=== PATIENT | female | born 1960 | race African-American/Black ===

== ENCOUNTER 2020-01-27 14:00 | Outpatient (RCR) | payer MEDICARE, MEDICAID, SELFPAY ==
--- NOTE | 2019-12-24 17:26 | MHC.PT.EP ---
[facility] [place] Office [place] Office [place] Office [address] Candido Vail [address] [phone] F: [phone] F: [phone] F: [phone] F: [phone] Physical Therapy Plan of Care Date of Evaluation: 12/24/19 Date of Surgery: N/A Diagnosis: I69.30 history of CVA with residual deficit Assessment: pt presents to physical therapy with pain, decreased range of motion, decreased strength, impaired functional mobility, impaired postural awareness, and gait deviations. pt is a fair candidate for skilled PT due to age, potential remediation of impairments, typical disease/condition progression and prognosis, comorbidities, and motivation. pt would benefit from tailored strengthening and stretching exercise program, functional training, gait training, postural re-training, neuromuscular re-education, modalities as needed for pain, and equipment safety demonstration. Frequency and Duration: The patient will be seen 2x/wk for 4 wks Short Term Goals: pt will be min A w/ her HEP to promote self-management of condition. pt will improve L knee extension to 0 deg to facilitate normalized gait pattern on even ground w/ LRAD. Arch Support Technician Goals: pt will participate in 6MWT to determine cardiovascular endurance and safe ambulation distance. pt will participate in 5xSTS to determine fall risk and cardiovascular endurance. Treatment Plan: Modalities to reduce pain, spasms and effusion. Manual therapy to restore motion and function. Therapeutic exercise to improve strength and flexibility. Neuromuscular re-education for posture and balance. Therapeutic activities to return to functional activities of daily living. Please sign and return to therapist. Thank you for your referral.
--- NOTE | 2020-02-05 09:40 | MHC.PT.DC ---
[facility] [place] Office [place] Office [place] Office [address] Candido Vail [address] [phone] F: [phone] F: [phone] F: [phone] F: [phone] Physical Therapy Discharge Report Diagnosis: I69.30 history of CVA with residual deficit Date of Surgery: N/A Date of Evaluation: 12/24/19 Date of Discharge: 02/05/20 Treatments to Date: 8 Cancellations to Date: 3 No Shows to Date: 1 Discharge Status: Improved Function Independent with HEP Discharge Summary: The patient has been reporting less knee pain and overall increased flexibility of the affected lower extremity. She continues to require cueing for performance of her exercises but she has improved since the beginning of this plan of care. She is independent with exercises we have prioritized to improve her function as well as strength and range of motion. She is discharged from this physical therapy plan of care. Electronically signed by: Julianne Ureña PT, DPT Please sign and return to therapist. Thank you for your referral.
== END 2020-02-05 09:41 | disposition other institution (70) ==
LOC: HO.PT 14:00
PROVIDERS: PCP Internal Medicine; Visit Provider Internal Medicine
DX: I69.30 Unspecified sequelae of cerebral infarction (principal)
CPT/HCPCS: 97110; 97162; 97530

== ENCOUNTER → 2020-05-24 09:30 | Outpatient (BNVA) | payer MEDICARE, MEDICAID, SELFPAY | PROVIDERS: PCP Internal Medicine; Referring Provider Internal Medicine; Visit Provider Urology | DX: Z13.89 Encounter for screening for other disorder (principal) | CPT/HCPCS: Q3014 ==

== ENCOUNTER 2020-06-24 13:03 | Outpatient (REF) | payer MEDICARE, MEDICAID, SELFPAY ==
--- NOTE | ~2020-06-24 | XR_ITS ---
EXAMINATION: XR CHEST CLINICAL INFORMATION: Cough COMPARISON: None TECHNIQUE: 2 views of the chest were obtained. FINDINGS: The cardiac and mediastinal contours are normal. The lungs are clear. There is no pleural effusion or pneumothorax. Bony structures are unremarkable. XR/XR chest 2V IMPRESSION: Unremarkable examination.
[2020-06-24 14:02] LABS: MANUAL DIFF FLAG NO
[2020-06-24 14:17] LABS: Basophils Percent Auto 0.4 % (0-2); Eosinophils Absolute Auto 0.2 X10*3/uL (0.0-0.4); Eosinophils Percent Auto 2.8 % (0-4); Hematocrit 42.6 % (37-47); Hemoglobin 13.4 g/dl (12.0-16.0); Imm Gran Abs Auto 0.02 X10*3/uL (0.00-0.03); Imm Gran Pct Auto 0.2 % (0.0-0.4); Lymphocytes Absolute Auto 2.5 X10*3/uL (1.2-4.9); Mean Corpuscular HGB Conc 31.5 g/dl (31.0-35.0); Mean Corpuscular Hemoglobin 27.6 pg (27.0-33.0); Mean Corpuscular Volume 87.8 fL (80-98); Mean Platelet Volume 10.6 fL (9.4-12.3); Monocytes Absolute Auto 0.6 X10*3/uL (0.1-1.2); Monocytes Percent Auto 6.8 % (2-11); Neutrophils Absolute Auto 5.1 X10*3/uL (2.0-8.3); Neutrophils Percent Auto 60.8 % (45-73); Platelet Count 314 X10*3/uL (160-400); Red Blood Count 4.85 X10*6/uL (4.20-5.50); Red Cell Distribution Width 13.3 % (11.0-16.0); White Blood Count 8.4 X10*3/uL (4.8-10.8)
[2020-06-24 14:42] LABS: Alanine Aminotransferase 20 U/L (0-31); Albumin Level 4.3 g/dL (3.5-5.0); Alkaline Phosphatase 64 U/L (39-117); Anion Gap 14 (12-20); Aspartate Amino Transferase 18 U/L (5-31); Bilirubin Total 0.6 mg/dL (0.0-1.0); Blood Urea Nitrogen 14 mg/dL (9-16); Calcium 10.5 mg/dL (8.4-10.2); Carbon Dioxide 23 mmol/L (22-29); Chloride 109 mmol/L (96-108); Cholesterol 122 mg/dL; Estimated Glomerular Filt Rate > 60; Glucose Random 99 mg/dL (60-115); HDL Cholesterol 46 mg/dL; LDL Cholesterol Calculated 63 mg/dl; Potassium 4.5 mmol/L (3.3-5.1); Sodium 141 mmol/L (135-145); Total Protein 8.3 g/dL (6.5-8.0); Triglycerides 65 mg/dL
[2020-06-24 14:46] LABS: Free T4 (Free Thyroxine) 1.07 ng/dL (0.71-1.85); Thyroid Stimulating Hormone 0.71 uIU/mL (0.32-4.0)
[2020-06-24 14:57] LABS: Folate 8.7 ng/mL (> or = 4.0); Vitamin B12 295 pg/mL (200-900)
== END 2020-06-24 13:04 | disposition home or self-care (01) ==
LOC: HO.LAB 13:03
PROVIDERS: PCP Internal Medicine; Visit Provider Internal Medicine
DX: I69.30 Unspecified sequelae of cerebral infarction (principal); R05 Cough; E78.00 Pure hypercholesterolemia, unspecified
CPT/HCPCS: 36415; 71046; 80053; 80061; 82306; 82607; 82746; 84439; 84443; 85025

== ENCOUNTER 2020-07-04 09:17 | Day surgery (SDC) | payer MEDICARE, MEDICAID, SELFPAY ==
[2020-06-22 10:11] VITALS: BMI 36.0
--- NOTE | 2020-06-23 12:41 | P.CONAN_ITS ---
Documented by User: Shraddha Menard 06/27/20 13:48 HPI - Anesthesia Eval Consult details Narrative: 60yo F for Cystoscopy Botox Injection Plavix for h/o CVA Per 05/2020 PCP note, pt with cough x 2 months (probably allergies). Lab and CXR pending. Done 06/24/20 - unremarkable exam PMFSH Active Problems Active Problems: All Active Problems (Updated 06/22/20 @ 10:11 by Abby Kenyon) Urinary urgency (Acute) Hypertension (Acute) Breast cancer screening by mammogram (Acute) Tubular adenoma of colon (Acute) Cough (Acute) History of CVA with residual deficit (Acute) Allergic rhinitis (Acute) Past Medical History Medical History (Updated 06/22/20 @ 10:11 by Abby Kenyon) ADHD (attention deficit hyperactivity disorder) Allergic rhinitis Anxiety Hemiparesis History of asthma History of CVA with residual deficit Hypercalcemia Hyperparathyroidism PONV (postoperative nausea and vomiting) Sleep apnea in adult Family History Family History Father HTN (hypertension) Mother HTN (hypertension) Surgical History Surgical History (Updated 06/22/20 @ 10:09 by Abby Kenyon) Hx of arthroscopy of left knee Hx of breast surgery Hx of section Hx of colonoscopy Hx of hysterectomy Hx of tonsillectomy Social History Social History (Updated 06/22/20 @ 09:26 by Abby Kenyon) Alcohol intake: never Smoking Status: Former smoker Smoking Quit Date: 2016 Use of substances other than those prescribed or required for medical reasons: No Are you DNR?: No Advance Directives: No Advance Directives Information Provided: No Advance Directives on File: No Meds Allergies Allergy/AdvReac Type Severity Reaction Status Date / Time hydrocodone [HYDROCODONE] Allergy Severe RASH Verified 07/04/20 11:08 perfume Allergy Intermediate Shortness Verified 06/22/20 09:43 of Breath Seasonal Allergies Allergy Intermediate Watery Verified 06/22/20 09:43 Eye, sneezing Home Medications Medication Instructions Recorded Confirmed Last Taken Type cholecalciferol (vitamin D3) 50 50 mcg PO DAILY 05/24/20 06/22/20 Unknown History mcg (2,000 unit) capsule mirabegron 50 mg tablet,extended 50 mg PO BID 05/24/20 06/22/20 Unknown History release 24 hr venlafaxine 75 mg capsule,extended 75 mg PO DAILY 05/24/20 06/22/20 Unknown History release 24 hr aspirin [Aspir-81] 81 mg PO DAILY 06/22/20 06/22/20 Unknown History Exam Exam Date and Time: June 23, 2020 1241 Height,Weight and Vital Signs: Height 5 ft 4 in Weight 95.254 kg Narrative Narrative: XR chest 2V 06/24/20 IMPRESSION: Unremarkable examination. Assessment and Plan Assessment Anesthesia Assessment: Chart Reviewed Documented by User: Julianne Clark 07/04/20 12:10 PMFSH Past Medical History Medical History (Updated 06/22/20 @ 10:11 by Abby Kenyon) ADHD (attention deficit hyperactivity disorder) Allergic rhinitis Anxiety Hemiparesis History of asthma History of CVA with residual deficit Hypercalcemia Hyperparathyroidism PONV (postoperative nausea and vomiting) Sleep apnea in adult Family History Family History Father HTN (hypertension) Mother HTN (hypertension) Surgical History Surgical History (Updated 06/22/20 @ 10:09 by Abby Kenyon) Hx of arthroscopy of left knee Hx of breast surgery Hx of section Hx of colonoscopy Hx of hysterectomy Hx of tonsillectomy Social History Social History (Updated 06/22/20 @ 09:26 by Abby Kenyon) Alcohol intake: never Smoking Status: Former smoker Smoking Quit Date: 2016 Use of substances other than those prescribed or required for medical reasons: No Are you DNR?: No Advance Directives: No Advance Directives Information Provided: No Advance Directives on File: No Meds Allergies Allergy/AdvReac Type Severity Reaction Status Date / Time hydrocodone [HYDROCODONE] Allergy Severe RASH Verified 07/04/20 11:08 perfume Allergy Intermediate Shortness Verified 06/22/20 09:43 of Breath Seasonal Allergies Allergy Intermediate Watery Verified 06/22/20 09:43 Eye, sneezing Home Medications Medication Instructions Recorded Confirmed Last Taken Type cholecalciferol (vitamin D3) 50 50 mcg PO DAILY 05/24/20 06/22/20 Unknown History mcg (2,000 unit) capsule mirabegron 50 mg tablet,extended 50 mg PO BID 05/24/20 06/22/20 Unknown History release 24 hr venlafaxine 75 mg capsule,extended 75 mg PO DAILY 05/24/20 06/22/20 Unknown History release 24 hr aspirin [Aspir-81] 81 mg PO DAILY 06/22/20 06/22/20 Unknown History Exam Airway Mallampati Class: II (Missing multiple teeth) TM Dist: >3cm Neck ROM: Full Heart: RrRR Lungs: CTA Assessment and Plan Assessment Anesthesia Assessment: Anesthesia Plan Discussed and Chart Reviewed Final Anesthetic Review NPO: Yes ASA Class: II Final Preanesthetic Review: No Changes in Pt Med Stat and Consent Obt ained/Reviewed Patient Risk: Intermediate Procedure Risk: Intermediate Anesthetic Plan Anesthetic Plan: MAC: Disposition: Standard PACU
[2020-07-04 10:56] VITALS: BP 176/102; PULSE 65; RESP 16; TEMP 36.2; O2SAT 95
[2020-07-04] MEDS: Lactated Ringers 1,000 ML 100 ML IVCONT (11:10)
[2020-07-04] MEDS: levoFLOXacin 500 MG TABLET PO (11:13)
--- NOTE | 2020-07-04 11:35 | MHC.SHP ---
Pre-Procedural Eval Section A The patient is an INPATIENT: No Changes since office visit: No Cold of Flu in the past 2 weeks, No New Medical Problems, No Changes in Medication and No Patient answered all questions The History & Physical has been completed within 30 days and I have reviewed it.: Yes Section B Chief Complaint: urgency of urination Allergies: Allergies Allergy/AdvReac Type Severity Reaction Status Date / Time hydrocodone [HYDROCODONE] Allergy Severe RASH Verified 07/04/20 11:08 perfume Allergy Intermediate Shortness Verified 06/22/20 09:43 of Breath Seasonal Allergies Allergy Intermediate Watery Verified 06/22/20 09:43 Eye, sneezing Plan Diagnosis/Plan: Unchanged (cysto bladder botox) I have reviewed the history and physical and performed a pertinent physical examination on my patient. No changes have occurred unless specified.
[2020-07-04 12:51] VITALS: BP 105/60; PULSE 73; RESP 16; TEMP 36.2; O2SAT 95
--- NOTE | 2020-07-04 12:56 | W.PM.OPN ---
Operative Note Operative Note Date of Service: 07/04/20 Narrative: PreOperative Diagnosis: Overactive bladder Post Operative Diagnosis: Overactive bladder Procedure: Cystoscopy, Botox Surgeon: Dr Dave Jones Anesthesia: Sedation Indications for procedure: Has failed oral medications, multiple different classes. Still with urgency frequency and nocturia. Recommendation for Botox. Aware there is a risk of urinary retention and catheterization Procedure: After informed consent was verified the patient was brought to the operating room and placed in a supine position. Anesthesia was administered per protocol. The patient was placed in a modified dorsal lithotomy position and prepped and draped in a sterile fashion. Twenty-two [place] cystoscope was inserted per urethra. No abnormalities noted of her bladder and ureteric orifices seen in normal position. Twenty injections were main the back wall of bladder each a 0.5 cc. This was done from 10 cc of normal saline that contained 100 units of Botox. Procedure was tolerated well. Bladder was emptied. Lidocaine jelly was placed in the bladder for postprocedure discomfort. Patient was transferred in stable condition to the recovery area Pathology: Drains:
[2020-07-04] MEDS: Phenazopyridine HCL 100 MG TABLET PO (13:10)
[2020-07-04 13:11] VITALS: BP 143/86; PULSE 72; RESP 18
[2020-07-04 13:18] VITALS: BP 144/87; PULSE 69; RESP 16; O2SAT 96
== END 2020-07-04 14:47 | disposition home or self-care (01) ==
PROVIDERS: PCP Internal Medicine; Visit Provider Urology
PROC: 3E0K8GC Introduction of Other Therapeutic Substance into Genitourinary Tract, Via Natural or Artificial Opening Endoscopic (ICD-10-PCS; CPT 52287; principal; 2020-07-04 11:10)
DX: N32.81 Overactive bladder (principal); R35.1 Nocturia; R39.15 Urgency of urination; R35.0 Frequency of micturition; I69.954 Hemiplegia and hemiparesis following unspecified cerebrovascular disease affecting left non-dominant side; Z87.891 Personal history of nicotine dependence; Z88.8 Allergy status to other drugs, medicaments and biological substances; Z79.82 Long term (current) use of aspirin; Z79.899 Other long term (current) drug therapy
CPT/HCPCS: 52287; J0585

== ENCOUNTER → 2020-07-21 09:21 | Outpatient (BNVA) | payer MEDICARE, MEDICAID, SELFPAY | PROVIDERS: PCP Internal Medicine; Visit Provider Urology | DX: I69.30 Unspecified sequelae of cerebral infarction (principal); N32.81 Overactive bladder; R39.15 Urgency of urination | CPT/HCPCS: 51798; 99212 ==

== ENCOUNTER 2020-07-29 10:11 | Outpatient (REF) | payer MEDICARE, MEDICAID, SELFPAY ==
--- NOTE | ~2020-07-29 | MM_ITS ---
EXAMINATION: MM SCREENING DIGITAL BREAST TOMOSYNTHESIS, BILATERAL CLINICAL INFORMATION: Screening. Asymptomatic. Reduction mammoplasty 2006. The lifetime risk of breast cancer based on the Tyrer-Cuzick Model is 4%. COMPARISON: Mammography: 04/07/2019, 04/01/2018, 11/28/2015 TECHNIQUE: Digital breast tomosynthesis is performed in both the craniocaudal and mediolateral oblique views along with computer-aided detection (CAD). Synthesized 2D images are generated from the tomosynthesis. FINDINGS: There are scattered areas of fibroglandular density (ACR BI-RADS breast composition Category b). Parenchymal pattern is similar to prior exams. There is old bilateral scarring, mid left dystrophic calcifications, and 2 small incidental oil cysts right breast consistent with the prior reduction mammoplasty. The parenchymal distribution and fibroglandular densities are stable. There is no developing density or interval mass or architectural abnormality. No abnormal calcifications. No significant changes. MM/MM tomosynthesis screening BI IMPRESSION: No mammographic evidence of malignancy. Chronic post reduction changes. No significant change from prior exams. ASSESSMENT: BI-RADS 2: Benign RECOMMENDATION: Routine annual mammography screening. This patient's information was entered into a reminder system with a target due date for their next mammogram.
== END 2020-07-29 10:12 | disposition home or self-care (01) ==
LOC: HO.MAMMO 10:11
PROVIDERS: Visit Provider Internal Medicine
DX: Z12.31 Encounter for screening mammogram for malignant neoplasm of breast (principal)
CPT/HCPCS: 77063; 77067

== ENCOUNTER 2020-08-19 16:28 | Outpatient (REF) | payer MEDICARE, MEDICAID, SELFPAY ==
--- NOTE | ~2020-08-19 | US_ITS ---
EXAMINATION: US VENOUS ULTRASOUND WITH DOPPLER LOWER EXTREMITY, LEFT CLINICAL INFORMATION: Left lower extremity edema COMPARISON: None TECHNIQUE: Ultrasound of the deep veins is performed from the hip to the calf with compression sonography and color and pulse Doppler assessment. Spectral analysis with color-flow imaging is performed. FINDINGS: There is normal venous compression and respiratory variation and augmented flow. The visualized common femoral vein, superficial femoral vein, profunda femoral vein, popliteal vein, and the trifurcation region shows no evidence of deep venous thrombosis. There is no significant popliteal fossa cyst. If the patient's symptoms persist, followup ultrasound in 5 days 7 days might be of value to exclude proximal propagation from a non-visualized calf vein. US/US venous duplex LE LT IMPRESSION: No DVT demonstrated in the left lower extremity.
== END 2020-08-19 16:29 | disposition home or self-care (01) ==
LOC: HO.US 16:28
PROVIDERS: PCP Internal Medicine; Visit Provider Nurse Practitioner Family
DX: R60.0 Localized edema (principal)
CPT/HCPCS: 93971

== ENCOUNTER → 2020-08-25 09:07 | Outpatient (BNVA) | payer MEDICARE, MEDICAID, SELFPAY | PROVIDERS: PCP Internal Medicine | DX: R39.15 Urgency of urination (principal) | CPT/HCPCS: 51798; 99212 ==

== ENCOUNTER 2020-09-23 13:00 | Outpatient (RCR) | payer MEDICARE, MEDICAID, SELFPAY ==
--- NOTE | 2020-09-09 15:35 | MHC.PT.EP ---
[facility] [place] Office [place] Office [place] Office [address] Candido Vail [address] [phone] F: [phone] F: [phone] F: [phone] F: [phone] Physical Therapy Plan of Care Date of Evaluation: Date of Surgery: N/A Diagnosis: unspecified sequelae of cerebral infarction Assessment: pt presents to skilled PT w/ apparent decline in functional mobility and subjective reports of increased knee pain and reduced tolerance for ADLs. pt presents to physical therapy with pain, decreased range of motion, decreased strength, impaired functional mobility, impaired postural awareness, and gait deviations. pt is a fair candidate for skilled PT due to age, potential remediation of impairments, typical disease/condition progression and prognosis, comorbidities, and motivation. pt would benefit from tailored strengthening and stretching exercise program, functional training, gait training, postural re-training, neuromuscular re-education, modalities as needed for pain, equipment safety demonstration. Frequency and Duration: The patient will be seen 2x/wk for 4 wks Short Term Goals: pt will improve L ankle DF to >3/5 to improve foot clearance w/ gait on even ground w/ LRAD. pt will improve L hamstring length by 15 degrees to improve knee extension w/ initial contact of L LE. Lead Bi Developer Goals: pt will report a statistically significant improvement in self-reported outcome measure, LEFI, to promote return to PLOF. pt will report <2/10 L knee pain w/ ambulation 3 x 50' to promote pain-free return to access of primary living spaces within her home. Treatment Plan: Modalities to reduce pain, spasms and effusion. Manual therapy to restore motion and function. Therapeutic exercise to improve strength and flexibility. Neuromuscular re-education for posture and balance. Therapeutic activities to return to functional activities of daily living. Electronically signed by: Julianne Ureña PT, DPT Please sign and return to therapist. Thank you for your referral.
--- NOTE | 2020-10-06 18:21 | MHC.PT.DC ---
[facility] [place] Office [place] Office [place] Office [address] Candido Vail 140 [facility] [phone] F: [phone] F: [phone] F: [phone] F: [phone] Physical Therapy Discharge Report Diagnosis: unspecified sequelae of cerebral infarction Date of Surgery: N/A Date of Evaluation: 09/09/20 Date of Discharge: 10/06/20 Treatments to Date: 3 Cancellations to Date: 2 No Shows to Date: 2 Discharge Status: Visit Non-compliance Discharge Summary: The patient has no showed two consecutive appointments. Per [facility] Core Therapy policy she is to be discharged for non-compliance. The patient has had several plans of care where she has been discharged for non-compliance as she often arrives late or does not call to cancel her appointments. Unclear if she is an appropriate candidate for future outpatient services. Electronically signed by: Julianne Ureña PT, DPT Please sign and return to therapist. Thank you for your referral.
== END 2020-10-06 18:21 | disposition home or self-care (01) ==
LOC: HO.PT 13:00
PROVIDERS: PCP Internal Medicine; Visit Provider Internal Medicine
DX: I69.30 Unspecified sequelae of cerebral infarction (principal)
CPT/HCPCS: 97112; 97140; 97162; 97530

== ENCOUNTER 2020-09-27 11:22 | Outpatient (REF) | payer MEDICARE, MEDICAID, SELFPAY ==
[2020-09-29 22:36] LABS: HPV mRNA E6/E7 rflx Not Detected (Not Detected)
== END 2020-09-27 11:23 | disposition home or self-care (01) ==
LOC: HO.LAB 11:22
PROVIDERS: PCP Internal Medicine; Visit Provider Advanced Practice Midwife
DX: Z01.419 Encounter for gynecological examination (general) (routine) without abnormal findings (principal); Z11.51 Encounter for screening for human papillomavirus (HPV)
CPT/HCPCS: 87624; 88142

== ENCOUNTER → 2020-10-27 09:16 | Outpatient (BNVA) | payer MEDICARE, MEDICAID, SELFPAY | DX: N32.81 Overactive bladder (principal) | CPT/HCPCS: 51798; 99212 ==

== ENCOUNTER → 2021-01-24 13:05 | Outpatient (BNVA) | payer MEDICARE, MEDICAID, SELFPAY | PROVIDERS: PCP Internal Medicine; Visit Provider Urology | DX: N32.81 Overactive bladder (principal); R35.0 Frequency of micturition; E83.52 Hypercalcemia; I69.359 Hemiplegia and hemiparesis following cerebral infarction affecting unspecified side; I10 Essential (primary) hypertension; Z87.891 Personal history of nicotine dependence; Z82.49 Family history of ischemic heart disease and other diseases of the circulatory system | CPT/HCPCS: 52000; 52287; J0585 ==

== ENCOUNTER → 2021-02-07 09:17 | Outpatient (BNVA) | payer MEDICARE, MEDICAID, SELFPAY | PROVIDERS: PCP Internal Medicine; Visit Provider Urology | DX: N32.81 Overactive bladder (principal) | CPT/HCPCS: 51798; 99212 ==

== ENCOUNTER → 2021-06-07 10:07 | Outpatient (BNVA) | payer MEDICARE, MEDICAID, SELFPAY | PROVIDERS: PCP Internal Medicine; Visit Provider Urology | DX: N32.81 Overactive bladder (principal) | CPT/HCPCS: 51798; 99212 ==

== ENCOUNTER 2021-07-31 11:00 | Outpatient (REF) | payer MEDICARE, MEDICAID, SELFPAY ==
--- NOTE | ~2021-07-31 | MM_ITS ---
EXAMINATION: MM SCREENING DIGITAL BREAST TOMOSYNTHESIS, BILATERAL CLINICAL INFORMATION: Screening. Asymptomatic. The lifetime risk of breast cancer based on the Tyrer-Cuzick Model is 3.8%. COMPARISON: Mammography: 07/29/2020 and studies dating back to 04/25/2010. TECHNIQUE: Digital breast tomosynthesis is performed in both the craniocaudal and mediolateral oblique views along with computer-aided detection (CAD). Synthesized 2D images are generated from the tomosynthesis. FINDINGS: There are scattered areas of fibroglandular density (ACR BI-RADS breast composition Category b). About the anterior-inferior aspect of the left breast, there is a partially circumscribed 5 mm density adjacent to a 3 mm density. These may represent turn of vessels versus new circumscribed lesions. Spot compression view and possible ultrasound is recommended. There is a stable parenchymal pattern of the right breast. Bilateral postsurgical changes from breast reduction surgery evident. MM/MM tomosynthesis screening BI IMPRESSION: Question new developing density anterior aspect of the left breast for which spot compression film and possible ultrasound is recommended. ASSESSMENT: BI-RADS 0: Incomplete - Need Additional Imaging Evaluation RECOMMENDATION: 1. Additional views of the left breast. 2. Targeted ultrasound if warranted after review of the additional views. 3. Radiology department staff will contact the patient for additional imaging. This patient's information was entered into a reminder system with a target due date for their next mammogram.
== END 2021-07-31 11:01 | disposition home or self-care (01) ==
LOC: HO.MAMMO 11:00
PROVIDERS: PCP Internal Medicine; Visit Provider Internal Medicine
DX: Z12.31 Encounter for screening mammogram for malignant neoplasm of breast (principal)
CPT/HCPCS: 77063; 77067

== ENCOUNTER 2021-09-01 14:03 | Outpatient (REF) | payer MEDICARE, SELFPAY ==
--- NOTE | ~2021-09-01 | MM_ITS ---
EXAMINATION: MM DIAGNOSTIC DIGITAL BREAST TOMOSYNTHESIS, LEFT CLINICAL INFORMATION: Recall for small nodular density retroareolar lower inner left breast. History reduction mammoplasty, 2006. COMPARISON: Mammography: 07/31/2021, 07/29/2020, 04/07/2019 TECHNIQUE: Digital breast tomosynthesis is performed. 2D images are generated from the tomosynthesis. The following views are obtained: Rolled CC x2, spot CC. Imaging performed during PACS downtime. Patient called by staff with results after IT recovery. FINDINGS: There are scattered areas of fibroglandular density (ACR BI-RADS breast composition Category b). Additional views confirm a circumscribed smooth nodule around 4 mm at the lower inner retroareolar area, just deep to the skin. There is a punctate fatty attenuation within the lesion suggesting fat necrosis. Finding not seen with certainty on prior mammography. There is minor scarring and old coarse calcifications related to the reduction mammoplasty. The nodule may be further characterized with targeted ultrasound. If patient is unable to return, then short interval six-month follow-up left mammography would be recommended. MM/MM tomosynthesis added views L IMPRESSION: New small circumscribed nodule lower inner retroareolar position with internal fatty deposit suspicious for a benign fat necrosis. ASSESSMENT: BI-RADS 3: Probably Benign RECOMMENDATION: -Suggest targeted ultrasound for further characterization. -If patient is unable to return, then short interval six-month follow-up left mammography would be recommended. This patient's information was entered into a reminder system with a target due date for their next mammogram.
== END 2021-09-01 14:04 | disposition home or self-care (01) ==
LOC: HO.MAMMO 14:03
PROVIDERS: PCP Internal Medicine; Visit Provider Internal Medicine
DX: R92.2 Inconclusive mammogram (principal)
CPT/HCPCS: 77061; 77065

== ENCOUNTER 2021-09-12 12:10 | Outpatient (REF) | payer MEDICARE, SELFPAY ==
[2021-09-12 12:39] LABS: MANUAL DIFF FLAG NO
[2021-09-12 12:44] LABS: Basophils Percent Auto 0.5 % (0-2); Eosinophils Absolute Auto 0.3 X10*3/uL (0.0-0.4); Eosinophils Percent Auto 3.6 % (0-4); Hematocrit 42.5 % (37.0-47.0); Hemoglobin 13.7 g/dl (12.0-16.0); Imm Gran Abs Auto 0.03 X10*3/uL (0.00-0.03); Imm Gran Pct Auto 0.4 % (0.0-0.4); Lymphocytes Absolute Auto 2.2 X10*3/uL (1.2-4.9); Lymphocytes Percent Auto 28.7 % (20-40); Mean Corpuscular HGB Conc 32.2 g/dl (31.0-35.0); Mean Corpuscular Hemoglobin 27.6 pg (27.0-33.0); Mean Corpuscular Volume 85.7 fL (80.0-98.0); Mean Platelet Volume 10.1 fL (9.4-12.3); Monocytes Absolute Auto 0.5 X10*3/uL (0.1-1.2); Monocytes Percent Auto 6.1 % (2-11); Neutrophils Absolute Auto 4.6 x10*3/uL (2.0-8.3); Neutrophils Percent Auto 60.7 % (45-73); Platelet Count 284 X10*3/uL (160-400); Red Blood Count 4.96 X10*6/uL (4.20-5.50); Red Cell Distribution Width 13.5 % (11.0-16.0); White Blood Count 7.5 X10*3/uL (4.8-10.8)
[2021-09-12 12:52] LABS: Estimated Average Glucose 120 mg/dL; Hemoglobin A1c % 5.8 %
[2021-09-12 13:08] LABS: Alanine Aminotransferase 34 U/L (0-31); Albumin Level 4.5 g/dL (3.5-5.0); Anion Gap 9 (12-20); Aspartate Amino Transferase 20 U/L (5-31); Bilirubin Total 0.6 mg/dL (0.0-1.0); Blood Urea Nitrogen 15 mg/dL (9-16); Calcium 10.2 mg/dL (8.4-10.2); Carbon Dioxide 25 mmol/L (22-29); Chloride 108 mmol/L (96-108); Cholesterol 134 mg/dL; Estimated Glomerular Filt Rate > 60; Glucose Random 117 mg/dL (60-115); HDL Cholesterol 49 mg/dL; LDL Cholesterol Calculated 73 mg/dl; Potassium 4.3 mmol/L (3.3-5.1); Sodium 138 mmol/L (135-145); Total Protein 8.2 g/dL (6.5-8.0); Triglycerides 63 mg/dL
[2021-09-12 13:17] LABS: Alkaline Phosphatase 67 U/L (39-117)
[2021-09-12 13:24] LABS: Free T4 (Free Thyroxine) 0.96 ng/dL (0.71-1.85); Thyroid Stimulating Hormone 0.74 uIU/mL (0.32-4.0); Vitamin D 25-OH Total 24.2 ng/mL (>30)
[2021-09-12 14:26] LABS: Folate 8.6 ng/mL (> or = 4.0); Vitamin B12 368 pg/mL (200-900)
[2021-09-12 14:37] LABS: Appearance Urine CLEAR; Color Urine YELLOW; Glucose Urine UA NEG (NEG); Leukocyte Esterase Urine NEG (NEG); Nitrite Urine NEG (NEG); PH 5.5 (5.0-8.0); Specific Gravity - Urine 1.025 (1.005-1.025); Urine Blood NEG (NEG); Urine Ketones NEG (NEG); Urine Protein NEG (NEG-TRACE)
[2021-09-12 14:47] LABS: Bacteria Urine TRACE /LPF; RBC Urine 0 /HPF (0); Squamous Epithelial Cell Urine 1+ /LPF; WBC Urine 0 /HPF (0-4)
[2021-09-13 05:25] LABS: HBS Num1 1.27 mIU/mL (0-7.99); HBc Num1 0.12 S/CO (0.00-0.79); HBsAGNum1 0.19 S/CO (0.00-0.99); Hepatitis B Core Antibody Nonreactive (Nonreactive); Hepatitis B Surface Antigen Negative (Negative); ~HepC Num1 0.08 S/CO (0.00-0.79); ~Hepatitis B Surface Antibody NONREACTIVE (Nonreactive); ~Hepatitis C Antibody Nonreactive (Nonreactive)
[2021-09-16 20:02] LABS: Acetylcholine Receptor Binding <0.30 nmol/L
[2021-09-16 22:56] LABS: Acetylcholine Recept. Blocking <15 (<15)
[2021-09-21 17:05] LABS: Acetylcholine Recep Modulating 16
== END 2021-09-12 12:11 | disposition home or self-care (01) ==
LOC: HO.LAB 12:10
PROVIDERS: Absent Provider Ophthalmology; PCP Internal Medicine; Visit Provider Internal Medicine
DX: I10 Essential (primary) hypertension (principal); I69.30 Unspecified sequelae of cerebral infarction; R79.89 Other specified abnormal findings of blood chemistry; E78.00 Pure hypercholesterolemia, unspecified; H02.403 Unspecified ptosis of bilateral eyelids; M81.0 Age-related osteoporosis without current pathological fracture
CPT/HCPCS: 36415; 80053; 80061; 81001; 82306; 82607; 82746; 83036; 83519; 84439; 84443; 85025; 86704; 86706; 86803; 87340

== ENCOUNTER 2021-09-13 15:00 | Outpatient (REF) | payer MEDICARE, SELFPAY ==
--- NOTE | ~2021-09-13 | US_ITS ---
EXAMINATION: US DIAGNOSTIC ULTRASOUND BREAST, LEFT CLINICAL INFORMATION: Density retroareolar region. COMPARISON: Mammography of September 01, 2021 and studies dating back to April 25, 2010. TECHNIQUE: Ultrasound of the breast is performed with real-time chawla scale imaging and color Doppler. FINDINGS: There is no focal suspicious finding. There is no solid mass, architectural abnormality, duct ectasia, or edema in the soft tissue planes. Results are discussed with the patient at time of visit. US/US breast LT limited IMPRESSION: No mammographic correlate to retroareolar density with central lucency left breast likely representing fat necrosis. Recommend 6 month follow-up left breast mammogram. ASSESSMENT: BI-RADS 3: Probably Benign RECOMMENDATION: Diagnostic mammography in 6 months. This patient's information was entered into a reminder system with a target due date for their next mammogram.
== END 2021-09-13 15:01 | disposition home or self-care (01) ==
LOC: HO.MAMMO 15:00
PROVIDERS: Visit Provider Internal Medicine
DX: R92.2 Inconclusive mammogram (principal)
CPT/HCPCS: 76642

== ENCOUNTER 2021-11-16 10:30 | Outpatient (REF) | payer MEDICARE, MEDICAID, SELFPAY | END 2021-11-16 10:31 | disposition home or self-care (01) | LOC: HO.SH 10:30 | PROVIDERS: Visit Provider Internal Medicine | DX: Z01.118 Encounter for examination of ears and hearing with other abnormal findings (principal); H90.3 Sensorineural hearing loss, bilateral | CPT/HCPCS: 92557; 92567 ==

== ENCOUNTER → 2021-11-29 10:58 | Outpatient (BNVA) | payer MEDICARE, MEDICAID, SELFPAY | PROVIDERS: PCP Internal Medicine; Visit Provider Urology | DX: N31.8 Other neuromuscular dysfunction of bladder (principal); N32.81 Overactive bladder; Z79.899 Other long term (current) drug therapy | CPT/HCPCS: 51798; 99212 ==

== ENCOUNTER 2021-12-12 15:09 | Outpatient (REF) | payer MEDICARE, MEDICAID, SELFPAY ==
--- NOTE | 2021-12-12 16:24 | MHC.AU.HFU ---
Hearing Instrument Follow-Up- Binaural Date of Visit: 12/12/21 Right Ear: Public Health Dentist: Phonak Audeo M50 R SN: [id number] Color: [place]alwood Repair Warranty: 01/26/2022 Loss and Damage Warranty: Used October 2021 Battery Size: Rechargeable Bricklayer Apprentice: 1M Type of Mold: Acrylic slim tip with canal lock SN: [id number] Type of Wax Guard: CeruStop Dispensed By: [facility] Date of Fitting: October 2018 Left Ear: Public Health Dentist: Phonak Audeo M50 R SN: [id number] Color: [place]alwood Repair Warranty: 01/26/2022 Loss and Damage Warranty: Used October 2021 Battery Size: Rechargeable Bricklayer Apprentice: 1M Type of Mold: Acrylic slim tip with canal lock SN: [id number] Type of Wax Guard: CeruStop Dispensed By: [facility] Date of Fitting: October 2018 Follow-Up Summary: Maya returned to picker operator her loss and damage replacement hearing aids and slim tip ear molds. Feedback central supply manager was performed and her hearing aids were reprogrammed. Reviewed care and use including charging, turning off/on, cleaning, and wax guard replacement. Maya reported today that she also lost her industrial gas fitter and power supply (not previously reported). Called [employer] customer service - per parts representative, Jackie, Leandro will send a new industrial gas fitter and power supply as a no charge courtesy (Reference #: [id number]). Maya was provided with a loaner industrial gas fitter to use in the meantime (SN: [id number]). Once aMya's new industrial gas fitter arrives, she will be contacted to picker operator her industrial gas fitter and drop off the loaner equipment. Recommendations: Patient will be contacted when materials have arrived. As her insurance has changed, Maya was informed that [place] [facility] [place] [facility] [place] [facility] Medicare Advantage plan for hearing aid services and that she will need to establish care with a new audiology provider. She was advised to call her insurance to inquire about in-network providers for future audiological needs. Diagnosis Code(s): Primary Diagnosis: H90.3 Bilateral Sensorineural Hearing Loss Signature: Provider: Jhon Cabello, [facility]
== END 2021-12-12 15:10 | disposition home or self-care (01) ==
LOC: HO.HAP 15:09
PROVIDERS: Visit Provider Internal Medicine
DX: Z13.89 Encounter for screening for other disorder (principal)

== ENCOUNTER 2021-12-19 11:51 | Outpatient (REF) | payer MEDICARE, MEDICAID, SELFPAY | END 2021-12-19 11:52 | disposition home or self-care (01) | LOC: HO.HAP 11:51 | PROVIDERS: Visit Provider Internal Medicine | DX: Z13.89 Encounter for screening for other disorder (principal) ==

== ENCOUNTER → 2022-01-04 15:03 | Outpatient (BNVA) | payer MEDICARE, MEDICAID, SELFPAY | PROVIDERS: PCP Internal Medicine; Visit Provider Urology | DX: N32.81 Overactive bladder (principal) | CPT/HCPCS: 52287; 52310; J0585 ==

== ENCOUNTER 2022-01-09 11:00 | Outpatient (RCR) | payer MEDICARE, MEDICAID, SELFPAY ==
--- NOTE | 2021-11-30 14:48 | MHC.OT.EP ---
[address] [phone] Occupational Therapy Plan of Care Date of Evaluation: 11/30/21 Diagnosis: s/p CVA with left hemiparesis Assessment: Pt. is a 61 y/o female who is known to this clinic with history of CVA in 2017. Pt. has residual left spastic hemiparesis with ataxic movement patterns that are limiting function. Pt. presents with limited shoulder AROM, increased flexor tone in elbow, hand pain, and decreased gross and fine motor coordination of the L UE. Pt. has DANCE PROFESSOR assist daily for basic ADL's and home making tasks. Maya would benefit from skilled OT services to address noted barriers and assist in reaching max functional potential. Frequency and Duration: The patient will be seen 2x/wk for 6 weeks Short Term Goals: Initiate HEP for left UE stretching Pt. will use left hand as a gross assist for ADL/IADL tasks Improve L shoulder flexion to reach counter height items when standing Improve L hand fine motor coordination AEB ability to perform FDT Signal Inspector Goals: IND with progressive strengthening HEP for L UE/hand Pt. will use left hand as a functional assist for ADL/IADL tasks Improve L shoulder ROM to reach overhead items Improve L hand FMC to be able to fasten buttons, zippers, ties independently Treatment Plan: Therapeutic Exercise Therapeutic Activity Home Exercise Program Neuro Re-ed Patient Education Desensitization/Sensory Re-ed ADL Training Fluidotherapy Joint Mobilization Soft Tissue Mobilization Kinesiotaping Electronically Signed By: Kasey Lroenz MS OTR/L Please Sign and return to therapist. Thank you once again for your referral.
== END 2022-03-15 14:20 | disposition home or self-care (01) ==
LOC: HO.OT 11:00
PROVIDERS: PCP Internal Medicine; Visit Provider Internal Medicine
DX: I69.30 Unspecified sequelae of cerebral infarction (principal)
CPT/HCPCS: 97110; 97112; 97166; 97530

== ENCOUNTER → 2022-01-24 09:09 | Outpatient (BNVA) | payer MEDICARE, MEDICAID, SELFPAY | PROVIDERS: PCP Internal Medicine; Visit Provider Urology | DX: N31.8 Other neuromuscular dysfunction of bladder (principal) | CPT/HCPCS: 51798 ==

== ENCOUNTER 2022-01-24 13:02 | Emergency (ER) | payer MEDICARE, MEDICAID, SELFPAY ==
[2022-01-24 15:55] VITALS: BP 188/106; PULSE 71; RESP 18; TEMP 37.1; O2SAT 98; BMI 32.5
--- NOTE | 2022-01-24 16:11 | ED.GENADULT ---
HPI - General Adult General Chief complaint: General Medical Stated complaint: HBP Time Seen by Provider: 01/24/22 16:05 Related Data Home Medications Medication Instructions Recorded Confirmed cholecalciferol (vitamin D3) 50 50 mcg PO DAILY 05/24/20 11/29/21 mcg (2,000 unit) capsule aspirin 81 mg tablet,delayed 81 mg PO DAILY 06/22/20 11/29/21 release Previous Rx's Medication Instructions Recorded baclofen 10 mg tablet 10 mg PO TID #90 tabs 01/09/20 fexofenadine 180 mg tablet 180 mg PO DAILY #90 tabs 12/29/20 albuterol sulfate 90 mcg/actuation 2 puff inhalation Q6H PRN 05/17/21 aerosol inhaler (ProAir HFA) shortness of breath or wheezing #8.5 grams lidocaine 5 % topical patch 1 patch topical DAILY 30 days #30 06/01/21 ea gabapentin 600 mg tablet 600 mg PO BID #60 tabs 06/27/21 methylphenidate HCl 5 mg tablet 5 mg PO BID #60 tabs 11/22/21 diclofenac sodium 1 % topical gel 4 g topical QID #100 grams 11/29/21 (Voltaren Arthritis Pain) venlafaxine 150 mg 150 mg PO BEDTIME #30 caps 11/29/21 capsule,extended release 24 hr (Effexor XR) mirabegron 50 mg tablet,extended 50 mg PO BID 90 days #180 tabs 12/21/21 release 24 hr phenazopyridine 100 mg tablet 100 mg PO Q8H PRN pain 3 days #9 12/21/21 (Pyridium) tabs sulfamethoxazole 800 1 tab PO BID 5 days #10 tabs 12/21/21 mg-trimethoprim 160 mg tablet (Bactrim DS) amlodipine 10 mg tablet 10 mg PO DAILY #90 tabs 01/23/22 clopidogrel 75 mg tablet 75 mg PO DAILY #90 tabs 01/23/22 lisinopril 40 mg tablet 40 mg PO DAILY 90 days #90 tabs 01/23/22 Allergies Allergy/AdvReac Type Severity Reaction Status Date / Time hydrocodone [HYDROCODONE] Allergy Severe RASH Verified 01/04/22 15:14 perfume Allergy Intermediate Shortness Verified 01/04/22 15:14 of Breath Seasonal Allergies Allergy Intermediate Watery Verified 01/04/22 15:14 Eye, sneezing PMFSH Past Medical History Medical History ADHD (attention deficit hyperactivity disorder) Adult general medical exam Allergic rhinitis Anxiety Breast cancer screening by mammogram Cervical cancer screening Encounter for gynecological examination Hemiparesis History of asthma History of CVA with residual deficit Hypercalcemia Hyperparathyroidism Left leg swelling Obesity (BMI 30-39.9) PONV (postoperative nausea and vomiting) Sleep apnea in adult Stroke Suspected exposure to mold Surgical History Hx of arthroscopy of left knee Hx of breast surgery Hx of section Hx of colonoscopy Hx of hysterectomy Hx of tonsillectomy S/P Botox injection Family History Family History Father HTN (hypertension) Mother HTN (hypertension) Social History Social History Housing: House Alcohol intake: never Patient Tobacco Use Status: Former Tobacco user e-Cigarette/Vaping Use: Never Used Second Hand Smoke Exposure: No Current occupational status: disabled Cognitive needs: No Hearing needs: No Vision needs: No Physical Exam ED Vital Signs: Vital Signs - 24 hr 01/24/22 15:55 Temperature 98.8 F Pulse Rate 71 Respiratory Rate 18 Blood Pressure 188/106 H Pulse Oximetry 98 Oxygen Delivery Method Room Air BMI result Body Mass Index 32.5 Discharge Plan Discharge Clinical Impression: Hypertension Qualifiers: Hypertension type: primary hypertension Qualified Code(s): I10 - Essential (primary) hypertension Patient Disposition: Home, Self-Care Instructions: Hypertension (ED) Additional Instructions: Your prescriptions are at your pharmacy. Take your medications as prescribed When she restart your medicine it sometimes takes 2-4 weeks for blood pressure to get under control. Follow-up with your doctor in 2 days. Please return to the emergency department if your symptoms get worse or if you develop any symptoms that are concerning to you. Prescriptions: No Action baclofen 10 mg tablet 10 mg PO TID Qty: 90 3RF fexofenadine 180 mg tablet 180 mg PO DAILY Qty: 90 3RF lidocaine 5 % adhesive patch,medicated 1 patch topical DAILY 30 Days Qty: 30 11RF Rx Instructions: leave on most painful area for up to 12 hrs gabapentin 600 mg tablet 600 mg PO BID Qty: 60 11RF methylphenidate HCl 5 mg tablet 5 mg PO BID Qty: 60 0RF mirabegron 50 mg tablet extended release 24 hr 50 mg PO BID 90 Days Qty: 180 1RF phenazopyridine [Pyridium] 100 mg tablet 100 mg PO Q8H PRN (Reason: pain) 3 Days Qty: 9 0RF Rx Instructions: one tab every 8 hours- start 2 days before procedure and then finish day after procedure sulfamethoxazole-trimethoprim [Bactrim DS] 800-160 mg tablet 1 tab PO BID 5 Days Qty: 10 0RF Rx Instructions: to be taken 2 days before procedure, day of procedure and 2 days after procedure clopidogrel 75 mg tablet 75 mg PO DAILY Qty: 90 2RF amlodipine 10 mg tablet 10 mg PO DAILY Qty: 90 2RF lisinopril 40 mg tablet 40 mg PO DAILY 90 Days Qty: 90 3RF aspirin 81 mg Tablet,Delayed Release (Dr/Ec) 81 mg PO DAILY albuterol sulfate [ProAir HFA] 90 mcg/actuation HFA aerosol inhaler 2 puff inhalation Q6H PRN (Reason: shortness of breath or wheezing) Qty: 8.5 0RF diclofenac sodium [Voltaren Arthritis Pain] 1 % gel 4 g topical QID Qty: 100 3RF Rx Instructions: apply to single knee, ankle, foot; for foot includes sole/toes/top of foot venlafaxine [Effexor XR] 150 mg capsule,extended release 24hr 150 mg PO BEDTIME Qty: 30 3RF cholecalciferol (vitamin D3) 50 mcg (2,000 unit) capsule 50 mcg PO DAILY
== END 2022-01-24 16:38 | disposition home or self-care (01) ==
PROVIDERS: Emergency Provider Emergency Medicine Emergency Medical Services; PCP Internal Medicine
DX: I10 Essential (primary) hypertension (principal)
CPT/HCPCS: 99282

== ENCOUNTER 2022-02-12 10:43 | Outpatient (REF) | payer MEDICARE, MEDICAID, SELFPAY ==
[2022-02-12 11:49] LABS: Appearance Urine Clear; Color Urine Yellow; Glucose Urine UA Negative (Negative); Leukocyte Esterase Urine Negative (Negative); Nitrite Urine Negative (Negative); Urine Blood Negative (Negative); Urine Ketones Negative (Negative); Urine Protein Negative (Neg-Trace)
== END 2022-02-12 10:44 | disposition home or self-care (01) ==
LOC: HO.LAB 10:43
PROVIDERS: PCP Internal Medicine; Visit Provider Urology
DX: N32.81 Overactive bladder (principal); R39.15 Urgency of urination
CPT/HCPCS: 51798; 81003

== ENCOUNTER 2022-03-21 13:26 | Outpatient (REF) | payer MEDICARE, MEDICAID, SELFPAY ==
--- NOTE | ~2022-03-21 | MM_ITS ---
EXAMINATION: MM DIAGNOSTIC DIGITAL BREAST TOMOSYNTHESIS, LEFT CLINICAL INFORMATION: Six-month followup study of the left breast nodule. Status post breast reduction surgery. The lifetime risk of breast cancer based on the Tyrer-Cuzick Model is 3.7%. COMPARISON: Mammography: Ultrasound of 09/13/2021 and mammography studies dating back to 11/28/2015. TECHNIQUE: Digital breast tomosynthesis is performed in both the craniocaudal and mediolateral oblique views along with computer-aided detection (CAD). Synthesized 2-D images are generated from the tomosynthesis. FINDINGS: There are scattered areas of fibroglandular density (ACR BI-RADS breast composition Category b). There are no new significant masses, abnormal calcifications, or other abnormalities. The density about the anterior aspect of the left breast appears smaller than on prior study. Recommend bilateral mammography in 6 months. Results are provided to the patient at time of visit by the technologist. MM/MM tomosynthesis diagnostic LT IMPRESSION: No mammographic evidence of malignancy. Left breast nodule appears smaller in size. ASSESSMENT: BI-RADS 3: Probably Benign. RECOMMENDATION: Diagnostic mammography in 6 months. This patient's information was entered into a reminder system with a target due date for their next mammogram.
== END 2022-03-21 13:27 | disposition home or self-care (01) ==
LOC: HO.MAMMO 13:26
PROVIDERS: PCP Internal Medicine; Visit Provider Internal Medicine
DX: R92.2 Inconclusive mammogram (principal)
CPT/HCPCS: 77061; 77065

== ENCOUNTER 2022-07-02 14:45 | Outpatient (REF) | payer MEDICARE, MEDICAID, SELFPAY ==
--- NOTE | ~2022-07-02 | US_ITS ---
EXAMINATION: US EXTREMITY, NONVASCULAR, LEFT LOWER CLINICAL INDICATION: Localized swelling, mass and lump left lower limb. COMPARISON: None available. TECHNIQUE: Limited imaging through the left distal thigh mass was performed. FINDINGS: There is a lobulated hypoechoic heterogeneous abnormality along the left intramuscular segment of distal thigh question mass, question of lipoma/histiocytoma/myoma, less likely hematoma. The lesion is suspicious. Recommend MRI or ultrasound-guided biopsy. US/US extremity nonvascular IMPRESSION: Infiltrative hypoechoic solid avascular intramuscular mass left distal thigh. Differential diagnoses lipoma or myoma, less likely hematoma.. Recommend MRI or ultrasound-guided biopsy
== END 2022-07-02 14:46 | disposition home or self-care (01) ==
LOC: HO.US 14:45
PROVIDERS: Visit Provider Internal Medicine
DX: R22.42 Localized swelling, mass and lump, left lower limb (principal)
CPT/HCPCS: 76882

== ENCOUNTER → 2022-07-13 11:12 | Outpatient (BNVA) | payer MEDICARE, MEDICAID, SELFPAY | PROVIDERS: PCP Internal Medicine; Visit Provider Urology | DX: N31.8 Other neuromuscular dysfunction of bladder (principal); N32.81 Overactive bladder | CPT/HCPCS: 51798; 99212 ==

== ENCOUNTER 2022-08-01 11:07 | Outpatient (REF) | payer MEDICARE, MEDICAID, SELFPAY ==
--- NOTE | ~2022-08-01 | MM_ITS ---
EXAMINATION: MM DIAGNOSTIC DIGITAL BREAST TOMOSYNTHESIS, BILATERAL CLINICAL INFORMATION: Due for yearly. Also follow-up small probable nodule suspected fat necrosis lower inner periareolar left breast. History reduction mammoplasty, 2006. The lifetime risk of breast cancer based on the Tyrer-Cuzick Model is 3%. COMPARISON: Mammography 03/21/2022, 09/01/2021, 07/31/2021 (BI-RADS 0), 04/07/2019, 04/01/2018, left breast ultrasound 09/13/2021. TECHNIQUE: Digital breast tomosynthesis is performed in both the craniocaudal and mediolateral oblique views along with computer-aided detection (CAD). Synthesized 2D images are generated from the tomosynthesis. FINDINGS: There are scattered areas of fibroglandular density (ACR BI-RADS breast composition Category b). Parenchymal pattern is similar to prior studies. There is minor scarring, scattered benign coarse calcifications, some oil cysts, and minor stable asymmetries similar to prior exams and consistent with the remote reduction mammoplasty. There is no developing density or interval architectural abnormality. The small benign-appearing nodule for follow-up anterior lower inner left breast is no longer demonstrated. The axilla and skin contours are unremarkable. Results are discussed with the patient at time of visit. MM/MM tomosynthesis diagnostic BI IMPRESSION: No mammographic evidence of malignancy. ASSESSMENT: BI-RADS 2: Benign RECOMMENDATION: Routine annual mammography screening. This patient's information was entered into a reminder system with a target due date for their next mammogram.
== END 2022-08-01 11:08 | disposition home or self-care (01) ==
LOC: HO.MAMMO 11:07
PROVIDERS: PCP Internal Medicine; Visit Provider Internal Medicine
DX: R92.2 Inconclusive mammogram (principal)
CPT/HCPCS: 77062; 77066

== ENCOUNTER 2022-08-24 12:21 | Outpatient (REF) | payer MEDICARE, MEDICAID, SELFPAY ==
[2022-08-24 12:39] LABS: MANUAL DIFF FLAG NO
[2022-08-24 13:08] LABS: Basophils Absolute Auto 0.1 X10*3/uL (0.0-0.2); Basophils Percent Auto 0.6 % (0-2); Eosinophils Absolute Auto 0.2 X10*3/uL (0.0-0.4); Eosinophils Percent Auto 2.4 % (0-4); Hematocrit 44.1 % (37.0-47.0); Hemoglobin 14.3 g/dl (12.0-16.0); Imm Gran Abs Auto 0.03 X10*3/uL (0.00-0.03); Imm Gran Pct Auto 0.3 % (0.0-0.4); Lymphocytes Absolute Auto 2.1 X10*3/uL (1.2-4.9); Lymphocytes Percent Auto 24.9 % (20-40); Mean Corpuscular HGB Conc 32.4 g/dl (31.0-35.0); Mean Corpuscular Hemoglobin 28.4 pg (27.0-33.0); Mean Corpuscular Volume 87.5 fL (80.0-98.0); Mean Platelet Volume 10.3 fL (9.4-12.3); Monocytes Absolute Auto 0.6 X10*3/uL (0.1-1.2); Monocytes Percent Auto 6.4 % (2-11); Neutrophils Absolute Auto 5.6 x10*3/uL (2.0-8.3); Neutrophils Percent Auto 65.4 % (45-73); Platelet Count 307 X10*3/uL (160-400); Red Blood Count 5.04 X10*6/uL (4.20-5.50); Red Cell Distribution Width 13.2 % (11.0-16.0); White Blood Count 8.6 X10*3/uL (4.8-10.8)
[2022-08-24 13:50] LABS: Alanine Aminotransferase 28 U/L (0-31); Albumin Level 4.5 g/dL (3.5-5.0); Alkaline Phosphatase 79 U/L (39-117); Anion Gap 14 (12-20); Aspartate Amino Transferase 20 U/L (5-31); Bilirubin Total 0.6 mg/dL (0.0-1.0); Blood Urea Nitrogen 11 mg/dL (9-16); Calcium 10.7 mg/dL (8.4-10.2); Carbon Dioxide 25 mmol/L (22-29); Chloride 107 mmol/L (96-108); Cholesterol 126 mg/dL; Estimated Glomerular Filt Rate > 60; Glucose Random 107 mg/dL (60-115); HDL Cholesterol 47 mg/dL; LDL Cholesterol Calculated 64 mg/dl; Sodium 142 mmol/L (135-145); Total Protein 8.7 g/dL (6.5-8.0); Triglycerides 76 mg/dL
[2022-08-24 14:01] LABS: Estimated Average Glucose 120 mg/dL; Hemoglobin A1c % 5.8 %
[2022-08-24 14:08] LABS: Free T4 (Free Thyroxine) 0.98 ng/dL (0.71-1.85); Thyroid Stimulating Hormone 0.63 uIU/mL (0.32-4.0)
[2022-08-24 14:23] LABS: Folate 7.9 ng/mL (> or = 4.0); Vitamin B12 428 pg/mL (200-900)
== END 2022-08-24 12:22 | disposition home or self-care (01) ==
LOC: HO.LAB 12:21
PROVIDERS: PCP Internal Medicine; Visit Provider Internal Medicine
DX: I69.30 Unspecified sequelae of cerebral infarction (principal); E78.00 Pure hypercholesterolemia, unspecified; R73.9 Hyperglycemia, unspecified; E55.9 Vitamin D deficiency, unspecified
CPT/HCPCS: 36415; 80053; 80061; 82306; 82607; 82746; 83036; 84439; 84443; 85025

== ENCOUNTER 2022-09-06 14:29 | Outpatient (REF) | payer MEDICAID, SELFPAY | END 2022-09-06 14:30 | disposition home or self-care (01) | LOC: HO.US 14:29 | PROVIDERS: PCP Internal Medicine; Visit Provider Internal Medicine | DX: Z13.89 Encounter for screening for other disorder (principal) ==

== ENCOUNTER 2022-09-13 14:10 | Outpatient (REF) | payer MEDICARE, MEDICAID, SELFPAY ==
--- NOTE | ~2022-09-13 | US_ITS ---
History: 62-year-old female with anterior inferior left thigh mass. She presents for biopsy. Procedures performed: 1. Ultrasound-guided core biopsy of left thigh mass. Reporting Specialist: Jasson Hopper M.D. Anesthesia: 6 mL 1% lidocaine Specimen: Four 18-gauge cores Drain: None Estimated blood loss: Minimal Complications: None Procedure in detail: Informed and written consent was obtained. The patient was positioned supine on the ultrasound examination table. Ultrasound confirmed a heterogeneous mass at the anterior aspect of the lower anterior left thigh. An appropriate site for access was marked on the skin. This area was prepped and draped. Under ultrasound guidance, 1% lidocaine was injected subcutaneously and extended to the edge of the mass. A small incision was made in the skin with a #11 blade. Through the incision and under continuous ultrasound guidance with permanent recordings, a 17-gauge coaxial needle was advanced into the mass. Through the coaxial needle, four 18-gauge core specimens were obtained and placed in formalin. A sterile dressing was applied. Summary: Successful ultrasound-guided core biopsy of left thigh mass.
[2022-09-13] MEDS: Lidocaine HCl 1 % MPF 5 ML VIAL SUBCUT (16:27)
== END 2022-09-13 14:11 | disposition home or self-care (01) ==
LOC: HO.US 14:10
PROVIDERS: PCP Internal Medicine; Visit Provider Internal Medicine
DX: R22.42 Localized swelling, mass and lump, left lower limb (principal)
CPT/HCPCS: 76942; 88304; 88305; 88341; 88342

== ENCOUNTER → 2022-09-13 14:13 | Outpatient (BNV) | payer MEDICARE, MEDICAID, SELFPAY | PROVIDERS: PCP Internal Medicine; Visit Provider Radiology Vascular & Interventional Radiology | DX: R22.42 Localized swelling, mass and lump, left lower limb (principal) | CPT/HCPCS: 27324; 76942 ==

== ENCOUNTER 2022-09-21 14:14 | Outpatient (REF) | payer MEDICAID, SELFPAY | END 2022-09-21 14:15 | disposition home or self-care (01) | LOC: HO.MAMMO 14:14 | PROVIDERS: PCP Internal Medicine; Visit Provider Internal Medicine | DX: Z13.89 Encounter for screening for other disorder (principal) ==

== ENCOUNTER → 2022-09-26 11:14 | Outpatient (BNV) | payer MEDICARE, MEDICAID, SELFPAY | PROVIDERS: PCP Internal Medicine; Referring Provider Internal Medicine; Visit Provider Internal Medicine | DX: R22.40 Localized swelling, mass and lump, unspecified lower limb (principal) | CPT/HCPCS: 99204 ==

== ENCOUNTER 2022-09-26 13:26 | Outpatient (AMB) | payer MEDICARE, MEDICAID, SELFPAY ==
[2022-09-26 13:30] VITALS: BP 138/76; PULSE 80; O2SAT 98; BMI 35.4
--- NOTE | 2022-09-26 13:30 | MHC.PC.OV ---
Vital Signs 09/26/22 13:30 Height 5 ft 4 in Weight 206 lb BMI 35.4 BP 138/76 Blood Pressure Location Lt brachial Position Sitting Pulse 80 Pulse Source Pulse Oximeter Pulse Oximetry (%) 98 Oxygen Delivery Method Room Air Intake Visit Reasons: Letter for housing Allergies hydrocodone [HYDROCODONE] Allergy (Severe, Verified 09/26/22 13:30) RASH perfume Allergy (Intermediate, Verified 09/26/22 13:30) Shortness of Breath Seasonal Allergies Allergy (Intermediate, Verified 09/26/22 13:30) Watery Eye, sneezing Tobacco use date assessed: 06/06/22 Dental Screening Dental Screen Date: 09/26/22 Did you have a dental visit in the last 12 months?: Yes Did you have a dental problem in the last 6 months where you did not have access to dental care?: No Was dental information given to patient?: Patient has dentist HPI Letter for housing HPI Details 62-year-old obese female with a history of CVA(10/2016 left-sided weakness) hypertension overactive bladder generalized anxiety disorder impaired glucose tolerance hyperparathyroidism and mass on the left thigh patient was last seen in August 2022. 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 P[employer]ient is wanting a letter for supplies- for pampers, bedpads, bath chairs, bedside commode, and other things PFSH Medical History ADHD (attention deficit hyperactivity disorder) Adult general medical exam Allergic rhinitis Anxiety Breast cancer screening by mammogram Cervical cancer screening Encounter for gynecological examination Hemiparesis History of asthma History of CVA with residual deficit Hypercalcemia Hyperparathyroidism Left leg swelling Obesity (BMI 30-39.9) PONV (postoperative nausea and vomiting) Sleep apnea in adult Stroke Suspected exposure to mold Surgical History Hx of arthroscopy of left knee Hx of breast surgery Hx of section Hx of colonoscopy Hx of hysterectomy Hx of tonsillectomy S/P Botox injection Family History Father HTN (hypertension) Mother HTN (hypertension) Social History (Updated 08/02/23 @ 11:30 by Naomi Mcnair) Household Members: None Housing: House Alcohol intake: current Alcohol intake frequency: does not drink Patient Tobacco Use Status: Former Tobacco user Tobacco use type: Cigarette Years Smoked: 2017 stopped 2.5 packs /20 years e-Cigarette/Vaping Use: Never Used Second Hand Smoke Exposure: No service: No Current occupational status: disabled Cognitive needs: No Hearing needs: No Vision needs: No Female Reproductive History Menstrual Age of Menarche: 15 Questionnaire PHQ-9 Over the last 2 weeks, how often have you been bothered by any of the following problems? 1. Little interest or pleasure in doing things: not at all 2. Feeling down, depressed, or hopeless: not at all 3. Trouble falling or staying asleep, or sleeping too much: not at all 4. Feeling tired or having little energy: not at all 5. Poor appetite or overeating: not at all 6. Feeling bad about yourself - or that you are a failure or have let yourself or your family down: not at all 7. Trouble concentrating on things, such as reading the newspaper or watching television: not at all 8. Moving or speaking so slowly that other people could have noticed. Or the opposite - being so fidgety or restless that you have been moving around a lot more than usual: not at all 9. Thoughts that you would be better off or of hurting yourself in some way: not at all Total score: 0 Depression Screening Interpretation: Negative Source: Developed by Drs. Leland Small, Melodie Chambers, Rudi Lewis and colleagues, with an educational zhang from [employer]. Thrive Questionnaire Date Thrive assessed: 06/06/22 AUDIT C Alcohol Use Questionnaire (AUDIT-C) 1. How often do you have a drink containing alcohol?: Never 3. How often do you have six or more drinks on one occasion?: Never Total Score: 0 Score Reviewed/Action Taken: Yes SANDY-7 AMB Questionnaire SANDY-7 Date SANDY - 7 assessed: 06/06/22 Source: Developed by Drs. Leland Small, Rudi Mooney and colleagues, with an educational zhang from [employer]. Physical exam (Primary Care) Vital Signs: Last Vital Signs Pulse 80 09/26/22 13:30 BP 138/76 09/26/22 13:30 Pulse Ox 98 09/26/22 13:30 Oxygen Delivery Method Room Air 09/26/22 13:30 BMI result Body Mass Index 35.4 Tobacco/Smoking Status: Tobacco use Status Tobacco use date assessed 06/06/22 09/26/22 13:37 Patient Tobacco Use Status Former Tobacco user 09/26/22 13:37 Tobacco use type Cigarette 09/26/22 13:37 e-Cigarette/Vaping Use Never Used 09/26/22 13:37 PHQ-9: PHQ-9 Score PHQ-9: Total score 0 09/26/22 13:37 Depression Screening Interpretation: Negative Thrive Assessment: Date of Thrive Assessment Date Thrive assessed 06/06/22 09/26/22 13:37 Const General: alert; No acute distress Eyes Conjunctivae: conjunctivae normal Resp Auscultation: clear to auscultation bilaterally Cardio Rate: regular rate Rhythm: regular rhythm GI Inspection: Yes normal to inspection Extrem General: Yes normal to inspection and No edema Assessment and Plan Assessment & Plan (1) History of CVA with residual deficit: Comment: 10/2016 left-sided weakness Code(s): I69.30 - Unspecified sequelae of cerebral infarction Plan: Continue with exercise and therapy (2) Hypertension: Code(s): I10 - Essential (primary) hypertension Qualifiers: Hypertension type: essential hypertension Qualified Code(s): I10 - Essential (primary) hypertension Plan: Continue with blood pressure medication. Decrease salt intake and exercise patient is on lisinopril 40 mg once a day amlodipine 10 mg once a day (3) Obesity (BMI 30-39.9): Code(s): E66.9 - Obesity, unspecified Plan: Diet and exercise (4) Generalized anxiety disorder: Comment: [facility]. March 2021 Code(s): F41.1 - Generalized anxiety disorder Plan: Continue with counseling and therapy (5) Mass of left thigh: Comment: June 2022 infiltrative hypoechoic solid avascular intramuscular mass left distal thigh. Differential diagnoses lipoma or myoma, less likely hematoma.. 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 Code(s): R22.42 - Localized swelling, mass and lump, left lower limb Plan: This is presently being worked up MRI requested by Hematology-Oncology Medications: New tramadol 50 mg PO DAILY 20 tabs 0RF R22.42 - Localized swelling, mass and lump, left lower limb Coding Level of Care Code Est Pt Level 4 (75506) Diagnoses History of CVA with residual deficit I69.30 Hypertension I10 Hypertension type: essential hypertension Obesity (BMI 30-39.9) E66.9 Generalized anxiety disorder F41.1 Mass of left thigh R22.42
== END 2022-09-26 14:01 | disposition home or self-care (01) ==
PROVIDERS: PCP Internal Medicine; Visit Provider Internal Medicine
DX: I10 Essential (primary) hypertension (principal); E66.9 Obesity, unspecified; Z68.30 Body mass index [BMI] 30.0-30.9, adult; F41.1 Generalized anxiety disorder; I69.30 Unspecified sequelae of cerebral infarction; R22.42 Localized swelling, mass and lump, left lower limb
CPT/HCPCS: 99214

== ENCOUNTER 2022-10-15 11:16 | Outpatient (AMB) | payer MEDICARE, MEDICAID, SELFPAY ==
--- NOTE | 2022-10-15 02:13 | A.OFFVIS_ITS ---
Intake Intake Visit Reasons: 3m follow up Intake Note: Patient presents today via telephone visit for 3mo follow-up, Pt on Myrbetriq: Meds- Myrbetriq Allergies to Antibiotic- No Known Allergies Blood Thinner- Aspirin Patient unable to void PVR- 118 ml Media Monitor Required: No Accompanied by: Self / Same As Patient Allergies hydrocodone [HYDROCODONE] Allergy (Severe, Verified 10/15/22 11:43) RASH perfume Allergy (Intermediate, Verified 10/15/22 11:43) Shortness of Breath Seasonal Allergies Allergy (Intermediate, Verified 10/15/22 11:43) Watery Eye, sneezing Medication List - Last Reconciled 10/15/22 by Torres Connell MD albuterol sulfate 90 mcg/actuation (ProAir HFA) 2 puffs inhalation Q6H PRN amlodipine 10 mg PO DAILY [Ankle/Foot Orthotics As directed] aspirin 81 mg PO DAILY baclofen 10 mg PO TID clopidogrel 75 mg PO DAILY diclofenac sodium 1% (Voltaren Arthritis Pain) 4 grams topical QID fexofenadine 180 mg PO DAILY gabapentin 600 mg PO BID lidocaine 5% 1 patch topical DAILY 30 days lisinopril 40 mg PO DAILY 90 days methylphenidate HCl 5 mg PO BID mirabegron ER 50 mg PO BID 90 days tramadol 50 mg PO DAILY venlafaxine ER (Effexor XR) 150 mg PO BEDTIME HPI HPI Comments History of Present Illness Details Maya is a 62-year-old female who presents today to the office for a 3-month follow up. 10/15/2022? She was last seen by me on 07/13/2022 for overactive bladder. Advised the patient to continue Myrbetriq twice a day, and follow up Tele-health in 3 months during that time. She has a history of stroke in 2017. Patient states that she is starting to have urinary urgency with incontinence episodes. She denies dysuria. She states that she was recently diagnosed with bone cancer and was seeing a specialist in [place]. She has an upcoming surgery and wants to delay repeat Botox treatment. She states that she will call the office for follow up. Review of chart: Last visit: 07/13/2022: The patient is s/p cystoscopy and bladder Botox 100 units on 01/04/22. history of stroke in 2017. States having improvement in OAB symtoms post the Botox treatment. The patient is taking Myrbetriq twice a day without any reported side effects. States improvement in urinary leakage after the Botox therapy. I discussed to repeat the Botox 100 units. Will schedule a tele-health visit and will monitor her urinary symptoms. Plan: Continue Myrbetriq twice a day. Tele-health follow-up in three months. 10/15/2022: Evaluation today-She was unable to give urine specimen at this time. Bladder scan: 118 mL. 10/15/2022: Plan: Continue Myrbetriq 50 mg BID daily. Patient has recently diagnosed with bone cancer and she has planned surgery. She will call to the office when she is recovered from the surgery and will repeat Botox for the bladder. [facility] Medical History ADHD (attention deficit hyperactivity disorder) Allergic rhinitis Anxiety Hemiparesis (~2017) History of asthma History of CVA with residual deficit (~2017) Hypercalcemia Hyperparathyroidism Left leg swelling Mass of left thigh Nicotine dependence, cigarettes, uncomplicated Obesity (BMI 30-39.9) Sleep apnea in adult Suspected exposure to mold Surgical History History of bilateral breast reduction surgery History of biopsy History of History of colonoscopy History of hand surgery History of hysterectomy History of tonsillectomy History of tubal ligation Hx of arthroscopy of left knee S/P Botox injection Family History Father HTN (hypertension) Mother HTN (hypertension) Social History Household Members: None Housing: House Alcohol intake: current Alcohol intake frequency: does not drink Patient Tobacco Use Status: Former Tobacco user Tobacco use type: Cigarette Years Smoked: 2017 stopped 2.5 packs /20 years e-Cigarette/Vaping Use: Never Used Second Hand Smoke Exposure: No service: No Current occupational status: disabled Cognitive needs: No Hearing needs: No Vision needs: No Female Reproductive History Menstrual Age of Menarche: 15 Review of Systems Const All systems reviewed & are unremarkable except as noted in HPI and below Reports no additional complaints Eyes Reports no additional complaints ENT Reports no additional complaints Card Denies dyspnea Resp Denies cough and Denies dyspnea GI Reports no additional complaints Reports no additional complaints Musc Reports no additional complaints Skin/Breast Denies rash and Denies unusual bruising Neuro Reports no additional complaints Psych Reports no additional complaints Endo Reports no additional complaints Lexa/Lymph Reports no additional complaints Aller/Immun Reports no additional complaints Office Procedures Post Void Residual Post Residual Void Post Void Residual (PVR): 118 [id number] Void Residual by ultrasound Assessment & Plan Assessment & Plan (1) OAB (overactive bladder): Code(s): N32.81 - Overactive bladder Plan: Continue Myrbetriq 50 mg BID daily. Patient has recently diagnosed with bone cancer and she has planned surgery. She will call to the office when she is recovered from the surgery and will repeat Botox for the bladder. (2) Spastic neurogenic bladder: Code(s): N31.8 - Other neuromuscular dysfunction of bladder (3) History of CVA (cerebrovascular accident): Onset Date: ~2016 Comment: (CVA 2017 left-sided weakness) Code(s): Z86.73 - Personal history of transient ischemic attack (TIA), and cerebral infarction without residual deficits Orders: Orders AMB Post Void Residual by ultrasound Today N39.8 - Other specified disorders of urinary system Medications: Refilled mirabegron ER 50 mg PO BID 90 days 180 tabs 2RF Patient Instructions: The patient had an opportunity to ask questions regarding treatment plan. All questions were answered. Laboratory studies and physical exam results were discussed and reviewed in detail. No major barriers to understanding were identified. The patient expressed understanding and agreement with the above treatment plan.? ? ? The patient is aware they should contact our office by phone for worsening of their current condition or the appearance of new symptoms. Compliance is encouraged with any medications and followup testing that is ordered.? ? ? It is a privilege to be allowed the opportunity to participate in the urologic care of your patient. If you have any questions or concerns regarding treatment for the above conditions please do not hesitate to contact me. The office telephone contact is [phone].? ? ? This note is constructed in part using voice recognition software. While every effort has been made to ensure accuracy program assistant errors may have been included.? ? ? Yours sincerely,? ? ? Torres Connell MD? ? Coding Level of Care Code Est Pt Level 3 (81183) Diagnoses OAB (overactive bladder) N32.81 Spastic neurogenic bladder N31.8 History of CVA (cerebrovascular accident) Z86.73 CPT Codes Post Residual Void - PVR CPT Code: 10152-Uunq Void Residual by ultrasound ([id number])
== END 2022-10-15 11:59 | disposition home or self-care (01) ==
PROVIDERS: PCP Internal Medicine; Visit Provider Urology
DX: N32.81 Overactive bladder (principal); N31.8 Other neuromuscular dysfunction of bladder; Z86.73 Personal history of transient ischemic attack (TIA), and cerebral infarction without residual deficits
CPT/HCPCS: 99213

== ENCOUNTER → 2022-10-15 11:16 | Outpatient (BNVA) | payer MEDICARE, MEDICAID, SELFPAY | PROVIDERS: Visit Provider Urology | DX: N32.81 Overactive bladder (principal); N39.41 Urge incontinence; C41.9 Malignant neoplasm of bone and articular cartilage, unspecified; Z86.73 Personal history of transient ischemic attack (TIA), and cerebral infarction without residual deficits | CPT/HCPCS: 51798; 99212 ==

== ENCOUNTER 2022-12-14 12:43 | Outpatient (AMB) | payer MEDICARE, MEDICAID, SELFPAY ==
--- NOTE | 2022-12-14 12:48 | MHC.PC.OV ---
Vital Signs 12/14/22 12:49 Height 5 ft 4 in Weight 90.945 kg BMI 34.4 BP 160/88 H Blood Pressure Location Rt brachial Position Sitting Respiration 17 Pulse 88 Pulse Source Pulse Oximeter Pulse Oximetry (%) 95 Oxygen Delivery Method Room Air Intake Visit Reasons: L thigh mass Fisher Line Required: No Accompanied by: Self / Same As Patient Allergies hydrocodone [HYDROCODONE] Allergy (Severe, Verified 10/15/22 11:43) RASH perfume Allergy (Intermediate, Verified 10/15/22 11:43) Shortness of Breath Seasonal Allergies Allergy (Intermediate, Verified 10/15/22 11:43) Watery Eye, sneezing Medication List - Last Reconciled 12/14/22 by Sofía Lucas, albuterol sulfate 90 mcg/actuation (ProAir HFA) 2 puffs inhalation Q6H PRN amlodipine 10 mg PO DAILY [Ankle/Foot Orthotics As directed] aspirin 81 mg PO DAILY baclofen 10 mg PO TID clopidogrel 75 mg PO DAILY diclofenac sodium 1% (Voltaren Arthritis Pain) 4 grams topical QID fexofenadine 180 mg PO DAILY gabapentin 600 mg PO BID lidocaine 5% 1 patch topical DAILY 30 days lisinopril 40 mg PO DAILY 90 days mirabegron ER 50 mg PO BID 90 days tramadol 50 mg PO DAILY venlafaxine ER (Effexor XR) 150 mg PO BEDTIME Tobacco use date assessed: 06/06/22 Dental Screening Dental Screen Date: 12/14/22 Did you have a dental visit in the last 12 months?: Yes Did you have a dental problem in the last 6 months where you did not have access to dental care?: No Was dental information given to patient?: Patient has dentist HPI L thigh mass HPI Details 62-year-old obese female with a history of CVA with left-sided weakness October 2016 hypertension generalized anxiety disorder last seen in September 2022 patient has a mass on the left thigh. Colonoscopy up-to-date, mammogram up-to-date. 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 September [address] scan of the abdomen and pelvis noted a nonspecific 2.2 x 1.8 cm soft tissue nodule in the right vaginal cough unlikely to represent metastatic sarcoma also had a CT scan of the chest showing scattered 2 mm nodules. Patient also has seen Urology on myrbetriq for overactive bladder had bladder Botox December 2021. radiation done and will be having a procedure next month. [facility]int is asking for letter for the patient to have a bigger place of/home supplies as well as B and. [facility] Medical History ADHD (attention deficit hyperactivity disorder) Allergic rhinitis Anxiety Hemiparesis (~2016) History of asthma History of CVA with residual deficit (~2016) Hypercalcemia Hyperparathyroidism Left leg swelling Mass of left thigh Nicotine dependence, cigarettes, uncomplicated Obesity (BMI 30-39.9) Sleep apnea in adult Suspected exposure to mold Surgical History History of biopsy History of hand surgery History of hysterectomy History of tubal ligation History of History of colonoscopy History of bilateral breast reduction surgery History of tonsillectomy S/P Botox injection Hx of arthroscopy of left knee Family History Father HTN (hypertension) Mother HTN (hypertension) Social History Household Members: None Housing: House Alcohol intake: current Alcohol intake frequency: does not drink Patient Tobacco Use Status: Former Tobacco user Tobacco use type: Cigarette Years Smoked: 2017 stopped 2.5 packs /20 years e-Cigarette/Vaping Use: Never Used Second Hand Smoke Exposure: No service: No Current occupational status: disabled Cognitive needs: No Hearing needs: No Vision needs: No Female Reproductive History Menstrual Age of Menarche: 15 Questionnaire Thrive Questionnaire Date Thrive assessed: 06/06/22 SANDY-7 AMB Questionnaire SANDY-7 Date SANDY - 7 assessed: 06/06/22 Source: Developed by Drs. Leland Small, Melodie Chambers, Rudi Lewis and colleagues, with an educational zhang from [employer]. Physical exam (Primary Care) Vital Signs: Last Vital Signs Pulse 88 12/14/22 12:49 Resp 17 12/14/22 12:49 BP 160/88 H 12/14/22 12:49 Pulse Ox 95 12/14/22 12:49 Oxygen Delivery Method Room Air 12/14/22 12:49 BMI result Body Mass Index 34.4 Tobacco/Smoking Status: Tobacco use Status Tobacco use date assessed 06/06/22 12/14/22 12:54 Patient Tobacco Use Status Former Tobacco user 12/14/22 12:54 Tobacco use type Cigarette 12/14/22 12:54 e-Cigarette/Vaping Use Never Used 12/14/22 12:54 Thrive Assessment: Date of Thrive Assessment Date Thrive assessed 06/06/22 12/14/22 12:54 Const General: alert; No acute distress Eyes Conjunctivae: conjunctivae normal Resp Auscultation: clear to auscultation bilaterally Cardio Rate: regular rate Rhythm: regular rhythm GI Inspection: Yes normal to inspection Extrem General: Yes normal to inspection and No edema Office Procedures Flu Questionnaire Does the patient have a severe egg allergy?: No Does the patient have severe life threatening allergies?: No Does the patient have a fever or illness today?: No Has the patient ever had Guillain-Tatitlek Syndrome?: No Has the patient ever had any past reaction to a flu shot?: No Results AMB Hemoglobin A1c AMB Hemoglobin A1c 5.8 % Last Edit by FLAVIA Leos on 12/14/22 13:08 Immunizations flu vacc [id number] 6mos up(PF) 60 mcg(15 mcgx4)/0.5 mL IM syringe Performing Provider: Sofía Lucas MD [facility] Administered by: Joselin Mccartney CMA on 12/14/22 13:33 Dose Route Admin Location Dispensed Lot Number Expiration Date NDC Director Medical Safety 0.5 mL IM Left Deltoid 0.5 mL [id number] 08/25/23 17472-072-04 Vu[employer] VIS Given Date VIS Provided VIS Publication Date 12/14/22 Single Vaccine 20 Eligibility Eligibility Date Funding Source Not [facility] Eligible 12/14/22 Private Results Reviewed Results Reviewed: Laboratory Last Values Hgb A1c (Clinic) 5.8 % (4.0-6.0) 12/14/22 13:08 Assessment and Plan Assessment & Plan (1) Spindle cell carcinoma: Onset Date: ~2022 Comment: Left thigh mass August 2022Unclassified spindle cell sarcoma, low-grade Code(s): C80.1 - Malignant (primary) neoplasm, unspecified Plan: Patient is being seen in [facility] will be having surgery and radiation therapy (2) History of CVA with residual deficit: Onset Date: ~2016 Comment: (CVA with left-sided weakness - 10/2016) Code(s): I69.30 - Unspecified sequelae of cerebral infarction Plan: Continue with aspirin and clopidogrel (3) Hypertension: Code(s): I10 - Essential (primary) hypertension Qualifiers: Hypertension type: essential hypertension Qualified Code(s): I10 - Essential (primary) hypertension Plan: Continue with blood pressure medication. Decrease salt intake and exercise taking lisinopril 40 mg once a day and amlodipine 10 mg once a day (4) Impaired glucose tolerance: Code(s): R73.02 - Impaired glucose tolerance (oral) Plan: Decrease the amount of carbohydrate intake, pasta, bread, rice and potatoes are all sugar and that is aside from all the sweet stuff, remember that fruits are good but they are Sweet also. (5) OAB (overactive bladder): Code(s): N32.81 - Overactive bladder Plan: Patient follows up with urology and was told about Botox shots and is on myrbetriq (6) Generalized anxiety disorder: Comment: [facility]. March 2021 Code(s): F41.1 - Generalized anxiety disorder Plan: Continue with counseling and therapy (7) Obesity (BMI 30-39.9): Code(s): E66.9 - Obesity, unspecified Plan: Diet and exercise (8) Vaginal lesion: Code(s): N89.8 - Other specified noninflammatory disorders of vagina Orders: Orders Influenza [id number] Immunization Today Z23 - Encounter for immunization AMB Hemoglobin A1c Today R73.02 - Impaired glucose tolerance (oral) Referrals TECHNOLOGY PROJECT MANAGER Referral N89.8 - Other specified noninflammatory disorders of vagina Medications: Discontinued methylphenidate HCl Discontinued Reason: Doctor's Order 5 mg PO BID 60 tabs 0RF Z87.09 - Personal history of other diseases of the respiratory system Coding Level of Care Code Est Pt Level 4 (02311) Diagnoses Spindle cell carcinoma C80.1 History of CVA with residual deficit I69.30 Essential hypertension I10 Hypertension type: essential hypertension Impaired glucose tolerance R73.02 OAB (overactive bladder) N32.81 Generalized anxiety disorder F41.1 Obesity (BMI 30-39.9) E66.9 Vaginal lesion N89.8
[2022-12-14 12:49] VITALS: BP 160/88; PULSE 88; RESP 17; O2SAT 95; BMI 34.4
== END 2022-12-14 13:47 | disposition home or self-care (01) ==
PROVIDERS: PCP Internal Medicine; Visit Provider Internal Medicine
DX: R73.02 Impaired glucose tolerance (oral) (principal); C80.1 Malignant (primary) neoplasm, unspecified; E66.9 Obesity, unspecified; Z68.34 Body mass index [BMI] 34.0-34.9, adult; I69.30 Unspecified sequelae of cerebral infarction; Z23 Encounter for immunization; I10 Essential (primary) hypertension; N32.81 Overactive bladder; F41.1 Generalized anxiety disorder; N89.8 Other specified noninflammatory disorders of vagina
CPT/HCPCS: 83036; 90471; 90686; 99214

== ENCOUNTER 2023-03-08 08:56 | Outpatient (AMB) | payer MEDICARE, MEDICAID, SELFPAY ==
--- NOTE | 2023-03-08 08:54 | MHC.PC.OV ---
Vital Signs 03/08/23 08:54 Height 5 ft 4 in Intake Visit Reasons: Follow Up/[phone] Allergies hydrocodone [HYDROCODONE] Allergy (Severe, Verified 03/08/23 08:55) RASH perfume Allergy (Intermediate, Verified 03/08/23 08:55) Shortness of Breath Seasonal Allergies Allergy (Intermediate, Verified 03/08/23 08:55) Watery Eye, sneezing Medication List - Last Reconciled 03/08/23 by Sofía Lucas MD albuterol sulfate 90 mcg/actuation (ProAir HFA) 2 puffs inhalation Q6H PRN amlodipine 10 mg PO DAILY [Ankle/Foot Orthotics As directed] aspirin 81 mg PO DAILY baclofen 10 mg PO TID clopidogrel 75 mg PO DAILY diclofenac sodium 1% (Voltaren Arthritis Pain) 4 grams topical QID fexofenadine 180 mg PO DAILY gabapentin 600 mg PO BID lidocaine 5% 1 patch topical DAILY 30 days lisinopril 40 mg PO DAILY 90 days mirabegron ER 50 mg PO BID 90 days oxycodone mg PO tramadol 50 mg PO DAILY venlafaxine ER (Effexor XR) 150 mg PO BEDTIME Tobacco use date assessed: 06/06/22 Dental Screening Dental Screen Date: 03/08/23 Did you have a dental visit in the last 12 months?: No Did you have a dental problem in the last 6 months where you did not have access to dental care?: Yes Was dental information given to patient?: Patient has dentist HPI Follow Up/[phone] HPI Details 62-year-old obese female with a history of CVA hypertension impaired glucose tolerance generalized anxiety disorder coming in for follow-up. Last seen having leg mass diagnosis of spindle cell carcinoma having surgery done. Patient's colonoscopy is up-to-date October 2019 mammogram is up-to-date. Review of the notes December 2022 patient had resection of the thigh sarcoma with reconstruction left thigh sarcoma defect complex closure versus local tissue rearrangement versus pedicled muscle flap versus fasciocutaneous flap versus skin graft done by Dr. Domingo 01/25/2023 12:38. fall yesterday- presently states not healing well and has visiting nurses. knee and hip left leg pain. Otherwise no nausea no vomiting no chest pains no shortness of breath no bowel bladder symptoms. [facility] Medical History Nicotine dependence, cigarettes, uncomplicated Mass of left thigh Suspected exposure to mold Left leg swelling Obesity (BMI 30-39.9) Hemiparesis (~2017) ADHD (attention deficit hyperactivity disorder) Hypercalcemia Anxiety Hyperparathyroidism Sleep apnea in adult History of asthma History of CVA with residual deficit (~2017) Allergic rhinitis Surgical History History of biopsy History of hand surgery History of hysterectomy History of tubal ligation History of History of colonoscopy History of bilateral breast reduction surgery History of tonsillectomy S/P Botox injection Hx of arthroscopy of left knee Family History Father HTN (hypertension) Mother HTN (hypertension) Social History Household Members: None Housing: House Alcohol intake: current Alcohol intake frequency: does not drink Comment: left sided hemiparesis walks [place] cane Patient Tobacco Use Status: Former Tobacco user Tobacco use type: Cigarette Years Smoked: 2017 stopped 2.5 packs /20 years e-Cigarette/Vaping Use: Never Used Second Hand Smoke Exposure: No service: No Current occupational status: disabled Cognitive needs: No Hearing needs: No Vision needs: No Female Reproductive History Menstrual Age of Menarche: 15 Questionnaire PHQ-9 Over the last 2 weeks, how often have you been bothered by any of the following problems? 1. Little interest or pleasure in doing things: not at all 2. Feeling down, depressed, or hopeless: not at all 3. Trouble falling or staying asleep, or sleeping too much: not at all 4. Feeling tired or having little energy: not at all 5. Poor appetite or overeating: not at all 6. Feeling bad about yourself - or that you are a failure or have let yourself or your family down: not at all 7. Trouble concentrating on things, such as reading the newspaper or watching television: not at all 8. Moving or speaking so slowly that other people could have noticed. Or the opposite - being so fidgety or restless that you have been moving around a lot more than usual: not at all 9. Thoughts that you would be better off or of hurting yourself in some way: not at all Total score: 0 Depression Screening Interpretation: Negative Depression Screening Done: Yes Source: Developed by Drs. Leland Small, Melodie Chambers, Rudi Lewis and colleagues, with an educational zhang from [employer] Thrive Questionnaire Date Thrive assessed: 03/08/23 I am a: Patient What is your living situation today?: I have a steady place to live Within the past 12 months, did the food you bought not last and you didn't have the money to get more?: Never true Within the past 12 months, did you worry whether your food would run out before you got money to buy more?: Never true Do you have trouble paying for medicines?: No Do you have trouble getting transportation to medical appointments?: No Do you have trouble paying your heating and electricity bill?: No Do you have trouble taking care of your child, family member or friend?: No Do you have trouble with day-to-day activities such as bathing, preparing meals, shopping, managing finances, etc.?: No Are you currently unemployed and looking for a job?: No Are you interested in more education?: No Please select the resources that you would like help with: None AUDIT C Alcohol Use Questionnaire (AUDIT-C) 1. How often do you have a drink containing alcohol?: Never 3. How often do you have six or more drinks on one occasion?: Never Total Score: 0 Score Reviewed/Action Taken: Yes SANDY-7 AMB Questionnaire SANDY-7 Date SANDY - 7 assessed: 03/08/23 Feeling nervous, anxious, or on edge: 0 = Not at all Not being able to stop or control worryin = Not at all Worrying too much about different things: 0 = Not at all Trouble relaxin = Not at all Being so restless that it is hard to sit still: 0 = Not at all Becoming easily annoyed or irritable: 0 = Not at all Feeling afraid as if something awful might happen: 0 = Not at all Total SANDY-7 score (0-4 normal; 5-9 mild; 10-14 moderate; 15-21 severe): 0 Source: Developed by Melodie Locke Kurt Kroenke and colleagues, with an educational zhang from [employer] Physical exam (Primary Care) Tobacco/Smoking Status: Tobacco use Status Tobacco use date assessed 06/06/22 03/08/23 08:57 Patient Tobacco Use Status Former Tobacco user 03/08/23 08:57 Tobacco use type Cigarette 03/08/23 08:57 e-Cigarette/Vaping Use Never Used 03/08/23 08:57 PHQ-9: PHQ-9 Score PHQ-9: Total score 0 03/08/23 15:09 Depression Screening Interpretation: Negative Thrive Assessment: Date of Thrive Assessment Date Thrive assessed 03/08/23 03/08/23 08:57 Telehealth Telehealth Location of provider rendering services: practice address Location of patient: address on file Patient Identification confirmed using: Name, : Yes Telehealth method: voice only Patient verbally consented to treatment: Yes Patient verbally consented to billing insurance company: Yes Patient informed of any privacy concerns related to visit: Yes Assessment and Plan Assessment & Plan (1) Spindle cell carcinoma: Onset Date: ~2022 Comment: Left thigh mass August 2022Unclassified spindle cell sarcoma, low-grade 01/25/2023 sarcoma resection left thigh with reconstruction advancement left vastus medialis Dr. Gomez status post radiation therapy Code(s): C80.1 - Malignant (primary) neoplasm, unspecified Plan: Continue to follow-up with Hematology-Oncology. Status post surgery January (2) History of CVA with residual deficit: Onset Date: ~2016 Comment: (CVA with left-sided weakness - 10/2016) Code(s): I69.30 - Unspecified sequelae of cerebral infarction Plan: Control the cholesterol, weight, blood pressure, continue with aspirin 81 mg once a day and clopidogrel (3) Hypertension: Code(s): I10 - Essential (primary) hypertension Qualifiers: Hypertension type: essential hypertension Qualified Code(s): I10 - Essential (primary) hypertension Plan: Continue with blood pressure medication. Decrease salt intake and exercise (4) Left knee pain: Code(s): M25.562 - Pain in left knee Plan: xr requested (5) Fall: Code(s): W19.XXXA - Unspecified fall, initial encounter Plan: 03/07/2023 (6) Hip pain, left: Code(s): M25.552 - Pain in left hip Plan: xr requested Orders: Orders XR knee LT 2V Today M25.552 - Pain in left hip XR hip LT min 2V Today M25.552 - Pain in left hip Coding Level of Care Code Tele Est Pt Level 4 (94606) Diagnoses Spindle cell carcinoma C80.1 History of CVA with residual deficit I69.30 Essential hypertension I10 Hypertension type: essential hypertension Left knee pain M25.562 Fall W19.XXXA Hip pain, left M25.552
== END 2023-03-08 17:49 | disposition home or self-care (01) ==
LOC: HO.HMGH 08:56
PROVIDERS: PCP Internal Medicine; Visit Provider Internal Medicine
DX: C49.21 Malignant neoplasm of connective and soft tissue of right lower limb, including hip (principal); I69.30 Unspecified sequelae of cerebral infarction; I10 Essential (primary) hypertension; M25.562 Pain in left knee; W19.XXXA Unspecified fall, initial encounter; M25.552 Pain in left hip
CPT/HCPCS: G2252

== ENCOUNTER 2023-03-15 12:34 | Outpatient (REF) | payer MEDICARE, MEDICAID, SELFPAY ==
--- NOTE | ~2023-03-15 | XR_ITS ---
EXAMINATION: XR KNEE, LEFT CLINICAL INFORMATION: Pain left hip and knee. COMPARISON: None available. TECHNIQUE: Two views of the left knee. FINDINGS: The bones are diffusely demineralized. Joint effusion with prepatellar soft tissue swelling. Evaluation on the lateral view limited due to patient rotation. Small superior quadriceps enthesophyte. Moderate medial joint space narrowing. Small tricompartmental osteophytes. XR/XR knee LT 2V IMPRESSION: 1. Joint effusion with prepatellar soft tissue swelling. 2. Moderate degenerative changes. Correlation with clinical exam recommended to determine further management. If there is concern for fracture or other underlying pathology, MRI without gadolinium could be obtained for further evaluation.
--- NOTE | ~2023-03-15 | XR_ITS ---
EXAMINATION: XR HIP, LEFT CLINICAL INFORMATION: Left hip pain COMPARISON: None available. TECHNIQUE: Two views of the left hip. FINDINGS: Mild left hip joint narrowing. No fracture or dislocation. Visualized SI joint within normal limits. Hard stool in the rectum. XR/XR hip LT min 2V IMPRESSION: Mild left hip joint narrowing.
== END 2023-03-15 12:35 | disposition home or self-care (01) ==
LOC: HO.XRAY 12:34
PROVIDERS: PCP Internal Medicine; Visit Provider Internal Medicine
DX: M25.552 Pain in left hip (principal)
CPT/HCPCS: 73502; 73560

== ENCOUNTER 2023-04-16 15:09 | Outpatient (REF) | payer MEDICARE, MEDICAID, SELFPAY ==
--- NOTE | ~2023-04-16 | MR_ITS ---
EXAMINATION: MRI OF THE LEFT FEMUR WITHOUT AND WITH CONTRAST CLINICAL INFORMATION: Pain in left hip. Patient reports removal of mass January 2023. COMPARISON: X-rays of the left hip and left knee February 2023. Ultrasound-guided biopsy August 2022 of reported mass anterior lower left thigh. TECHNIQUE: MRI of the left femur is performed without and with contrast. Contrast dose 9 mL of Gadavist given intravenously. FINDINGS: There is heterogeneous decreased T1/intermediate increased T2 signal with partial enhancement in the anterior subcutaneous soft tissues located about 10 cm proximal to the proximal pole of the patella overlying the distal diametaphysis. This is compatible with postsurgical result. I do not see a discrete mass. Appears to be a small 2 mm full-thickness defect abutting the medial aspect of the medial quadriceps tendon as seen on axial image 51, series 5. This is located at the proximal aspect of the suprapatellar recess and may reflect extension of fluid through small defect. There is generalized ill-defined increased T2 signal noted throughout the anterior compartment muscles beginning 3 cm distal to the lesser trochanter of the femur and extending throughout the remaining portion of the thigh to the knee. This area of increased signal partially enhances, most evident distally The remaining muscles and tendons are unremarkable. SUBCUTANEOUS SOFT TISSUES: Mild feathery-appearing fluid-like signal noted within the anterolateral subcutaneous soft tissues of the distal half of the thigh. NEUROVASCULAR STRUCTURES: Normal. BONE AND VISUALIZED JOINTS: Unremarkable. (Limited evaluation of the left hip and knee joint). MR/MR femur LT wo/w con IMPRESSION: 1. Postsurgical changes in the anterior subcutaneous soft tissues of the distal-half of the thigh. Possible small defect through the medial aspect of the quadriceps tendon, which possibly communicates with the suprapatellar recess. Likely postsurgical versus old partial tear. 2. No discrete mass identified. 3. Generalized ill-defined increased T2 signal and enhancement noted throughout the anterior compartment muscles of the thigh. This could reflect postsurgical result, or other post treatment related changes including radiation therapy if given. Nonspecific myositis as well as generalized muscle strain could have this appearance.
[2023-04-16] MEDS: gadobutroL 10 ML VIAL IVPUSH (16:20)
== END 2023-04-16 15:10 | disposition home or self-care (01) ==
LOC: HO.MRI 15:09
PROVIDERS: PCP Internal Medicine; Visit Provider Internal Medicine
DX: M25.552 Pain in left hip (principal)
CPT/HCPCS: 73720; A9585

== ENCOUNTER 2023-04-23 11:14 | Outpatient (AMB) | payer MEDICARE, SELFPAY ==
[2023-04-23 11:26] VITALS: BMI 34.3
--- NOTE | 2023-04-23 11:26 | MHC.OFFVIS ---
Intake Vital Signs 04/23/23 11:26 Height 5 ft 4 in Weight 200 lb BMI 34.3 Intake Visit Reasons: [employer]-Pain in left knee Intake Note: Maya is a 62 year old female who presents as a new patient with Left knee pain. Patient reports her pain has been going on for about 3 years. She reports she has had a stroke that affects her left and cancer that resulted with surgery of her Left thigh. The patient states that the surgery was performed in [place]. She thinks it was performed at [facility] but she is not sure. She thinks that the surgery may have been ?for a sarcoma?. She continues to get local wound care along her anterior thigh at the site of her surgical incision. Allergies hydrocodone [HYDROCODONE] Allergy (Severe, Verified 04/23/23 11:42) RASH perfume Allergy (Intermediate, Verified 04/23/23 11:42) Shortness of Breath Seasonal Allergies Allergy (Intermediate, Verified 04/23/23 11:42) Watery Eye, sneezing Medication List - Last Reconciled 04/24/23 by Hayden Del Rio MD albuterol sulfate 90 mcg/actuation (ProAir HFA) 2 puffs inhalation Q6H PRN amlodipine 10 mg PO DAILY [Ankle/Foot Orthotics As directed] aspirin 81 mg PO DAILY baclofen 10 mg PO TID clopidogrel 75 mg PO DAILY diclofenac sodium 1% (Voltaren Arthritis Pain) 4 grams topical QID fexofenadine 180 mg PO DAILY gabapentin 600 mg PO BID lidocaine 5% 1 patch topical DAILY 30 days lisinopril 40 mg PO DAILY 90 days mirabegron ER 50 mg PO BID 90 days oxycodone mg PO tramadol 50 mg PO DAILY venlafaxine ER (Effexor XR) 150 mg PO BEDTIME [facility] Medical History Nicotine dependence, cigarettes, uncomplicated Mass of left thigh Suspected exposure to mold Left leg swelling Obesity (BMI 30-39.9) Hemiparesis (~2017) ADHD (attention deficit hyperactivity disorder) Hypercalcemia Anxiety Hyperparathyroidism Sleep apnea in adult History of asthma History of CVA with residual deficit (~2017) Allergic rhinitis Surgical History History of biopsy History of hand surgery History of hysterectomy History of tubal ligation History of History of colonoscopy History of bilateral breast reduction surgery History of tonsillectomy S/P Botox injection Hx of arthroscopy of left knee Family History Father HTN (hypertension) Mother HTN (hypertension) Social History Household Members: None Housing: House Alcohol intake: current Alcohol intake frequency: does not drink Comment: left sided hemiparesis walks wih cane Patient Tobacco Use Status: Former Tobacco user Tobacco use type: Cigarette Years Smoked: 2017 stopped 2.5 packs /20 years e-Cigarette/Vaping Use: Never Used Second Hand Smoke Exposure: No service: No Current occupational status: disabled Cognitive needs: No Hearing needs: No Vision needs: No Female Reproductive History Menstrual Age of Menarche: 15 Physical Exam Vital Signs: BMI result Body Mass Index 34.3 Extrem Other: Left knee examination shows a minimal effusion, minimal crepitus with range of motion, negative Jodie's test Results Reviewed Results Reviewed: X-rays of the patient's left knee show mild diffuse joint space narrowing, no acute bony abnormalities Assessment & Plan Assessment & Plan (1) Left knee pain: Code(s): M25.562 - Pain in left knee Plan Ms. Cain presents with left knee pain due to deconditioning and early degenerative joint disease. I had a lengthy discussion with the patient regarding the treatment options. The patient wishes to try formal physical therapy. I did put in a referral to therapy. Activity modifications were discussed at length with the patient. She will contact me prior to her follow-up appointment in 2 months should any questions or concerns arise. She will follow up with her [place] cancer surgeon as scheduled. Feel free to call me at any time should questions regarding her orthopedic management arise. I spent 22 minutes in reviewing the patient's records and imaging studies, seeing the patient and documenting in the medical record. Coding Level of Care Code New Pt Level 2 (25598) Diagnoses Left knee pain M25.562
== END 2023-04-23 12:13 | disposition home or self-care (01) ==
PROVIDERS: PCP Internal Medicine; Visit Provider Orthopaedic Surgery
DX: M25.562 Pain in left knee (principal)
CPT/HCPCS: 99202; 99212

== ENCOUNTER → 2023-04-23 11:14 | Outpatient (BNVA) | payer MEDICARE, SELFPAY | PROVIDERS: PCP Internal Medicine; Visit Provider Orthopaedic Surgery | DX: M25.562 Pain in left knee (principal) | CPT/HCPCS: 99202 ==

== ENCOUNTER 2023-05-27 10:46 | Outpatient (AMB) | payer MEDICARE, MEDICAID, SELFPAY ==
[2023-05-27 11:01] VITALS: BP 130/82; PULSE 72; O2SAT 98; BMI 35.0
--- NOTE | 2023-05-27 11:01 | MHC.PC.OV ---
Vital Signs 05/27/23 11:01 Height 5 ft 4 in Weight 203 lb 11.314 oz BMI 35.0 BP 130/82 Blood Pressure Location Rt brachial Position Sitting Pulse 72 Pulse Source Pulse Oximeter Pulse Oximetry (%) 98 Oxygen Delivery Method Room Air Intake Visit Reasons: Spindle cell carcinoma left thigh Radio Recorder Required: No Allergies hydrocodone [HYDROCODONE] Allergy (Severe, Verified 05/27/23 11:02) RASH perfume Allergy (Intermediate, Verified 05/27/23 11:02) Shortness of Breath Seasonal Allergies Allergy (Intermediate, Verified 05/27/23 11:02) Watery Eye, sneezing Tobacco use date assessed: 05/27/23 Dental Screening Dental Screen Date: 03/08/23 Did you have a dental visit in the last 12 months?: Yes Did you have a dental problem in the last 6 months where you did not have access to dental care?: No Was dental information given to patient?: Patient has dentist HPI Spindle cell carcinoma left thigh HPI Details 63-year-old obese female with a history of CVA with left-sided weakness generalized anxiety disorder having spindle cell carcinoma of the leg coming in for follow-up. Last seen in February 2023. Complains of left knee pain and seen ortho advised physical therapy patient had an MRI in March 2023 of the left femur with contrast noted postsurgical changes in the anterior subcutaneous soft tissue of the distal half of the thigh possible small defect through the medial aspect of the quadriceps tendon communicates suprapatellar recess no mass noted had also generalized ill-defined increased T2 signal throughout the anterior compartment muscle of the thigh. Postsurgical. [facility] Medical History (Updated 05/27/23 @ 11:48 by Sofía Lucas MD) Nicotine dependence, cigarettes, uncomplicated Mass of left thigh Suspected exposure to mold Left leg swelling Obesity (BMI 30-39.9) Hemiparesis (~2017) ADHD (attention deficit hyperactivity disorder) Hypercalcemia Anxiety Hyperparathyroidism Sleep apnea in adult History of asthma History of CVA with residual deficit (~2017) Allergic rhinitis Surgical History History of biopsy History of hand surgery History of hysterectomy History of tubal ligation History of History of colonoscopy History of bilateral breast reduction surgery History of tonsillectomy S/P Botox injection Hx of arthroscopy of left knee Family History Father HTN (hypertension) Mother HTN (hypertension) Social History Household Members: None Housing: House Alcohol intake: current Alcohol intake frequency: does not drink Comment: left sided hemiparesis walkrisa dubon Patient Tobacco Use Status: Former Tobacco user Tobacco use type: Cigarette Years Smoked: 2017 stopped 2.5 packs /20 years e-Cigarette/Vaping Use: Never Used Second Hand Smoke Exposure: No service: No Current occupational status: disabled Cognitive needs: No Hearing needs: No Vision needs: No Female Reproductive History Menstrual Age of Menarche: 15 Questionnaire Thrive Questionnaire Date Thrive assessed: 03/08/23 AUDIT C Alcohol Use Questionnaire (AUDIT-C) 1. How often do you have a drink containing alcohol?: Never 3. How often do you have six or more drinks on one occasion?: Never Total Score: 0 Score Reviewed/Action Taken: Yes SANDY-7 AMB Questionnaire SANDY-7 Date SANDY - 7 assessed: 03/08/23 Source: Developed by Drs. Leland Small, Melodie Chambers, Rudi Lewis and colleagues, with an educational zhang from [employer]. Physical exam (Primary Care) Vital Signs: Last Vital Signs Pulse 72 05/27/23 11:01 BP 130/82 05/27/23 11:01 Pulse Ox 98 05/27/23 11:01 Oxygen Delivery Method Room Air 05/27/23 11:01 BMI result Body Mass Index 35.0 Tobacco/Smoking Status: Tobacco use Status Tobacco use date assessed 05/27/23 05/27/23 11:02 Patient Tobacco Use Status Former Tobacco user 05/27/23 11:02 Tobacco use type Cigarette 05/27/23 11:02 e-Cigarette/Vaping Use Never Used 05/27/23 11:02 Thrive Assessment: Date of Thrive Assessment Date Thrive assessed 03/08/23 05/27/23 11:02 Const General: alert; No acute distress Eyes Conjunctivae: conjunctivae normal Resp Auscultation: clear to auscultation bilaterally Cardio Rate: regular rate Rhythm: regular rhythm GI Inspection: Yes normal to inspection Extrem General: Yes normal to inspection and No edema Assessment and Plan Assessment & Plan (1) Obesity (BMI 30-39.9): Code(s): E66.9 - Obesity, unspecified Plan: Diet and exercise (2) Generalized anxiety disorder: Comment: [facility]. March 2021 Code(s): F41.1 - Generalized anxiety disorder Plan: Continue with counseling and therapy (3) Impaired glucose tolerance: Code(s): R73.02 - Impaired glucose tolerance (oral) Plan: Decrease the amount of carbohydrate intake, pasta, bread, rice and potatoes are all sugar and that is aside from all the sweet stuff, remember that fruits are good but they are Sweet also. (4) Hypertension: Code(s): I10 - Essential (primary) hypertension Qualifiers: Hypertension type: essential hypertension Qualified Code(s): I10 - Essential (primary) hypertension Plan: Continue with blood pressure medication. Decrease salt intake and exercise on lisinopril 40 mg once a day and amlodipine 10 mg once a day (5) History of CVA with residual deficit: Onset Date: ~2016 Comment: (CVA with left-sided weakness - 10/2016) Code(s): I69.30 - Unspecified sequelae of cerebral infarction Plan: Control the cholesterol, weight, blood pressure (6) Spindle cell carcinoma: Onset Date: ~2022 Comment: Left thigh mass August 2022Unclassified spindle cell sarcoma, low-grade 01/25/2023 sarcoma resection left thigh with reconstruction advancement left vastus medialis Dr. Gomez status post radiation therapy Code(s): C80.1 - Malignant (primary) neoplasm, unspecified Plan: . Patient is being followed up by hematology oncology. MRI Q 3 months last one 04/2023 (7) Left knee pain: Code(s): M25.562 - Pain in left knee Plan: Patient has seen ortho and has arthritis Orders: Orders Complete Blood Count Auto Diff Today I10 - Essential (primary) hypertension Comprehensive Met. Panel Today I10 - Essential (primary) hypertension Free T4 (Free Thyroxine) Today I10 - Essential (primary) hypertension Vitamin D 25-OH Total Today I10 - Essential (primary) hypertension Thyroid Stimulating Hormone Today I10 - Essential (primary) hypertension Lipid Panel Today E78.00 - Pure hypercholesterolemia, unspecified, I10 - Essential (primary) hypertension Vitamin B12 and Folate Today I10 - Essential (primary) hypertension Hemoglobin A1c Today R73.02 - Impaired glucose tolerance (oral) Medications: Refilled fexofenadine 180 mg PO DAILY 90 tabs 3RF Coding Level of Care Code Est Pt Level 4 (37579) Diagnoses Obesity (BMI 30-39.9) E66.9 Generalized anxiety disorder F41.1 Impaired glucose tolerance R73.02 Essential hypertension I10 Hypertension type: essential hypertension History of CVA with residual deficit I69.30 Spindle cell carcinoma C80.1 Left knee pain M25.562
== END 2023-05-27 12:03 | disposition home or self-care (01) ==
PROVIDERS: PCP Internal Medicine; Visit Provider Internal Medicine
DX: R73.02 Impaired glucose tolerance (oral) (principal); E66.9 Obesity, unspecified; Z68.35 Body mass index [BMI] 35.0-35.9, adult; C80.1 Malignant (primary) neoplasm, unspecified; F41.1 Generalized anxiety disorder; I10 Essential (primary) hypertension; I69.30 Unspecified sequelae of cerebral infarction; M25.562 Pain in left knee
CPT/HCPCS: 99214

== ENCOUNTER 2023-06-07 11:41 | Outpatient (AMB) | payer MEDICARE, SELFPAY ==
--- NOTE | 2023-06-07 11:34 | A.OFFVIS_ITS ---
Intake Visit Reasons: H&P OR Botox Intake Note: Patient presents via telephone video for Botox discussion. Ocean Fishing Guide Required: No Accompanied by: Self / Same As Patient Allergies hydrocodone [HYDROCODONE] Allergy (Severe, Verified 06/10/23 17:17) RASH perfume Allergy (Intermediate, Verified 06/10/23 17:17) Shortness of Breath Seasonal Allergies Allergy (Intermediate, Verified 06/10/23 17:17) Watery Eye, sneezing HPI Comments Details: Maya is a 62-year-old female who presents today telehealth visit. She states that she diagnosed with bone cancer. She had radiation therapy and surgery in [place] in January 2023. She states she is doing much better. She remains on Myrbetriq 50 mg twice a day. She is scheduled for bladder Botox injection 200 units, 06/18/2023. She denies dysuria. Plan urine culture prior to Botox injection. Review of chart 10/15/2022? She was last seen by me on 07/13/2022 for overactive bladder. Advised the patient to continue Myrbetriq twice a day, and follow up Tele-health in 3 months during that time. She has a history of stroke in 2017. Patient states that she is starting to have urinary urgency with incontinence episodes. She denies dysuria. She states that she was recently diagnosed with bone cancer and was seeing a specialist in [place]. She has an upcoming surgery and wants to delay repeat Botox treatment. She states that she will call the office for follow up. She was unable to give urine specimen at this time. Bladder scan: 118 mL. Plan --Continue Myrbetriq 50 mg BID daily. Patient has recently diagnosed with bone cancer and she has planned surgery. She will call to the office when she is recovered from the surgery and will repeat Botox for the bladder. 07/13/2022: The patient is s/p cystoscopy and bladder Botox 100 units on 01/04/22. history of stroke in 2017. States having improvement in OAB symtoms post the Botox treatment. The patient is taking Myrbetriq twice a day without any reported side effects. States improvement in urinary leakage after the Botox therapy. I discussed to repeat the Botox 100 units. Will schedule a tele-health visit and will monitor her urinary symptoms. Plan: Continue Myrbetriq twice a day. Tele-health follow-up in three months. 06/10/23: Plan: Botox 200 units bladder injection [facility] Medical History (Updated 05/27/23 @ 11:48 by Sofía Lucas MD) Nicotine dependence, cigarettes, uncomplicated Mass of left thigh Suspected exposure to mold Left leg swelling Obesity (BMI 30-39.9) Hemiparesis (~2017) ADHD (attention deficit hyperactivity disorder) Hypercalcemia Anxiety Hyperparathyroidism Sleep apnea in adult History of asthma History of CVA with residual deficit (~2017) Allergic rhinitis Surgical History History of biopsy History of hand surgery History of hysterectomy History of tubal ligation History of History of colonoscopy History of bilateral breast reduction surgery History of tonsillectomy S/P Botox injection Hx of arthroscopy of left knee Family History Father HTN (hypertension) Mother HTN (hypertension) Social History Household Members: None Housing: House Alcohol intake: current Alcohol intake frequency: does not drink Comment: left sided hemiparesis walks wih cane Patient Tobacco Use Status: Former Tobacco user Tobacco use type: Cigarette Years Smoked: 2017 stopped 2.5 packs /20 years e-Cigarette/Vaping Use: Never Used Second Hand Smoke Exposure: No service: No Current occupational status: disabled Cognitive needs: No Hearing needs: No Vision needs: No Female Reproductive History Menstrual Age of Menarche: 15 Review of Systems Const All systems reviewed & are unremarkable except as noted in HPI and below Reports no additional complaints Eyes Reports no additional complaints ENT Reports no additional complaints Card Reports no additional complaints Resp Reports no additional complaints GI Reports no additional complaints Reports as per HPI Musc Reports no additional complaints Skin/Breast Reports system reviewed and no additional complaints, except as documented Neuro Reports no additional complaints Psych Reports no additional complaints Endo Reports no additional complaints Lexa/Lymph Reports no additional complaints Aller/Immun Reports no additional complaints Physical Exam Const General: cooperative, healthy appearing and no acute distress HEENT Head: Yes normal to inspection, Yes normocephalic and Yes atraumatic Eyes Conjunctivae: conjunctivae normal Resp Effort & Inspection: normal respiratory effort Psych Appearance: grossly normal Telehealth Telehealth Location of provider rendering services: practice address Location of patient: address on file Patient Identification confirmed using: Name, : Yes Telehealth method: video Patient verbally consented to treatment: Yes Patient verbally consented to billing insurance company: Yes Patient informed of any privacy concerns related to visit: Yes Assessment & Plan Assessment & Plan (1) OAB (overactive bladder): Code(s): N32.81 - Overactive bladder Category: Medical (2) Spastic neurogenic bladder: Code(s): N31.8 - Other neuromuscular dysfunction of bladder Category: Medical (3) History of CVA (cerebrovascular accident): Onset Date: ~2016 Comment: (CVA 2017 left-sided weakness) Code(s): Z86.73 - Personal history of transient ischemic attack (TIA), and cerebral infarction without residual deficits Category: Medical Plan Cystoscopy, Bladder Botox injection 200 units Patient Instructions: The patient had an opportunity to ask questions regarding treatment plan. All questions were answered. The patient expressed understanding and agreement with the above treatment plan. The patient is aware they should contact our office by phone for worsening of their current condition or the appearance of new symptoms. Compliance is encoura ged with any medications and followup testing that is ordered. It is a privilege to be allowed the opportunity to participate in the urologic care of your patient. If you have any questions or concerns regarding treatment for the above conditions please do not hesitate to contact me. The office telephone contact is [phone]. This note is constructed in part using voice recognition software. While every effort has been made to ensure accuracy furnishings conservator errors may have been included. Yours sincerely, Torres Connell MD
== END 2023-06-07 11:53 | disposition home or self-care (01) ==
LOC: HO.HUSH 11:41
PROVIDERS: PCP Internal Medicine; Visit Provider Urology
DX: N32.81 Overactive bladder (principal); N31.8 Other neuromuscular dysfunction of bladder; Z86.73 Personal history of transient ischemic attack (TIA), and cerebral infarction without residual deficits
CPT/HCPCS: 99213

== ENCOUNTER → 2023-06-07 11:41 | Outpatient (BNVA) | payer MEDICARE, SELFPAY | PROVIDERS: PCP Internal Medicine; Visit Provider Urology ==

== ENCOUNTER 2023-06-10 16:58 | Outpatient (AMB) | payer MEDICARE, SELFPAY ==
[2023-06-10 16:35] VITALS: BP 128/68; PULSE 94; O2SAT 95; BMI 35.1
--- NOTE | 2023-06-10 16:35 | MHC.PC.OV ---
Vital Signs 06/10/23 16:35 Height 5 ft 4 in Weight 204 lb 9.423 oz BMI 35.1 BP 128/68 Blood Pressure Location Lt brachial Position Sitting Pulse 94 Pulse Source Pulse Oximeter Pulse Oximetry (%) 95 Oxygen Delivery Method Room Air Intake Visit Reasons: FMLA Forms Caisson Worker Required: No Accompanied by: Son Allergies hydrocodone [HYDROCODONE] Allergy (Severe, Verified 06/10/23 17:17) RASH perfume Allergy (Intermediate, Verified 06/10/23 17:17) Shortness of Breath Seasonal Allergies Allergy (Intermediate, Verified 06/10/23 17:17) Watery Eye, sneezing Tobacco use date assessed: 06/10/23 Dental Screening Dental Screen Date: 03/08/23 HPI FMLA Forms HPI Details 63-year-old obese female with a history of CVA generalized anxiety disorder hypertension recently having spindle cell carcinoma having had surgery on the left thigh coming in for follow-up. Recently has been requiring help for activities of daily living as the patient has mobility issues. She has ask son to help. [facility] Medical History (Updated 05/27/23 @ 11:48 by Sofía Lucas MD) Nicotine dependence, cigarettes, uncomplicated Mass of left thigh Suspected exposure to mold Left leg swelling Obesity (BMI 30-39.9) Hemiparesis (~2017) ADHD (attention deficit hyperactivity disorder) Hypercalcemia Anxiety Hyperparathyroidism Sleep apnea in adult History of asthma History of CVA with residual deficit (~2017) Allergic rhinitis Surgical History History of biopsy History of hand surgery History of hysterectomy History of tubal ligation History of History of colonoscopy History of bilateral breast reduction surgery History of tonsillectomy S/P Botox injection Hx of arthroscopy of left knee Family History Father HTN (hypertension) Mother HTN (hypertension) Social History Household Members: None Housing: House Alcohol intake: current Alcohol intake frequency: does not drink Comment: left sided hemiparesis walks wih cane Patient Tobacco Use Status: Former Tobacco user Tobacco use type: Cigarette Years Smoked: 2017 stopped 2.5 packs /20 years e-Cigarette/Vaping Use: Never Used Second Hand Smoke Exposure: No service: No Current occupational status: disabled Cognitive needs: No Hearing needs: No Vision needs: No Female Reproductive History Menstrual Age of Menarche: 15 Questionnaire Thrive Questionnaire Date Thrive assessed: 03/08/23 AUDIT C Alcohol Use Questionnaire (AUDIT-C) 1. How often do you have a drink containing alcohol?: Never 3. How often do you have six or more drinks on one occasion?: Never Total Score: 0 Score Reviewed/Action Taken: Yes SANDY-7 AMB Questionnaire SANDY-7 Date SANDY - 7 assessed: 03/08/23 Source: Developed by Drs. Leland Small, Melodie Chambers, Rudi Lewis and colleagues, with an educational zhang from [employer]. Physical exam (Primary Care) Vital Signs: Last Vital Signs Pulse 94 06/10/23 16:35 BP 128/68 06/10/23 16:35 Pulse Ox 95 06/10/23 16:35 Oxygen Delivery Method Room Air 06/10/23 16:35 BMI result Body Mass Index 35.1 Tobacco/Smoking Status: Tobacco use Status Tobacco use date assessed 06/10/23 06/10/23 16:36 Patient Tobacco Use Status Former Tobacco user 06/10/23 16:36 Tobacco use type Cigarette 06/10/23 16:36 e-Cigarette/Vaping Use Never Used 06/10/23 16:36 Thrive Assessment: Date of Thrive Assessment Date Thrive assessed 03/08/23 06/10/23 16:36 Const General: alert; No acute distress Eyes Conjunctivae: conjunctivae normal Resp Auscultation: clear to auscultation bilaterally Cardio Rate: regular rate Rhythm: regular rhythm GI Inspection: Yes normal to inspection Extrem Other: Patient walks with a cane with left-sided weakness for over 5 on the upper and lower extremity. Patient also has a deformity on the left thigh status post surgery for spindle cell carcinoma of the left leg General: No edema Assessment and Plan Assessment & Plan (1) History of CVA with residual deficit: Onset Date: ~2016 Comment: (CVA with left-sided weakness - 10/2016) Code(s): I69.30 - Unspecified sequelae of cerebral infarction Plan: Encourage patient to continuously be active to regain muscle strength..FMLA done 3 months for the son (2) Spindle cell carcinoma: Onset Date: ~2022 Comment: Left thigh mass August 2022Unclassified spindle cell sarcoma, low-grade 01/25/2023 sarcoma resection left thigh with reconstruction advancement left vastus medialis Dr. Gomez status post radiation therapy Code(s): C80.1 - Malignant (primary) neoplasm, unspecified Plan: Patient continues to follow-up with Hematology-Oncology and surveillance. (3) Hypertension: Code(s): I10 - Essential (primary) hypertension Qualifiers: Hypertension type: essential hypertension Qualified Code(s): I10 - Essential (primary) hypertension Plan: Continue with blood pressure medication. Decrease salt intake and exercise on lisinopril 40 mg once a day amlodipine 10 mg once a day (4) Generalized anxiety disorder: Comment: [facility]. March 2021 Code(s): F41.1 - Generalized anxiety disorder Plan: Continue with venlafaxine. Coding Level of Care Code Est Pt Level 3 (42567) Diagnoses History of CVA with residual deficit I69.30 Spindle cell carcinoma C80.1 Essential hypertension I10 Hypertension type: essential hypertension Generalized anxiety disorder F41.1
== END 2023-06-10 18:13 | disposition home or self-care (01) ==
PROVIDERS: PCP Internal Medicine; Visit Provider Internal Medicine
DX: I69.30 Unspecified sequelae of cerebral infarction (principal); C80.1 Malignant (primary) neoplasm, unspecified; I10 Essential (primary) hypertension; F41.1 Generalized anxiety disorder
CPT/HCPCS: 99213

== ENCOUNTER 2023-06-11 14:06 | Outpatient (REF) | payer MEDICARE, SELFPAY | END 2023-06-11 14:07 | disposition home or self-care (01) | LOC: HO.LAB 14:06 | PROVIDERS: Visit Provider Urology | DX: Z13.89 Encounter for screening for other disorder (principal) ==

== ENCOUNTER 2023-06-12 13:32 | Outpatient (REF) | payer MEDICARE, SELFPAY | END 2023-06-12 13:33 | disposition home or self-care (01) | LOC: HO.LNP 13:32 | PROVIDERS: Visit Provider Urology | DX: N32.81 Overactive bladder (principal) | CPT/HCPCS: 87086 ==

== ENCOUNTER 2023-06-18 10:48 | Day surgery (SDC) | payer MEDICARE, SELFPAY ==
--- NOTE | 2023-06-17 10:42 | HO.ANESPROP2 ---
HPI - Anesthesia Eval Consult details Narrative: 63yo F for Cystoscopy Bladder Botox Injection Last 2020 Plavix for h/o CVA PMFSH Active Problems Active Problems: All Active Problems Hip pain, left (Acute) Left knee pain (Acute) Fall (Acute) Vaginal lesion (Acute) Spindle cell carcinoma (Acute ~2022) History of CVA with residual deficit (Acute ~2017) Hemiparesis (Acute ~2017) Hypertension (Acute) Impaired glucose tolerance (Acute) Tubular adenoma of colon (Acute) Hyperparathyroidism (Acute) Hypercalcemia (Acute) OAB (overactive bladder) (Acute) Spastic neurogenic bladder (Acute) Generalized anxiety disorder (Acute) Allergic rhinitis (Acute) Obesity (BMI 30-39.9) (Acute) Hearing deficit (Acute) Breast cancer screening (Acute) Cervical cancer screening (Acute) Past Medical History Medical History Nicotine dependence, cigarettes, uncomplicated Mass of left thigh Suspected exposure to mold Left leg swelling Obesity (BMI 30-39.9) Hemiparesis (~2016) ADHD (attention deficit hyperactivity disorder) Hypercalcemia Anxiety Hyperparathyroidism Sleep apnea in adult History of asthma History of CVA with residual deficit (~2016) Allergic rhinitis Family History Family History Father HTN (hypertension) Mother HTN (hypertension) Surgical History Surgical History History of biopsy History of hand surgery History of hysterectomy History of tubal ligation History of History of colonoscopy History of bilateral breast reduction surgery History of tonsillectomy S/P Botox injection Hx of arthroscopy of left knee Social History Social History Household Members: None Housing: House Alcohol intake: current Alcohol intake frequency: does not drink Comment: left sided hemiparesis walks wih cane Patient Tobacco Use Status: Former Tobacco user Tobacco use type: Cigarette Years Smoked: 2017 stopped 2.5 packs /20 years e-Cigarette/Vaping Use: Never Used Second Hand Smoke Exposure: No Are you DNR?: No Advance Directives: No Advance Directives Information Provided: Yes Patient : No service: No Current occupational status: disabled Cognitive needs: No Hearing needs: No Vision needs: No Meds Allergies Allergy/AdvReac Type Severity Reaction Status Date / Time hydrocodone [HYDROCODONE] Allergy Severe RASH Verified 06/10/23 17:17 perfume Allergy Intermediate Shortness Verified 06/10/23 17:17 of Breath Seasonal Allergies Allergy Intermediate Watery Verified 06/10/23 17:17 Eye, sneezing Home Medications ?Medication ?Instructions ?Recorded ?Confirmed ?Last Taken ?Type aspirin 81 mg tablet,delayed 81 mg PO DAILY 06/22/20 06/18/23 06/16/23 History release oxycodone 5 mg tablet mg PO 03/08/23 04/24/23 Unknown History Assessment and Plan Assessment Anesthesia Assessment: Chart Reviewed
[2023-06-18 11:52] VITALS: BP 118/85; PULSE 84; RESP 18; TEMP 36.3; O2SAT 95
[2023-06-18 11:55] VITALS: BMI 37.4
[2023-06-18] MEDS: Lactated Ringers 1,000 ML 100 ML IVCONT (12:48)
--- NOTE | 2023-06-18 14:26 | P.CONAN_ITS ---
[facility] Active Problems Active Problems: All Active Problems Hip pain, left (Acute) Left knee pain (Acute) Fall (Acute) Vaginal lesion (Acute) Spindle cell carcinoma (Acute ~2022) History of CVA with residual deficit (Acute ~2017) Hemiparesis (Acute ~2017) Hypertension (Acute) Impaired glucose tolerance (Acute) Tubular adenoma of colon (Acute) Hyperparathyroidism (Acute) Hypercalcemia (Acute) OAB (overactive bladder) (Acute) Spastic neurogenic bladder (Acute) Generalized anxiety disorder (Acute) Allergic rhinitis (Acute) Obesity (BMI 30-39.9) (Acute) Hearing deficit (Acute) Breast cancer screening (Acute) Cervical cancer screening (Acute) Past Medical History Medical History Nicotine dependence, cigarettes, uncomplicated Mass of left thigh Suspected exposure to mold Left leg swelling Obesity (BMI 30-39.9) Hemiparesis (~2017) ADHD (attention deficit hyperactivity disorder) Hypercalcemia Anxiety Hyperparathyroidism Sleep apnea in adult History of asthma History of CVA with residual deficit (~2016) Allergic rhinitis Functional capacity: uses cane/walker Patient : No Family History Family History Father HTN (hypertension) Mother HTN (hypertension) Family history of problems with anesthesia: No Surgical History Surgical History History of biopsy History of hand surgery History of hysterectomy History of tubal ligation History of History of colonoscopy History of bilateral breast reduction surgery History of tonsillectomy S/P Botox injection Hx of arthroscopy of left knee History of Problems with Anesthesia: No Social History Social History Household Members: None Housing: House Alcohol intake: current Alcohol intake frequency: does not drink Comment: left sided hemiparesis walks wih cane Patient Tobacco Use Status: Former Tobacco user Tobacco use type: Cigarette Years Smoked: 2017 stopped 2.5 packs /20 years e-Cigarette/Vaping Use: Never Used Second Hand Smoke Exposure: No Are you DNR?: No Advance Directives: No Advance Directives Information Provided: Yes service: No Current occupational status: disabled Cognitive needs: No Hearing needs: No Vision needs: No Meds Allergies Allergy/AdvReac Type Severity Reaction Status Date / Time hydrocodone [HYDROCODONE] Allergy Severe RASH Verified 06/10/23 17:17 perfume Allergy Intermediate Shortness Verified 06/10/23 17:17 of Breath Seasonal Allergies Allergy Intermediate Watery Verified 06/10/23 17:17 Eye, sneezing Active Medications: Current Medications Lactated Ringer's (Lr) 1,000 mls @ 100 mls/hr IVCONT .Q10H LORENA Last Admin: 06/18/23 12:48 Dose: 100 mls/hr Home Medications ?Medication ?Instructions ?Recorded ?Confirmed ?Last Taken ?Type aspirin 81 mg tablet,delayed 81 mg PO DAILY 06/22/20 06/18/23 06/16/23 History release oxycodone 5 mg tablet mg PO 03/08/23 04/24/23 Unknown History Exam Height,Weight and Vital Signs: Height 5 ft 4 in Weight 98.883 kg Last Vital Signs Temp 97.4 F 06/18/23 11:52 Pulse 84 06/18/23 11:52 Resp 18 06/18/23 11:52 BP 118/85 06/18/23 11:52 Pulse Ox 95 06/18/23 11:52 O2 Del Method Room Air 06/18/23 11:52 Airway Mallampati Class: II TM Dist: >3cm Neck ROM: Full Heart: RRR Lungs: CTA Assessment and Plan Assessment Anesthesia Assessment: Anesthesia Plan Discussed Final Anesthetic Review Family History of Problems with Anesthesia: No History of Problems with Anesthesia: No NPO: Yes ASA Class: III Final Preanesthetic Review: Meds/Allgs Chart Reviewed, Consent Obtained/Reviewed and Anes Risks/Benef Reviewed Patient Risk: Intermediate Procedure Risk: Low Anesthetic Plan Anesthetic Plan: GA Disposition: Standard PACU
--- NOTE | 2023-06-18 14:29 | MHC.SHP ---
Pre-Procedural Eval Section A - 24 Hr Update-Section A only Date of Service: 06/18/23 The patient is an INPATIENT: No Section B - Complete if H&P > 30 days Chief Complaint: Neurogenic bladder Allergies: Allergies Allergy/AdvReac Type Severity Reaction Status Date / Time hydrocodone [HYDROCODONE] Allergy Severe RASH Verified 06/10/23 17:17 perfume Allergy Intermediate Shortness Verified 06/10/23 17:17 of Breath Seasonal Allergies Allergy Intermediate Watery Verified 06/10/23 17:17 Eye, sneezing Plan Diagnosis/Plan: Unchanged I have reviewed the history and physical and performed a pertinent physical examination on my patient. No changes have occurred unless specified. Cystoscopy bladder Botox injection. Time Spent With Patient Time: Total time managing care of this patient today ____ minutes.
--- NOTE | 2023-06-18 15:00 | P.OP_ITS ---
Operative Note Operative Note Date of Service: 06/18/23 Narrative: PreOperative Diagnosis: Overactive bladder, spastic neurogenic bladder Post Operative Diagnosis: Overactive bladder, spastic neurogenic bladder Procedure: Cystoscopy with injection 200 units Botox intra detrusor muscle Surgeon: Dr Torres Connell Anesthesia: General Procedure: After informed consent was verified the patient was brought to the operating room and placed in a supine position. Anesthesia was administered per protocol. Time out was done per protocol. Antibiotics confirmed. Cystoscopy performed with 22 [place] cystoscope. Bladder was emptied of urine. Urine sent for culture. Bladder was filled with sterile water. The bladder was visualized, the right and left ureteral orifices were visualized. Using 200 units of Botox mixed in 10 cc of normal saline; transurethral injections were placed into the posterior wall of the bladder. 0.5cc placed at each injection site. Injections were placed in a grid 5 across and 4 longitudinally. Injections were placed from the inferior to superior position. The bladder was drained, the cystoscope was removed. 2% lidocaine was passed transurethrally. The patient tolerated the procedure and was brought out of anesthesia and taken to the recovery room in stable condition. Drains: None
[2023-06-18 15:14] VITALS: BP 133/79; PULSE 70; RESP 16; TEMP 36.9; O2SAT 99
[2023-06-18 15:19] VITALS: BP 136/73; PULSE 89; RESP 16; O2SAT 95
[2023-06-18 15:24] VITALS: BP 147/71; PULSE 73; RESP 16; O2SAT 95
[2023-06-18 15:29] VITALS: BP 166/95; PULSE 75; RESP 16; O2SAT 95
[2023-06-18 15:44] VITALS: BP 154/85; PULSE 71; RESP 16; TEMP 36.9; O2SAT 96
[2023-06-18] MEDS: Phenazopyridine HCL 200 MG TABLET PO (16:09)
== END 2023-06-18 16:10 | disposition home or self-care (01) ==
PROVIDERS: PCP Internal Medicine; Visit Provider Urology
PROC: 3E0K8GC Introduction of Other Therapeutic Substance into Genitourinary Tract, Via Natural or Artificial Opening Endoscopic (ICD-10-PCS; CPT 52287; principal; 2023-06-18 12:30)
DX: N31.8 Other neuromuscular dysfunction of bladder (principal); N32.81 Overactive bladder; N32.89 Other specified disorders of bladder; E83.52 Hypercalcemia; F90.9 Attention-deficit hyperactivity disorder, unspecified type; M79.89 Other specified soft tissue disorders; J30.2 Other seasonal allergic rhinitis; I69.954 Hemiplegia and hemiparesis following unspecified cerebrovascular disease affecting left non-dominant side; G47.30 Sleep apnea, unspecified; Z99.89 Dependence on other enabling machines and devices; Z79.82 Long term (current) use of aspirin; Z79.899 Other long term (current) drug therapy; Z98.890 Other specified postprocedural states; Z88.5 Allergy status to narcotic agent; Z87.891 Personal history of nicotine dependence
CPT/HCPCS: 52287; 87086; J0585; J0690; J1580; J2250; J2704; J3010

== ENCOUNTER → 2023-06-18 10:48 | Outpatient (BNV) | payer MEDICARE, SELFPAY | PROVIDERS: PCP Internal Medicine; Visit Provider Urology | DX: N32.81 Overactive bladder (principal) | CPT/HCPCS: 52287 ==

== ENCOUNTER → 2023-07-01 09:53 | Outpatient (BNVA) | payer MEDICARE, SELFPAY | PROVIDERS: PCP Internal Medicine; Visit Provider Urology | DX: N31.8 Other neuromuscular dysfunction of bladder (principal); N32.81 Overactive bladder | CPT/HCPCS: 51798 ==

== ENCOUNTER 2023-07-23 13:27 | Outpatient (AMB) | payer MEDICARE, SELFPAY ==
--- NOTE | 2023-07-23 13:33 | A.OFFVIS_ITS ---
Intake Visit Reasons: OV-Pain in left knee-follow up Intake Note: Maya is a 62 year old female who presents for follow-up of her left knee pain. The patient states that she has only mild discomfort in her left knee. She states that her left knee will give out several times per day. She has had recent left thigh surgery at [facility]. 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 She does walk with a cane. She has been doing physical therapy exercises at home which gave her mild relief. Allergies hydrocodone [HYDROCODONE] Allergy (Severe, Verified 07/23/23 13:39) RASH perfume Allergy (Intermediate, Verified 07/23/23 13:39) Shortness of Breath Seasonal Allergies Allergy (Intermediate, Verified 07/23/23 13:39) Watery Eye, sneezing Medication List - Last Reconciled 07/23/23 by Hayden Del Rio MD [reusable bed pads and disposable liners. As directed] albuterol sulfate 90 mcg/actuation (ProAir HFA) 2 puffs inhalation Q6H PRN amlodipine 10 mg PO DAILY [Ankle/Foot Orthotics As directed] aspirin 81 mg PO DAILY baclofen 10 mg PO TID cefuroxime axetil 500 mg PO BID clopidogrel 75 mg PO DAILY diclofenac sodium 1% (Voltaren Arthritis Pain) 4 grams topical QID fexofenadine 180 mg PO DAILY gabapentin 600 mg PO BID lidocaine 5% 1 patch topical DAILY 30 days lisinopril 40 mg PO DAILY 90 days mirabegron ER 50 mg PO BID 90 days oxycodone mg PO tramadol 50 mg PO DAILY venlafaxine ER (Effexor XR) 150 mg PO BEDTIME [facility] Medical History Nicotine dependence, cigarettes, uncomplicated Mass of left thigh Suspected exposure to mold Left leg swelling Obesity (BMI 30-39.9) Hemiparesis (~2017) ADHD (attention deficit hyperactivity disorder) Hypercalcemia Anxiety Hyperparathyroidism Sleep apnea in adult History of asthma History of CVA with residual deficit (~2017) Allergic rhinitis Surgical History History of biopsy History of hand surgery History of hysterectomy History of tubal ligation History of History of colonoscopy History of bilateral breast reduction surgery History of tonsillectomy S/P Botox injection Hx of arthroscopy of left knee Family History Father HTN (hypertension) Mother HTN (hypertension) Social History Household Members: None Housing: House Alcohol intake: current Alcohol intake frequency: does not drink Comment: left sided hemiparesis walks wih cane Patient Tobacco Use Status: Former Tobacco user Tobacco use type: Cigarette Years Smoked: 2017 stopped 2.5 packs /20 years e-Cigarette/Vaping Use: Never Used Second Hand Smoke Exposure: No service: No Current occupational status: disabled Cognitive needs: No Hearing needs: No Vision needs: No Female Reproductive History Menstrual Age of Menarche: 15 Physical Exam Const Other: Well-nourished well-developed very friendly female awake alert and oriented x3 in no acute distress Extrem Other: Left knee examination shows that the surgical incision along the anterior aspect of her thigh is healed, no erythema, active range of motion from-20 degrees to 90 degrees, minimal discomfort with range of motion Assessment & Plan Assessment & Plan (1) Left knee pain: Code(s): M25.562 - Pain in left knee Category: Medical Plan Ms. Cain presents with residual weakness in her left knee after undergoing sarcoma excision at [facility]. I did have the patient fitted with a well-padded knee brace because of her symptoms of instability. I feel that the brace is a medical necessity to help prevent future falls. The patient will continue with her home exercise program. She will follow up with me on an as-needed basis should her symptoms not plateau at an unacceptable level over the next few months. Feel free to call me at any time should questions regarding her orthopedic management arise. I spent 22 minutes in reviewing the patient's records and imaging studies, seeing the patient and documenting in the medical record. Coding Level of Care Code Est Pt Level 3 (28132) Diagnoses Left knee pain M25.562
== END 2023-07-23 13:58 | disposition home or self-care (01) ==
PROVIDERS: PCP Internal Medicine; Visit Provider Orthopaedic Surgery
DX: M25.562 Pain in left knee (principal); Z85.831 Personal history of malignant neoplasm of soft tissue
CPT/HCPCS: 99213

== ENCOUNTER → 2023-07-23 13:27 | Outpatient (BNVA) | payer MEDICARE, SELFPAY | PROVIDERS: PCP Internal Medicine; Visit Provider Orthopaedic Surgery | DX: M25.562 Pain in left knee (principal); Z85.831 Personal history of malignant neoplasm of soft tissue | CPT/HCPCS: 99212 ==

== ENCOUNTER 2023-10-04 11:38 | Outpatient (REF) | payer MEDICARE, MEDICAID, SELFPAY | END 2023-10-04 11:39 | disposition home or self-care (01) | LOC: HO.LAB 11:38 | PROVIDERS: PCP Internal Medicine; Visit Provider Urology | DX: N32.81 Overactive bladder (principal); N31.8 Other neuromuscular dysfunction of bladder; Z86.73 Personal history of transient ischemic attack (TIA), and cerebral infarction without residual deficits; N39.41 Urge incontinence | CPT/HCPCS: 51798; 81003; 87086; 99212 ==

== ENCOUNTER 2023-10-04 11:38 | Outpatient (AMB) | payer MEDICARE, MEDICAID, SELFPAY ==
--- NOTE | 2023-10-04 11:49 | A.OFFVIS_ITS ---
Intake Visit Reasons: Post OR Botox- follow up Intake Note: Maya is a 63 year old female who presents to the office today for a post OR botox follow up. Urology meds:Mirabegron Blood thinners:Aspirin Allergies hydrocodone [HYDROCODONE] Allergy (Severe, Verified 10/04/23 11:50) RASH perfume Allergy (Intermediate, Verified 10/04/23 11:50) Shortness of Breath Seasonal Allergies Allergy (Intermediate, Verified 10/04/23 11:50) Watery Eye, sneezing Medication List - Last Reconciled 10/04/23 by Torres Connell MD [reusable bed pads and disposable liners. As directed] albuterol sulfate 90 mcg/actuation (ProAir HFA) 2 puffs inhalation Q6H PRN amlodipine 10 mg PO DAILY [Ankle/Foot Orthotics As directed] aspirin 81 mg PO DAILY baclofen 10 mg PO TID cefuroxime axetil 500 mg PO BID 5 days clopidogrel 75 mg PO DAILY diclofenac sodium 1% (Voltaren Arthritis Pain) 4 grams topical QID fexofenadine 180 mg PO DAILY gabapentin 600 mg PO BID lidocaine 5% 1 patch topical DAILY 30 days lisinopril 40 mg PO DAILY 90 days mirabegron ER 50 mg PO BID 90 days oxycodone mg PO tramadol 50 mg PO DAILY venlafaxine ER (Effexor XR) 150 mg PO BEDTIME HPI Comments Details: 10/04/23--Teresa is s/p Botox 200 units on 06/18/23 and she states her urinary urgency is still present, she is still leaking, she states the botox worked for about 6-8 weeks. I will send urine for culture and empiracally start antibiotics. The patient may need botox every 3 months alternatively may consider interstim neuromodulation therapy. Review of chart: 06/07/23--Maya is a 62-year-old female who presents today telehealth visit. She states that she diagnosed with bone cancer. She had radiation therapy and surgery in [place] in January 2023. She states she is doing much better. She remains on Myrbetriq 50 mg twice a day. She is scheduled for bladder Botox injection 200 units, 06/18/2023. She denies dysuria. Plan urine culture prior to Botox injection. 10/15/2022? She was last seen by me on 07/13/2022 for overactive bladder. Advised the patient to continue Myrbetriq twice a day, and follow up Tele-health in 3 months during that time. She has a history of stroke in 2017. Patient states that she is starting to have urinary urgency with incontinence episodes. She denies dysuria. She states that she was recently diagnosed with bone cancer and was seeing a specialist in [place]. She has an upcoming surgery and wants to delay repeat Botox treatment. She states that she will call the office for follow up. She was unable to give urine specimen at this time. Bladder scan: 118 mL. Plan --Continue Myrbetriq 50 mg BID daily. Patient has recently diagnosed with bone cancer and she has planned surgery. She will call to the office when she is recovered from the surgery and will repeat Botox for the bladder. 07/13/2022: The patient is s/p cystoscopy and bladder Botox 100 units on 01/04/22. history of stroke in 2017. States having improvement in OAB symtoms post the Botox treatment. The patient is taking Myrbetriq twice a day without any reported side effects. States improvement in urinary leakage after the Botox therapy. I discussed to repeat the Botox 100 units. Will schedule a tele-health visit and will monitor her urinary symptoms. Plan: Continue Myrbetriq twice a day. Tele-health follow-up in three months. [facility] Medical History Nicotine dependence, cigarettes, uncomplicated Mass of left thigh Suspected exposure to mold Left leg swelling Obesity (BMI 30-39.9) Hemiparesis (~2017) ADHD (attention deficit hyperactivity disorder) Hypercalcemia Anxiety Hyperparathyroidism Sleep apnea in adult History of asthma History of CVA with residual deficit (~2017) Allergic rhinitis Surgical History History of biopsy History of hand surgery History of hysterectomy History of tubal ligation History of History of colonoscopy History of bilateral breast reduction surgery History of tonsillectomy S/P Botox injection Hx of arthroscopy of left knee Family History Father HTN (hypertension) Mother HTN (hypertension) Social History Household Members: None Housing: House Alcohol intake: current Alcohol intake frequency: does not drink Comment: left sided hemiparesis walks nato dubon Patient Tobacco Use Status: Former Tobacco user Tobacco use type: Cigarette Years Smoked: 2017 stopped 2.5 packs /20 years e-Cigarette/Vaping Use: Never Used Second Hand Smoke Exposure: No service: No Current occupational status: disabled Cognitive needs: No Hearing needs: No Vision needs: No Female Reproductive History Menstrual Age of Menarche: 15 Review of Systems Const All systems reviewed & are unremarkable except as noted in HPI and below Reports no additional complaints Eyes Reports no additional complaints ENT Reports no additional complaints Card Reports no additional complaints Resp Reports no additional complaints GI Reports no additional complaints Reports as per HPI Musc Reports no additional complaints Skin/Breast Reports system reviewed and no additional complaints, except as documented Neuro Reports no additional complaints Psych Reports no additional complaints Endo Reports no additional complaints Lexa/Lymph Reports no additional complaints Aller/Immun Reports no additional complaints Office Procedures Post Void Residual Post Residual Void Post Void Residual (PVR): 33 36021-[id number] Void Residual by ultrasound Results AMB Urinalysis, Automated UA Leukoctes 0 Geovanna/uL Last Edit by Tasha Mccormick CMA on 10/04/23 13:01 UA Nitrite Negative Last Edit by Tasha Mccormick CMA on 10/04/23 13:01 UA Urobilinogen 0.2 mg/dL Last Edit by Tasha Mccormick CMA on 10/04/23 13:01 UA Protein 0 mg/dL Last Edit by Tasha Mccormick CMA on 10/04/23 13:01 UA pH 6.0 Last Edit by Tasha Mccormick CMA on 10/04/23 13:01 UA Blood 0 Arnol/uL Last Edit by Tasha Mccormick CMA on 10/04/23 13:01 UA Specific [place] 1.020 Last Edit by Tasha Mccormick CMA on 10/04/23 13:01 UA Ketone Negative Last Edit by Tasha Mccormick CMA on 10/04/23 13:01 UA Bilirubin 0 mg/dL Last Edit by Tasha Mccormick CMA on 10/04/23 13:01 UA Glucose 0 mg/dL Last Edit by Tasha Mccormick CMA on 10/04/23 13:01 Results Reviewed Results Reviewed: Laboratory Last Values Urine pH (Auto) 6.0 10/04/23 12:18 Specific [place] (Auto) 1.020 10/04/23 12:18 Urine Protein (Auto) 0 mg/dL 10/04/23 12:18 Glucose (UA)(Auto) 0 mg/dL 10/04/23 12:18 Urine Ketones (Auto) Negative 10/04/23 12:18 Urine Blood (Auto) 0 Arnol/uL 10/04/23 12:18 Urine Nitrite (Auto) Negative 10/04/23 12:18 Urine Bilirubin (Auto) 0 mg/dL 10/04/23 12:18 Urine Urobilinogen (Auto) 0.2 mg/dL 10/04/23 12:18 Leukocyte Esterase (Auto) 0 Geovanna/uL 10/04/23 12:18 Assessment & Plan Assessment & Plan (1) OAB (overactive bladder): Code(s): N32.81 - Overactive bladder Category: Medical (2) Spastic neurogenic bladder: Code(s): N31.8 - Other neuromuscular dysfunction of bladder Category: Medical (3) History of CVA (cerebrovascular accident): Onset Date: ~2016 Comment: (CVA 2017 left-sided weakness) Code(s): Z86.73 - Personal history of transient ischemic attack (TIA), and cerebral infarction without residual deficits Category: Medical Plan Schedule repeat Botox 200 units Ceftn, urine c/s pending Orders: Orders AMB Urinalysis Automated 10/04/23 Z13.9 - Encounter for screening, unspecified AMB Post Void Residual by ultrasound 10/04/23 N31.8 - Other neuromuscular dysfunction of bladder Urine Culture 10/04/23 N32.81 - Overactive bladder Medications: New cefuroxime axetil 500 mg PO BID 5 days 10 tabs 0RF Patient Instructions: The patient had an opportunity to ask questions regarding treatment plan. The patient expressed understanding and agreement with the above treatment plan. The patient is aware they should contact our office by phone for worsening of their current condition or the appearance of new symptoms. Compliance is encouraged with any medications and followup testing that is ordered. It is a privilege to be allowed the opportunity to participate in the urologic care of your patient. If you have any questions or concerns regarding treatment for the above conditions please do not hesitate to contact me. The office telephone contact is [phone]. This note is constructed in part using voice recognition software. While every effort has been made to ensure accuracy content producer errors may have been included. Yours sincerely, Torres Connell MD Coding Level of Care Code Est Pt Level 3 (70827) Diagnoses OAB (overactive bladder) N32.81 Spastic neurogenic bladder N31.8 History of CVA (cerebrovascular accident) Z86.73 CPT Codes Post Residual Void - PVR CPT Code: 73476-[id number] Void Residual by ultrasound ([id number])
== END 2023-10-04 12:45 | disposition home or self-care (01) ==
PROVIDERS: PCP Internal Medicine; Visit Provider Urology
DX: N32.81 Overactive bladder (principal); N31.8 Other neuromuscular dysfunction of bladder; Z86.73 Personal history of transient ischemic attack (TIA), and cerebral infarction without residual deficits
CPT/HCPCS: 99213

== ENCOUNTER 2023-10-18 09:59 | Outpatient (AMB) | payer MEDICARE, MEDICAID, SELFPAY ==
--- NOTE | 2023-10-18 10:23 | AM.OFFVISNUR ---
Intake Visit Reasons: UA Allergies hydrocodone [HYDROCODONE] Allergy (Severe, Verified 10/04/23 11:50) RASH perfume Allergy (Intermediate, Verified 10/04/23 11:50) Shortness of Breath Seasonal Allergies Allergy (Intermediate, Verified 10/04/23 11:50) Watery Eye, sneezing Nursing Note patient presents to office for UA and culture order. Patient able to provide urine sample. UA unremarkable urine sent for culture to be sure. Patient understood will get call if has infection. Results AMB Urinalysis, Automated UA Leukoctes 0 Geovanna/uL Last Edit by Kael Barboza LPN on 10/18/23 10:21 UA Nitrite Negative Last Edit by Kael Barboza LPN on 10/18/23 10:21 UA Urobilinogen 0.2 mg/dL Last Edit by Kael Barboza LPN on 10/18/23 10:21 UA Protein 15 mg/dL Last Edit by Kael Barboza LPN on 10/18/23 10:21 UA pH 6.0 Last Edit by Kael Barboza LPN on 10/18/23 10:21 UA Blood 0 Arnol/uL Last Edit by Kael Barboza LPN on 10/18/23 10:21 UA Specific [place] 1.020 Last Edit by Kael Barboza LPN on 10/18/23 10:21 UA Ketone Negative Last Edit by Kael Barboza LPN on 10/18/23 10:21 UA Bilirubin 0 mg/dL Last Edit by Kael Barboza LPN on 10/18/23 10:21 UA Glucose 0 mg/dL Last Edit by Kael Barboza LPN on 10/18/23 10:21 Assessment & Plan Assessment & Plan Orders: Orders AMB Urinalysis Automated Today N31.8 - Other neuromuscular dysfunction of bladder, N32.81 - Overactive bladder Urine Culture Today N31.8 - Other neuromuscular dysfunction of bladder, N32.81 - Overactive bladder
== END 2023-10-18 10:40 | disposition home or self-care (01) ==
LOC: HO.HUSH 09:59
PROVIDERS: PCP Internal Medicine; Visit Provider Urology
DX: N32.81 Overactive bladder (principal); N31.8 Other neuromuscular dysfunction of bladder

== ENCOUNTER 2023-10-18 09:59 | Outpatient (REF) | payer MEDICARE, MEDICAID, SELFPAY | END 2023-10-18 10:00 | disposition home or self-care (01) | LOC: HO.LNP 09:59 | PROVIDERS: PCP Internal Medicine; Visit Provider Urology | DX: N31.8 Other neuromuscular dysfunction of bladder (principal); N32.81 Overactive bladder | CPT/HCPCS: 81003; 87086 ==

== ENCOUNTER 2023-10-22 09:59 | Day surgery (SDC) | payer MEDICARE, MEDICAID, SELFPAY ==
[2023-10-18 11:27] VITALS: BMI 35.0
[2023-10-22] VITALS (7 sets, daily range): BP systolic 107–136; BP diastolic 67–89; PULSE 59–74; RESP 17–18; TEMP 36.3–36.6; O2SAT 95–98; BMI 35.2
[2023-10-22] MEDS: Lactated Ringers 1,000 ML 80 ML IVCONT (11:10)
--- NOTE | 2023-10-22 11:15 | HO.ANESPROP2 ---
HPI - Anesthesia Eval Consult details Narrative: botox PMFSH Active Problems Active Problems: All Active Problems Hip pain, left (Acute) Left knee pain (Acute) Fall (Acute) Vaginal lesion (Acute) Spindle cell carcinoma (Acute ~2022) OAB (overactive bladder) (Acute) Spastic neurogenic bladder (Acute) Impaired glucose tolerance (Acute) Breast cancer screening (Acute) Hearing deficit (Acute) Generalized anxiety disorder (Acute) Cervical cancer screening (Acute) Tubular adenoma of colon (Acute) Hypertension (Acute) History of CVA with residual deficit (Acute ~2016) Hemiparesis (Acute ~2017) Hyperparathyroidism (Acute) Hypercalcemia (Acute) Allergic rhinitis (Acute) Obesity (BMI 30-39.9) (Acute) Past Medical History Medical History HTN (hypertension) Nicotine dependence, cigarettes, uncomplicated Mass of left thigh Suspected exposure to mold Left leg swelling Obesity (BMI 30-39.9) Hemiparesis (~2016) ADHD (attention deficit hyperactivity disorder) Hypercalcemia Anxiety Hyperparathyroidism Sleep apnea in adult History of asthma History of CVA with residual deficit (~2016) Allergic rhinitis Family History Family History Father HTN (hypertension) Mother HTN (hypertension) Family history of problems with anesthesia: No Surgical History Surgical History History of biopsy History of hand surgery History of hysterectomy History of tubal ligation History of History of colonoscopy History of bilateral breast reduction surgery History of tonsillectomy S/P Botox injection Hx of arthroscopy of left knee History of Problems with Anesthesia: No Social History Social History Household Members: None Housing: House Alcohol intake: current Alcohol intake frequency: does not drink Comment: left sided hemiparesis walks wih cane Patient Tobacco Use Status: Former Tobacco user Tobacco use type: Cigarette Years Smoked: 2017 stopped 2.5 packs /20 years e-Cigarette/Vaping Use: Never Used Second Hand Smoke Exposure: No Use of substances other than those prescribed or required for medical reasons: No Are you DNR?: No Advance Directives: No Advance Directives Information Provided: Yes service: No Current occupational status: disabled Cognitive needs: No Hearing needs: No Vision needs: No Meds Allergies Allergy/AdvReac Type Severity Reaction Status Date / Time hydrocodone [HYDROCODONE] Allergy Severe RASH Verified 10/22/23 10:57 perfume Allergy Intermediate Shortness Verified 10/22/23 10:57 of Breath Seasonal Allergies Allergy Intermediate Watery Verified 10/22/23 10:57 Eye, sneezing Active Medications: Current Medications Lactated Ringer's (Lr) 1,000 mls @ 80 mls/hr IVCONT .[id number] LORENA Last Admin: 10/22/23 11:10 Dose: 80 mls/hr Home Medications ?Medication ?Instructions ?Recorded ?Confirmed ?Last Taken ?Type aspirin 81 mg tablet,delayed 81 mg PO DAILY 06/22/20 10/22/23 10/21/23 History release Exam Height,Weight and Vital Signs: Height 5 ft 4 in Weight 92.986 kg Last Vital Signs Temp 97.3 F 10/22/23 11:07 Pulse 74 10/22/23 11:07 Resp 17 10/22/23 11:07 BP 136/85 10/22/23 11:07 Pulse Ox 95 10/22/23 11:07 O2 Del Method Room Air 10/22/23 11:07 Airway Mallampati Class: III TM Dist: <=3cm Neck ROM: Limited Heart: rrr Lungs: cta Assessment and Plan Assessment Anesthesia Assessment: Anesthesia Plan Discussed Final Anesthetic Review Family History of Problems with Anesthesia: No History of Problems with Anesthesia: No NPO: Yes ASA Class: III Final Preanesthetic Review: No Changes in Pt Med Stat, Meds/Allgs Chart Reviewed, Consent Obtained/Reviewed and Anes Risks/Benef Reviewed Patient Risk: Intermediate Procedure Risk: Low Anesthetic Plan Anesthetic Plan: GA and MAC: Disposition: Standard PACU
--- NOTE | 2023-10-22 13:11 | MHC.SHP ---
Pre-Procedural Eval Section A - 24 Hr Update-Section A only Date of Service: 10/22/23 The patient is an INPATIENT: No The patient has been examined within 24 hours of the surgical procedure. The History & Physical has been completed within 30 days and I have reviewed it.: Yes Section B - Complete if H&P > 30 days Chief Complaint: Neuromuscular dysfunction of bladder, unspecified Allergies: Allergies Allergy/AdvReac Type Severity Reaction Status Date / Time hydrocodone [HYDROCODONE] Allergy Severe RASH Verified 10/22/23 10:57 perfume Allergy Intermediate Shortness Verified 10/22/23 10:57 of Breath Seasonal Allergies Allergy Intermediate Watery Verified 10/22/23 10:57 Eye, sneezing Plan Diagnosis/Plan: Unchanged I have reviewed the history and physical and performed a pertinent physical examination on my patient. No changes have occurred unless specified. Cystoscopy Bladder botox injection. Time Spent With Patient Time: Total time managing care of this patient today ____ minutes.
--- NOTE | 2023-10-22 14:38 | W.PM.OPN ---
Operative Note Operative Note Date of Service: 10/22/23 Narrative: PreOperative Diagnosis: Overactive bladder, spastic neurogenic bladder Post Operative Diagnosis: Overactive bladder, spastic neurogenic bladder Procedure: Cystoscopy with injection 200 units Botox intra detrusor muscle Surgeon: Dr Torres Connell Anesthesia: General Procedure: After informed consent was verified the patient was brought to the operating room and placed in a supine position. Anesthesia was administered per protocol. Time out was done per protocol. Antibiotics confirmed. Cystoscopy performed with 22 [place] cystoscope. Bladder was emptied of urine. Urine sent for culture. Bladder was refilled. The bladder was visualized, the right and left ureteral orifices were visualized. Using 200 units of Botox mixed in 10 cc of normal saline; transurethral injections were placed into the posterior wall of the bladder. 0.5cc placed at each injection site. Injections were placed in a grid 5 across and 4 longitudinally. Injections were placed from the inferior to superior position. The bladder was drained, the cystoscope was removed. 2% lidocaine was passed transurethrally. The patient tolerated the procedure and was brought out of anesthesia and taken to the recovery room in stable condition. Drains: None
== END 2023-10-22 15:49 | disposition home or self-care (01) ==
PROVIDERS: PCP Internal Medicine; Visit Provider Urology
PROC: 3E0K8GC Introduction of Other Therapeutic Substance into Genitourinary Tract, Via Natural or Artificial Opening Endoscopic (ICD-10-PCS; CPT 52287; principal; 2023-10-22 10:50)
DX: N31.8 Other neuromuscular dysfunction of bladder (principal); N31.9 Neuromuscular dysfunction of bladder, unspecified; N32.81 Overactive bladder; I69.354 Hemiplegia and hemiparesis following cerebral infarction affecting left non-dominant side; J45.909 Unspecified asthma, uncomplicated; G47.30 Sleep apnea, unspecified; F90.9 Attention-deficit hyperactivity disorder, unspecified type; Z99.89 Dependence on other enabling machines and devices; Z79.82 Long term (current) use of aspirin; Z79.899 Other long term (current) drug therapy; Z88.8 Allergy status to other drugs, medicaments and biological substances; Z87.891 Personal history of nicotine dependence; Z98.890 Other specified postprocedural states
CPT/HCPCS: 52287; 87086; J0585; J1956; J2250; J2704; J3010

== ENCOUNTER → 2023-10-22 09:59 | Outpatient (BNV) | payer MEDICARE, MEDICAID, SELFPAY | PROVIDERS: PCP Internal Medicine; Visit Provider Urology | DX: N31.9 Neuromuscular dysfunction of bladder, unspecified (principal) | CPT/HCPCS: 52287 ==

== ENCOUNTER 2024-01-04 19:44 | Emergency (ER) | payer MEDICARE, MEDICAID, SELFPAY ==
--- NOTE | ~2024-01-04 | XR_ITS ---
EXAMINATION: XR HAND/WRIST, LEFT CLINICAL INFORMATION: Persistent pain COMPARISON: None available. TECHNIQUE: PA, lateral, and oblique views of the left hand and wrist. FINDINGS: Healing Colles' type fracture distal radius. Nondisplaced ulnar styloid fracture. Distal radial fracture appears intra-articular without significant incongruence. Notable soft tissue swelling. No significant healing. Carpal bones intact. XR/XR hand wrist LT IMPRESSION: No significant healing about the Colles' type fracture distal radius. Nondisplaced ulnar styloid fracture. Electronically signed by: Enoc Archuleta MD 01/04/2024 09:07 PM [facility]
[2024-01-04 19:55] VITALS: BP 143/93; PULSE 83; RESP 16; TEMP 36.4; O2SAT 97; BMI 34.3
--- NOTE | 2024-01-04 19:56 | ED.UPPEXIN ---
HPI - Extremity Injury (Upper) General Chief Complaint: Extremity Injury, Upper Stated Complaint: left arm cast fell off Time Seen by Provider: 01/04/24 20:41 Source: patient Mode of arrival: ambulatory Limitations: no limitations History of Present Illness HPI narrative: Patient is a 63-year-old female who presents emergency department, she states on Saturday she had a mechanical fall resulting in a fracture to her left distal forearm/hand. She was not seen at this hospital she was evaluated at [facility]. Reports that today somehow the splint had fallen off. It is unclear how it happened, does not state that it got wet. She is brought here by her [id number], who states that she went to rooming noticed the splint to be off. Denies any repeat injury. At this time is unclear exactly where the fracture is, she states ?2 places?. Related Data Home Medications ?Medication ?Instructions ?Recorded ?Confirmed aspirin 81 mg tablet,delayed 81 mg PO DAILY 06/22/20 10/22/23 release Previous Rx's ?Medication ?Instructions ?Recorded baclofen 10 mg tablet 10 mg PO TID #90 tabs 01/09/20 lisinopril 40 mg tablet 40 mg PO DAILY 90 days #90 tabs 01/23/22 Ankle/Foot Orthotics #1 ea 04/19/22 albuterol sulfate 90 mcg/actuation 2 puff inhalation Q6H PRN 04/20/22 aerosol inhaler (ProAir HFA) shortness of breath or wheezing #8.5 grams clopidogrel 75 mg tablet 75 mg PO DAILY #90 tabs 03/08/23 amlodipine 10 mg tablet 10 mg PO DAILY #90 tabs 03/25/23 gabapentin 600 mg tablet 600 mg PO BID #60 tabs 03/25/23 reusable bed pads and disposable #90 ea 05/27/23 liners. mirabegron 50 mg tablet,extended 50 mg PO BID 90 days #180 tabs 10/21/23 release 24 hr levofloxacin 500 mg tablet 500 mg PO DAILY 3 days #3 tabs 10/22/23 venlafaxine 150 mg 150 mg PO BEDTIME #90 caps 11/26/23 capsule,extended release 24 hr (Effexor XR) lidocaine 5 % topical patch 1 patch topical DAILY 30 days #30 12/31/23 ea Allergies Allergy/AdvReac Type Severity Reaction Status Date / Time perfume Allergy Intermediate Shortness Verified 01/04/24 19:56 of Breath Seasonal Allergies Allergy Intermediate Watery Verified 01/04/24 19:56 Eye, sneezing Review of Systems Review of Systems: Yes all other systems are reviewed and are negative [facility] Past Medical History Attestation statement: The following information was validated with the patient. Source: old records reviewed Medical History HTN (hypertension) Nicotine dependence, cigarettes, uncomplicated Mass of left thigh Suspected exposure to mold Left leg swelling Obesity (BMI 30-39.9) Hemiparesis (~2016) ADHD (attention deficit hyperactivity disorder) Hypercalcemia Anxiety Hyperparathyroidism Sleep apnea in adult History of asthma History of CVA with residual deficit (~2016) Allergic rhinitis Surgical History History of biopsy History of hand surgery History of hysterectomy History of tubal ligation History of History of colonoscopy History of bilateral breast reduction surgery History of tonsillectomy S/P Botox injection Hx of arthroscopy of left knee Family History Family History Father HTN (hypertension) Mother HTN (hypertension) Social History Social History Household Members: None Housing: House Alcohol intake: current Alcohol intake frequency: does not drink Comment: left sided hemiparesis walks winuno espinoe Patient Tobacco Use Status: Former Tobacco user Tobacco use type: Cigarette Years Smoked: 2017 stopped 2.5 packs /20 years e-Cigarette/Vaping Use: Never Used Second Hand Smoke Exposure: No Advance Directives: No Advance Directives Information Provided: Yes Do you have a plan to hurt others: No Plan service: No Current occupational status: disabled Cognitive needs: No Hearing needs: No Vision needs: No Physical Exam Vital Signs: Vital Signs: Last Vital Signs Temp 97.5 F 01/04/24 19:55 Pulse 83 01/04/24 19:55 Resp 16 01/04/24 19:55 BP 143/93 H 01/04/24 19:55 Pulse Ox 97 01/04/24 19:55 O2 Del Method Room Air 01/04/24 19:55 BMI result Body Mass Index 34.3 Appearance: Alert.?Oriented to person, place and time. No acute distress.?Normal affect.? CVS: Heart sounds normal. Normal heart rate and rhythm.? Pulses normal.?? Respiratory: No respiratory distress.? Lung sounds clear to auscultation bilaterally?? Skin: Skin warm and dry.? Normal skin color.? Extremities: Localized swelling to the left wrist. Able to move the digits. 2+ radial pulse. No ecchymosis. Neuro: Moves all extremities spontaneously. Sensation intact bilaterally Medical Decision Making Medical Decision Making MDM Narrative: Patient is a 63-year-old female presents emergency department for evaluation. As per HPI, sustained a fracture to her left question wrist on 12/30/2023 after a fall. Had evaluation at [facility]. Reports that her arm was placed in a splint, unfortunately this somehow fell off at home, it is unclear how. She states she did not get it wet. Obtained repeat XR here as I do not have access to her prior x-ray imaging, appears to have a comminuted distal radius fracture and a mildly displaced ulnar styloid fracture. She was placed in a sugar-tong splint and was neurovascularly intact distally. Provided with a sling. Reports that she has an outpatient follow-up with [facility] already. Advised to return to emergency department any new or worsening symptoms or concerns. Differential Diagnosis Differential Diagnoses: The differential diagnosis associated with the presentation includes (See narrative above) Independent Interpretation I performed an independent interpretation of an: Plain X-Ray (See narrative above) Radiology Impression Discussion of test interpretation with radiology: I have reviewed the radiologist's reading. Radiologist Impression: XR/XR hand wrist LT IMPRESSION: No significant healing about the Colles' type fracture distal radius. Nondisplaced ulnar styloid fracture. Independent Historian Clinical information obtained from an independent historian. History obtained from or confirmed by: Other ([id number]) Prescription Management I considered prescription management with: Pain Medication Procedures Orthopedic Splinting/Casting Injury #1: Side: left Upper Extremity Injury Location: upper arm Upper Extremity Immobilizer: sugar tong splint Other Orthopedic Equipment: other (Sling) Additional Comments: Neurovascularly intact distally after application Discharge Plan Discharge Clinical Impression: Distal radius fracture, left Fracture of ulnar styloid Qualifiers: Fracture alignment: displaced Laterality: left Patient Disposition: Home, Self-Care Instructions: Wrist Fracture in Adults (ED) Additional Instructions: As discussed, the splint should remain in place at all times. It can not get wet. If for any reason the somehow falls off again, please be certain that you bring the splint material with you to the emergency department you seek re-evaluation as it is quite likely that they will be able to be use this. Follow-up with orthopedics outpatient as scheduled. Return to emergency department any new or worsening symptoms or concerns. Prescriptions: No Action baclofen 10 mg tablet 10 mg PO TID Qty: 90 3RF lisinopril 40 mg tablet 40 mg PO DAILY 90 Days Qty: 90 3RF (DME) Ankle/Foot Orthotics See Rx Instructions .Route .MEDSUPPLY Qty: 1 0RF Rx Instructions: As directed albuterol sulfate [ProAir HFA] 90 mcg/actuation HFA aerosol inhaler 2 puff inhalation Q6H PRN (Reason: shortness of breath or wheezing) Qty: 8.5 0RF clopidogrel 75 mg tablet 75 mg PO DAILY Qty: 90 2RF amlodipine 10 mg tablet 10 mg PO DAILY Qty: 90 2RF gabapentin 600 mg tablet 600 mg PO BID Qty: 60 11RF (DME) reusable bed pads and disposable liners. See Rx Instructions .Route .MEDSUPPLY Qty: 90 12RF Rx Instructions: As directed mirabegron 50 mg tablet extended release 24 hr 50 mg PO BID 90 Days Qty: 180 0RF venlafaxine [Effexor XR] 150 mg capsule,extended release 24hr 150 mg PO BEDTIME Qty: 90 3RF lidocaine 5 % adhesive patch,medicated 1 patch topical DAILY 30 Days Qty: 30 11RF Rx Instructions: leave on most painful area for up to 12 hrs aspirin 81 mg Tablet,Delayed Release (Dr/Ec) 81 mg PO DAILY levofloxacin 500 mg tablet 500 mg PO DAILY 3 Days Qty: 3 0RF Referrals: Lance,Sofía Alicea MD [Primary Care Provider] - Print Language: Belizean
[2024-01-04 21:15] VITALS: BP 152/88; PULSE 78; RESP 20; TEMP 36.6; O2SAT 98
[2024-01-04 21:20] VITALS: BP 152/88; PULSE 78; RESP 20; TEMP 36.6; O2SAT 98
== END 2024-01-04 21:22 | disposition home or self-care (01) ==
PROVIDERS: Emergency Provider Emergency Medicine; PCP Internal Medicine
DX: S52.612A Displaced fracture of left ulna styloid process, initial encounter for closed fracture (principal); S52.532A Colles' fracture of left radius, initial encounter for closed fracture; W19.XXXA Unspecified fall, initial encounter; Y93.9 Activity, unspecified; Y92.9 Unspecified place or not applicable; Y99.9 Unspecified external cause status
CPT/HCPCS: 29125; 73110; 73130; 99282; 99283

== ENCOUNTER 2024-01-11 13:46 | Emergency (ER) | payer MEDICARE, MEDICAID, SELFPAY ==
--- NOTE | ~2024-01-11 | XR_ITS ---
EXAMINATION: XR WRIST, LEFT CLINICAL INFORMATION: Distal radial fracture. COMPARISON: Left hand and wrist radiographs dated 01/04/2024. TECHNIQUE: PA, lateral, oblique, and scaphoid views of the left wrist. FINDINGS: Redemonstration of a displaced and comminuted distal radial fracture in unchanged anatomic alignment with mild anterior displacement of the distal radial fracture. Additionally there is a mildly displaced ulnar styloid fracture in unchanged anatomic alignment. No new bone/callus formation. Surrounding circumferential soft tissue swelling. No new fracture or dislocation. Mild osteoarthritis at the triscaphe and first carpometacarpal joints. No osseous erosion. XR/XR wrist LT min 3V IMPRESSION: 1. Distal radial and ulnar styloid fractures in unchanged anatomic alignment. No new bone/callus formation. Surrounding soft tissue swelling. 2. Mild osteoarthritis at the triscaphe and first carpometacarpal joints. Electronically signed by: Damien Vela MD 01/11/2024 03:00 PM [facility]
[2024-01-11 14:01] VITALS: BP 103/73; PULSE 73; RESP 20; TEMP 36.6; O2SAT 97; BMI 37.0
--- NOTE | 2024-01-11 14:03 | ED_ITS ---
HPI - Extremity Injury (Upper) General Chief Complaint: Extremity Problem Stated Complaint: needs cast put back on / time it fell off Time Seen by Provider: 01/11/24 14:54 Source: patient, RN notes reviewed and old records reviewed Mode of arrival: ambulatory Limitations: no limitations History of Present Illness ED Provider: SANTOSH GALLAGHER PA-C HPI narrative: 63 year old female with pmhx significant for HTN, CVA with residual left hemiparesis, ADHD, anxiety, hyperparathyroidism presents to the ED today with ongoing left wrist pain s/p FOOSH on 12/30/23. Patient states that 2 weeks ago she was walking outside with her daughter when her left leg gave out from underneath her causing her to fall forward. She reports catching herself with her left hand. She was evaluated at [facility], diagnosed with a distal radius fracture and splinted. She has since followed up with [facility]. She has had a cast placed twice. Both times she has been sent home and the cast has fallen off. She was evaluated there yesterday, cast was placed, later last night was washing her hands and reports the cast fell off. Unclear how. Reports attempting to call the orthopedic office last night however the office was closed. States that she as too tired to come back to the ED last night. Reports continued pain to her left wrist, unchanged. She has been taking Tylenol at home with minimal relief. She admits to taking morphine and percocet that she had at home (from prior knee surgery) with improvement in pain. 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 Denies numbness/tingling/weakness to LUE. Related Data Home Medications ?Medication ?Instructions ?Recorded ?Confirmed aspirin 81 mg tablet,delayed 81 mg PO DAILY 06/22/20 10/22/23 release Previous Rx's ?Medication ?Instructions ?Recorded baclofen 10 mg tablet 10 mg PO TID #90 tabs 01/09/20 lisinopril 40 mg tablet 40 mg PO DAILY 90 days #90 tabs 01/23/22 Ankle/Foot Orthotics #1 ea 04/19/22 albuterol sulfate 90 mcg/actuation 2 puff inhalation Q6H PRN 04/20/22 aerosol inhaler (ProAir HFA) shortness of breath or wheezing #8.5 grams clopidogrel 75 mg tablet 75 mg PO DAILY #90 tabs 03/08/23 amlodipine 10 mg tablet 10 mg PO DAILY #90 tabs 03/25/23 gabapentin 600 mg tablet 600 mg PO BID #60 tabs 03/25/23 reusable bed pads and disposable #90 ea 05/27/23 liners. mirabegron 50 mg tablet,extended 50 mg PO BID 90 days #180 tabs 10/21/23 release 24 hr levofloxacin 500 mg tablet 500 mg PO DAILY 3 days #3 tabs 10/22/23 venlafaxine 150 mg 150 mg PO BEDTIME #90 caps 11/26/23 capsule,extended release 24 hr (Effexor XR) lidocaine 5 % topical patch 1 patch topical DAILY 30 days #30 12/31/23 ea Allergies Allergy/AdvReac Type Severity Reaction Status Date / Time perfume Allergy Intermediate Shortness Verified 01/11/24 14:04 of Breath Seasonal Allergies Allergy Intermediate Watery Verified 01/11/24 14:04 Eye, sneezing Review of Systems Review of Systems: Constitutional: No fever, chills, fatigue, night sweats, weight changes ENT/Mouth: No ear pain, hearing loss, nasal congestion, sinus pain, rhinorrhea, sore throat Eyes: No eye pain, swelling, redness, vision changes, discharge Cardio: No chest pain, palpitations, WILL, orthopnea, peripheral edema Pulm: No SOB, cough, sputum, wheezing, dyspnea, hemoptysis GI: No nausea, vomiting, hematemesis, abdominal pain, diarrhea, constipation, hematochezia, melena : No irregular bleeding, dysuria, frequency, urgency, hesitancy, hematuria, flank pain, urinary flow changes, urinary incontinence or retention MSK: No back pain, neck pain, joint pain, myalgias, +left wrist pain Skin: No lesions, rashes Neuro: No weakness, numbness, paresthesias, LOC, dizziness, headache Psych: No anxiety/panic, depression, SI/HI, AH/VH All other systems reviewed and are negative. [facility] Past Medical History Attestation statement: The following information was validated with the patient. Source: old records reviewed and nursing notes reviewed Medical History HTN (hypertension) Nicotine dependence, cigarettes, uncomplicated Mass of left thigh Suspected exposure to mold Left leg swelling Obesity (BMI 30-39.9) Hemiparesis (~2017) ADHD (attention deficit hyperactivity disorder) Hypercalcemia Anxiety Hyperparathyroidism Sleep apnea in adult History of asthma History of CVA with residual deficit (~2016) Allergic rhinitis Surgical History History of biopsy History of hand surgery History of hysterectomy History of tubal ligation History of History of colonoscopy History of bilateral breast reduction surgery History of tonsillectomy S/P Botox injection Hx of arthroscopy of left knee Family History Family History Father HTN (hypertension) Mother HTN (hypertension) Social History Social History Household Members: None Housing: House Alcohol intake: current Alcohol intake frequency: does not drink Comment: left sided hemiparesis walks nato cane Patient Tobacco Use Status: Former Tobacco user Tobacco use type: Cigarette Years Smoked: 2017 stopped 2.5 packs /20 years e-Cigarette/Vaping Use: Never Used Second Hand Smoke Exposure: No Advance Directives: No Advance Directives Information Provided: Yes service: No Current occupational status: disabled Cognitive needs: No Hearing needs: No Vision needs: No Physical Exam Vital Signs: Vital Signs: Last Vital Signs Temp 97.8 F 01/11/24 15:55 Pulse 73 01/11/24 15:55 Resp 20 01/11/24 15:55 BP 103/73 01/11/24 15:55 Pulse Ox 97 01/11/24 15:55 O2 Del Method Room Air 01/11/24 15:55 BMI result Body Mass Index 37.0 vitals signs stable General: Well appearing, in no acute distress. Skin: Warm, dry, intact. No rashes or lesions. Head: Normocephalic, atraumatic. EENT: Hearing is intact b/l. Conjunctiva clear. PERRLA. EOM intact. Moist mucous membranes.? Neck: Supple without LAD Cardiac: Chest wall symmetric. RRR Lungs: Normal respiratory effort without accessory muscle use Ext: + Localized swelling to left wrist. Full ROM intact to all digits. 2+ radial and ulnar pulse intact. No overlying ecchymosis or erythema. Neuro: AOx3. Normal speech. Ambulating with steady gait assisted by walker. Psych: Appropriate mood and affect. Responds appropriately to questions. Course Course Course Narrative: This is an RME: Additional HPI, ROS, PE not included below will be deferred to primary provider. RME assessment and note performed by: Keren Valadez PA-C This is a 63-year old female who presents to the ER with complaints of ongoing left wrist pain. Patient has a distal radius fracture and was seen on 01/04/2024, where she had a distal radius fracture noted. She followed up with [facility] in a cast was placed on this. She states that this has fallen off. She states that this fell off yesterday. She states that she was too tired to be re-evaluated. She states that this is the 2nd time her cast has fallen off. No new trauma or injury. Plan: Repeat x-rays Reevaluation(s) Reevaluation #1: 8136 -- xrs show unchanged fracture of left distal radius and left ulnar styloid. patient placed in sugar tong splint by az assisted by brian MONTEZ and Loyda meter/relay technician. patient tolerated well. Sensation intact distally after placement. Capillary refill less than 2 seconds. Able to move all digits on left hand. patient placed in sling for comfort. adivsed to take tylenol/ motrin at home for pain. advised patient to call her physician at [facility] on Saturday morning to inform them that her cast fell off as this will likely need to be replaced. she verbalizes understanding. Patient has remained stable throughout ED visit today. Discussed worrisome signs and symptoms and when to return to the ED. All questions answered at this time. Patient is agreeable with disposition and stable for discharge. Medical Decision Making Medical Decision Making MDM Narrative: 63 year old female with pmhx significant for HTN, CVA with residual left hemiparesis, ADHD, anxiety, hyperparathyroidism presents to the ED today with ongoing left wrist pain s/p FOOSH on 12/30/23. VSS. She is nontoxic appearing and in NAD. on exam, there is localized swelling to left wrist. Full ROM intact to all digits. 2+ radial and ulnar pulse intact. No overlying ecchymosis or erythema. Differential diagnosis includes fracture, subluxation, dislocation. Unlikely compartment syndrome, NV compromise, threat to limb. Plan for repeat xrays, splinting, disposition. Differential Diagnosis Differential Diagnoses: The differential diagnosis associated with the presentation includes as above. Admission/Observation not indicated Independent Interpretation I performed an independent interpretation of an: Plain X-Ray Interpretation: xr left wrist showing distal radial fracture and ulnar styloid fracture Radiology Impression Discussion of test interpretation with radiology: I have reviewed the radio logist's reading. Radiologist Impression: XR wrist LT min 3V IMPRESSION: 1. Distal radial and ulnar styloid fractures in unchanged anatomic alignment. No new bone/callus formation. Surrounding soft tissue swelling. 2. Mild osteoarthritis at the triscaphe and first carpometacarpal joints. Electronically signed by: Damien Vela MD 01/11/2024 03:00 PM [facility] Workstation: [id number] [facility] External Record Review External record reviewed: Inpatient record Prescription Management I considered prescription management with: Pain Medication Social Determinants Patient?s care significantly limited by Social Determinants of Health including: Other Social Determinant of Health Procedures Orthopedic Splinting/Casting Injury #1: Side: left Upper Extremity Injury Location: wrist Upper Extremity Immobilizer: sling/shoulder immobilizer and sugar tong splint Critical Care Time Critical Care Time Critical Care Time: No Discharge Plan Discharge Clinical Impression: Distal radial fracture, Fracture of ulnar styloid Patient Disposition: Home, Self-Care Instructions: Arm Fracture in Adults (ED), Wrist Fracture in Adults (ED) Additional Instructions: I have placed your left wrist in a splint today. Avoid getting the splint wet. We have provided a sling for you to use while your ankle heals. Please rest, ice, and elevate your wrist. I recommend you take 600mg ibuprofen every 6 hours or tylenol 650mg every 6 hours as needed for pain. If needed, you can alternate these medications so that you take one medication every 3 hours. For example, at noon take ibuprofen, then at 3pm take tylenol, then at 6pm take ibuprofen.? Call [facility] on Saturday morning to inform them that your cast came off as they will need to apply a new one. Return to the Emergency Department if you experience worsening pain, numbness, tingling, change of color in your fingers, or any other concerning symptoms. Prescriptions: No Action baclofen 10 mg tablet 10 mg PO TID Qty: 90 3RF lisinopril 40 mg tablet 40 mg PO DAILY 90 Days Qty: 90 3RF (DME) Ankle/Foot Orthotics See Rx Instructions .Route .MEDSUPPLY Qty: 1 0RF Rx Instructions: As directed albuterol sulfate [ProAir HFA] 90 mcg/actuation HFA aerosol inhaler 2 puff inhalation Q6H PRN (Reason: shortness of breath or wheezing) Qty: 8.5 0RF clopidogrel 75 mg tablet 75 mg PO DAILY Qty: 90 2RF amlodipine 10 mg tablet 10 mg PO DAILY Qty: 90 2RF gabapentin 600 mg tablet 600 mg PO BID Qty: 60 11RF (DME) reusable bed pads and disposable liners. See Rx Instructions .Route .MEDSUPPLY Qty: 90 12RF Rx Instructions: As directed mirabegron 50 mg tablet extended release 24 hr 50 mg PO BID 90 Days Qty: 180 0RF venlafaxine [Effexor XR] 150 mg capsule,extended release 24hr 150 mg PO BEDTIME Qty: 90 3RF lidocaine 5 % adhesive patch,medicated 1 patch topical DAILY 30 Days Qty: 30 11RF Rx Instructions: leave on most painful area for up to 12 hrs aspirin 81 mg Tablet,Delayed Release (Dr/Ec) 81 mg PO DAILY levofloxacin 500 mg tablet 500 mg PO DAILY 3 Days Qty: 3 0RF Interventions: ED Discharge Assessment Last Done: 01/11/24 15:55 Discharge Date/Time: 01/11/24 16:07 Print Language: Telugu
[2024-01-11 15:55] VITALS: BP 103/73; PULSE 73; RESP 20; TEMP 36.6; O2SAT 97
== END 2024-01-11 16:07 | disposition home or self-care (01) ==
PROVIDERS: Emergency Provider Emergency Medicine; PCP Internal Medicine
DX: S52.612A Displaced fracture of left ulna styloid process, initial encounter for closed fracture (principal); S52.502A Unspecified fracture of the lower end of left radius, initial encounter for closed fracture; W19.XXXA Unspecified fall, initial encounter; Y93.9 Activity, unspecified; Y92.9 Unspecified place or not applicable; Y99.9 Unspecified external cause status
CPT/HCPCS: 29125; 73110; 99283; 99284

== ENCOUNTER 2024-02-07 14:26 | Outpatient (AMB) | payer MEDICARE, MEDICAID, SELFPAY ==
--- OUTSIDE RECORDS SUMMARY | 2024-02-07 14:28 | XMS_ITS | Continuity of Care Document ---
Author Organization [place] - [facility] 1st Floor Address [address] [place] [address] Care Team Providers Care Sports Bookmaker Name Role Phone PRAKASH MON Primary Care Provider Assessment Encounter Date Assessment Date Assessment LastModified by Organization Details LastModified Time 02/07/2024 02/07/2024 Assessment: Left distal radius and ulnar styloid fractures amenable to continued conservative treatment, baseline hemiparesis left upper extremity status post CVA Plan: She is transitioned out of the cast into a removable splint. She can work on range of motion and progressive strengthening. She can do this on her own but an OT prescription is provided today as well. Follow-up for what likely will be final recheck for this problem in a month or 6 weeks. The patient is ambulatory, but has weakness and/or instability of their extremity which requires stabilization from this semi-rigid/rigid orthosis to improve their function. Verbal and written instructions for their use and application of this item were given. patient was instructed that should the brace result in increased pain, decreased sensation, increased swelling or an overall worsening of their medical condition, to please contact our office immediately. leisa Not available 02/07/2024 10:47:35 Plan of Treatment Reminders Order Date Submit Date Provider Last Modified By Organization Details Last Modified Time Details Appointments RECHE CK 15 2023 10:00A M Latanya bai MD Not available Not available Not available Lab None recor ded. Referral occup ation al thera pist refer ral - OT- s/p Left dista l radiu s and ulnar stylo id fract ures, basel ine hemip aresi s left upper extre mity statu s post CVA- ROM progr essiv e stren gthen ing 2023 024 alexsander [facility]- [facility], [address], [place], [address], 02/07/2024 11:16:56 Procedures None recor ded. Surgeries None recor ded. Imaging XR, wrist , 3 or more view - room 113 3V L wrist 2023 024 GRABIEL [facility], [address], [address], [place], [address], 02/07/2024 10:33:46 Medication Orders None recor ded. Patient TargetsNo targets recorded. Patient InstructionsNo instructions recorded. Reason for Referral Occupational Therapist Refer ral for Closed Colles' fracture OT- s/p Left distal radius and ulnar styloid fractures, baseline hemiparesis left upper extremity st OT- s/p Left distal radius and ulnar styloid fractures, baseline hemiparesis left upper extremity status post CVA- ROM progressive strengthening Referring Physician: Latanya Zelaya, Orthopedic Surgery, Encounter Date: 02/07/2024 Results Created Date Observation Date Name Description Value Unit Range Abnormal Flag Note LastModifiedBy Organization Detail LastModifiedTime 01/10/2001/10/2024 XR, wrist , 3 or more view [email or web address] ?Encry pted=s hAaTro YD8dLq bEUv6g %2BXZw aYqtaq 0bqfl% 2Fg9IQ a4ajBk vP9nXo QUaueC m3YtLR FvZlgJ JJ8mAn HZtai3 0b9055 AC0Kqa X2DV6K gKiQtr MwF INTERFACE [facility] [address], [place], [address], 01/10/2024 11:13:21 01/10/20 24 01/10/2024 XR, wrist , 3 or more view [email or web address]:/ [email or web address] ?Encry pted=s hAaTro YD8dLq bEUv6g %2BXZw aYqtaq 0bqfl% 2Fg9IQ a4ajBk vP9nXo QUaueC m3YtLR FvZlgJ JJ8mAn HZtai3 6o4988 AC0Kqa X2DV6K gKiQtr MwF INTERFACE [facility] [address] [facility] [address], [place], [address], 01/10/2024 11:13:24 01/17/20 24 01/17/2024 XR, wrist , 3 or more view [email or web address]:/ [email or web address] ?Encry pted=s hAaTro YD8dLq bEUv6g %2BXZw aYqtaq 0bqfl% 2Fg9IQ a4ajBk vP9nXo QUaueC m3YtLR FvZlgJ JJ8mAn HZtai3 1r1900 AC0Kqa X6CWae hKiQtr MwF INTERFACE [facility] Office [address] [address], [place], [address], 01/17/2024 12:04:14 01/17/20 24 01/17/2024 XR, wrist , 3 or more view [email or web address]:/ [email or web address] ?Encry pted=s hAaTro YD8dLq bEUv6g %2BXZw aYqtaq 0bqfl% 2Fg9IQ a4ajBk vP9nXo QUaueC m3YtLR FvZl JJ8mAn HZtai3 1k8581 AC0Kqa X6CWae hKiQtr MwF INTERFACE [facility] [address] [facility] [address] [address], [place], [address], 01/17/2024 12:04:16 02/07/20 24 02/07/2024 XR, wrist , 3 or more view [email or web address] ?Encry pted=s hAaTro YD8dLq bEUv6g %2BXZw aYqtaq 0bqfl% 2Fg9IQ a4ajBk vP9nXo QUaueC m3YtLR FvZlgJ JJ8mAn HZtai3 5m2141 AC0Kqb nyMWKa uKiQtr MwF INTERFACE [facility] [address], [place], [address], 02/07/2024 10:33:47 02/07/20 24 02/07/2024 XR, wrist , 3 or more view [email or web address]:/ [email or web address] ?Encry pted=s hAaTro YD8dLq bEUv6g %2BXZw aYqtaq 0bqfl% 2Fg9IQ a4ajBk vP9nXo QUaueC m3YtLR FvZlgJ JJ8mAn HZtai3 3v4664 AC0Kqb nyMWKa uKiQtr MwF INTERFACE [facility] [address] [facility] [employer] [address], [place], [address], 02/07/2024 10:33:49 Result Notes None recorded. Medical Equipment None Reported. Allergies No known drug allergies Medications Name Sig Start Date Stop Date Status Note LastModified by Organization Details LastModified Time gabapentin 600 mg tablet TAKE ONE TABLET BY MOUTH TWICE DAILY @ 9AM-5PM active Not Available Not Available No t Available polyethylen e glycol 3350 17 gram oral powder packet DISSOLVE 17 GIN WATER BEFORE TAKING BY MOUTH DAILY 01/09 completed Not Available Not Available Not Available senna 8.6 mg tablet TAKE 1 TABLET BY MOUTH DAILY 01/09 completed Not Available Not Available Not Available venlafaxine ER 150 mg capsule,ext ended release 24 hr TAKE ONE CAPSULE (150 MG) BY MOUTH DAILY AT 9 PM AT BEDTIME active Not Available Not Available No t Available clopidogrel 75 mg tablet TAKE ONE TABLET (75MG) BY MOUTH DAILY AT 9 AM active Not Available Not Available No t Available sulfamethox azole 800 mg-trimetho prim 160 mg tablet active Not Available Not Available Not Available amlodipine 10 mg tablet TAKE ONE TABLET (10MG) BY MOUTH DAILY AT 9 AM active Not Available Not Available No t Available lidocaine 5 % topical patch APPLY ONE PATCH TOPICALLY TO THE SKIN DAILY LEAVE ON MOST PAINFUL AREA FOR UP TO 12 HOURS active Not Available Not Available No t Available docusate sodium 100 mg capsule TAKE 1 CAPSULE BY MOUTH TWICE DAILY active Not Available Not Available No t Available cefuroxime axetil 500 mg tablet TAKE 1 TABLET BY MOUTH TWICE A DAY FOR 5 DAYS active Not Available Not Available No t Available levofloxaci n 500 mg tablet TAKE 1 TABLET BY MOUTH EVERY DAY FOR 3 DAYS active Not Available Not Available No t Available morphine 15 mg immediate release tablet 01/09 completed Not Available Not Available Not Available oxycodone 5 mg tablet 01/09 completed Not Available Not Available Not Available mirabegron ER 50 mg tablet,exte nded release 24 hr TAKE ONE TABLET (50 MG) BY MOUTH TWICE DAILY @9AM-5PM FOR 90 DAYS active Not Available Not Available No t Available Vitals Date Recorded Body height Body mass index (BMI) Body weight Provider Name and Address Organization Details Last Updated DateTime 02/07/2024 162.56 cm 34.3 kg/m2 44949.47 g STEFANI ECKERT [place] [facility] 02/07/2024 10:14:34 Social History None recorded. Functional Status None recorded. Mental Status None recorded. Family History Nothing Reported. Medical History No medical history recorded. Gynecological HistoryNo gynecological history recorded. Obstetrics History GPAL:G 0 P 0 0 0 0 Past Encounters Encounter ID Performer Location Encounter Start Date Encounter Closed Date Diagnosis/Indication Diagnosis SNOMED-CT Code Diagnosis ICD10 Code [id number] MANUELITO Jeffers 1[address] [place] [address] 01/10/2024 10:35:31 01/29/2024 10:07:21 Pain of left wrist 6320102012 34621 M25.043 [id number] MD Antonia Laws 1st [address] [place] [address] 01/17/2024 11:18:11 02/05/2024 07:59:37 Pain of left wrist [id number] 88793 M25.532 Closed Col les' fracture [id number] S52.532D [id number] MD [facility]ia Laws 1st Floor [address] [place] [address] 02/07/2024 10:01:00 02/07/2024 12:27:04 Pain of left wrist 3265441792 40413 M25.532 Closed Col les' fracture 921730631 S52.532D Health Concerns Section Related Observation LastModified by Organization Detai ls LastModified Time None Recorded Concern Status LastModified by Organization Details LastModified Time None Recorded Payers Encounter Date Sequence Insurance Name Policy Number Policy Alvarado Covered Member ID Alvarado Member ID Guarantor Name 02/07/2024 2 [place] [facility] Maya Cain [id number] Maya Cain 02/07/2024 1 [employer] (MEDICARE REPLACEMENT PPO) [id number] Maya Cain [id number] Maya Cain Notes Date Note Type Note Provider Name and Address Organization Details Recorded Time 02/07/2024 text/html DX: Left distal radius and ulnar styloid process fracture 12/30/2023Left-cole ed hemiparesis from previous CVA HPI:63-year-old female here for orthopedic consultation. Patient fell onto the outstretched hand and injured the left wrist. Fracture is being treated conservatively. She reports that the cast applied at her most recent visit quickly fell off. Latanya Zelaya MD [address] [place] [address] [address], [place], [address], [facility] 02/07/2024 12:27:02 OBGyn Episode No OBEpisode recorded.
--- OUTSIDE RECORDS SUMMARY | 2024-02-07 14:28 | XMS_ITS | Data Portability ---
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 Follow-up scheduled in 3 weeks time for x-rays of the wrist out of cast. Interval cast changes as needed in the interim. I would expect that she will be able to transition into a removable splint and begin rehab protocol at follow-up appointment pending clinical and radiographic exam. leisa Not available 01/17/2024 16:58:38 02/07/2024 02/07/2024 Assessment: Left distal radius and [...] e stren gthen ing 2023 024 alexsander bai [facility] [place], [address], [place], [address], 02/07/2024 11:16:56 Procedures None recor ded. Surgeries None recor ded. Imaging XR, wrist , 3 or more view - RM 119 3V 2023 024 [email or web address] [facility], [address], [address], [place], [address], 01/13/2024 15:56:17 XR, wrist , 3 or more view - rm.[email or web address] 5 3 v of the L wrist 2023 024 [email or web address] [facility], [address], [address], [place], [address], 02/05/2024 07:59:37 XR, wrist , 3 or more view - room 113 3V L wrist 2023 024 GRABIEL [facility], [address], [address], [place], [address], 02/07/2024 10:33:46 Medication Orders None recor ded. Patient TargetsNo targets recorded. Patient Instructions Encounter Date Encounter Id Patient Instructions Last Modified By Organization Details Last Modified Time 01/10/[id number] application of cast, short arm cast* - RM 119 [facility] [email or web address] Not available 01/13/2024 15:56:17 01/17/[id number] application of cast, short arm cast* leisa Not available 01/17/2024 14:15:06 Reason for Referral Occupational Therapist Refer ral for Closed Colles' fracture OT- s/p Left distal radius and ulnar styloid fractures, baseline hemiparesis left upper extremity st OT- s/p Left distal radius and ulnar styloid fractures, baseline hemiparesis left upper extremity status post CVA- ROM progressive strengthening Referring Physician: Latanya Hughes, Orthopedic Surgery, Encounter Date: 02/07/2024 Results Created Date Observation Date Name Description Value Unit Range Abnormal Flag Note LastModifiedBy Organization Detail LastModifiedTime 01/10/20 24 01/10/2024 XR, wrist , 3 or more view [email or web address]:/ [email or web address] ?Encry pted=s hAaTro YD8dLq bEUv6g %2BXZw aYqtaq 0bqfl% 2Fg9IQ a4ajBk vP9nXo QUaueC m3YtLR FvZl JJ8mAn HZtai3 1s0496 AC0Kqa X2DV6K gKiQtr MwF INTERFACE [facility] [address] [facility] [address], [place], [address], 01/10/2024 11:13:21 01/10/20 24 01/10/2024 XR, wrist , 3 or more view [email or web address] ?Encry pted=s hAaTro YD8dLq bEUv6g %2BXZw aYqtaq 0bqfl% 2Fg9IQ a4ajBk vP9nXo QUaueC m3YtLR FvZl JJ8mAn HZtai3 5p0841 AC0Kqa X2DV6K gKiQtr MwF INTERFACE [facility] [address], [place], [address], 01/10/2024 11:13:24 01/17/20 24 01/17/2024 XR, wrist , 3 or more view [email or web address] ?Encry pted=s hAaTro YD8dLq bEUv6g %2BXZw aYqtaq 0bqfl% 2Fg9IQ a4ajBk vP9nXo QUaueC m3YtLR FvZlg JJ8[facility] Hospitaltai[facility] 3i7443 AC0Kqa X6CWae hKiQtr MwF INTERFACE [facility] [address], [place], [address], 01/17/2024 12:04:14 01/17/20 24 01/17/2024 XR, wrist , 3 or more view [email or web address]:/ [email or web address] ?Encry pted=s hAaTro YD8dLq bEUv6g %2BXZw aYqtaq 0bqfl% 2Fg9IQ a4ajBk vP9nXo QUaueC m3YtLR [address] [address] AC0Kqa X6CWae hKiQtr MwF INTERFACE [facility] [address] [facility], [address], 01/17/2024 12:04:16 02/07/20 24 02/07/2024 XR, wrist , 3 or more view [email or web address]:/ [email or web address] ?Encry pted=s hAaTro YD8dLq bEUv6g %2BXZw aYqtaq 0bqfl% 2Fg9IQ a4ajBk vP9nXo QUaueC m3YtLR [address] 3b8026 AC0Kqb nyMWKa uKiQtr MwF INTERFACE [facility] [address] [facility] [address], [place], [address], 02/07/2024 10:33:47 02/07/20 24 02/07/2024 XR, wrist , 3 or more view [email or web address]:/ [email or web address] ?Encry pted=s hAaTro YD8dLq bEUv6g %2BXZw aYqtaq 0bqfl% 2Fg9IQ a4ajBk vP9nXo QUaueC m3YtLR FvZlgJ JJ8mAn HZtai3 3l9267 AC0Kqb nyMWKa uKiQtr MwF INTERFACE [facility] [address], [place], [address], 02/07/2024 10:33:49 Result Notes None recorded. Procedures Surgical History None recorded. Imaging Results Imaging Date Name Status LastModified by Organiz ation Details LastModified Time 01/10/2024 XR, wrist, 3 or more view completed INTERFACE [facility] [address], [place], [address], 01/10/2024 11:13:21 01/10/2024 XR, wrist, 3 or more view completed INTERFACE [facility] [address], [place], [address], 01/10/2024 11:13:24 01/17/2024 XR, wrist, 3 or more view completed INTERFACE [facility] [address], [place], [address], 01/17/2024 12:04:14 01/17/2024 XR, wrist, 3 or more view completed INTERFACE [facility] [address], [place], [address], 01/17/2024 12:04:16 02/07/2024 XR, wrist, 3 or more view completed INTERFACE [facility] [address], [place], [address], 02/07/2024 10:33:47 02/07/2024 XR, wrist, 3 or more view completed INTERFACE [facility] [address], [place], [address], 02/07/2024 10:33:49 Procedure Notes None recorded. Medical Equipment None Reported. [...] and Address Organization Details Last Updated DateTime 01/10/2024 162.56 cm 33.5 kg/m2 50157.51 g SONY MAJOR [place] [facility] 01/10/2024 11:04:19 Date Recorded Body height Body mass index (BMI) Body weight Provider Name and Address Organization Details Last Updated DateTime 01/17/2024 162.56 cm 34.3 kg/m2 63364.47 g connie spencer [facility] 01/17/2024 11:50:48 Date Recorded Body height Body mass index (BMI) Body weight Provider Name and Address Organization Details Last Updated DateTime 02/07/2024 162.56 cm 34.3 kg/m2 25093.47 g STEFANI ECKERT [facility] 02/07/2024 10:14:34 Social History None recorded. Functional Status None recorded. Mental Status None recorded. Family History Nothing Reported. Medical History No medical history recorded. Gynecological HistoryNo gynecological history recorded. Obstetrics History GPAL:G 0 P 0 0 0 0 Past Encounters Encounter ID Performer Location Encounter Start Date Encounter Closed Date Diagnosis/Indication Diagnosis SNOMED-CT Code Diagnosis ICD10 Code [id number] Tabitha Redman PA-C [facility] [address] [place] [address] 01/10/2024 10:35:31 01/29/2024 10:07:21 Pain of left wrist [id number] 26305 M25.372 [id number] MD [facility] Laws [address] [place] [address] 01/17/2024 11:18:11 02/05/2024 07:59:37 Pain of left wrist [id number] 57974 M25.532 Closed Col les' fracture 735871484 S52.532D [id number] MD [facility]ia Laws [address] [place] [address] 02/07/2024 10:01:00 02/07/2024 12:27:04 Pain of left wrist 3520975721 07588 M25.532 Closed Col les' fracture 079912137 S52.532D Health Concerns Section Related Observation LastModified by Organization Detai ls LastModified Time None Recorded Concern Status LastModified by Organization Details LastModified Time None Recorded Advance Directives Directive None Recorded Payers Encounter Date Sequence Insurance Name Policy Number Policy Alvarado Covered Member ID Alvarado Member ID Guarantor Name 01/10/2024 2 [place] [facility] Maya Cain [id number] Maya Cain 01/10/2024 1 [employer] (MEDICARE REPLACEMENT PPO) [id number] Maya Cain [id number] Maya Cain 01/17/2024 2 [place] [facility] Maya Cain [id number] Maya Cain 01/17/2024 1 [employer] (MEDICARE REPLACEMENT PPO) [id number] Maya Cain [id number] Maya Cain 02/07/2024 2 [place] [facility] Maya Cain [id number] Maya Cain 02/07/2024 1 [employer] (MEDICARE REPLACEMENT PPO) [id number] Maya Cain [id number] Maya Cain Notes Date Note Type Note Provider Name and Address Organization Details Recorded Time 01/10/2024 text/html I am seeing the patient today under the supervision of dr hughes who was available but who did not see the patient. DX: Left distal radius An ulnar styloid process fracture 12/30/2023Left-sided hemiparesis from previous CVA HPI:63-year-old female here for orthopedic consultation. Patient fell onto the outstretched hand and injured the left wrist. Developed pain and swelling . They were seen at an outpatient facility. X-rays obtained revealing a distal radius fracture. Pain is controlled. No numbness or tingling.She has left sided hemiparesis from history of CVA. She has limited use of the left upper extremity Past family, medical, social history and review of systems has been reviewed, updated and is located in the patient? s chart. Examination: Alert and oriented, No acute distress. +-antalgic gait. Vital signs per nursing intake sheet. Exam of the left wrist reveals swelling. The patient is tender over the distal radial metaphysis. Limited wrist ROM. LimitedDigital ROM . Sensation is intact in an all nerve distribution. One+ capillary refill, 2+ radial pulse. Right wrist shows no warmth, erythema, swelling, or effusion. Full ROM, 5/5 strength all muscle groups and no evidence of instability. X-rays ordered, obtained and reviewed at [facility] m3 views left wrist reveals a comminuted intra-articular distal radius fracture with mild dorsal tilt. She has a displaced fracture of the ulnar styloid process at the base Impression/Plan:The findings and situation were discussed with the patient. Recommended nonoperative management. The patient will be placed in a short-arm cast. The patient will elevate, ice and work on digital ROM. The patient was advised to take Vitamin C 500mgs daily for CRPS prophylaxis. The patient followup next week for cast removal and repeat x-rays. If the fracture loses alignment, will need operative intervention. We will need six weeks of immobilization. At the six-week barbara from injury, the patient will need occupational therapy to work on range of motion and strengthening. Tabitha Redman PA-C [address], [place], [address], [facility] 01/10/2024 13:48:27 01/17/2024 text/html DX: Left distal radius An ulnar styloid process fracture 12/30/2023Left-sided hemiparesis from previous CVA HPI:63-year-old female here for orthopedic consultation. Patient fell onto the outstretched hand and injured the left wrist. Fracture is being treated conservatively. She has been in a splint Latanya Hughes MD [address], [place], [address], [facility] 01/17/2024 17:00:21 02/07/2024 text/html DX: Left distal radius and ulnar styloid process fracture 12/30/2023Left-sided hemiparesis from previous CVA HPI:63-year-old female here for orthopedic consultation. Patient fell onto the outstretched hand and injured the left wrist. Fracture is being treated conservatively. She reports that the cast applied at her most recent visit quickly fell off. Latanya Hughes MD [address], [place], [address], [facility] 02/07/2024 12:27:02 OBGyn Episode No OBEpisode recorded.
--- NOTE | 2024-02-07 14:29 | MHC.PC.OV ---
Vital Signs 02/07/24 14:30 Height 5 ft 4 in Weight 198 lb 6 oz BMI 34.0 BP 120/70 Blood Pressure Location Rt brachial Position Sitting Pulse 86 Pulse Source Pulse Oximeter Pulse Oximetry (%) 96 Oxygen Delivery Method Room Air Intake Visit Reasons: requesting PT referral Intake Note: Patient is here to follow up on PT referral for getting her strength back and left wrist sprain. Cowlman Required: No Physician Assistant: Present Accompanied by: family friend Allergies perfume Allergy (Intermediate, Verified 02/07/24 14:30) Shortness of Breath Seasonal Allergies Allergy (Intermediate, Verified 02/07/24 14:30) Watery Eye, sneezing Tobacco use date assessed: 02/07/24 Dental Screening Dental Screen Date: 03/08/23 HPI requesting PT referral HPI Details 63-year-old obese female with a history of CVA generalized anxiety disorder hypertension recently having spindle cell carcinoma coming in for acute problem. Patient states she had a fall December 29 which resulted in a left radial styloid fracture and was being evaluated by [facility] for this. She was wearing a cast which kept falling off and is now currently wearing a brace. She continues to have left wrist pain and left hip pain from her fall and would like to undergo physical therapy. [facility] Medical History HTN (hypertension) Nicotine dependence, cigarettes, uncomplicated Mass of left thigh Suspected exposure to mold Left leg swelling Obesity (BMI 30-39.9) Hemiparesis (~2017) ADHD (attention deficit hyperactivity disorder) Hypercalcemia Anxiety Hyperparathyroidism Sleep apnea in adult History of asthma History of CVA with residual deficit (~2017) Allergic rhinitis Surgical History History of biopsy History of hand surgery History of hysterectomy History of tubal ligation History of History of colonoscopy History of bilateral breast reduction surgery History of tonsillectomy S/P Botox injection Hx of arthroscopy of left knee Family History Father HTN (hypertension) Mother HTN (hypertension) Social History Household Members: None Housing: House Alcohol intake: current Alcohol intake frequency: does not drink Comment: left sided hemiparesis walks nato dubon Patient Tobacco Use Status: Former Tobacco user Tobacco use type: Cigarette Years Smoked: 2017 stopped 2.5 packs /20 years e-Cigarette/Vaping Use: Never Used Second Hand Smoke Exposure: No service: No Current occupational status: disabled Cognitive needs: No Hearing needs: No Vision needs: No Female Reproductive History Menstrual Age of Menarche: 15 Questionnaire Thrive Questionnaire Date Thrive assessed: 03/08/23 SANDY-7 AMB Questionnaire SANDY-7 Date SANDY - 7 assessed: 03/08/23 Source: Developed by Drs. Leland Small, Melodie Chambers, Rudi Lewis and colleagues, with an educational zhang from [email or web address]. Fall Risk Assessment Fall Risk Assessment Fall risk assessment: 2 + Falls in past year Review of Systems Const Denies body aches, Denies chills, Denies fever(s) and Denies poor appetite Card Denies chest pain, Denies syncope, Denies edema, Denies irregular heart rhythm, Denies lightheadedness and Denies dyspnea Resp Denies cough and Denies dyspnea GI Denies abdominal pain, Denies constipation, Denies diarrhea, Denies nausea and Denies vomiting Reports no additional complaints Musc Details: Left hip pain, left wrist pain Reports no additional complaints and Reports abnormal gait Skin/Breast Reports system reviewed and no additional complaints, except as documented Neuro Reports abnormal gait and Denies syncope Psych Reports no additional complaints Physical exam (Primary Care) Vital Signs: Last Vital Signs Pulse 86 02/07/24 14:30 BP 120/70 02/07/24 14:30 Pulse Ox 96 02/07/24 14:30 Oxygen Delivery Method Room Air 02/07/24 14:30 BMI result Body Mass Index 34.0 Tobacco/Smoking Status: Tobacco use Status Tobacco use date assessed 02/07/24 02/07/24 14:36 Patient Tobacco Use Status Former Tobacco user 02/07/24 14:36 Tobacco use type Cigarette 02/07/24 14:36 e-Cigarette/Vaping Use Never Used 02/07/24 14:36 Thrive Assessment: Date of Thrive Assessment Date Thrive assessed 03/08/23 02/07/24 14:36 Const General: cooperative, healthy appearing, comfortable and no acute distress Orientation/consciousness: patient oriented x3 HENMT Head: Yes normocephalic Ears: hearing grossly normal bilaterally General nose exam: Normal external nose present Eyes General: appearance normal, both eyes and all related structures Conjunctivae: conjunctivae normal Neck Neck: Yes full ROM and Yes no lymphadenopathy Resp Effort & Inspection: normal respiratory effort Auscultation: clear to auscultation bilaterally, no crackles, no rales, no rhonchi and no wheezes Cardio Rate: regular rate Rhythm: regular rhythm Back/Spine/Pelvis Other: Pain to palpation of left hip Skin General skin exam: no rashes or lesions noted Neuro General: patient oriented x3 Gait exam (Neuro): Normal gait present Extrem General: Yes normal to inspection, Yes full ROM and No edema Psych Affect: normal affect Attitude: cooperative Insight: Good insight present (Psych) Judgement: Good judgement present (Psych) Coding Level of Care Code Est Pt Level 3 (91757) Diagnoses Hip pain, left M25.552 Distal radius fracture, left S52.502A Assessment & Plan Assessment & Plan (1) Hip pain, left: Code(s): M25.552 - Pain in left hip Category: Medical Plan: Patient complaining of left hip pain which appears to be acute on chronic at this time. 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 (2) Distal radius fracture, left: Code(s): S52.502A - Unspecified fracture of the lower end of left radius, initial encounter for closed fracture Category: Medical Plan: Patient has distal radius fracture on the left side and was being seen by [facility]. She spoke with them and they agreed to allow her to have physical therapy outside of [facility]. Referral was placed today to [facility] services as she would benefit from in-home physical therapy due to inability to drive. Plan This note was constructed using voice recognition software. While every effort has been made to ensure accuracy and crown blocker, still areas may have been included sometimes these areas may affect the content or meeting of the given symptoms. Total time spent caring for the patient today was 20 minutes. This includes time spent before the visit reviewing the chart, time spent during the visit, and time spent after the visit and documentation. Orders: Referrals [facility] Referral M25.552 - Pain in left hip, S52.502A - Unspecified fracture of the lower end of left radius, initial encounter for closed fracture
--- OUTSIDE RECORDS SUMMARY | 2024-02-07 14:29 | XMS_ITS | Clinical Summary ---
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, INC HIP Active 02-25 00:00: 00 ANEMIA IN NEOPLASTIC DISEASE Active 02-25 00:00: 00 NEOPLASM RELATED PAIN (ACUTE) (CHRONIC) Active 02-25 00:00: 00 AFTERCARE FOLLOWING SURGERY FOR NEOPLASM Active 02-25 00:00: 00 HEMIPLGA FOLLOWING CEREBRAL INFRC AFFECTING LEFT NONDOM SIDE Active 02-25 00:00: 00 FACIAL WEAKNESS FOLLOWING CEREBRAL INFARCTION Active 02-25 00:00: 00 ESSENTIAL (PRIMARY) HYPERTENSION Active 02-25 00:00: 00 UNSPECIFIED ASTHMA, UNCOMPLICATE D Active 02-25 00:00: 00 ANXIETY DISORDER, UNSPECIFIED Active 02-25 00:00: 00 DEPRESSION, UNSPECIFIED Active 02-25 00:00: 00 PERSONAL HISTORY OF NICOTINE DEPENDENCE Active 02-25 00:00: 00 Problems related to health literacy Active 02-25 00:00: 00 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 Ordering Clinician Indication Dosage Frequency Signature (SIG) Comments Components gabapentin 600 mg tablet 2022-02 00:00: 00 Yes [id number] 1 tablet 2 TIMES DAILY 1 tablet 2 TIMES DAILY (route: oral) Med Classific ation: Central Nervous System Agents amlodipine 10 mg tablet 2022-02 00:00: 00 Yes [id number] 1 tablet DAILY 1 tablet DAILY (route: oral) Med Classific ation: Cardiovas cular Therapy Agents Lovenox 40 mg/0.4 mL subcutaneou s syringe 2022-02 00:00: 00 02-26 23:59 :00 No [id number] 0.4 mL DAILY 0.4 mL DAILY (route: subcutaneo us) Med Classific ation: Hematolog ical Agents Myrbetriq 50 mg tablet,exte nded release 2022-02 00:00: 00 Yes [id number] 1 tablet DAILY 1 tablet DAILY (route: oral) Med Classific ation: Genitouri nary Therapy oxycodone 5 mg tablet 2022-02 00:00: 00 Yes [id number] 1 tablet EVERY 4 HOURS 1 tablet EVERY 4 HOURS (route: oral) Med Classific ation: Analgesic , Anti-infl ammatory or Antipyret ic Plavix 75 mg tablet 2022-02 00:00: 00 Yes [id number] 1 tablet DAILY 1 tablet DAILY (route: oral) Med Classific ation: Hematolog ical Agents Senna Lax 8.6 mg tablet 2022-02 00:00: 00 Yes [id number] 1 tablet DAILY 1 tablet DAILY (route: oral) Med Classific ation: Gastroint estinal Therapy Agents venlafaxine ER 150 mg capsule,ext ended release 24 hr 2022-02 00:00: 00 Yes [id number] 1 capsule BEDTIME 1 capsule BEDTIME (route: oral) Med Classific ation: Central Nervous System Agents Immunizations Ordered Immunization Name Filled Immunization Name Date Status Comments Refusal Reason REFUSED FLU, PPV 2023-01-30 00:00:00 Vital Signs Vital Name Observation Time Observation Value Commen ts Temperature 2023-05-24 09:41:00.000 98.6 [degF] Temperature 2023-05-22 14:05:00.000 98.3 [degF] Temperature 2023-05-20 19:19:00.000 98.3 [degF] Temperature 2023-05-17 14:45:00.000 97.9 [degF] Temperature 2023 19:32:00.000 98.3 [degF] Temperature 2023-05-13 12:00:00.000 97.6 [degF] Temperature 2023-05-10 15:16:00.000 98.3 [degF] Temperature 2023-05-08 21:03:00.000 98.3 [degF] Temperature 2023-05-04 17:34:00.000 98.3 [degF] Temperature 2023-05-01 21:03:00.000 97.3 [degF] Temperature 2023-04-29 17:48:00.000 98.3 [degF] Temperature 2023-04-26 11:14:00.000 97.9 [degF] Temperature 2023-04-24 21:43:00.000 98.3 [degF] Temperature 2023-04-22 15:23:00.000 98.3 [degF] Temperature 2023-04-19 21:52:00.000 98.3 [degF] Temperature 2023-04-15 17:45:00.000 98.6 [degF] Temperature 2023-04-12 17:21:00.000 98.3 [degF] Temperature 2023-04-10 20:16:00.000 98.3 [degF] Temperature 2023-04-05 18:15:00.000 98.3 [degF] Temperature 2023-04-03 17:07:00.000 98.3 [degF] Temperature 2023-04-01 10:15:00.000 98.2 [degF] Pulse 2023-05-24 09:41:00.000 75 /min Pulse 2023-05-22 14:05:00.000 62 /min Pulse 2023-05-20 19:19:00.000 82 /min Pulse 2023-05-17 14:45:00.000 72 /min Pulse 2023 19:32:00.000 82 /min Pulse 2023-05-13 12:00:00.000 86 /min Pulse 2023-05-10 15:16:00.000 80 /min Pulse 2023-05-08 21:03:00.000 80 /min Pulse 2023-05-04 17:34:00.000 80 /min Pulse 2023-05-01 21:03:00.000 90 /min Pulse 2023-04-29 17:48:00.000 78 /min Pulse 2023-04-26 11:14:00.000 76 /min Pulse 2023-04-24 21:43:00.000 88 /min Pulse 2023-04-22 15:23:00.000 82 /min Pulse 2023-04-19 21:52:00.000 88 /min Pulse 2023-04-15 17:45:00.000 80 /min Pulse 2023-04-12 17:21:00.000 80 /min Pulse 2023-04-10 20:16:00.000 78 /min Pulse 2023-04-05 18:15:00.000 80 /min Pulse 2023-04-03 17:07:00.000 88 /min Pulse 2023-04-01 10:15:00.000 90 /min O2 Saturation (%) 2023-05-24 09:41:00.000 97 % O2 Saturation (%) 2023-05-13 12:00:00.000 96 % O2 Saturation (%) 2023-05-01 21:03:00.000 98 % O2 Saturation (%) 2023-04-26 11:14:00.000 100 % O2 Saturation (%) 2023-04-01 10:15:00.000 95 % Respirations 2023-05-24 09:41:00.000 20 /min Respirations 2023-05-22 14:05:00.000 18 /min Respirations 2023-05-20 19:19:00.000 18 /min Respirations 2023-05-17 14:45:00.000 18 /min Respirations 2023 19:32:00.000 20 /min Respirations 2023-05-13 12:00:00.000 20 /min Respirations 2023-05-10 15:16:00.000 18 /min Respirations 2023-05-08 21:03:00.000 20 /min Respirations 2023-05-04 17:34:00.000 20 /min Respirations 2023-05-01 21:03:00.000 18 /min Respirations 2023-04-29 17:48:00.000 18 /min Respirations 2023-04-26 11:14:00.000 20 /min Respirations 2023-04-24 21:43:00.000 18 /min Respirations 2023-04-22 15:23:00.000 20 /min Respirations 2023-04-19 21:52:00.000 20 /min Respirations 2023-04-15 17:45:00.000 18 /min Respirations 2023-04-12 17:21:00.000 18 /min Respirations 2023-04-10 20:16:00.000 18 /min Respirations 2023-04-05 18:15:00.000 18 /min Respirations 2023-04-03 17:07:00.000 18 /min Respirations 2023-04-01 10:15:00.000 17 /min Systolic Blood Pressure 2023-05-24 09:41:00.000 138 mm [Hg] Systolic Blood Pressure 2023-05-22 14:05:00.000 142 mm [Hg] Systolic Blood Pressure 2023-05-20 19:19:00.000 130 mm [Hg] Systolic Blood Pressure 2023-05-17 14:45:00.000 128 mm [Hg] Systolic Blood Pressure 2023 19:32:00.000 130 mm [Hg] Systolic Blood Pressure 2023-05-13 12:00:00.000 120 mm [Hg] Systolic Blood Pressure 2023-05-10 15:16:00.000 132 mm [Hg] Systolic Blood Pressure 2023-05-08 21:03:00.000 122 mm [Hg] Systolic Blood Pressure 2023-05-04 17:34:00.000 122 mm [Hg] Systolic Blood Pressure 2023-05-01 21:03:00.000 138 mm [Hg] Systolic Blood Pressure 2023-04-29 17:48:00.000 130 mm [Hg] Systolic Blood Pressure 2023-04-26 11:14:00.000 154 mm [Hg] Systolic Blood Pressure 2023-04-24 21:43:00.000 122 mm [Hg] Systolic Blood Pressure 2023-04-22 15:23:00.000 140 mm [Hg] Systolic Blood Pressure 2023-04-19 21:52:00.000 126 mm [Hg] Systolic Blood Pressure 2023-04-15 17:45:00.000 130 mm [Hg] Systolic Blood Pressure 2023-04-12 17:21:00.000 122 mm [Hg] Systolic Blood Pressure 2023-04-10 20:16:00.000 130 mm [Hg] Systolic Blood Pressure 2023-04-05 18:15:00.000 132 mm [Hg] Systolic Blood Pressure 2023-04-03 17:07:00.000 138 mm [Hg] Systolic Blood Pressure 2023-04-01 10:15:00.000 164 mm [Hg] Diastolic Blood Pressure 2023-05-24 09:41:00.000 84 mm [Hg] Diastolic Blood Pressure 2023-05-22 14:05:00.000 74 mm [Hg] Diastolic Blood Pressure 2023-05-20 19:19:00.000 74 mm [Hg] Diastolic Blood Pressure 2023-05-17 14:45:00.000 72 mm [Hg] Diastolic Blood Pressure 2023 19:32:00.000 74 mm [Hg] Diastolic Blood Pressure 2023-05-13 12:00:00.000 76 mm [Hg] Diastolic Blood Pressure 2023-05-10 15:16:00.000 78 mm [Hg] Diastolic Blood Pressure 2023-05-08 21:03:00.000 74 mm [Hg] Diastolic Blood Pressure 2023-05-04 17:34:00.000 74 mm [Hg] Diastolic Blood Pressure 2023-05-01 21:03:00.000 82 mm [Hg] Diastolic Blood Pressure 2023-04-29 17:48:00.000 78 mm [Hg] Diastolic Blood Pressure 2023-04-26 11:14:00.000 64 mm [Hg] Diastolic Blood Pressure 2023-04-24 21:43:00.000 68 mm [Hg] Diastolic Blood Pressure 2023-04-22 15:23:00.000 78 mm [Hg] Diastolic Blood Pressure 2023-04-19 21:52:00.000 64 mm [Hg] Diastolic Blood Pressure 2023-04-15 17:45:00.000 60 mm [Hg] Diastolic Blood Pressure 2023-04-12 17:21:00.000 74 mm [Hg] Diastolic Blood Pressure 2023-04-10 20:16:00.000 74 mm [Hg] Diastolic Blood Pressure 2023-04-05 18:15:00.000 74 mm [Hg] Diastolic Blood Pressure 2023-04-03 17:07:00.000 74 mm [Hg] Diastolic Blood Pressure 2023-04-01 10:15:00.000 100 m m[Hg] Plan of Treatment Planned Activity Planned Date Details Comments Future Scheduled Test SKILLED NU RSE TO EVALUATE PATIENT, IDENTIFY PRIMARY AND CO-MORBID CONDITIONS CODED PER CODING GUIDELINES, AND DEVELOP PATIENT SPECIFIC PLAN OF CARE THAT INCLUDES PATIENT GOAL FOR HOME HEALTH. [code = SKILLED NURSE TO EVALUATE PATIENT, IDENTIFY PRIMARY AND CO-MORBID CONDITIONS CODED PER CODING GUIDELINES, AND DEVELOP PATIENT SPECIFIC PLAN OF CARE THAT INCLUDES PATIENT GOAL FOR HOME HEALTH.] Future Scheduled Test SKILLED NU RSE TO ASSESS ANXIETY AND PROVIDE ASSISTANCE TO PATIENT FOR UNDERSTANDING AND MANAGEMENT OF FEELINGS. [code = SKILLED NURSE TO ASSESS ANXIETY AND PROVIDE ASSISTANCE TO PATIENT FOR UNDERSTANDING AND MANAGEMENT OF FEELINGS.] Future Scheduled Test SKILLED NU RSE FOR O/A AND TEACHING RELATED TO CANCER/NEOPLASM INCLUDING SIGNS AND SYMPTOMS OF DISEASE PROGRESSION, TREATMENT, AND MANAGEMENT OF POTENTIAL SIDE EFFECTS. [code = SKILLED NURSE FOR O/A AND TEACHING RELATED TO CANCER/NEOPLASM INCLUDING SIGNS AND SYMPTOMS OF DISEASE PROGRESSION, TREATMENT, AND MANAGEMENT OF POTENTIAL SIDE EFFECTS.] Future Scheduled Test SKILLED NU RSE FOR O/A OF RESPIRATORY SYSTEM TO IDENTIFY CHANGES ASSOCIATED WITH EXACERBATION AND TO PROVIDE SKILLED TEACHING ON MANAGEMENT OF ASTHMA RESPIRATORY DISEASE PROCESS. [code = SKILLED NURSE FOR O/A OF RESPIRATORY SYSTEM TO IDENTIFY CHANGES ASSOCIATED WITH EXACERBATION AND TO PROVIDE SKILLED TEACHING ON MANAGEMENT OF ASTHMA RESPIRATORY DISEASE PROCESS.] Future Scheduled Test NEED FOR S KILLED TEACHING AND INTERVENTION RELATED TO SURGICAL WOUND TO L THIGH. SKILLED NURSE OR TRAINED PATIENT/CAREGIVER TO PERFORM WOUND CARE USING ASEPTIC TECHNIQUE, CLEANSE/IRRIGATE WITH NORMAL SALINE WASH FOLLOWED BY SALINE MOISTENED PACKAGE STRIP TO WOUND BASE LIGHT PACKING TO MIDDLE AREA OF DEPTH FOLLOWED BY DRY GUAZE FOLLOWED BY DRY CLEAN DRESSING. WOUND CARE TO BE PERFORMED TWICE A DAY AND PRN IF SOILED OR DISLODGED. 1-2 PRN SKILLED NURSE VISITS FOR WOUND CARE DUE TO COMPLICATIONS. SKILLED NURSE TO OBTAIN WOUND CULTURE PRN S/S OF INFECTION. WOUND CARE WILL BE PERFORMED BY TRAINED CAREGIVER ON DAYS WHEN SKILLED NURSE IS NOT SCHEDULED FOR A VISIT. DISCONTINUE WOUND CARE/SUPPLIES ONCE WOUND IS HEALED. [code = NEED FOR SKILLED TEACHING AND INTERVENTION RELATED TO SURGICAL WOUND TO L THIGH. SKILLED NURSE OR TRAINED PATIENT/CAREGIVER TO PERFORM WOUND CARE USING ASEPTIC TECHNIQUE, CLEANSE/IRRIGATE WITH NORMAL SALINE WASH FOLLOWED BY SALINE MOISTENED PACKAGE STRIP TO WOUND BASE LIGHT PACKING TO MIDDLE AREA OF DEPTH FOLLOWED BY DRY GUAZE FOLLOWED BY DRY CLEAN DRESSING. WOUND CARE TO BE PERFORMED TWICE A DAY AND PRN IF SOILED OR DISLODGED. 1-2 PRN SKILLED NURSE VISITS FOR WOUND CARE DUE TO COMPLICATIONS. SKILLED NURSE TO OBTAIN WOUND CULTURE PRN S/S OF INFECTION. WOUND CARE WILL BE PERFORMED BY TRAINED CAREGIVER ON DAYS WHEN SKILLED NURSE IS NOT SCHEDULED FOR A VISIT. DISCONTINUE WOUND CARE/SUPPLIES ONCE WOUND IS HEALED.] Future Scheduled Test SKILLED NU RSE TO PROVIDE TEACHING ON SIGNS AND SYMPTOMS AND MANAGEMENT OF HYPERTENSION. [code = SKILLED NURSE TO PROVIDE TEACHING ON SIGNS AND SYMPTOMS AND MANAGEMENT OF HYPERTENSION.] Future Scheduled Test SKILLED NU RSE TO INSTRUCT PATIENT/CAREGIVER ON WARNING SIGNS OF CVA, RISK FACTORS, AND METHODS TO MANAGE CARE HOME EFFECTS OF CVA. [code = SKILLED NURSE TO INSTRUCT PATIENT/CAREGIVER ON WARNING SIGNS OF CVA, RISK FACTORS, AND METHODS TO MANAGE CARE HOME EFFECTS OF CVA.] Future Scheduled Test SKILLED NU RSE FOR O/A AND SKILLED TEACHING RELATED TO SIGNS AND SYMPTOMS AND MANAGEMENT OF ANEMIA. [code = SKILLED NURSE FOR O/A AND SKILLED TEACHING RELATED TO SIGNS AND SYMPTOMS AND MANAGEMENT OF ANEMIA.] Future Scheduled Test PATIENT PHAN S A RISK OF HOSPITALIZATION AND ED USE. SKILLED NURSE TO ESTABLISH SUPPORT MEASURES TO MINIMIZE RISK OF HOSPITALIZATION AND ED USE, AND INSTRUCT PATIENT/CAREGIVER ON METHODS TO REDUCE AVOIDABLE HOSPITALIZATION AND ED USE. [code = PATIENT HAS A RISK OF HOSPITALIZATION AND ED USE. SKILLED NURSE TO ESTABLISH SUPPORT MEASURES TO MINIMIZE RISK OF HOSPITALIZATION AND ED USE, AND INSTRUCT PATIENT/CAREGIVER ON METHODS TO REDUCE AVOIDABLE HOSPITALIZATION AND ED USE.] Future Scheduled Test SKILLED NU RSE TO PROVIDE INSTRUCTION TO PATIENT/CAREGIVER RELATED TO DISCHARGE PLANNING. [code = SKILLED NURSE TO PROVIDE INSTRUCTION TO PATIENT/CAREGIVER RELATED TO DISCHARGE PLANNING.] Future Scheduled Test SKILLED NU RSE TO PERFORM HOME SAFETY AND FALL ASSESSMENT AND PROVIDE INSTRUCTION TO IMPLEMENT HOME SAFETY AND FALL PREVENTION STRATEGIES. [code = SKILLED NURSE TO PERFORM HOME SAFETY AND FALL ASSESSMENT AND PROVIDE INSTRUCTION TO IMPLEMENT HOME SAFETY AND FALL PREVENTION STRATEGIES.] Future Scheduled Test SKILLED NU RSE FOR OBSERVATION AND ASSESSMENT OF PATIENTS PAIN LEVEL AND EFFECTIVENESS OF PAIN MANAGEMENT REGIMEN. SKILLED NURSE TO INSTRUCT PATIENT/CAREGIVER REGARDING PHARMACOLOGIC AND NON-PHARMACOLOGIC PAIN CONTROL MEASURES. SKILLED NURSE TO REPORT TO PHYSICIAN IF PAIN IS UNCONTROLLED WITH CURRENT PAIN MANAGEMENT REGIMEN. [code = SKILLED NURSE FOR OBSERVATION AND ASSESSMENT OF PATIENTS PAIN LEVEL AND EFFECTIVENESS OF PAIN MANAGEMENT REGIMEN. SKILLED NURSE TO INSTRUCT PATIENT/CAREGIVER REGARDING PHARMACOLOGIC AND NON-PHARMACOLOGIC PAIN CONTROL MEASURES. SKILLED NURSE TO REPORT TO PHYSICIAN IF PAIN IS UNCONTROLLED WITH CURRENT PAIN MANAGEMENT REGIMEN.] Future Scheduled Test SKILLED NU RSE TO ASSESS PATIENT'S SKIN INTEGRITY AND INSTRUCT PATIENT/CAREGIVER ON MEASURES TO PREVENT PRESSURE ULCERS. [code = SKILLED NURSE TO ASSESS PATIENT'S SKIN INTEGRITY AND INSTRUCT PATIENT/CAREGIVER ON MEASURES TO PREVENT PRESSURE ULCERS.] Future Scheduled Test SKILLED NU RSE TO PROVIDE ASSESSMENT AND TEACHING/REINFORCEMENT OF MANAGEMENT OF DEPRESSION INCLUDING DISEASE PROCESS, MEDICATION MANAGEMENT, COPING SKILLS AND IDENTIFY CHANGES ASSOCIATED WITH DEPRESSIVE DISORDERS FOR EARLY INTERVENTION. [code = SKILLED NURSE TO PROVIDE ASSESSMENT AND TEACHING/REINFORCEMENT OF MANAGEMENT OF DEPRESSION INCLUDING DISEASE PROCESS, MEDICATION MANAGEMENT, COPING SKILLS AND IDENTIFY CHANGES ASSOCIATED WITH DEPRESSIVE DISORDERS FOR EARLY INTERVENTION.] Goal 2023-03-29 Patient Goal - GET MYSELF UP AND GO Goal 2023-05-24 Patient Goal - GET MYSELF UP AND GO Goal Provider Goal - A PLAN OF CARE WILL BE ESTABLISHED THAT MEETS PATIENT'S SNF NEEDS AND INCLUDES PATIENT GOAL FOR HOME HEALTH. Goal Provider Goal - SYMPTOMS OF ANXIETY ARE IDENTIFIED AND INTERVENTIONS INITIATED TO ENABLE PATIENT TO UNDERSTAND AND MANAGE FEELINGS THROUGHOUT EPISODE. Goal Provider Goal - PATIENT/CAREGIVER WILL VERBALIZE/DEMONSTRATE MANAGEMENT OF CANCER/NEOPLASM DISEASE AND THE SIDE EFFECTS OF TREATMENTS DURING THIS EPISODE. Goal Provider Goal - PATIENT/CAREGIVER WILL VERBALIZE/DEMONSTRATE MANAGEMENT OF RESPIRATORY DISEASE PROCESS. CHANGES IN RESPIRATORY STATUS WILL BE IDENTIFIED AND REPORTED TO PHYSICIAN FOR PROMPT INTERVENTION THROUGHOUT THE CERTIFICATION PERIOD. Goal Provider Goal - WOUND CARE WILL BE COMPLETED AND PATIENT WILL HAVE IMPROVED WOUND STATUS EVIDENCED BY NO SIGNS AND SYMPTOMS OF INFECTION, DECREASED WOUND SIZE, AND/OR NO COMPLICATIONS BY THE END OF THE CERTIFICATION PERIOD. Goal Provider Goal - PATIENT/CAREGIVER WILL VERBALIZE SIGNS AND SYMPTOMS OF HYPERTENSION AND WILL BE ABLE TO DEMONSTRATE ABILITY TO MANAGE EXACERBATION BY END OF THE EPISODE. Goal Provider Goal - PATIENT/CAREGIVER WILL DEMONSTRATE COMPLIANCE WITH TREATMENT REGIME AND VERBALIZE SIGNS AND SYMPTOMS TO REPORT WELL POSSIBLE COMPLICATIONS OF CVA BY END OF EPISODE. Goal Provider Goal - PATIENT/CARGIVER WILL VERBALIZE UNDERSTANDING OF ANEMIA INCLUDING SIGNS AND SYMPTOMS, MANAGEMENT OF COMPLICATIONS, AND PRESCRIBED TREATMENT REGIMEN BY END OF EPISODE. Goal Provider Goal - PATIENT WILL HAVE SUPPORT MEASURES ESTABLISHED TO PREVENT HOSPITALIZATION AND ED USE AND PATIENT/CAREGIVER WILL VERBALIZE/DEMONSTRATE METHODS TO REDUCE AVOIDABLE HOSPITALIZATION AND ED USE BY END OF EPISODE. Goal Provider Goal - PATIENT/CAREGIVER WILL VERBALIZE UNDERSTANDING OF DISCHARGE PLANNING INSTRUCTIONS BY DATE OF DISCHARGE. Goal Provider Goal - PATIENT/CAREGIVER WILL VERBALIZE/DEMONSTRATE EFFECTIVE HOME SAFETY AND FALL PREVENTION STRATEGIES THROUGHOUT CERTIFICATION PERIOD. Goal Provider Goal - PATIENT/CAREGIVER WILL DEMONSTRATE AN UNDERSTANDING OF PHARMACOLOGIC AND NONPHARMACOLOGIC PAIN CONTROL MEASURES, AND THE PATIENT WILL HAVE IMPROVEMENT IN PAIN INTERFERING WITH ACTIVITY EVIDENCED BY PAIN CONTROLLED AT A LEVEL OF 7 OR LESS BY THE END OF THE CERTIFICATION PERIOD. Goal Provider Goal - PATIENT/CAREGIVER WILL VERBALIZE UNDERSTANDING OF PRESSURE ULCER PREVENTION BY END OF THE EPISODE. Goal Provider Goal - PATIENT/CAREGIVER WILL VERBALIZE/DEMONSTRATE UNDERSTANDING OF THE MANAGEMENT OF DEPRESSION THROUGHOUT THE CERTIFICATION PERIOD AND SYMPTOMS ARE IDENTIFIED AND MANAGED TO MAINTAIN PATIENT SAFETY IN THE HOME. Reason for Visit INDEPENDENT IN THE HOME Encounters Start Date/Time End Date/Time Encounter Type Admission Type Attending [facility] Care Department Encounter ID Discharge Date Discharge Status Discharge Condition Discharge Reason Percent Goals Met 2023-01-29 00:00:00 2023-05-24 00:00:00 Outpatient RECERTIFIC DARYL GIBBONS [facility] [id number] 2023-05-24 00:00:00 DISCHARGE TO HOME OR SELF CARE INDEPENDEN T IN THE HOME GOALS MET ( ONLY) 100.00
[2024-02-07 14:30] VITALS: BP 120/70; PULSE 86; O2SAT 96; BMI 34.0
== END 2024-02-07 15:27 | disposition home or self-care (01) ==
PROVIDERS: PCP Internal Medicine
DX: M25.552 Pain in left hip (principal); S52.502A Unspecified fracture of the lower end of left radius, initial encounter for closed fracture

== ENCOUNTER → 2024-02-07 14:26 | Outpatient (BNVA) | payer MEDICARE, MEDICAID, SELFPAY | PROVIDERS: PCP Internal Medicine | DX: M25.552 Pain in left hip (principal); S52.502A Unspecified fracture of the lower end of left radius, initial encounter for closed fracture | CPT/HCPCS: 99212 ==

== ENCOUNTER 2024-03-27 13:02 | Outpatient (AMB) | payer MEDICARE, MEDICAID, SELFPAY ==
--- NOTE | 2024-03-27 13:04 | A.OFFVIS_ITS ---
Intake Visit Reasons: Botox Discussion Intake Note: Patient is present for Botox Discussion Urology Med: Myrbetriq Antibiotic Allergy: None Blood Thinner: Aspirin, Clopidogrel Last PVR:33 Todays PVR: 0ml Editor [employer] Required: No Wine Bottle Inspector: Wine Bottle Inspector Present Accompanied by: Daughter Allergies perfume Allergy (Intermediate, Verified 03/27/24 13:11) Shortness of Breath Seasonal Allergies Allergy (Intermediate, Verified 03/27/24 13:11) Watery Eye, sneezing HPI Comments Details: Last botox 200 units on 10/22/23. She has had treatments for cancer and had to reschedule her follow up. She has started leaking again, denies dysuria. Unable to give urine sample. PVR 0 ML. Will reschedule out patient botox 200 units. Pt must bring urine to be tested to rule out UTI prior. 11/14/23--Maya is being managed for spastic neurogenic bladder, CoMorbidity - Stroke--she is s/p repeat botox 10/22/23, she states she is doing much better. She is able to make it to the bathroom without leaking, denies dysuria. fu in 3 months 10/04/23--Teresa is s/p Botox 200 units on 06/18/23 and she states her urinary urgency is still present, she is still leaking, she states the botox worked for about 6-8 weeks. I will send urine for culture and empiracally start antibiotics. The patient may need botox every 3 months alternatively may consider interstim neuromodulation therapy. 06/07/23--Maya is a 62-year-old female who presents today telehealth visit. She states that she diagnosed with bone cancer. She had radiation therapy and surgery in [place] in January 2023. She states she is doing much better. She remains on Myrbetriq 50 mg twice a day. She is scheduled for bladder Botox injection 200 units, 06/18/2023. She denies dysuria. Plan urine culture prior to Botox injection. 10/15/2022?She was last seen by me on 07/13/2022 for overactive bladder. Advised the patient to continue Myrbetriq twice a day, and follow up Tele-health in 3 months during that time. She has a history of stroke in 2016. Patient states that she is starting to have urinary urgency with incontinence episodes. She denies dysuria. She states that she was recently diagnosed with bone cancer and was seeing a specialist in [place]. She has an upcoming surgery and wants to delay repeat Botox treatment. She states that she will call the office for follow up. She was unable to give urine specimen at this time. Bladder scan: 118 mL. Plan --Continue Myrbetriq 50 mg BID daily. Patient has recently diagnosed with bone cancer and she has planned surgery. She will call to the office when she is recovered from the surgery and will repeat Botox for the bladder. 07/13/2022: The patient is s/p cystoscopy and bladder Botox 100 units on 01/04/22. history of stroke in 2017. States having improvement in OAB symtoms post the Botox treatment. The patient is taking Myrbetriq twice a day without any reported side effects. States improvement in urinary leakage after the Botox therapy. I discussed to repeat the Botox 100 units. Will schedule a tele-health visit and will monitor her urinary symptoms. Plan: Continue Myrbetriq twice a day. Tele- health follow-up in three months. [facility] Medical History HTN (hypertension) Nicotine dependence, cigarettes, uncomplicated Mass of left thigh Suspected exposure to mold Left leg swelling Obesity (BMI 30-39.9) Hemiparesis (~2017) ADHD (attention deficit hyperactivity disorder) Hypercalcemia Anxiety Hyperparathyroidism Sleep apnea in adult History of asthma History of CVA with residual deficit (~2017) Allergic rhinitis Surgical History History of biopsy History of hand surgery History of hysterectomy History of tubal ligation History of History of colonoscopy History of bilateral breast reduction surgery History of tonsillectomy S/P Botox injection Hx of arthroscopy of left knee Family History Father HTN (hypertension) Mother HTN (hypertension) Social History Household Members: None Housing: House Alcohol intake: current Alcohol intake frequency: does not drink Comment: left sided hemiparesis walks wih cane Patient Tobacco Use Status: Former Tobacco user Tobacco use type: Cigarette Years Smoked: 2017 stopped 2.5 packs /20 years e-Cigarette/Vaping Use: Never Used Second Hand Smoke Exposure: No service: No Current occupational status: disabled Cognitive needs: No Hearing needs: No Vision needs: No Female Reproductive History Menstrual Age of Menarche: 15 Review of Systems Const All systems reviewed & are unremarkable except as noted in HPI and below Reports no additional complaints Eyes Reports no additional complaints ENT Reports no additional complaints Card Reports no additional complaints Resp Reports no additional complaints GI Reports no additional complaints Reports as per HPI Musc Reports no additional complaints Skin/Breast Reports system reviewed and no additional complaints, except as documented Neuro Reports no additional complaints Psych Reports no additional complaints Endo Reports no additional complaints Lexa/Lymph Reports no additional complaints Aller/Immun Reports no additional complaints Office Procedures Post Void Residual Post Residual Void Post Void Residual (PVR): 0 [id number]-[id number] Void Residual by ultrasound Assessment & Plan Assessment & Plan (1) OAB (overactive bladder): Code(s): N32.81 - Overactive bladder Category: Medical (2) History of CVA (cerebrovascular accident): Onset Date: ~2016 Comment: (CVA 2017 left-sided weakness) Code(s): Z86.73 - Personal history of transient ischemic attack (TIA), and cerebral infarction without residual deficits Category: Medical (3) Spastic neurogenic bladder: Code(s): N31.8 - Other neuromuscular dysfunction of bladder Category: Medical Plan Schedule outpatient Bladder botox 200 units Orders: Orders AMB Urinalysis Automated Today Z13.9 - Encounter for screening, unspecified AMB Post Void Residual by ultrasound Today N32.81 - Overactive bladder Patient Instructions: The patient had an opportunity to ask questions regarding treatment plan. The patient expressed understanding and agreement with the above treatment plan. The patient is aware they should contact our office by phone for worsening of their current condition or the appearance of new symptoms. Compliance is encouraged with any medications and followup testing that is ordered. It is a privilege to be allowed the opportunity to participate in the urologic care of your patient. If you have any questions or concerns regarding treatment for the above conditions please do not hesitate to contact me. The office telephone contact is [phone]. This note is constructed in part using voice recognition software. While every effort has been made to ensure accuracy industrial safety and health specialist errors may have been included. Yours sincerely, Torres Connell MD Coding Level of Care Code Est Pt Level 3 (83484) Complex EM visit Add On G2211 Diagnoses OAB (overactive bladder) N32.81 History of CVA (cerebrovascular accident) Z86.73 Spastic neurogenic bladder N31.8 CPT Codes Post Residual Void - PVR CPT Code: 63065-Kxia Void Residual by ultrasound ([id number])
--- OUTSIDE RECORDS SUMMARY | 2024-03-27 13:17 | XMS_ITS | Data Portability ---
Author Organization [facility], [facility] Address [address] [place] [address] Care Team Providers Care Driller And Reamer Name Role Phone PRAKASH MON Primary Care Provider [phone] Assessment Encounter Date Assessment Date Assessment LastModified [...] Organization Details Last Modified Time Details Appointments None recorded. Lab None recorded. Referral occupatio nal therapist referral - OT- s/p Left distal radius and ulnar styloid fractures , baseline hemipares is left upper extremity status post CVA- ROM progressi ve strengthsarthak farrellg 2023 024 [facility] [place], [address], [place], [address], 5 15:23:20 Procedures None recorded. Surgeries None recorded. Imaging XR, wrist, 3 or more view - RM 119 3V 2023 024 [email or web address] [facility], [address], [place], [address], 4 15:56:17 XR, wrist, 3 or more view - rm.115 3 v of the L wrist 2023 024 rmessenger [facility], [address], [address], [place], [address], 4 07:59:37 XR, wrist, 3 or more view - room 113 3V L wrist 2023 024 [facility], [address], [address], [place], [address], 5 15:23:19 Medication Orders None recorded. Patient TargetsNo targets recorded. Patient Instructions Encounter Date Encounter Id Patient Instructions Last Modified By Organization Details Last Modified Time 01/10/2024 application of cast, short arm cast* - RM 119 [facility] [email or web address] Not available 01/13/2024 15:56:17 01/17/[id number] application of cast, short arm cast* leisa [...] aYqtaq 0bqfl% 2Fg9IQ a4ajBk vP9nXo QUaueC m3YtLR FvZl33 [address] Streettai[address] [id number] AC0Kqa X2DV6K gKiQtr MwF INTERFACE [facility] [address], [place], [address], 01/10/2024 11:13:21 01/10/20 24 01/10/2024 XR, wrist , 3 or more view [email or web address]:/ [email or web address] ?Encry pted=s hAaTro YD8dLq bEUv6g %2BXZw aYqtaq 0bqfl% 2Fg9IQ a4ajBk vP9nXo QUaueC m3YtLR [address] [id number] AC0Kqa X2DV6K gKiQtr MwF INTERFACE [facility] [address], [place], [address], 01/10/2024 11:13:24 01/17/20 24 01/17/2024 XR, wrist , 3 or more view [email or web address]:/ [email or web address] ?Encry pted=s hAaTro YD8dLq bEUv6g %2BXZw aYqtaq 0bqfl% 2Fg9IQ a4ajBk vP9nXo QUaueC m3YtLR FvZl33 [address]tai[address] 5o8806 AC0Kqa X6CWae hKiQtr MwF INTERFACE [facility] [address] [address], [place], [address], 01/17/2024 12:04:14 01/17/20 24 01/17/2024 XR, wrist , 3 or more view http:/ [email or web address]:7083 ?Encry pted=s hAaTro YD8dLq bEUv6g %2BXZw aYqtaq 0bqfl% 2Fg9IQ a4ajBk vP9nXo QUaueC m3YtLR FvZlgJ [place] HZtai3 5e1606 AC0Kqa X6CWae hKiQtr MwF INTERFACE [facility] [address] [address], [place], [address], 01/17/2024 12:04:16 02/07/20 24 02/07/2024 XR, wrist , 3 or more view http:/ [email or web address]:7083 ?Encry pted=s hAaTro YD8dLq bEUv6g %2BXZw aYqtaq 0bqfl% 2Fg9IQ a4ajBk vP9nXo QUaueC m3YtLR FvZlgJ JJ8mAn HZtai3 [id number] AC0Kqb nyMWKa uKiQtr MwF INTERFACE [facility] [address] [address], [place], [address], 02/07/2024 10:33:47 02/07/20 24 02/07/2024 XR, wrist , 3 or more view [email or web address]:/ [email or web address] ?Encry pted=s hAaTro YD8dLq bEUv6g %2BXZw aYqtaq 0bqfl% 2Fg9IQ a4ajBk vP9nXo QUaueC m3YtLR FvZlgJ JJ8mAn HZtai3 3q3657 AC0Kqb nyMWKa uKiQtr MwF INTERFACE [facility] [address], [place], [address], 02/07/2024 10:33:49 Result Notes None recorded. Procedures Surgical History None recorded. Imaging Results Imaging Date Name Status LastModified by [facility] Details LastModified Time 01/10/2024 XR, wrist, 3 or more view completed INTERFACE [facility] [address], [place], [address], 01/10/2024 11:13:21 01/10/2024 XR, wrist, 3 or more view completed INTERFACE [facility] [address], [place], [address], 01/10/2024 11:13:24 01/17/2024 XR, wrist, 3 or more view completed INTERFACE [facility] [address], [place], [address], 01/17/2024 12:04:14 01/17/2024 XR, wrist, 3 or more view completed INTERFACE [facility] [address], [place], [address], 01/17/2024 12:04:16 02/07/2024 XR, wrist, 3 or more view completed INTERFACE [facility] [address], [place], [address], 02/07/2024 10:33:47 02/07/2024 XR, wrist, 3 or more view completed INTERFACE [facility] [address], [place], [address], 02/07/2024 10:33:49 Procedure Notes None recorded. Medical [...] t Available Vitals Date Recorded Body height Provider Name an d Address Organization Details Last Updated DateTime 01/10/2024 162.56 cm SONY MAJOR MA [facility] 01/10/2024 11:04:17 Date Recorded Body mass index (BMI) Body weight Provider Name and Address Organization Details Last Updated DateTime 01/10/2024 33.5 kg/m2 34372.51 g SONY MAJOR MA [facility] 01/10/2024 11:04:19 Date Recorded Body height Provider Name an d Address Organization Details Last Updated DateTime 01/17/2024 162.56 cm connie spencer [facility] 01/17/2024 11:50:40 Date Recorded Body mass index (BMI) Body weight Provider Name and Address Organization Details Last Updated DateTime 01/17/2024 34.3 kg/m2 11863.47 g connie spencer [facility] 01/17/2024 11:50:48 Date Recorded Body height Provider Name an d Address Organization Details Last Updated DateTime 02/07/2024 162.56 cm STEFANI ECKERT [facility] 02/07/2024 10:14:29 Date Recorded Body mass index (BMI) Body weight Provider Name and Address Organization Details Last Updated DateTime 02/07/2024 34.3 kg/m2 96000.47 [facility] 02/07/2024 10:14:34 Social History None recorded. Functional Status None recorded. Mental Status None recorded. Family History Nothing Reported. Medical History No medical history recorded. Gynecological HistoryNo gynecological history recorded. Obstetrics History GPAL:G 0 P 0 0 0 0 Past Encounters Encounter ID Performer Location Encounter Start Date Encounter Closed Date Diagnosis/Indication Diagnosis SNOMED-CT Code Diagnosis ICD10 Code Diagnosis Note [id number] MANUELITO Jeffers [address] [place] [address] 01/10/2024 10:35:31 01/29/2024 10:07:21 Pain of left wrist 7712217644 22350 M25.431 [id number] MD Antonia Laws [address] [facility] [address] [place] [address] 01/17/2024 11:18:11 02/05/2024 07:59:37 Pain of left wrist 7246618389 86971 M25.532 Closed Col les' fracture 303092513 S52.532D [id number] MD Antonia Laws [address] [place] [address] 02/07/2024 10:01:00 02/27/2024 15:23:19 Pain of left wrist 3794408110 68519 M25.532 Closed Col les' fracture 734122336 S52.532D Health Concerns Section Related Observation LastModified by Organization Detai ls LastModified Time None Recorded Concern Status LastModified by Organization Details LastModified Time None Recorded Advance Directives Directive None Recorded Payers Encounter Date Sequence Insurance Name Policy Number Policy Alvarado Covered Member ID Alvarado Member ID Guarantor Name 01/10/2024 2 [place] Maya Cain [id number] Maya Cain 01/10/2024 1 [employer] (MEDICARE REPLACEMENT PPO) [id number] Maya Cain [id number] Maya Cain 01/17/2024 2 [place] Maya Cain [id number] Maya Cain 01/17/2024 1 [employer] (MEDICARE REPLACEMENT PPO) [id number] Maya Cain [id number] Maya Cain 02/07/2024 2 [place] Maya Cain [id number] Maya Cain 02/07/2024 1 [employer] (MEDICARE REPLACEMENT PPO) [id number] Maya Cain [id number] Maya Cain Notes Date Note Type Note [...] instability. X-rays ordered, obtained and reviewed at [facility] m3 views left wrist reveals a comminuted [...] motion and strengthening. Tabitha Redman PA-C [email or web address], [place], [address], [facility] 01/10/2024 13:48:27 01/17/2024 text/html DX: Left distal radius An ulnar styloid process fracture 12/30/2023Left-sided hemiparesis from previous CVA HPI:63-year-old female here for orthopedic consultation. Patient fell onto the outstretched hand and injured the left wrist. Fracture is being treated conservatively. She has been in a splint Latanya Hughes MD [email or web address], [place], [address], [facility] 01/17/2024 17:00:21 02/07/2024 text/html DX: Left distal radius and ulnar styloid process fracture 12/30/2023Left-sided hemiparesis from previous CVA HPI:63-year-old female here for orthopedic consultation. Patient fell onto the outstretched hand and injured the left wrist. Fracture is being treated conservatively. She reports that the cast applied at her most recent visit quickly fell off. Latanya Hughes MD [email or web address], [place], [address], [facility] 02/07/2024 12:27:02 OBGyn Episode No OBEpisode recorded.
== END 2024-03-27 13:57 | disposition home or self-care (01) ==
PROVIDERS: PCP Internal Medicine; Visit Provider Urology
DX: N32.81 Overactive bladder (principal); Z86.73 Personal history of transient ischemic attack (TIA), and cerebral infarction without residual deficits; N31.8 Other neuromuscular dysfunction of bladder
CPT/HCPCS: 99213; G2211

== ENCOUNTER → 2024-03-27 13:02 | Outpatient (BNVA) | payer MEDICARE, MEDICAID, SELFPAY | PROVIDERS: PCP Internal Medicine; Visit Provider Urology | DX: N32.81 Overactive bladder (principal); N31.8 Other neuromuscular dysfunction of bladder; Z86.73 Personal history of transient ischemic attack (TIA), and cerebral infarction without residual deficits | CPT/HCPCS: 51798; 99212 ==

== ENCOUNTER 2024-04-03 11:06 | Outpatient (REF) | payer MEDICARE, MEDICAID, SELFPAY ==
--- NOTE | ~2024-04-03 | XR_ITS ---
EXAMINATION: XR CHEST CLINICAL INFORMATION: R05 - Cough COMPARISON: June 24, 2020 TECHNIQUE: 2 views of the chest were obtained. FINDINGS: No consolidation pleural effusion or pneumothorax. Cardiomediastinal silhouette demonstrates calcified plaque aorta. S-shaped curvature of the thoracolumbar spine. Multilevel thoracic spondylosis, mild. XR/XR chest 2V IMPRESSION: No acute airspace disease. Atherosclerosis, aorta. Scoliosis, thoracolumbar spine. Electronically signed by: Bart Jones MD 04/03/2024 12:21 PM VERONICA NGUYEN
[2024-04-03 14:28] LABS: Influenza A PCR NEGATIVE (Negative); Influenza B PCR NEGATIVE (Negative); Resp Syncy Virus RNA Qual PCR NEGATIVE (Negative); SARS COV2 PCR INHOUSE NEGATIVE (Negative)
== END 2024-04-03 11:07 | disposition home or self-care (01) ==
LOC: HO.XRAY 11:06
PROVIDERS: PCP Internal Medicine
DX: R05.9 Cough, unspecified (principal); I10 Essential (primary) hypertension; E66.9 Obesity, unspecified; Z68.34 Body mass index [BMI] 34.0-34.9, adult; R09.89 Other specified symptoms and signs involving the circulatory and respiratory systems
CPT/HCPCS: 0241U; 71046; 96127; 99212

== ENCOUNTER 2024-04-03 11:06 | Outpatient (AMB) | payer MEDICARE, MEDICAID, SELFPAY ==
--- NOTE | 2024-04-03 11:08 | MHC.PC.OV ---
Vital Signs 04/03/24 11:10 Height 5 ft 4 in Weight 202 lb 6 oz BMI 34.7 BP 130/70 Blood Pressure Location Lt brachial Position Sitting Pulse 75 Pulse Source Pulse Oximeter Temp 97.5 F Temp Source Skin Pulse Oximetry (%) 98 Oxygen Delivery Method Room Air Intake Visit Reasons: chest congestion, needs inhaler Intake Note: Patient is here to follow up on Chest congestion on going for two weeks. Sap Analyst Required: No Sterilization Technician: Present Accompanied by: Daughter Allergies perfume Allergy (Intermediate, Verified 04/03/24 11:09) Shortness of Breath Seasonal Allergies Allergy (Intermediate, Verified 04/03/24 11:09) Watery Eye, sneezing Medication List - Last Reconciled 04/03/24 by Naomi George PA-C [reusable bed pads and disposable liners. As directed] albuterol sulfate 90 mcg/actuation 2 puffs inhalation Q6H PRN amlodipine 10 mg PO DAILY [Ankle/Foot Orthotics As directed] aspirin 81 mg PO DAILY baclofen 10 mg PO TID benzonatate 100 mg PO BID PRN clopidogrel 75 mg PO DAILY gabapentin 600 mg PO BID lidocaine 5% 1 patch topical DAILY 30 days lisinopril 40 mg PO DAILY 90 days mirabegron ER 50 mg PO BID 90 days venlafaxine ER (Effexor XR) 150 mg PO BEDTIME Tobacco use date assessed: 04/03/24 Dental Screening Dental Screen Date: 04/03/24 Did you have a dental visit in the last 12 months?: No Did you have a dental problem in the last 6 months where you did not have access to dental care?: No Was dental information given to patient?: No HPI chest congestion, needs inhaler HPI Details 63-year-old female with past medical history of CVA, generalized anxiety disorder, hypertension 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 Patient tells us last week she woke up with flu-like symptoms and fever that if symptoms resolve and has developed into a productive cough. She has been using Robitussin for the cough and is bringing up phlegm. Her symptoms have been persistent for about 2 weeks. She is no longer having sweating at night or chills. [facility] Medical History HTN (hypertension) Nicotine dependence, cigarettes, uncomplicated Mass of left thigh Suspected exposure to mold Left leg swelling Obesity (BMI 30-39.9) Hemiparesis (~2017) ADHD (attention deficit hyperactivity disorder) Hypercalcemia Anxiety Hyperparathyroidism Sleep apnea in adult History of asthma History of CVA with residual deficit (~2017) Allergic rhinitis Surgical History History of biopsy History of hand surgery History of hysterectomy History of tubal ligation History of History of colonoscopy History of bilateral breast reduction surgery History of tonsillectomy S/P Botox injection Hx of arthroscopy of left knee Family History Father HTN (hypertension) Mother HTN (hypertension) Social History Household Members: None Housing: House Alcohol intake: current Alcohol intake frequency: does not drink Comment: left sided hemiparesis walks nato dubon Patient Tobacco Use Status: Former Tobacco user Tobacco use type: Cigarette Years Smoked: 2017 stopped 2.5 packs /20 years e-Cigarette/Vaping Use: Never Used Second Hand Smoke Exposure: No service: No Current occupational status: disabled Cognitive needs: No Hearing needs: No Vision needs: No Female Reproductive History Menstrual Age of Menarche: 15 Questionnaire PHQ-9 Over the last 2 weeks, how often have you been bothered by any of the following problems? 1. Little interest or pleasure in doing things: not at all 2. Feeling down, depressed, or hopeless: not at all 3. Trouble falling or staying asleep, or sleeping too much: not at all 4. Feeling tired or having little energy: not at all 5. Poor appetite or overeating: not at all 6. Feeling bad about yourself - or that you are a failure or have let yourself or your family down: not at all 7. Trouble concentrating on things, such as reading the newspaper or watching television: not at all 8. Moving or speaking so slowly that other people could have noticed. Or the opposite - being so fidgety or restless that you have been moving around a lot more than usual: not at all 9. Thoughts that you would be better off or of hurting yourself in some way: not at all Total score: 0 Depression Screening Interpretation: Negative Depression Screening Done: Yes Source: Developed by Drs. Leland Small, Melodie Chambers, Rudi Lewis and colleagues, with an educational zhang from [employer]. Thrive Questionnaire Date Thrive assessed: 04/03/24 I am a: Patient What is your living situation today?: I have a steady place to live Within the past 12 months, did the food you bought not last and you didn't have the money to get more?: Never true Within the past 12 months, did you worry whether your food would run out before you got money to buy more?: Never true Do you have trouble paying for medicines?: No Do you have trouble getting transportation to medical appointments?: No Do you have trouble paying your heating and electricity bill?: No Do you have trouble taking care of your child, family member or friend?: No Do you have trouble with day-to-day activities such as bathing, preparing meals, shopping, managing finances, etc.?: No Are you currently unemployed and looking for a job?: No Are you interested in more education?: No Please select the resources that you would like help with: None Currently or been in a relationship where the following occur: No concerns reported THRIVE Score: 0 AUDIT C Alcohol Use Questionnaire (AUDIT-C) 1. How often do you have a drink containing alcohol?: Never Total Score: 0 SANDY-7 AMB Questionnaire SANDY-7 Date SANDY - 7 assessed: 04/03/24 Feeling nervous, anxious, or on edge: 0 = Not at all Not being able to stop or control worryin = Not at all Worrying too much about different things: 0 = Not at all Trouble relaxin = Not at all Being so restless that it is hard to sit still: 0 = Not at all Becoming easily annoyed or irritable: 0 = Not at all Feeling afraid as if something awful might happen: 0 = Not at all Total SANDY-7 score (0-4 normal; 5-9 mild; 10-14 moderate; 15-21 severe): 0 Source: Developed by Drs. Leland Small, Melodie Chambers, Rudi Lewis and colleagues, with an educational zhang from [employer]. Review of Systems Const Denies body aches, Denies chills, Denies fatigue, Denies fever(s) and Denies night sweats Eyes Reports no additional complaints ENT Denies nasal congestion, Denies nasal discharge, Denies sinus pain and Denies sore throat Card Denies chest pain, Denies lightheadedness and Reports dyspnea Resp Reports cough, Denies hemoptysis, Reports excessive phlegm production and Reports dyspnea GI Reports no additional complaints Reports no additional complaints Musc Reports no additional complaints Endo Denies fatigue Physical exam (Primary Care) Vital Signs: Last Vital Signs Temp 97.5 F 04/03/24 11:10 Pulse 75 04/03/24 11:10 BP 130/70 04/03/24 11:10 Pulse Ox 98 04/03/24 11:10 Oxygen Delivery Method Room Air 04/03/24 11:10 BMI result Body Mass Index 34.7 Tobacco/Smoking Status: Tobacco use Status Tobacco use date assessed 04/03/24 04/03/24 11:16 Patient Tobacco Use Status Former Tobacco user 04/03/24 11:16 Tobacco use type Cigarette 04/03/24 11:16 e-Cigarette/Vaping Use Never Used 04/03/24 11:16 PHQ-9: PHQ-9 Score PHQ-9: Total score 0 04/03/24 11:16 Depression Screening Interpretation: Negative Thrive Assessment: Date of Thrive Assessment Date Thrive assessed 04/03/24 04/03/24 11:16 Currently or been in a relationship where the following occur: No concerns reported Const General: cooperative, healthy appearing, comfortable and no acute distress Orientation/consciousness: patient oriented x3 [facility] Head: Yes normocephalic Ears: hearing grossly normal bilaterally General nose exam: Normal external nose present Eyes General: appearance normal, both eyes and all related structures Conjunctivae: conjunctivae normal Neck Neck: Yes full ROM and Yes no lymphadenopathy Resp Effort & Inspection: normal respiratory effort Auscultation: clear to auscultation bilaterally, no crackles, no rales, no rhonchi and no wheezes Cardio Rate: regular rate Rhythm: regular rhythm Skin General skin exam: no rashes or lesions noted Neuro General: patient oriented x3 Gait exam (Neuro): Normal gait present Extrem General: Yes normal to inspection, Yes full ROM and No edema Psych Affect: normal affect Attitude: cooperative Insight: Good insight present (Psych) Judgement: Good judgement present (Psych) Coding Level of Care Code Est Pt Level 4 (05572) Diagnoses Cough R05 Essential hypertension I10 Hypertension type: essential hypertension Obesity (BMI 30-39.9) E66.9 Assessment & Plan Assessment & Plan (1) Cough: Code(s): R05 - Cough Category: Medical Plan: Patient complaining of cough for the last 2 weeks was having upper respiratory symptoms which have since resolved. Ordered for viral testing however patient is out of the window for antivirals. Also ordered for chest x-ray for further evaluation of pneumonia. Refilled prescription for albuterol states she has not had to use it yet but feels it may be helpful given her history of asthma. Advised patient to discontinue the use of Robitussin as it was not safe for elevated blood pressure advised to use Coricidin and benzonatate as needed. Plan to call after results of x-ray has been reported. (2) Hypertension: Code(s): I10 - Essential (primary) hypertension Category: Medical Qualifiers: Hypertension type: essential hypertension Qualified Code(s): I10 - Essential (primary) hypertension Plan: Continue on current blood pressure medication. Avoid salt intake and encourage healthy diet and regular exercise. (3) Obesity (BMI 30-39.9): Code(s): E66.9 - Obesity, unspecified Category: Medical Plan: Healthy diet and regular exercise is encouraged. Plan This note was constructed using voice recognition software. While every effort has been made to ensure accuracy and road patcher, still areas may have been included sometimes these areas may affect the content or meeting of the given symptoms. Total time spent caring for the patient today was 20 minutes. This includes time spent before the visit reviewing the chart, time spent during the visit, and time spent after the visit and documentation. Orders: Orders XR chest 2V Today R05 - Cough SARS-CoV2/FLU/RSV Today R09.89 - Other specified symptoms and signs involving the circulatory and respiratory systems Medications: New benzonatate 100 mg PO BID PRN 14 caps 0RF cough Changed From albuterol sulfate 90 mcg/actuation (ProAir HFA) 2 puffs inhalation Q6H PRN 8.5 grams 0RF shortness of breath or wheezing Z87.09 - Personal history of other diseases of the respiratory system To albuterol sulfate 90 mcg/actuation 2 puffs inhalation Q6H PRN 8.5 grams 0RF shortness of breath or wheezing Z87.09 - Personal history of other diseases of the respiratory system
[2024-04-03 11:10] VITALS: BP 130/70; PULSE 75; TEMP 36.4; O2SAT 98; BMI 34.7
--- OUTSIDE RECORDS SUMMARY | 2024-04-03 12:10 | XMS_ITS | Data Portability ---
Author Organization [facility] Address [address] [place] [address] Care Team Providers Care Embroidery Supervisor Name Role Phone PRAKASH MON Primary Care [...] 2023 024 [email or web address] [place] [facility], [address], [place], [address], 5 15:23:20 Procedures None recorded. Surgeries None recorded. Imaging XR, wrist, 3 or more view - RM 119 3V 2023 024 [email or web address], [address], [address], [place], [address], 4 15:56:17 XR, wrist, 3 or more view - rm.115 3 v of the L wrist 2023 024 [email or web address] [facility], [address], [address], [place], [address], 4 07:59:37 XR, wrist, 3 or more view - room 113 3V L wrist 2023 024 essenger [facility], [address], [address], [place], [address], 5 15:23:19 Medication Orders None recorded. Patient TargetsNo targets recorded. Patient Instructions Encounter Date Encounter Id Patient Instructions Last Modified By Organization Details Last Modified Time 01/10/2024 application of cast, short arm cast* - RM 119 [facility] [email or web address] Not available 01/13/2024 15:56:17 01/17/[id number] application of cast, short arm cast* leisa [...] aYqtaq 0bqfl% 2Fg9IQ a4ajBk vP9nXo QUaueC m3YtLR FvZl04 [address] Streettai[address] [id number] AC0Kqa X2DV6K gKiQtr MwF INTERFACE [facility] [address] [facility] [address], [place], [address], 01/10/2024 11:13:21 01/10/20 24 01/10/2024 XR, wrist , 3 or more view [email or web address]:/ [email or web address] [email or web address]:7083 ?Encry pted=s hAaTro YD8dLq bEUv6g %2BXZw aYqtaq 0bqfl% 2Fg9IQ a4ajBk vP9nXo QUaueC m3YtLR [address] [id number] AC0Kqa X2DV6K gKiQtr MwF INTERFACE [facility] [address], [place], [address], 01/10/2024 11:13:24 01/17/20 24 01/17/2024 XR, wrist , 3 or more view [email or web address]:/ [email or web address] ?Encry pted=s hAaTro YD8dLq bEUv6g %2BXZw aYqtaq 0bqfl% 2Fg9IQ a4ajBk vP9nXo QUaueC m3YtLR FvZl04 [address] [id number] AC0Kqa X6CWae hKiQtr MwF INTERFACE [facility] [address] [facility] [address] [address], [place], [address], 01/17/2024 12:04:14 01/17/20 24 01/17/2024 XR, wrist , 3 or more view http:/ [email or web address] 20 0:7083 ?Encry pted=s hAaTro YD8dLq bEUv6g %2BXZw aYqtaq 0bqfl% 2Fg9IQ a4ajBk vP9nXo QUaueC m3YtLR FvZlgJ [place] HZtai3 [id number] AC0Kqa X6CWae hKiQtr MwF INTERFACE [facility] [address] [address], [place], [address], 01/17/2024 12:04:16 02/07/20 24 02/07/2024 XR, wrist , 3 or more view http:/ [email or web address] 0:7083 ?Encry pted=s hAaTro YD8dLq bEUv6g %2BXZw aYqtaq 0bqfl% 2Fg9IQ a4ajBk vP9nXo QUaueC m3YtLR FvZlgJ JJ8mAn HZtai3 [id number] AC0Kqb nyMWKa uKiQtr MwF INTERFACE [facility] [address] [facility] [address] [address], [place], [address], 02/07/2024 10:33:47 02/07/20 24 02/07/2024 XR, wrist , 3 or more view [email or web address]:/ [email or web address] ?Encry pted=s hAaTro YD8dLq bEUv6g %2BXZw aYqtaq 0bqfl% 2Fg9IQ a4ajBk vP9nXo QUaueC m3YtLR FvZlgJ JJ8mAn HZtai3 0t4700 AC0Kqb nyMWKa uKiQtr MwF INTERFACE [facility] [address], [place], [address], 02/07/2024 10:33:49 Result Notes None recorded. Procedures Surgical History None recorded. Imaging Results Imaging Date Name Status LastModified by [facility]iz [facility] Details LastModified Time 01/10/2024 XR, wrist, 3 or more view completed INTERFACE [facility] [address], [place], [address], 01/10/2024 11:13:21 01/10/2024 XR, wrist, 3 or more view completed INTERFACE [facility] [address], [place], [address], 01/10/2024 11:13:24 01/17/2024 XR, wrist, 3 or more view completed INTERFACE [facility] [address], [place], [address], 01/17/2024 12:04:14 01/17/2024 XR, wrist, 3 or more view completed INTERFACE [facility] [address], [place], [address], 01/17/2024 12:04:16 02/07/2024 XR, wrist, 3 or more view completed INTERFACE [facility] [address], [place], [address], 02/07/2024 10:33:47 02/07/2024 XR, wrist, 3 or more view completed INTERFACE [facility] [address], [place], [address], 02/07/2024 10:33:49 Procedure Notes None recorded. Medical [...] Updated DateTime 01/10/2024 162.56 cm 33.5 kg/m2 75413.51 g SONY MAJOR [facility] 01/10/2024 11:04:19 Date Recorded Body height Body mass index (BMI) Body weight Provider Name and Address Organization Details Last Updated DateTime 01/17/2024 162.56 cm 34.3 kg/m2 66919.47 g connie spencer [facility] 01/17/2024 11:50:48 Date Recorded Body height Body mass index (BMI) Body weight Provider Name and Address Organization Details Last Updated DateTime 02/07/2024 162.56 cm 34.3 kg/m2 00215.47 g STEFANI BABAR [facility] 02/07/2024 10:14:34 Social History None recorded. Functional Status None recorded. Mental Status None recorded. Family History Nothing Reported. Medical History No medical history recorded. Gynecological HistoryNo gynecological history recorded. Obstetrics History GPAL:G 0 P 0 0 0 0 Past Encounters Encounter ID Performer Location Encounter Start Date Encounter Closed Date Diagnosis/Indication Diagnosis SNOMED-CT Code Diagnosis ICD10 Code Diagnosis Note [id number] MANUELITO Jeffersnisarthak [address] [place] [address] 01/10/2024 10:35:31 01/29/2024 10:07:21 Pain of left wrist 9877808115 34406 M25.650 [id number] MD Antonia Laws [address] [place] [address] 01/17/2024 11:18:11 02/05/2024 07:59:37 Pain of left wrist 6237357765 93376 M25.532 Closed Col les' fracture [id number] S52.532D [id number] MD Antonia Laws [address] [place] [address] 02/07/2024 10:01:00 02/27/2024 15:23:19 Pain of left wrist 2688529844 10086 M25.532 Closed Col les' fracture [id number] S52.532D Health Concerns Section Related Observation LastModified by Organization Detai ls LastModified Time None Recorded Concern Status LastModified by Organization Details LastModified Time None Recorded Advance Directives Directive None Recorded Payers Encounter Date Sequence Insurance Name Policy Number Policy Alvarado Covered Member ID Alvarado Member ID Guarantor Name 01/10/2024 2 [place] Maya Cain [id number] Maya Cain 01/10/2024 1 [employer] (MEDICARE REPLACEMENT PPO) [id number] Maya Cain [id number] Maya Cain 01/17/2024 2 [place] Maya Cain [id number] Maya Cain 01/17/2024 1 [employer] (MEDICARE REPLACEMENT PPO) [id number] Maya Leahyle [id number] Maya Cain 02/07/2024 2 [place] [facility] Maya Cain [id number] Maya Cain 02/07/2024 1 [employer] (MEDICARE REPLACEMENT PPO) [id number] Maya Leahyle [id number] Maya Cain Notes Date Note Type Note [...] instability. X-rays ordered, obtained and reviewed at [facility] m3 views left wrist reveals a [...] motion and strengthening. Tabitha Redman PA-C [address] [facility], [place], [address], [facility] 01/10/2024 13:48:27 01/17/2024 text/html DX: Left distal radius An ulnar styloid process fracture 12/30/2023Left-sided hemiparesis from previous CVA HPI:63-year-old female here for orthopedic consultation. Patient fell onto the outstretched hand and injured the left wrist. Fracture is being treated conservatively. She has been in a splint Latanya Hughes MD [address] [employer] [address], [place], [address], [facility] 01/17/2024 17:00:21 02/07/2024 text/html DX: Left distal radius and ulnar styloid process fracture 12/30/2023Left-sided hemiparesis from previous CVA HPI:63-year-old female here for orthopedic consultation. Patient fell onto the outstretched hand and injured the left wrist. Fracture is being treated conservatively. She reports that the cast applied at her most recent visit quickly fell off. Latanya Hughes MD [address], [place], [address], [facility] 02/07/2024 12:27:02 OBGyn Episode No OBEpisode recorded.
== END 2024-04-03 11:40 | disposition home or self-care (01) ==
PROVIDERS: PCP Internal Medicine
DX: R05.9 Cough, unspecified (principal); I10 Essential (primary) hypertension; E66.9 Obesity, unspecified; Z68.34 Body mass index [BMI] 34.0-34.9, adult

== ENCOUNTER → 2024-04-03 11:56 | Outpatient (BNV) | payer MEDICARE, MEDICAID, SELFPAY | PROVIDERS: PCP Internal Medicine; Visit Provider Radiology Diagnostic Radiology | DX: R05.9 Cough, unspecified (principal) | CPT/HCPCS: 71046 ==

== ENCOUNTER 2024-04-06 14:14 | Emergency (ER) | payer MEDICARE, MEDICAID, SELFPAY ==
[2024-04-06] VITALS (7 sets, daily range): BP systolic 124–142; BP diastolic 82–91; PULSE 74–96; RESP 12–20; TEMP 36.3–36.6; O2SAT 94–98; BMI 33.5
--- NOTE | ~2024-04-06 | XR_ITS ---
EXAMINATION: XR FOOT, LEFT CLINICAL INFORMATION: trauma COMPARISON: None available. TECHNIQUE: AP, lateral, and oblique views of the left foot. FINDINGS: The ankle mortise and subtalar joints are normal. There is a small calcaneal heel enthesophyte. Again visualized is a trimalleolar fracture. XR/XR foot LT min 3V IMPRESSION: Small calcaneal heel enthesophyte. No fractures involving the talus, calcaneum or the midfoot. Electronically signed by: Ho Trinidad MD 04/06/2024 04:14 PM [facility]
--- NOTE | ~2024-04-06 | XR_ITS ---
EXAMINATION: XR ANKLE, LEFT CLINICAL INFORMATION: trauma COMPARISON: None available. TECHNIQUE: AP, lateral, and mortise views of the left ankle. FINDINGS: There is a trimalleolar fracture with trimalleolar soft tissue swelling. The medial malleolus inferior fragment is displaced. The lateral malleolus has an oblique fracture extending to the ankle mortise. The ankle mortise and subtalar joints are in alignment. There is a small calcaneal heel enthesophyte. No other fractures seen. XR/XR ankle LT min 3V IMPRESSION: Trimalleolar fracture with trimalleolar soft tissue swelling. The medial malleolus inferior fragment is displaced. Electronically signed by: Ho Trinidad MD 04/06/2024 04:12 PM [facility]
--- NOTE | ~2024-04-06 | XR_ITS ---
EXAMINATION: XR HIP, LEFT CLINICAL INFORMATION: trauma COMPARISON: None available. TECHNIQUE: Two views of the left hip. AP view pelvis FINDINGS: AP view pelvis: There is normal symmetry of bilateral hip joints and SI joints. No visible fracture or bony abnormality seen. The soft tissues are normal. Left hip: The left hip joint space is maintained normal. No visible acute fracture, dislocation or subluxation seen. No lytic or sclerotic process. The soft tissues are normal. XR/XR hip LT w PEL1V IMPRESSION: Normal left hip. Normal AP pelvis. Electronically signed by: Ho Trinidad MD 04/06/2024 04:10 PM [facility]
--- NOTE | ~2024-04-06 | XR_ITS ---
CLINICAL HISTORY: S P REDUCTION SPLINT 3 views left ankle Comparison: 04/06/2024 taken at 3:55 p. M. Findings: Postreduction views of the left ankle show satisfactory alignment of the ankle mortise with mild distraction of the medial malleolar fragment. The tibiofibular distance is normal. There is 6.6 mm posterior displacement of the posterior malleolar fragment. Talonavicular and talocalcaneal joints are in good alignment in the lateral projection. No fractures or dislocations. No joint effusion. No significant arthritic change. No radiopaque foreign body. Impression: Satisfactory realignment of trimalleolar fractureswith rodney class 2 fibular fracture. No evidence of intra-articular fragments on limited views This document has been electronically signed by: Owen Singh MD on 04/06/2024 21:41:28
--- NOTE | ~2024-04-06 | CT_ITS ---
CLINICAL HISTORY: trauma CT cervical spine without contrast Comparison: None Findings: Soft tissues of the neck are normal. Lung apices are clear. Normal vertebral body alignment. No fractures or dislocations. There is moderate degenerative narrowing of C5-6 and C6-7 disc spaces with uncovertebral joint and facet hypertrophy. There is mild bilateral foraminal stenosis at C5-6 and advanced foraminal stenosis on the left at C6-7 Large dental caries are present in the left mandible in the right maxilla. There is mucosal thickening and fluid density involving the bilateral maxillary and ethmoid sinuses. Mastoid air cells and middle ear cavities are clean. Impression: Degenerative changes with no signs of acute trauma. This document has been electronically signed by: Owen Singh MD on 04/06/2024 17:36:36
--- NOTE | ~2024-04-06 | CT_ITS ---
CLINICAL HISTORY: ?meningioma vs aneurysm CTA HEAD, bolus contrast injection. 3D reconstructions and MPRs:: Comparison: No comparison Right Carotid Siphon: Large right carotid siphon aneurism measuring 1.5 x 1.2 x 1.9 cm Right Anterior Cerebral Artery: A1 and A2 segments are unremarkable. There is peripheral cortical enhancement. Right Middle Cerebral Artery: M1 and M2 segments are unremarkable. There is peripheral cortical enhancement. Right Posterior Cerebral Artery: P1 and P2 segments are unremarkable. There is peripheral enhancement Left Carotid Siphon: Left Anterior Cerebral Artery: A1 and A2 segments are unremarkable. There is peripheral cortical enhancement. Left Middle Cerebral Artery: M1 and M2 segments are unremarkable. There is peripheral cortical enhancement. Left Posterior Cerebral Artery: P1 and P2 segments are unremarkable. There is peripheral cortical enhancement. Basilar Artery: Normal in size. Posterior communicating arteries are not identified. Venous drainage: Normal There is bilateral maxillary and ethmoid sinusitis. 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 No signs of arterial venous malformation or fistula. The superior orbital arteries are perfused. The proximal ophthalmic arteries are perfused and distal ophthalmic branches are not visualized due to small size.. This document has been electronically signed by: Owen Singh MD on 04/06/2024 20:23:30
--- NOTE | ~2024-04-06 | CT_ITS ---
CLINICAL HISTORY: trauma CT Head Without Contrast: Comparison: 08/22/2017 Findings: Cortical Sulci are symmetric Basal ganglia are unremarkable. No hydrocephalus. There are periventricular focal areas of white matter degeneration due to the microangiopathy of athero sclerosis. No shift in midline structures No intraparenchymal bleeding or abnormal extra axial blood fluid collections Normal pituitary size. There is a well-circumscribed mass measuring 1.9 x 1.1 x 1.6 cm in the anterior right temporal lobe cortical surface and right side of the sella turcica. There is mucosal thickening and fluid density in the bilateral ethmoid and maxillary sinuses. The mastoid air cells and middle ear cavities are clear without signs of basilar fracture. Unremarkable orbital structures No depressed fractures Impression: Soft tissue 1.9 x 1.1 x 1.6 cm mass, not visualized on the previous exam, involving the right side of the sella turcica also involving the intra canalicular segment of the optic nerve. Differential diagnosis would include meningioma, or aneurism. Consider CTA with delayed contrast sequence. No signs of acute trauma. This document has been electronically signed by: Owen Singh MD on 04/06/2024 17:53:30
--- NOTE | 2024-04-06 14:52 | ED_ITS ---
HPI - General Adult General Chief complaint: Fall Stated complaint: FALL DOWN 4 STEPS,L ANKLE PAIN,+THINNER PER EMS Time Seen by Provider: 04/06/24 17:31 Source: patient Mode of arrival: EMS Limitations: no limitations History of Present Illness HPI narrative: This is a 63-year-old woman with a past medical history of CVA with residual left-sided deficits (2016), anxiety, hypertension, asthma, spindle cell carcinoma who presents for evaluation of left leg injury after a fall. Patient states that she was walking down the steps and feels like her leg gave out and subsequently she twisted her ankle. She reports significant pain in her left ankle as well as some pain in her left hip. She states no head strike or loss of consciousness. She states no headache, neck pain or extremity paresthesias. She states no vomiting. She states no abdominal pain or back pain. Related Data Home Medications ?Medication ?Instructions ?Recorded ?Confirmed clopidogrel 75 mg tablet 75 mg PO DAILY 04/06/24 04/06/24 Previous Rx's ?Medication ?Instructions ?Recorded Ankle/Foot Orthotics #1 ea 04/19/22 reusable bed pads and disposable #90 ea 05/27/23 liners. venlafaxine 150 mg 150 mg PO BEDTIME #90 caps 11/26/23 capsule,extended release 24 hr (Effexor XR) gabapentin 600 mg tablet 600 mg PO BID #60 tabs 03/01/24 amlodipine 10 mg tablet 10 mg PO DAILY #90 tabs 03/25/24 albuterol sulfate 90 mcg/actuation 2 puff inhalation Q6H PRN 04/03/24 aerosol inhaler shortness of breath or wheezing #8.5 grams mirabegron 50 mg tablet,extended 50 mg PO BID 90 days #180 tabs 04/07/24 release 24 hr Allergies Allergy/AdvReac Type Severity Reaction Status Date / Time perfume Allergy Intermediate Shortness Verified 04/06/24 14:54 of Breath Seasonal Allergies Allergy Intermediate Watery Verified 04/06/24 14:54 Eye, sneezing Review of Systems 2 Review of Systems: ROS as per HPI PMFSH Past Medical History Medical History HTN (hypertension) Nicotine dependence, cigarettes, uncomplicated Mass of left thigh Suspected exposure to mold Left leg swelling Obesity (BMI 30-39.9) Hemiparesis (~2017) ADHD (attention deficit hyperactivity disorder) Hypercalcemia Anxiety Hyperparathyroidism Sleep apnea in adult History of asthma History of CVA with residual deficit (~2016) Allergic rhinitis Surgical History History of biopsy History of hand surgery History of hysterectomy History of tubal ligation History of History of colonoscopy History of bilateral breast reduction surgery History of tonsillectomy S/P Botox injection Hx of arthroscopy of left knee Family History Family History Father HTN (hypertension) Mother HTN (hypertension) Social History Social History Household Members: None Housing: House Alcohol intake: current Alcohol intake frequency: does not drink Comment: left sided hemiparesis walks nato dubon Patient Tobacco Use Status: Former Tobacco user Tobacco use type: Cigarette Years Smoked: 2017 stopped 2.5 packs /20 years Smoked in Last 30 Days: No e-Cigarette/Vaping Use: Never Used Second Hand Smoke Exposure: No Use of substances other than those prescribed or required for medical reasons: No Advance Directives: No Advance Directives Information Provided: Yes Do you have a plan to hurt others: No Plan Patient : No service: No Current occupational status: disabled Cognitive needs: No Hearing needs: No Vision needs: No Physical Exam ED Vital Signs: Vital Signs - 24 hr 04/07/24 15:12 04/07/24 21:02 04/08/24 06:00 Temperature 98.2 F 98.1 F 98.4 F Pulse Rate 66 70 82 Respiratory Rate 16 20 16 Blood Pressure 103/60 123/61 137/89 Pulse Oximetry 94 93 95 Oxygen Delivery Method Room Air Room Air Room Air 04/08/24 08:00 04/08/24 09:40 Temperature 97.5 F Pulse Rate 73 Respiratory Rate 18 Blood Pressure 122/68 119/68 Pulse Oximetry 92 Oxygen Delivery Method Room Air BMI result Body Mass Index 33.5 Gen: NAD, AOx3 HEENT: NCAT CV: RRR, 2+ bilateral DP/PT pulses Pulm: CTAB, no increased work of breathing GI: Soft MSK: Bilateral lower extremity compartments are soft, distal left lower extremity deformity Neuro: GCS 15 Course Course Course Narrative: RME, this is a rapid medical exam performed by Volodymyr Spears please refer to primary provider for complete H&P- 63-year-old female presents for evaluation after a fall. She reports falling down 2 steps today because ?my left leg gave out. ? Patient reports left-sided deficits from a previous stroke. She fell onto her left side injuring her left ankle. She also has left foot and hip pain. The patient is unsure if she struck her head or not but reports that she is anticoagulated. Plan for x-rays of the left hip, ankle and foot. Plan for CT scan of the brain and cervical spine Reevaluation(s) Reevaluation #1: 04/08/24 0810 Physician observation continued, no overnight events reported by nursing. PT recommending STR, will likely go to [facility] pending insurance authorization. CM following. Vital signs stable. 04/08/24 1405 Per Kimmy from , patient will go to [facility] for STR via BLS at 1700 today. Paper prescription for oxycodone sent. Observation care revealed that patient does not meet medical necessity for hospitalization. Final disposition discussed with patient. The patient completed observation care at 1700 on 04/08/24. Medications Administered Generic Name Dose Route Start Last Admin Trade Name Freq PRN Reason Stop Dose Admin Acetaminophen 975 mg 04/07/24 23:30 04/08/24 09:38 Acetaminophen 325 Mg Tablet PO 975 mg Q8H LORENA Administration Amlodipine Besylate 10 mg 04/07/24 09:00 04/08/24 09:40 Amlodipine Besylate 10 Mg Tablet PO 10 mg DAILY LORENA Administration Protocol Clopidogrel Bisulfate 75 mg 04/07/24 09:00 04/08/24 09:40 Clopidogrel Bisulfate 75 Mg Tablet PO 75 mg DAILY LORENA Administration Gabapentin 600 mg 04/06/24 21:00 04/08/24 09:38 Gabapentin 600 Mg Tablet PO 600 mg BID LORENA Administration Mirabegron 50 mg 04/06/24 21:00 04/08/24 09:38 Mirabegron 50 Mg Tab.Er.24h PO 50 mg BID LORENA Administration Oxycodone HCl 5 mg 04/06/24 20:10 04/08/24 05:52 Oxycodone Hcl Immed Release 5 Mg Tablet PO 5 mg Q6H PRN Administration Breakthrough Pain Venlafaxine HCl 150 mg 04/06/24 21:00 04/07/24 20:45 Venlafaxine Hcl Er 150 Mg Cap.Er.24h PO 150 mg BEDTIME LORENA Administration Discontinued Medications Generic Name Dose Route Start Last Admin Trade Name Freq PRN Reason Stop Dose Admin Acetaminophen 975 mg 04/06/24 21:00 04/07/24 22:26 Acetaminophen 325 Mg Tablet PO Not Given Q8H [facility] Baclofen 10 mg 04/06/24 21:00 04/06/24 22:27 Baclofen 10 Mg Tablet PO Not Given TID LORENA Fentanyl 50 mcg 04/06/24 18:15 04/06/24 18:37 Fentanyl Citrate/Pf 100 Mcg/2 Ml Vial IVPUSH 04/06/24 18:16 50 mcg ONCE ONE Administration Protocol Fentanyl 100 mcg 04/06/24 19:47 04/06/24 19:58 Fentanyl Citrate/Pf 100 Mcg/2 Ml Vial IVPUSH 04/06/24 19:48 100 mcg ONCE ONE Administration Protocol Fentanyl 50 mcg 04/06/24 19:47 04/06/24 20:55 Fentanyl Citrate/Pf 100 Mcg/2 Ml Vial IVPUSH 04/06/24 19:48 Not Given ONCE ONE Protocol Iohexol 100 ml 04/06/24 19:17 04/06/24 19:17 Iohexol 350 Mg/Ml 100 Ml Infus..Btl IV 04/06/24 19:18 75 ml ONCE ONE Administration Midazolam HCl 1 mg 04/06/24 19:28 04/06/24 19:52 Midazolam Hcl 2 Mg/2 Ml Vial IVPUSH 04/06/24 19:29 1 mg ONCE ONE Administration Ondansetron HCl 4 mg 04/07/24 02:02 04/07/24 02:11 Ondansetron Hcl 4 Mg/2 Ml Vial IVPUSH 04/07/24 02:03 4 mg ONCE ONE Administration Oxycodone HCl 5 mg 04/06/24 18:15 04/06/24 18:38 Oxycodone Hcl Immed Release 5 Mg Tablet PO 04/06/24 18:16 5 mg ONCE ONE Administration Procedures Orthopedic Joint Reduction Joint #1: Time Out Performed: Yes Side: left Joint Reduction Location: ankle Analgesia: none (100mcg IV Fentanyl) Technique used: other (Saad manuever) Post-reduction neuro exam: intact Post-reduction vascular: intact Post Reduction X-Ray Obtained: Yes Splint Applied: Yes Patient Tolerated Procedure: well and no complications Orthopedic Splinting/Casting Injury #1: Side: left Lower Extremity Injury Location: ankle Lower Extremity Immobilizer: posterior splint, stirrup splint and Johnny wrap Medical Decision Making Medical Decision Making MDM Narrative: Differential diagnosis includes, but is not limited to strain, sprain, fracture, dislocation, traumatic intracranial hemorrhage, cervical spine fracture. Patient is afebrile and hemodynamically stable on room air. Exam is notable for a neurovascularly intact left lower extremity albeit there is notable deformity to the left lower extremity. Patient was treated with analgesics 50 mcg IV fentanyl and 5 mg p.o. oxycodone initially. She is also provided 1 mg IV Versed for anxiolysis. She was subsequently provided 100 mcg IV fentanyl prior to closed reduction and splinting of the left trimalleolar fracture. I discussed traumatic ankle fracture with consulted orthopedic surgeon as below. I reviewed the patient's labs and imaging studies as below. CT imaging of the head and cervical spine was initially obtained prior to my evaluation of the patient and to my understanding obtained given patient's use of ?anticoagulants . As per review of the radiology impression below there was question of meningioma versus aneurysm for which CT angiography was recommended and subsequently obtained. As below there is incidental, unruptured aneurysm on CTA. As below, I discussed this finding with packaging sales consultant neurologist. Care is transitioned to the oncoming physician, Dr. Chris, at the end of my shift at 9:00 p.m. with disposition pending PT and Orthopedic surgery consultation. I discussed the patient's case and aforementioned diagnostic imaging results findings as well as continued plan of care and need for outpatient (orthopedic surgery and at [facility] neuroendovascular) follow up with the oncoming physician. Admission/Observation Consideration of admission/observation: Escalation of care including admission/observation considered Consult Healthcare Provider Management of the patient was discussed with: Construction Checker This is the patient's case and management with consulting orthopedic surgeon, Dr. Del Rio, who states that patient's initial x-ray demonstrates satisfactory alignment. Thus, he recommends reduction with Saad maneuver and posterior leg/stirrup splint casting. He states no emergent surgical intervention is needed at this time. I discussed patient's case, management and CTA findings as below with packaging sales consultant neurologist, Dr. Roca, who recommends outpatient evaluation by Neuroendovascular at [facility]. Lab Data MDM Lab Attestation statement: I reviewed the patient's lab results. I independently reviewed and interpreted the patient's labs, including CBC and metabolic panel, which are benign and reassuring. There is noted leukocytosis with a white blood cell count of 60.1, which I suspect is reactive in nature and secondary to the patient's pain in the setting of left trimalleolar fracture. 04/06/24 18:35 04/06/24 18:35 Labs: Lab Results 04/06/24 04/07/24 Range/Units 18:35 17:34 WBC 16.1 H (4.8-10.8) X10*3/uL RBC 4.75 (4.20-5.50) X10*6/uL Hgb 13.2 (12.0-16.0) g/dl Hct 40.6 (37.0-47.0) % MCV 85.5 (80.0-98.0) fL MCH 27.8 (27.0-33.0) pg MCHC 32.5 (31.0-35.0) g/dl RDW 13.1 (11.0-16.0) % Plt Count 334 (160-400) X10*3/uL MPV 9.7 (9.4-12.3) fL Immature Gran % (Auto) 0.4 (0.0-0.4) % Neut % (Auto) 82.4 H (45-73) % Lymph % (Auto) 10.8 L (20-40) % Teton % (Auto) 5.2 (2-11) % Eos % (Auto) 0.9 (0-4) % Baso % (Auto) 0.3 (0-2) % Lymph # (Auto) 1.7 (1.2-4.9) X10*3/uL Teton # (Auto) 0.8 (0.1-1.2) X10*3/uL Eos # (Auto) 0.1 (0.0-0.4) X10*3/uL Baso # (Auto) 0.1 (0.0-0.2) X10*3/uL Abs Immat Gran (auto) 0.06 H (0.00-0.03) X10*3/uL Absolute Neuts (auto) 13.3 H (2.0-8.3) x10*3/uL Absolute Nucleated RBC 0.000 (0.0-0.012) X10*3/uL Nucleated RBC % (auto) 0.0 (0.0-0.2) /100WBC Sodium 141 (135-145) mmol/L Potassium 4.0 (3.3-5.1) mmol/L Chloride 112 H (96-108) mmol/L Carbon Dioxide 20 L (22-29) mmol/L Anion Gap 13 (12-20) BUN 11 (9-16) mg/dL Creatinine 0.72 (0.5-1.4) mg/dL Estim Creat Clear Calc 88.3 Estimated GFR > 60 Random Glucose 107 (60-115) mg/dL Calcium 10.1 (8.4-10.2) mg/dL Influenza Type A (PCR) NEGATIVE (Negative) Influenza Type B (PCR) NEGATIVE (Negative) RSV RNA Qual (PCR) NEGATIVE (Negative) SARS-CoV-2 RNA (RT-PCR) NEGATIVE (Negative) Blood Type O Positive Antibody Screen NEGATIVE Independent Interpretation I performed an independent interpretation of an: Plain X-Ray and CT Scan Interpretation: By independently reviewed and interpreted the patient's x-ray of the pelvis/left hip left ankle and left foot, which demonstrates acute trimalleolar fracture. I independently reviewed and interpreted the patient's CT scan of the head and cervical spine, which demonstrates no acute intracranial hemorrhage or cervical spine fracture Radiology Impression Discussion of test interpretation with radiology: I have reviewed the radiologist's reading. Radiologist Impression: XR/XR hip LT w PEL1V IMPRESSION: Normal left hip. Normal AP pelvis. Electronically signed by: Ho Trinidad MD 04/06/2024 04:10 PM [facility] Dictated By: Ho Trinidad MD Signed By: <Electronically signed by Ho Trinidad MD in OV> 04/06/24 1610 XR/XR ankle LT min 3V IMPRESSION: Trimalleolar fracture with trimalleolar soft tissue swelling. The medial malleolus inferior fragment is displaced. Electronically signed by: Ho Trinidad MD 04/06/2024 04:12 PM EST RP Dictated By: Ho Trinidad MD Signed By: <Electronically signed by Ho Trinidad MD in OV> 04/06/24 1612 XR/XR foot LT min 3V IMPRESSION: Small calcaneal heel enthesophyte. No fractures involving the talus, calcaneum or the midfoot. Electronically signed by: Ho Trinidad MD 04/06/2024 04:14 PM EST RP Dictated By: Ho Trinidda MD Signed By: <Electronically signed by Ho Trinidad MD in OV> 04/06/24 1614 Impression: Degenerative changes with no signs of acute trauma. 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 No signs of arterial venous malformation or fistula. The superior orbital arteries are perfused. The proximal ophthalmic arteries are perfused and distal ophthalmic branches are not visualized due to small size.. This document has been electronically signed by: Owen Singh MD on 04/06/2024 20:23:30 Dictated By: Owen Singh MD Signed By: <Electronically signed by Owen Singh MD in OV> 04/06/242023 Impression: Soft tissue 1.9 x 1.1 x 1.6 cm mass, not visualized on the previous exam, involving the right side of the sella turcica also involving the intra canalicular segment of the optic nerve. Differential diagnosis would include meningioma, or aneurism. Consider CTA with delayed contrast sequence. No signs of acute trauma. This document has been electronically signed by: Owen Singh MD on 04/06/2024 17:53:30 Dictated By: Owen Singh MD Signed By: <Electronically signed by Owen Singh MD in OV> 04/06/24 8744 Impression: Degenerative changes with no signs of acute trauma. This document has been electronically signed by: Owen Singh MD on 04/06/2024 17:36:36 Dictated By: Owen Singh MD Signed By: <Electronically signed by Owen Singh MD in OV> 04/06/24 [id number] Discharge Plan Discharge Clinical Impression: Fall, Trimalleolar fracture of left ankle, Aneurysm Patient Disposition: Xfer Inpatient Rehab Fac Transfer Details: to [facility] via BLS Instructions: Ankle Fracture (ED) Additional Instructions: You were seen and evaluated in the emergency room. You were found to have a left ankle fracture (trimalleolar fracture). You were placed in a splint in you should follow up with the orthopedic surgery in 1 week. 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 You were given a referral to follow up with [facility] neuroendovascular. Please call to schedule an appointment in the next 1-2 weeks. Please follow-up with your primary care doctor in the next 5-7 days. ? Please return to the emergency room if you develop any worsening symptoms or injuries. Prescriptions: No Action (DME) Ankle/Foot Orthotics See Rx Instructions .Route .MEDSUPPLY Qty: 1 0RF Rx Instructions: As directed (DME) reusable bed pads and disposable liners. See Rx Instructions .Route .MEDSUPPLY Qty: 90 12RF Rx Instructions: As directed venlafaxine [Effexor XR] 150 mg capsule,extended release 24hr 150 mg PO BEDTIME Qty: 90 3RF gabapentin 600 mg tablet 600 mg PO BID Qty: 60 8RF amlodipine 10 mg tablet 10 mg PO DAILY Qty: 90 11RF mirabegron 50 mg tablet extended release 24 hr 50 mg PO BID 90 Days Qty: 180 11RF clopidogrel 75 mg tablet 75 mg PO DAILY albuterol sulfate 90 mcg/actuation HFA aerosol inhaler 2 puff inhalation Q6H PRN (Reason: shortness of breath or wheezing) Qty: 8.5 0RF Referrals: [facility] [Provider Group] - 1 week [facility] [Outside] Po,Sofía Alicea MD [Primary Care Provider] - Hayden Del Rio MD [Physician] - 1 week Print Language: Turkmen
--- NOTE | 2024-04-06 18:15 | ECG_ITS ---
Test Reason : FALL Blood Pressure : */* mmHG Vent. Rate : 87 BPM Atrial Rate : 87 BPM P-R Int : 136 ms QRS Dur : 88 ms QT Int : 368 ms P-R-T Axes : 7 3 51 degrees QTcB Int : 442 ms Normal sinus rhythm Normal ECG When compared with ECG of 28-Oct-2016 04:58, Nonspecific T wave abnormality has replaced inverted T waves in Lateral leads Referred By: Christiano Salcido Electronically Signed By: BO NIELSEN MD
[2024-04-06] MEDS: fentaNYL citrate/PF 100 MCG/2 ML VIAL 50 MCG IVPUSH (18:37)
[2024-04-06] MEDS: oxyCODONE HCl Immed Release 5 MG TABLET PO (18:38)
[2024-04-06 18:40] LABS: MANUAL DIFF FLAG NO
[2024-04-06 18:42] LABS: Basophils Absolute Auto 0.1 X10*3/uL (0.0-0.2); Basophils Percent Auto 0.3 % (0-2); Eosinophils Absolute Auto 0.1 X10*3/uL (0.0-0.4); Eosinophils Percent Auto 0.9 % (0-4); Hematocrit 40.6 % (37.0-47.0); Hemoglobin 13.2 g/dl (12.0-16.0); Imm Gran Abs Auto 0.06 X10*3/uL (0.00-0.03); Imm Gran Pct Auto 0.4 % (0.0-0.4); Lymphocytes Absolute Auto 1.7 X10*3/uL (1.2-4.9); Lymphocytes Percent Auto 10.8 % (20-40); Mean Corpuscular HGB Conc 32.5 g/dl (31.0-35.0); Mean Corpuscular Hemoglobin 27.8 pg (27.0-33.0); Mean Corpuscular Volume 85.5 fL (80.0-98.0); Mean Platelet Volume 9.7 fL (9.4-12.3); Monocytes Absolute Auto 0.8 X10*3/uL (0.1-1.2); Monocytes Percent Auto 5.2 % (2-11); Neutrophils Absolute Auto 13.3 x10*3/uL (2.0-8.3); Neutrophils Percent Auto 82.4 % (45-73); Platelet Count 334 X10*3/uL (160-400); Red Blood Count 4.75 X10*6/uL (4.20-5.50); Red Cell Distribution Width 13.1 % (11.0-16.0); White Blood Count 16.1 X10*3/uL (4.8-10.8)
[2024-04-06 18:55] LABS: Anion Gap 13 (12-20); Blood Urea Nitrogen 11 mg/dL (9-16); Calcium 10.1 mg/dL (8.4-10.2); Carbon Dioxide 20 mmol/L (22-29); Chloride 112 mmol/L (96-108); Creatinine Clr Calc Pharmacy 88.3; Estimated Glomerular Filt Rate > 60; Glucose Random 107 mg/dL (60-115); Sodium 141 mmol/L (135-145)
[2024-04-06] MEDS: iohexoL 350 MG/ML 100 ML INFUS..BTL IV (19:17)
[2024-04-06] MEDS: Midazolam HCl 2 MG/2 ML VIAL 1 MG IVPUSH (19:52)
[2024-04-06] MEDS: fentaNYL citrate/PF 100 MCG/2 ML VIAL IVPUSH (19:58)
--- NOTE | 2024-04-06 22:02 | PHA.MEDREC ---
Addendum entered by Noreen Brandon [facility] 04/06/24 22:22: [facility] REVIEWED. CONTACTED MD TO D/C MEDS PATIENT IS NO LONGER TAKING ( BACLOFEN , LISINOPRIL, ASPIRIN) Addendum entered by Chance Dixon 04/06/24 22:15: Spoke with patient again about the Clopidogrel 75mg tab and when I asked her if she takes Plavix she confirmed yes once a day . Original Note: Pharmacy Consult ? Medication Reconciliation Pharmacy has completed the medication reconciliation. Spoke with patient and she confirmed her medications. She did not remember if she was still taking the Clopidogrel 75mg tab or not but looking in claims the patient has been consistency filling it; I kept it on the med rec. The patient confirmed she took her medications this morning.
[2024-04-06] MEDS: Acetaminophen 325 MG TABLET 975 MG PO (22:27)
[2024-04-06] MEDS: Gabapentin 600 MG TABLET PO (22:27)
[2024-04-06] MEDS: Venlafaxine HCl ER 150 MG CAP.ER.24H PO (22:27)
[2024-04-06] MEDS: Mirabegron 50 MG TAB.ER.24H PO (22:27)
[2024-04-07 00:42] VITALS: BP 132/82; PULSE 76; RESP 13; TEMP 36.2; O2SAT 96
--- NOTE | 2024-04-07 00:43 | MHC.EDTECH ---
patient states she has pain in her injured leg. RN aware
[2024-04-07] MEDS: oxyCODONE HCl Immed Release 5 MG TABLET PO ×2 (00:52→23:48)
--- NOTE | 2024-04-07 01:41 | PC.NURSE ---
pt given oxycodone for pain. pt then vomited 30 minutes later. reports she hasnt eaten much today. assist with washing and changing gown adn bed. pt resting comfortably at this time
[2024-04-07] MEDS: ondansetron HCL 4 MG/2 ML VIAL IVPUSH (02:11)
--- NOTE | 2024-04-07 02:16 | PC.NURSE ---
pt vomited again, pt medicated per MAR
[2024-04-07] MEDS: Acetaminophen 325 MG TABLET 975 MG PO ×3 (05:52→23:32)
[2024-04-07 06:00] VITALS: BP 110/64; PULSE 70; RESP 19; TEMP 36.6; O2SAT 93
[2024-04-07 07:42] VITALS: BP 110/64; PULSE 70; O2SAT 93
--- NOTE | 2024-04-07 09:04 | MHC.EDTECH ---
Call Daughter Gail with any updates. [phone]
[2024-04-07 09:25] VITALS: BP 128/80; PULSE 68; RESP 15; TEMP 36.6; O2SAT 93
[2024-04-07] MEDS: Clopidogrel Bisulfate 75 MG TABLET PO (10:14)
[2024-04-07] MEDS: amLODIPine Besylate 10 MG TABLET PO (10:14)
[2024-04-07] MEDS: Gabapentin 600 MG TABLET PO ×2 (10:14→20:45)
--- NOTE | 2024-04-07 10:27 | PC.NURSE ---
called pharmacy for med not available in pyxis
[2024-04-07] MEDS: Mirabegron 50 MG TAB.ER.24H PO ×2 (11:08→21:39)
--- NOTE | 2024-04-07 14:20 | MHC.CM.ED ---
Addendum entered by Kimmy Chahal 04/07/24 15:28: Patient and daughter Gail accept bed at [facility]. [facility] has been asked to obtain ins auth. Original Note: Received case management consult from Dr Salcido. Patient came to the after a fall. Found to have closed left trimalleolar fracture which required reduction. Physical therapy eval completed. Short term rehab is recommended. Spoke with patient's daughter, Gail. Gail can be reached via telephone at [phone]. Patient lives alone. Patient is unsure if she wants to go to short term rehab. T/W discussed STR vs home with family assistance. Gail will speak to patient and her family to determine d/c plan. Facility choices: 1)[facility] 2)[facility]. Referrals made via [facility]. [facility] is not able to offer a bed. [facility] is able to offer a bed. Gail is aware. Continue to monitor for d/c needs.
[2024-04-07 15:12] VITALS: BP 103/60; PULSE 66; RESP 16; TEMP 36.8; O2SAT 94
--- NOTE | 2024-04-07 18:01 | PC.NURSE ---
Pt has arrived to OV. Is aware of plan for STR placement. LLE in splint. Pt repositioned, LLE elevated. Good CSM of toes. Good skin integrity on buttocks. Pt has poor bed mobility.
[2024-04-07 18:18] LABS: Influenza A PCR NEGATIVE (Negative); Influenza B PCR NEGATIVE (Negative); Resp Syncy Virus RNA Qual PCR NEGATIVE (Negative); SARS COV2 PCR INHOUSE NEGATIVE (Negative)
[2024-04-07] MEDS: Venlafaxine HCl ER 150 MG CAP.ER.24H PO (20:45)
[2024-04-07 21:02] VITALS: BP 123/61; PULSE 70; RESP 20; TEMP 36.7; O2SAT 93
--- NOTE | 2024-04-07 22:25 | PC.NURSE ---
sleeping. LLE remains elevated. No change in assessment.
--- NOTE | 2024-04-08 01:38 | MHC.EDTECH ---
This tech took over care of pt at 0115,rounds completed,pt is sleeping resp rate WNL,call hearn in reach
[2024-04-08] MEDS: oxyCODONE HCl Immed Release 5 MG TABLET PO (05:52)
[2024-04-08 06:00] VITALS: BP 137/89; PULSE 82; RESP 16; TEMP 36.9; O2SAT 95
--- NOTE | 2024-04-08 06:23 | MHC.EDTECH ---
Hourly rounds and vitals completed,patient was incont, of a large amount of urine, neftali-care given linen changed, new pure wick applied to keep pt clean and dry,call hearn in reach
[2024-04-08 08:00] VITALS: BP 122/68; PULSE 73; RESP 18; TEMP 36.4; O2SAT 92
[2024-04-08] MEDS: Mirabegron 50 MG TAB.ER.24H PO (09:38)
[2024-04-08] MEDS: Acetaminophen 325 MG TABLET 975 MG PO ×2 (09:38→16:42)
[2024-04-08] MEDS: Gabapentin 600 MG TABLET PO (09:38)
[2024-04-08 09:40] VITALS: BP 119/68
[2024-04-08] MEDS: Clopidogrel Bisulfate 75 MG TABLET PO (09:40)
[2024-04-08] MEDS: amLODIPine Besylate 10 MG TABLET PO (09:40)
--- NOTE | 2024-04-08 10:06 | MHC.CM.ED ---
Addendum entered by Kimmy Chahal 04/08/24 13:59: Insurance auth has been obtained by [employer]. Jyoti SILVERMAN booked for 5pm. Med [facility] with chart. Patient, daughter Shraddha Reynolds RN and Lucy SELLERS aware. Original Note: Patient remains in ER overflow. Copy of HCP requested from [facility]. Sabra Lincoln [facility] is in the process of obtaining insuarnce auth. Continue to monitor for d/c needs.
[2024-04-08 14:00] VITALS: BP 116/66; PULSE 71; RESP 18; TEMP 36.4; O2SAT 90
[2024-04-08 16:49] VITALS: BP 110/60; PULSE 74; RESP 18; TEMP 36.3; O2SAT 91
[2024-04-08 17:44] VITALS: BP 110/60; PULSE 74; RESP 18; TEMP 36.3; O2SAT 91
== END 2024-04-08 17:40 ==
PROVIDERS: Emergency Provider Emergency Medicine; PCP Internal Medicine
DX: S82.852A Displaced trimalleolar fracture of left lower leg, initial encounter for closed fracture (principal); W10.8XXA Fall (on) (from) other stairs and steps, initial encounter; I72.0 Aneurysm of carotid artery; Y93.9 Activity, unspecified; Y92.9 Unspecified place or not applicable; Y99.9 Unspecified external cause status; Z79.899 Other long term (current) drug therapy; Z03.818 Encounter for observation for suspected exposure to other biological agents ruled out
CPT/HCPCS: 0241U; 27818; 36415; 70450; 70496; 72125; 73502; 73610; 73630; 80048; 85025; 86850; 86900; 86901; 93005; 96374; 96376; 97162; 99285; J2250; J2405; J3010; Q9967

== ENCOUNTER → 2024-04-06 14:52 | Outpatient (BNV) | payer MEDICARE, MEDICAID, SELFPAY | PROVIDERS: Visit Provider Radiology Diagnostic Radiology | DX: M79.672 Pain in left foot (principal); M25.572 Pain in left ankle and joints of left foot; M25.552 Pain in left hip; I69.30 Unspecified sequelae of cerebral infarction | CPT/HCPCS: 70450; 70496; 72125; 73502; 73610; 73630 ==

== ENCOUNTER → 2024-04-06 18:15 | Outpatient (BNV) | payer MEDICARE, MEDICAID, SELFPAY | PROVIDERS: Emergency Provider Emergency Medicine; PCP Internal Medicine; Visit Provider Internal Medicine Cardiovascular Disease | DX: M25.572 Pain in left ankle and joints of left foot (principal); W19.XXXA Unspecified fall, initial encounter | CPT/HCPCS: 93010 ==

== ENCOUNTER 2024-04-14 07:37 | Outpatient (REF) | payer MEDICARE, MEDICAID, SELFPAY ==
--- NOTE | ~2024-04-14 | XR_ITS ---
EXAMINATION: XR ANKLE, LEFT CLINICAL INFORMATION: M25.579 - Pain in unspecified ankle and joints of unspecified foot COMPARISON: 04/06/2024, TECHNIQUE: AP, lateral, and mortise views of the left ankle. FINDINGS: Study limited by overlying casting material, obscuring fine bony detail. Trimalleolar fracture again identified. No interval change in alignment of the fracture fragments. The posterior malleolar fracture is somewhat less distinct, possibly indicating healing. Mild asymmetry of the mortise, possibly projectional. No additional changes. Small plantar calcaneal spur. There is dorsal spurring of the anterior talar process. Mildly improving soft tissue swelling. XR/XR ankle LT min 3V IMPRESSION: Trimalleolar fracture, without significant overall change in alignment. Mildly improved soft tissue swelling. Electronically signed by: Lencho Laura MD 04/14/2024 03:26 PM [facility]
--- OUTSIDE RECORDS SUMMARY | 2024-04-14 07:39 | XMS_ITS | Clinical Summary ---
Author Organization [address] [facility] Address [address] [place] [address] Phone Care Team Providers Care Boat Painter Name Role Phone Harjit Khoury MD Primary Care Provider [phone] Encounters Date Type Department Care Team Description 04/09/2024 Lab Requisition [facility] - Main Lab 299 [facility] [place] [address] Harjit Khoury MD Essential (primary) hypertension; Vitamin D deficiency, unspecified from Last 3 Months Social History Tobacco Use Types Packs/Day Years Used Date Smoking Tobacco: Never Assessed Comments Unknown Sex and Gender Information Value Date Recorded Sex Assigned at Not on file Legal Sex Female 5:38 PM EST Gender Identity Not on file Sexual Orientation Not on file Plan of Treatment Health Maintenance Due Date Last Done Comments Breast Cancer Screening 1962 COVID-19 Vaccine (#1) 05/17/1967 DTaP,Tdap,and Td Vaccines (1 - Tdap) 1981 Pneumococcal Vaccine: 50+ Years (1 of 2 - PCV) 1981 Pneumococcal Vaccine: Pediatrics (0 to 5 Years) and At-Risk Patients (6 to 64 Years) (1 of 2 - PCV) 1981 Zoster Vaccines (1 of 2) 1981 Cervical Cancer Screening: P ap Smear 05/17/1983 Influenza Vaccine (#1) 2023 Cholesterol Screening (Lipid Panel) 04/09/2024 Colorectal Cancer Screening: Colonoscopy 04/09/2024 Depression Screening 04/09/2024 HIV Screening 04/09/2024 Hepatitis C Screening 04/09/2024 Lung Cancer Screening (Low Dose CT) 04/09/2024 Social Influencers of Health Screening 04/09/2024 Hypertension/CHF/CAD Annual BMP Blood Test 04/09/2025 04/09/2024, 01/18/2023, 10/18/2022 RSV Immunization Patients 60 + Years Old (1 - 1-dose 75+ series) 2037 HIB Vaccines Aged Out No longer eligi ble based on patient's age to complete this topic HPV Vaccines Aged Out No longer eligi ble based on patient's age to complete this topic Hepatitis A Vaccines Aged Out No long er eligible based on patient's age to complete this topic Hepatitis B Vaccines Aged Out No long er eligible based on patient's age to complete this topic IPV Vaccines Aged Out No longer eligi ble based on patient's age to complete this topic MMR Vaccines Aged Out No longer eligi ble based on patient's age to complete this topic Meningococcal ACWY Vaccine Aged Out N o longer eligible based on patient's age to complete this topic Meningococcal B Vacine Aged Out No lo nger eligible based on patient's age to complete this topic RSV Immunization Patients Under 20 months Aged Out No longer eligible b ased on patient's age to complete this topic Varicella Vaccines Aged Out No longer eligible based on patient's age to complete this topic Procedures Procedure Name Priority Date/Time Associated Diagnosis Comments VITAMIN D 25 HYDROXY Routine 04/09/2024 5:24 AM EST Essential (primary) hypertension Vitamin D deficiency, unspecified FOLATE Routine 04/09/2024 5:24 AM EST Essential (primary) hypertension Vitamin D deficiency, unspecified THYROID STIMULATING HORMONE Routine 04/09/2024 5:24 AM EST Essential (primary) hypertension Vitamin D deficiency, unspecified VITAMIN B12 Routine 04/09/2024 5:24 AM EST Essential (primary) hypertension Vitamin D deficiency, unspecified COMPREHENSIVE METABOLIC PANEL Routine 04/09/2024 5:24 AM EST Essential (primary) hypertension Vitamin D deficiency, unspecified COMPLETE BLOOD COUNT Routine 04/09/2024 5:24 AM EST Essential (primary) hypertension Vitamin D deficiency, unspecified from Last 3 Months Results * (ABNORMAL) Vitamin D 25 hydroxy (04/09/2024 5:24 AM EST) Pathologist [facility] Vit D, 25-Hydroxy 10.1(L) 30.0 - 80.0 ng/mL LAB CHEMISTRY METHOD 04/09/2024 12:13 PM [facility] Blood Venous blood specimen / Unknown Venipuncture / Unknown 04/09/2024 5:24 AM EST 04/09/2024 10:58 AM EST us Harjit Khoury MD LAB BLOOD ORDERABLES Final Resul t [facility] [address] [place] [address], * (ABNORMAL) Complete blood count (04/09/2024 5:24 AM EST) [facility] WBC 8.6 4.8 - 10.8 K/mcL LAB HEMETOLOGY METHOD 04/09/2024 11:31 AM [facility] RBC 4.50 3.80 - 4.80 M/mcL LAB HEMETOLOGY METHOD 04/09/2024 11:31 AM [facility] Hemoglobin 12.3 11.5 - 16.0 g/dL LAB HEMETOLOGY METHOD 04/09/2024 11:31 AM [facility] Hematocrit 39.2 35.0 - 47.0 % LAB HEMETOLOGY METHOD 04/09/2024 11:31 AM [facility] MCV 86.7 79.0 - 98.0 FL LAB HEMETOLOGY METHOD 04/09/2024 11:31 AM [facility] MCH 27.2 27.0 - 32.0 pcg LAB HEMETOLOGY METHOD 04/09/2024 11:31 AM [facility] MCHC 31.4(L) 32.0 - 37.0 g/dL LAB HEMETOLOGY METHOD 04/09/2024 11:31 AM [facility] RDW 13.4 11.0 - 15.0 % LAB HEMETOLOGY METHOD 04/09/2024 11:[address] [facility] Platelets 319 130 - 400 K/mcL LAB HEMETOLOGY METHOD 04/09/2024 11:31 AM [facility] MPV 10.4 7.0 - 11.0 FL LAB HEMETOLOGY METHOD 04/09/2024 11:31 AM [facility] NRBC 0.0 <1.0 % LAB HEMETOLOGY METHOD 04/09/2024 11:31 AM [facility] NRBC Absolute 0.00 <0.10 K/mcL LAB HEMETOLOGY METHOD 04/09/2024 11:31 AM [facility] Blood Venous blood specimen / Unknown Venipuncture / Unknown 04/09/2024 5:24 AM EST 04/09/2024 10:58 AM EST us Harjit Khoury MD LAB BLOOD ORDERABLES Final Resul t Performing Organization Address City/[facility]/ZIP Co de Phone Number [facility] [address] [place] [address], [place] [phone] * Thyroid stimulating hormone (04/09/2024 5:24 AM EST) TSH 3.07 0.40 - 4.00 mcIU/mL LAB CHEMISTRY METHOD 04/09/2024 12:[address] [facility] Blood Venous blood specimen / Unknown Venipuncture / Unknown 04/09/2024 5:24 AM EST 04/09/2024 10:58 AM EST us Harjit Khoury MD LAB BLOOD ORDERABLES Final Resul t [facility] [address] [place] [address], [place] [phone] * Folate (04/09/2024 5:24 AM EST) [facility] Folate 6.4 2.8 - 17.0 ng/ml LAB CHEMISTRY METHOD 04/09/2024 12:[address] [facility] Blood Venous blood specimen / Unknown Venipuncture / Unknown 04/09/2024 5:24 AM EST 04/09/2024 10:58 AM EST us Harjit Khoury MD LAB BLOOD ORDERABLES Final Resul t [facility] [address] [place] [address], [place] [phone] * Vitamin B12 (04/09/2024 5:24 AM EST) [facility] Vitamin B-12 466 250 - 900 pcg/mL LAB CHEMISTRY METHOD 04/09/2024 12:42 PM [facility] Blood Venous blood specimen / Unknown Venipuncture / Unknown 04/09/2024 5:24 AM EST 04/09/2024 10:58 AM EST us Harjit Khoury MD LAB BLOOD ORDERABLES Final Resul t Performing Organization Address [facility]/ZIP Co de Phone Number [facility] [address] [place] [address], [place] [phone] * Comprehensive metabolic panel (04/09/2024 5:24 AM EST) [facility] Sodium 136 133 - 145 mmol/L LAB CHEMISTRY METHOD 04/09/2024 12:[address] [facility] Potassium 4.2 3.5 - 5.5 mmol/L LAB CHEMISTRY METHOD 04/09/2024 12:42 PM [facility] Chloride 107 96 - 110 mmol/L LAB CHEMISTRY METHOD 04/09/2024 12:[address] [facility] CO2 26 21 - 32 mmol/L LAB CHEMISTRY METHOD 04/09/2024 12:42 PM [facility] Anion Gap 3 3 - 11 LAB CHEMISTRY METHOD 04/09/2024 12:42 PM [facility] Glucose 88 70 - 100 mg/dL LAB CHEMISTRY METHOD 04/09/2024 12:42 PM [facility] BUN 11 5 - 25 mg/dL LAB CHEMISTRY METHOD 04/09/2024 12:42 PM [facility] Creatinine 0.75 0.50 - 1.10 mg/dL LAB CHEMISTRY METHOD 04/09/2024 12:42 PM [facility] eGFR 91 >=60 mL/min/1. 73m2 LAB CHEMISTRY METHOD 04/09/2024 12:42 PM [facility] Comment:Calculation based on the??Chronic Kidney Disease Epidemiology Collaboration (CKD-EPI) equation refit??without adjustment for race. BUN/Creatinine Ratio 14.7 LAB CHEMISTRY METHOD 04/09/2024 12:42 PM [facility] Calcium 9.9 8.5 - 10.5 mg/dL LAB CHEMISTRY METHOD 04/09/2024 12:42 PM [facility] AST (SGOT) 16 10 - 42 unit/L LAB CHEMISTRY METHOD 04/09/2024 12:42 PM [facility] ALT (SGPT) 18 10 - 60 unit/L LAB CHEMISTRY METHOD 04/09/2024 12:42 PM [facility] Alkaline Phosphatase 64 42 - 121 unit/L LAB CHEMISTRY METHOD 04/09/2024 12:42 PM [facility] Total Protein 7.3 6.0 - 8.0 g/dL LAB CHEMISTRY METHOD 04/09/2024 12:42 PM [facility] Albumin 3.6 3.2 - 5.0 g/dL LAB CHEMISTRY METHOD 04/09/2024 12:42 PM [facility] Total Bilirubin 0.5 0.0 - 1.4 mg/dL LAB CHEMISTRY METHOD 04/09/2024 12:42 PM [facility] [place] ([facility]) [facility] Blood Venous blood specimen / Unknown Venipuncture / Unknown 04/09/2024 5:24 AM EST 04/09/2024 10:58 AM EST Harjit Khoury MD LAB BLOOD ORDERABLES Final Resul t [facility] [address] [place] [address], from Last 3 Months Insurance MEDICAID - [place] AET[place] Care Teams Boat Painter Relationship Specialty Start Date End Date Harjit Khoury MD [address] [place] [address] [address] [place] [address] PCP - General Geriatric Medicine 04/09/24
--- OUTSIDE RECORDS SUMMARY | 2024-04-14 07:39 | XMS_ITS | Encounter Summary ---
Author Organization [facility] Address [address] [place] [address] Care Team Providers Care Certified Vehicle Fire Investigator Name Role Phone Harjit Khoury MD Primary Care Provider [phone] Encounter Details Date Type Department Care Team (Late st Contact Info) Description 04/09/2024 Lab Requisition [facility] - Main Lab [address] [facility] [place] [address] Harjit Khoury MD [address] [place] [address] Essential (primary) hypertension; Vitamin D deficiency, unspecified Social History Tobacco Use Types Packs/Day Years Used Date Smoking Tobacco: Never Assessed Comments Unknown Sex and Gender Information Value Date Recorded Sex Assigned at Not on file Legal Sex Female 5:38 PM EST Gender Identity Not on file Sexual Orientation Not on file documented as of this encounter Plan of Treatment Not on file documented as of this encounter Procedures Procedure Name Priority Date/Time Associated Diagnosis [...] Essential (primary) hypertension Vitamin D deficiency, unspecified documented in this encounter Results * (ABNORMAL) Vitamin D 25 hydroxy (04/09/2024 5:24 AM EST) Pathologist [facility] Vit D, 25-Hydroxy 10.1(L) 30.0 - 80.0 ng/mL LAB CHEMISTRY METHOD 04/09/2024 12:13 PM EST [facility] Blood Venous blood specimen / Unknown Venipuncture / Unknown 04/09/2024 5:24 AM EST 04/09/2024 10:58 AM EST us Harjit Khoury MD LAB BLOOD ORDERABLES Final Resul t Performing Organization Address [facility] Co de Phone Number [facility] [address] [place] [address], * Folate (04/09/2024 5:24 AM EST) Pathologist [facility] Folate 6.4 2.8 - 17.0 ng/ml LAB CHEMISTRY METHOD 04/09/2024 12:42 PM EST [facility] Blood Venous blood specimen / Unknown Venipuncture / Unknown 04/09/2024 5:24 AM EST 04/09/2024 10:58 AM EST us Harjit Khoury MD LAB BLOOD ORDERABLES Final Resul t Performing Organization Address City/[facility]/ZIP Co de Phone Number [facility] [address] [place] [address], [place] [phone] * Thyroid stimulating hormone (04/09/2024 5:24 AM EST) [facility] TSH 3.07 0.40 - 4.00 mcIU/mL LAB CHEMISTRY METHOD 04/09/2024 12:13 PM EST [facility] Blood Venous blood specimen / Unknown Venipuncture / Unknown 04/09/2024 5:24 AM EST 04/09/2024 10:58 AM EST us Harjit Khoury MD LAB BLOOD ORDERABLES Final Resul t [facility] [address] [place] [address], [place] [phone] * Vitamin B12 (04/09/2024 5:24 AM EST) [facility] Vitamin B-12 466 250 - 900 pcg/mL LAB CHEMISTRY METHOD 04/09/2024 12:42 PM [facility] Blood Venous blood specimen / Unknown Venipuncture / Unknown 04/09/2024 5:24 AM EST 04/09/2024 10:58 AM EST us Harjit Khoury MD LAB BLOOD ORDERABLES Final Resul t Performing Organization Address City/[facility]/ZIP Co de Phone Number [facility] [address] [place] [address], [place] [phone] * Comprehensive metabolic panel (04/09/2024 5:24 AM EST) [facility] Sodium 136 133 - 145 mmol/L LAB CHEMISTRY METHOD 04/09/2024 12:42 PM [facility] Potassium 4.2 3.5 - 5.5 mmol/L LAB CHEMISTRY METHOD 04/09/2024 12:42 PM [facility] Chloride 107 96 - 110 mmol/L LAB CHEMISTRY METHOD 04/09/2024 12:42 PM [facility] CO2 26 21 - 32 mmol/L LAB CHEMISTRY METHOD 04/09/2024 12:42 PM [facility] Anion Gap 3 3 - 11 LAB CHEMISTRY METHOD 04/09/2024 12:42 PM [facility] Glucose 88 70 - 100 mg/dL LAB CHEMISTRY METHOD 04/09/2024 12:42 PM [facility] BUN 11 5 - 25 mg/dL LAB CHEMISTRY METHOD 04/09/2024 12:42 PM [facility] Creatinine 0.75 0.50 - 1.10 mg/dL LAB CHEMISTRY METHOD 04/09/2024 12:42 PM [facility] eGFR 91 >=60 mL/min/1. 73m2 LAB CHEMISTRY METHOD 04/09/2024 12:42 PM [facility] Comment:Calculation based on the??Chronic Kidney Disease Epidemiology Collaboration (CKD-EPI) equation refit??without adjustment for race. BUN/Creatinine Ratio 14.7 LAB CHEMISTRY METHOD 04/09/2024 12:42 PM [facility] Calcium 9.9 8.5 - 10.5 mg/dL LAB CHEMISTRY METHOD 04/09/2024 12:42 PM [facility] AST (SGOT) 16 10 - 42 unit/L LAB CHEMISTRY METHOD 04/09/2024 12:42 PM [facility] ALT (SGPT) 18 10 - 60 unit/L LAB CHEMISTRY METHOD 04/09/2024 12:42 PM [facility] Alkaline Phosphatase 64 42 - 121 unit/L LAB CHEMISTRY METHOD 04/09/2024 12:42 PM [facility] Total Protein 7.3 6.0 - 8.0 g/dL LAB CHEMISTRY METHOD 04/09/2024 12:42 PM [facility] Albumin 3.6 3.2 - 5.0 g/dL LAB CHEMISTRY METHOD 04/09/2024 12:42 PM [facility] Total Bilirubin 0.5 0.0 - 1.4 mg/dL LAB CHEMISTRY METHOD 04/09/2024 12:42 PM [facility] Blood Venous blood specimen / Unknown Venipuncture / Unknown 04/09/2024 5:24 AM EST 04/09/2024 10:58 AM EST us Harjit Khoury MD LAB BLOOD ORDERABLES Final Resul t [facility] [address] [place] [address], * (ABNORMAL) Complete blood count (04/09/2024 5:24 AM EST) WBC 8.6 4.8 - 10.8 K/mcL LAB HEMETOLOGY METHOD 04/09/2024 11:31 AM EST [facility] RBC 4.50 3.80 - 4.80 M/mcL LAB HEMETOLOGY METHOD 04/09/2024 11:31 AM [facility] Hemoglobin 12.3 11.5 - 16.0 g/dL LAB HEMETOLOGY METHOD 04/09/2024 11:31 AM [facility] Hematocrit 39.2 35.0 - 47.0 % LAB HEMETOLOGY METHOD 04/09/2024 11:31 AM [facility] MCV 86.7 79.0 - 98.0 FL LAB HEMETOLOGY METHOD 04/09/2024 11:31 AM [facility] MCH 27.2 27.0 - 32.0 pcg LAB HEMETOLOGY METHOD 04/09/2024 11:31 AM [facility] MCHC 31.4(L) 32.0 - 37.0 g/dL LAB HEMETOLOGY METHOD 04/09/2024 11:31 AM [facility] RDW 13.4 11.0 - 15.0 % LAB HEMETOLOGY METHOD 04/09/2024 11:31 AM [facility] Platelets 319 130 - 400 K/mcL LAB HEMETOLOGY METHOD 04/09/2024 11:31 AM [facility] MPV 10.4 7.0 - 11.0 FL LAB HEMETOLOGY METHOD 04/09/2024 11:31 AM [facility] NRBC 0.0 <1.0 % LAB HEMETOLOGY METHOD 04/09/2024 11:31 AM EST [facility] NRBC Absolute 0.00 <0.10 K/mcL LAB HEMETOLOGY METHOD 04/09/2024 11:31 AM EST [facility] Blood Venous blood specimen / Unknown Venipuncture / Unknown 04/09/2024 5:24 AM EST 04/09/2024 10:58 AM EST us Harjit Khoury MD LAB BLOOD ORDERABLES Final Resul t [facility] [address] [place] [address], documented in this encounter Visit Diagnoses Diagnosis Essential (primary) hypertension Unspecified essential hypertension Vitamin D deficiency, unspecified documented in this encounter Care Teams Certified Vehicle Fire Investigator Relationship Specialty Start Date End Date Harjit Khoury MD [address] [place] [address] [address] [place] [address] PCP - General Geriatric Medicine 04/09/24 documented as of this encounter
--- OUTSIDE RECORDS SUMMARY | 2024-04-14 07:40 | XMS_ITS | Data Portability ---
Author Organization [facility], [facility] Address [address] [place] [address] Care Team Providers Care Garment Parts Cutter Hand Name Role Phone PRAKASH MON Primary Care [...] ROM progressi ve strengthsarthak farrellg 2023 024 [facility] [place] [facility], [address], [place], [address], 5 15:23:20 Procedures None recorded. Surgeries None recorded. Imaging XR, wrist, 3 or more view - room 113 3V L wrist 2023 024 [facility], [address], [place], [address], 5 15:23:19 XR, wrist, 3 or more view - rm.115 3 v of the L wrist 2023 024 [facility], [address], [address], [place], [address], 4 07:59:37 XR, wrist, 3 or more view - RM 119 3V 2023 024 [email or web address], [address], [address], [place], [address], 4 15:56:17 Medication Orders None recorded. Patient TargetsNo targets recorded. Patient Instructions Encounter Date Encounter Id Patient Instructions Last Modified By Organization Details Last Modified Time 01/10/[id number] application of cast, short arm cast* - RM 119 [facility] [employer]E[facility] [email or web address] Not available 01/13/2024 15:56:17 01/17/[id number] application of cast, short arm cast* leisa [...] aYqtaq 0bqfl% 2Fg9IQ a4ajBk vP9nXo QUaueC m3YtLR FvZl60 [address]tai[address] [id number] AC0Kqa X2DV6K gKiQtr MwF INTERFACE [facility] [address], [place], [address], 01/10/2024 11:13:21 01/10/20 24 01/10/2024 XR, wrist , 3 or more view [email or web address] ?Encry pted=s hAaTro YD8dLq bEUv6g %2BXZw aYqtaq 0bqfl% 2Fg9IQ a4ajBk vP9nXo QUaueC m3YtLR [address] [id number] AC0Kqa X2DV6K gKiQtr MwF INTERFACE [facility] [address], [place], [address], 01/10/2024 11:13:24 01/17/20 24 01/17/2024 XR, wrist , 3 or more view [email or web address]:/ [email or web address] ?Encry pted=s hAaTro YD8dLq bEUv6g %2BXZw aYqtaq 0bqfl% 2Fg9IQ a4ajBk vP9nXo QUaueC m3YtLR FvZl60 [address] 9p6680 AC0Kqa X6CWae hKiQtr MwF INTERFACE [facility] [address] [address], [place], [address], 01/17/2024 12:04:14 01/17/20 24 01/17/2024 XR, wrist , 3 or more view [email or web address]:/ [email or web address] ?Encry pted=s hAaTro YD8dLq bEUv6g %2BXZw aYqtaq 0bqfl% 2Fg9IQ a4ajBk vP9nXo QUaueC m3YtLR FvZlgJ JJ8Fulton HZtai3 9k4448 AC0Kqa X6CWae hKiQtr MwF INTERFACE [facility] [address] [address], [place], [address], 01/17/2024 12:04:16 02/07/20 24 02/07/2024 XR, wrist , 3 or more view http:/ [email or web address] ?Encry pted=s hAaTro YD8dLq bEUv6g %2BXZw aYqtaq 0bqfl% 2Fg9IQ a4ajBk vP9nXo QUaueC m3YtLR FvZlgJ JJ8mAn HZtai3 4j2056 AC0Kqb nyMWKa uKiQtr MwF INTERFACE [facility] [address] [address], [place], [address], 02/07/2024 10:33:47 02/07/20 24 02/07/2024 XR, wrist , 3 or more view [email or web address]:/ [email or web address] ?Encry pted=s hAaTro YD8dLq bEUv6g %2BXZw aYqtaq 0bqfl% 2Fg9IQ a4ajBk vP9nXo QUaueC m3YtLR FvZlgJ JJ8mAn HZtai3 5n4872 AC0Kqb nyMWKa uKiQtr MwF INTERFACE [facility] [address], [place], [address], 02/07/2024 10:33:49 Result Notes None recorded. Procedures Surgical History None recorded. Imaging Results Imaging Date Name Status LastModified by [facility] Details LastModified Time 01/10/2024 XR, wrist, 3 or more view completed INTERFACE [facility] [address], [place], [address], 01/10/2024 11:13:21 01/10/2024 XR, wrist, 3 or more view completed INTERFACE [facility] [address], [place], [address], 01/10/2024 11:13:24 01/17/2024 XR, wrist, 3 or more view completed INTERFACE [facility] [address], [place], [address], 01/17/2024 12:04:14 01/17/2024 XR, wrist, 3 or more view completed INTERFACE [facility] [address], [place], [address], 01/17/2024 12:04:16 02/07/2024 XR, wrist, 3 or more view completed INTERFACE [facility] [address], [place], [address], 02/07/2024 10:33:47 02/07/2024 XR, wrist, 3 or more view completed INTERFACE [facility] [address], [place], [address], 02/07/2024 10:33:49 Procedure Notes None recorded. Medical [...] Updated DateTime 01/10/2024 162.56 cm 33.5 kg/m2 17045.51 g SONY MAJOR [facility] 01/10/2024 11:04:19 Date Recorded Body height Body mass index (BMI) Body weight Provider Name and Address Organization Details Last Updated DateTime 01/17/2024 162.56 cm 34.3 kg/m2 78242.47 g connie spencer [facility] 01/17/2024 11:50:48 Date Recorded Body height Body mass index (BMI) Body weight Provider Name and Address Organization Details Last Updated DateTime 02/07/2024 162.56 cm 34.3 kg/m2 76303.47 g STEFANI BABAR [place] [facility] [place] [facility] [...] SNOMED-CT Code Diagnosis ICD10 Code Diagnosis Note [id number] MANUELITO Jeffersnisarthak [address] [place] [address] 01/10/2024 10:35:31 01/29/2024 10:07:21 Pain of left wrist 3305839478 33395 M25.790 [id number] MD Antonia Laws [address] [place] [address] 01/17/2024 11:18:11 02/05/2024 07:59:37 Pain of left wrist 1074284480 41310 M25.532 Closed Col les' fracture [id number] S52.532D [id number] MD Antonia Laws [address] [place] [address] 02/07/2024 10:01:00 02/27/2024 15:23:19 Pain of left wrist 4442096156 85253 M25.532 Closed Col les' fracture [id number] S52.532D Health Concerns Section Related Observation LastModified by Organization Detai ls LastModified Time None Recorded Concern Status LastModified by Organization Details LastModified Time None Recorded Advance Directives Directive None Recorded Payers Encounter Date Sequence Insurance Name Policy Number Policy Alvarado Covered Member ID Alvarado Member ID Guarantor Name 01/10/2024 2 [place] Maya Cain [id number] Maya Cain 01/10/2024 1 [employer] (MEDICARE REPLACEMENT PPO) [id number] Maya Cain [id number] Maya Cain 01/17/2024 2 [place] Maya Cain [id number] Maya Cain 01/17/2024 1 [employer] (MEDICARE REPLACEMENT PPO) [id number] Maya Leahyle [id number] Maya Cain 02/07/2024 2 [place] [facility] Maya Cain [id number] Maya Cain 02/07/2024 1 [employer] (MEDICARE REPLACEMENT PPO) [id number] Maya Leahyle [id number] Maya Cain Notes Date Note Type Note [...] instability. X-rays ordered, obtained and reviewed at [facility] m3 views left wrist reveals a comminuted [...] motion and strengthening. Tabitha Redman PA-C [address] [facility], [place], [address], [facility] 01/10/2024 13:48:27 01/17/2024 text/html DX: Left distal radius An ulnar styloid process fracture 12/30/2023Left-sided hemiparesis from previous CVA HPI:63-year-old female here for orthopedic consultation. Patient fell onto the outstretched hand and injured the left wrist. Fracture is being treated conservatively. She has been in a splint Latanya Hughes MD [address] [address], [place], [address], [facility] 01/17/2024 17:00:21 02/07/2024 text/html DX: Left distal radius and ulnar styloid process fracture 12/30/2023Left-sided hemiparesis from previous CVA HPI:63-year-old female here for orthopedic consultation. Patient fell onto the outstretched hand and injured the left wrist. Fracture is being treated conservatively. She reports that the cast applied at her most recent visit quickly fell off. Latanya Hughes MD [address], [place], [address], [facility] 02/07/2024 12:27:02 OBGyn Episode No OBEpisode recorded.
== END 2024-04-14 07:38 | disposition home or self-care (01) ==
LOC: HO.HOSX 07:37
PROVIDERS: Visit Provider Physician Assistant
DX: M25.572 Pain in left ankle and joints of left foot (principal); S82.852A Displaced trimalleolar fracture of left lower leg, initial encounter for closed fracture
CPT/HCPCS: 27816; 73610; 99212

== ENCOUNTER 2024-04-14 10:27 | Outpatient (AMB) | payer MEDICARE, MEDICAID, SELFPAY ==
--- NOTE | 2024-04-14 10:44 | MHC.OFFVIS ---
Vital Signs 04/14/24 10:47 Height 5 ft 4 in Weight 200 lb BMI 34.3 Handedness Right Intake Visit Reasons: FC - LT ankle fx, DOI 04/06/24 Intake Note: Maya is a 63 year old female who presents today [facility] with a splint for a evaluation of her left ankle fx, DOI 04/06/24. Patient states that she was walking down the steps and felt like her leg gave out which lead her twisting her ankle. She reports significant pain in her left ankle as well as some pain in her left hip. Patient reports she is having pain in all around in her ankle. Allergies perfume Allergy (Intermediate, Verified 04/14/24 10:50) Shortness of Breath Seasonal Allergies Allergy (Intermediate, Verified 04/14/24 10:50) Watery Eye, sneezing HPI HPI FC - LT ankle fx, DOI 04/06/24: Details: Ms. Cain is a 63-year-old female who resides at [facility] with a past medical history significant for stroke affecting her left side with weakness and decreased sensation, excision of sarcoma left thigh, HTN, anxiety, hyperparathyroid and obesity. She presents to the office today for evaluation of a left ankle fracture that she sustained on 04/06/2024. The patient reports that she was walking downstairs and her leg gave out twisting under her. Patient uses a hemiwalker to ambulate at baseline. She presented to the emergency department where she was placed into a splint and instructed to non weightbear and follow up with orthopedics outpatient for further evaluation and treatment. [facility] Medical History HTN (hypertension) Nicotine dependence, cigarettes, uncomplicated Mass of left thigh Suspected exposure to mold Left leg swelling Obesity (BMI 30-39.9) Hemiparesis (~2017) ADHD (attention deficit hyperactivity disorder) Hypercalcemia Anxiety Hyperparathyroidism Sleep apnea in adult History of asthma History of CVA with residual deficit (~2017) Allergic rhinitis Surgical History History of biopsy History of hand surgery History of hysterectomy History of tubal ligation History of History of colonoscopy History of bilateral breast reduction surgery History of tonsillectomy S/P Botox injection Hx of arthroscopy of left knee Family History Father HTN (hypertension) Mother HTN (hypertension) Social History Household Members: None Housing: House Alcohol intake: current Alcohol intake frequency: does not drink Comment: left sided hemiparesis walks winuno cane Patient Tobacco Use Status: Former Tobacco user Tobacco use type: Cigarette Years Smoked: 2017 stopped 2.5 packs /20 years e-Cigarette/Vaping Use: Never Used Second Hand Smoke Exposure: No service: No Current occupational status: disabled Cognitive needs: No Hearing needs: No Vision needs: No Female Reproductive History Menstrual Age of Menarche: 15 Review of Systems Const All systems reviewed & are unremarkable except as noted in HPI and below Physical Exam Vital Signs: BMI result Body Mass Index 34.3 Const General: cooperative, healthy appearing and no acute distress Resp Effort & Inspection: normal respiratory effort and able to speak in complete sentences Cardio Rate: regular rate Peripheral pulses: Peripheral pulses 2+ throughout Skin Lesions: no lesions Rashes: no rashes Extrem Other: Left ankle moderate circumferential edema. Able to slightly dorsiflex and plantar flex. Sensation is diminished at baseline but reportedly normal for the patient. Pedal pulse intact. Office Procedures AMB Fracture Care Fracture Billing Code: Fracture Billing Code Casting/Splints 35934-Pabxj Leg splint application Procedure code (CPT) selection complete Assessment & Plan Assessment & Plan (1) Closed trimalleolar fracture of left ankle: Code(s): S82.852A - Displaced trimalleolar fracture of left lower leg, initial encounter for closed fracture Category: Medical Plan Ms. Cain is a 63-year-old female who resides at [facility] with a past medical history significant for stroke affecting her left side with weakness and decreased sensation, excision of sarcoma left thigh, HTN, anxiety, hyperparathyroid and obesity. She presents to the office today for evaluation of a left ankle fracture that she sustained on 04/06/2024. The patient reports that she was walking downstairs and her leg gave out twisting under her. Patient uses a hemiwalker to ambulate at baseline. She presented to the emergency department where she was placed into a splint and instructed to non weightbear and follow up with orthopedics outpatient for further evaluation and treatment. While in the office today, the patient was placed back into a posterior custom-made splint. She was instructed to non weightbear on the left lower extremity. We did discuss surgical versus conservative treatment options. Due to the patient's multiple comorbidities we are going to attempt to treat this nonoperatively but keep a close eye on the fracture. I going to see her back in 1 week with repeat x-rays, sooner if needed. X-rays of the left ankle which were obtained while in the office today and were reviewed by me, Gege Galvez PA-C, revealed redemonstration of trimalleolar fracture. Orders: Orders XR ankle LT min 3V 04/14/24 M25.579 - Pain in unspecified ankle and joints of unspecified foot Coding Level of Care Code Est Pt Level 4 (21844) Diagnoses Closed trimalleolar fracture of left ankle S82.852A CPT Codes Fracture Care - Fracture Billing Code: Fracture Billing Code ([id number]) Splint - CPT: 48591-Gfbcx Leg splint application ([id number])
[2024-04-14 10:47] VITALS: BMI 34.3
--- OUTSIDE RECORDS SUMMARY | 2024-04-14 11:27 | XMS_ITS | Encounter Summary ---
Author Organization [employer] Address [address] [place] [address] Care Team Providers Care Lighter Captain Name Role Phone Harjit Khoury MD Primary Care Provider [phone] Encounter Details Date Type Department Care Team (Late st Contact Info) Description 04/09/2024 Lab Requisition [facility] - Main Lab [address] [facility] [place] [address] Harjit Khoury MD [address] [place] [address] Essential (primary) hypertension; Vitamin D deficiency, unspecified [...] LAB CHEMISTRY METHOD 04/09/2024 12:13 PM EST [facility] Blood Venous blood specimen / Unknown Venipuncture / Unknown 04/09/2024 5:24 AM EST 04/09/2024 10:58 AM EST us Harjit Khoury MD LAB BLOOD ORDERABLES Final Resul t Performing Organization Address [facility] Co de Phone Number [facility] [address] [place] [address], * Folate (04/09/2024 5:24 AM EST) Pathologist [facility] Folate 6.4 2.8 - 17.0 ng/ml LAB CHEMISTRY METHOD 04/09/2024 12:42 PM EST [facility] Blood Venous blood specimen / Unknown Venipuncture / Unknown 04/09/2024 5:24 AM EST 04/09/2024 10:58 AM EST us Harjit Khoury MD LAB BLOOD ORDERABLES Final Resul t Performing Organization Address City/[facility]/ZIP Co de Phone Number [facility] [address] [place] [address], [place] [phone] * Thyroid stimulating hormone (04/09/2024 5:24 AM EST) [facility] TSH 3.07 0.40 - 4.00 mcIU/mL LAB CHEMISTRY METHOD 04/09/2024 12:13 PM EST [facility] Blood Venous blood specimen / Unknown Venipuncture / Unknown 04/09/2024 5:24 AM EST 04/09/2024 10:58 AM EST us Harjit Khoury MD LAB BLOOD ORDERABLES Final Resul t [facility] [address] [place] [address], [place] [phone] * Vitamin B12 (04/09/2024 5:24 AM EST) [facility] Vitamin B-12 466 250 - 900 pcg/mL LAB CHEMISTRY METHOD 04/09/2024 12:42 PM [facility] Blood Venous blood specimen / Unknown Venipuncture / Unknown 04/09/2024 5:24 AM EST 04/09/2024 10:58 AM EST us Harjit Khoury MD LAB BLOOD ORDERABLES Final Resul t Performing Organization Address City/[facility]/ZIP Co de Phone Number [facility] [address] [place] [address], [place] [phone] * Comprehensive metabolic panel (04/09/2024 5:24 AM EST) [facility] Sodium 136 133 - 145 mmol/L LAB CHEMISTRY METHOD 04/09/2024 12:42 PM [facility] Potassium 4.2 3.5 - 5.5 mmol/L LAB CHEMISTRY METHOD 04/09/2024 12:42 PM [facility] Chloride 107 96 - 110 mmol/L LAB CHEMISTRY METHOD 04/09/2024 12:42 PM [facility] CO2 26 21 - 32 mmol/L [...] MD LAB BLOOD ORDERABLES Final Resul t [facility] [address] [place] [address], * (ABNORMAL) Complete blood count (04/09/2024 5:24 AM EST) WBC 8.6 4.8 - 10.8 K/mcL LAB HEMETOLOGY METHOD 04/09/2024 11:31 AM EST [facility] RBC 4.50 3.80 - 4.80 [...] AM [facility] Platelets 319 130 - 400 K/mcL LAB HEMETOLOGY METHOD 04/09/2024 11:31 AM [facility] MPV 10.4 7.0 - 11.0 FL LAB HEMETOLOGY METHOD 04/09/2024 11:31 AM [facility] NRBC 0.0 <1.0 % LAB HEMETOLOGY METHOD 04/09/2024 11:31 AM EST [facility] NRBC Absolute 0.00 <0.10 K/mcL LAB HEMETOLOGY METHOD 04/09/2024 11:31 AM EST [facility] Blood Venous blood specimen / Unknown Venipuncture / Unknown 04/09/2024 5:24 AM EST 04/09/2024 10:58 AM EST us Harjit Khoury MD LAB BLOOD ORDERABLES Final Resul t [facility] [address] [place] [address], documented in this encounter Visit Diagnoses Diagnosis Essential (primary) hypertension Unspecified essential hypertension Vitamin D deficiency, unspecified documented in this encounter Care Teams Lighter Captain Relationship Specialty Start Date End Date Harjit Khoury MD [address] [place] [address] [address] [place] [address] PCP - General Geriatric Medicine 04/09/24 documented as of this encounter
--- OUTSIDE RECORDS SUMMARY | 2024-04-14 11:27 | XMS_ITS | Clinical Summary ---
Author Organization [address] [facility] Address [address] [place] [address] Phone Care Team Providers Care Bi Solutions Architect Name Role Phone Harjit Khoury MD Primary Care Provider [phone] Encounters Date Type Department Care Team Description 04/09/2024 Lab Requisition [facility] - Main Lab [address] [facility] [place] [address] Harjit Khoury MD Essential (primary) [...] 25 hydroxy (04/09/2024 5:24 AM EST) Pathologist [facility] Vit D, 25-Hydroxy 10.1(L) 30.0 - 80.0 ng/mL LAB CHEMISTRY METHOD 04/09/2024 12:13 PM [facility] LAB Blood Venous blood specimen / Unknown Venipuncture / Unknown 04/09/2024 5:24 AM EST 04/09/2024 10:58 AM EST us Harjit Khoury MD LAB BLOOD ORDERABLES Final Resul t [facility] [address] [place] [address], * (ABNORMAL) Complete blood count (04/09/2024 5:24 AM EST) [facility] WBC 8.6 4.8 - 10.8 K/mcL LAB HEMETOLOGY METHOD 04/09/2024 11:31 AM [facility] RBC 4.50 3.80 - 4.80 M/mcL LAB HEMETOLOGY METHOD 04/09/2024 11:31 AM [facility] Hemoglobin 12.3 11.5 - 16.0 g/dL LAB HEMETOLOGY METHOD 04/09/2024 11:31 AM [facility] LAB Hematocrit 39.2 35.0 - 47.0 % LAB HEMETOLOGY METHOD 04/09/2024 11:31 AM [facility] LAB MCV 86.7 79.0 - 98.0 FL LAB HEMETOLOGY METHOD 04/09/2024 11:31 AM [facility] MCH 27.2 27.0 - 32.0 pcg LAB HEMETOLOGY METHOD 04/09/2024 11:31 AM [facility] LAB MCHC 31.4(L) 32.0 - 37.0 g/dL LAB HEMETOLOGY METHOD 04/09/2024 11:31 AM [facility] LAB RDW 13.4 11.0 - 15.0 % LAB HEMETOLOGY METHOD 04/09/2024 11:31 AM EST [facility] Platelets 319 130 - 400 K/mcL LAB HEMETOLOGY METHOD 04/09/2024 11:31 AM [facility] MPV 10.4 7.0 - 11.0 FL LAB HEMETOLOGY METHOD 04/09/2024 11:31 AM [facility] LAB NRBC 0.0 <1.0 % LAB HEMETOLOGY METHOD 04/09/2024 11:31 AM [facility] LAB NRBC Absolute 0.00 <0.10 K/mcL LAB HEMETOLOGY METHOD 04/09/2024 11:31 AM [facility] LAB Blood Venous blood specimen / Unknown Venipuncture / Unknown 04/09/2024 5:24 AM EST 04/09/2024 10:58 AM EST us Harjit Khoury MD LAB BLOOD ORDERABLES Final Resul t Performing Organization Address City/[facility]/ZIP Co de Phone Number [facility] [address] [place] [address], [place] [phone] * Thyroid stimulating hormone (04/09/2024 5:24 AM EST) TSH 3.07 0.40 - 4.00 mcIU/mL LAB CHEMISTRY METHOD 04/09/2024 12:13 PM EST [facility] Blood Venous blood specimen / Unknown Venipuncture / Unknown 04/09/2024 5:24 AM EST 04/09/2024 10:58 AM EST us Harjit Khoury MD LAB BLOOD ORDERABLES Final Resul t [facility] [address] [place] [address], [place] [phone] * Folate (04/09/2024 5:24 AM EST) [facility] Folate 6.4 2.8 - 17.0 ng/ml LAB CHEMISTRY METHOD 04/09/2024 12:42 PM EST [facility] Blood Venous blood specimen / Unknown Venipuncture / Unknown 04/09/2024 5:24 AM EST 04/09/2024 10:58 AM EST us Harjit Khoury MD LAB BLOOD ORDERABLES Final Resul t [facility] [address] [place] [address], [place] [phone] * Vitamin B12 (04/09/2024 5:24 AM EST) [facility] Vitamin B-12 466 250 - 900 pcg/mL LAB CHEMISTRY METHOD 04/09/2024 12:42 PM [facility] Blood Venous blood specimen / Unknown Venipuncture / Unknown 04/09/2024 5:24 AM EST 04/09/2024 10:58 AM EST us Harjit Khoury MD LAB BLOOD ORDERABLES Final Resul t Performing Organization Address [facility]/ZIP Co de Phone Number [facility] [address] [place] [address], [place] [phone] * Comprehensive metabolic panel (04/09/2024 5:24 AM EST) [facility] Sodium 136 133 - 145 mmol/L LAB CHEMISTRY METHOD 04/09/2024 12:42 PM EST [facility] Potassium 4.2 3.5 - 5.5 mmol/L LAB CHEMISTRY METHOD 04/09/2024 12:42 PM [facility] Chloride 107 96 - 110 mmol/L LAB CHEMISTRY METHOD 04/09/2024 12:42 PM EST [facility] CO2 26 21 - 32 mmol/L LAB CHEMISTRY METHOD 04/09/2024 12:42 PM [facility] Anion Gap 3 3 - 11 LAB CHEMISTRY METHOD 04/09/2024 12:42 PM [facility] Glucose 88 70 - 100 mg/dL LAB CHEMISTRY METHOD 04/09/2024 12:42 PM [facility] BUN 11 5 - 25 mg/dL LAB CHEMISTRY METHOD 04/09/2024 12:42 PM [facility] Creatinine 0.75 0.50 - 1.10 mg/dL LAB CHEMISTRY METHOD 04/09/2024 12:42 PM [facility] LAB eGFR 91 >=60 mL/min/1. 73m2 LAB CHEMISTRY METHOD 04/09/2024 12:42 PM [facility] LAB Comment:Calculation based on the??Chronic Kidney Disease Epidemiology Collaboration (CKD-EPI) equation refit??without adjustment for race. BUN/Creatinine Ratio 14.7 LAB CHEMISTRY METHOD 04/09/2024 12:42 PM [facility] Calcium 9.9 8.5 - 10.5 mg/dL LAB CHEMISTRY METHOD 04/09/2024 12:42 PM [facility] AST (SGOT) 16 10 - 42 unit/L LAB CHEMISTRY METHOD 04/09/2024 12:42 PM [facility] ALT (SGPT) 18 10 - 60 unit/L LAB CHEMISTRY METHOD 04/09/2024 12:42 PM [facility] Alkaline Phosphatase 64 42 - 121 unit/L LAB CHEMISTRY METHOD 04/09/2024 12:42 PM [facility] Total Protein 7.3 6.0 - 8.0 g/dL LAB CHEMISTRY METHOD 04/09/2024 12:42 PM [facility] Albumin 3.6 3.2 - 5.0 g/dL LAB CHEMISTRY METHOD 04/09/2024 12:42 PM [facility] Total Bilirubin 0.5 0.0 - 1.4 mg/dL LAB CHEMISTRY METHOD 04/09/2024 12:42 PM [facility] [place] ([facility]) [facility] Blood Venous blood specimen / Unknown Venipuncture / Unknown 04/09/2024 5:24 AM EST 04/09/2024 10:58 AM EST Harjit Khoury MD LAB BLOOD ORDERABLES Final Resul t [facility] [address] [place] [address], from Last 3 Months Insurance MEDICAID - [place] [employer] Care Teams Bi Solutions Architect Relationship Specialty Start Date End Date Harjit Khoury MD [address] [place] [address] [address] [place] [address] PCP - General Geriatric Medicine 04/09/24
== END 2024-04-14 11:35 | disposition home or self-care (01) ==
PROVIDERS: PCP Internal Medicine; Visit Provider Physician Assistant
DX: S82.852A Displaced trimalleolar fracture of left lower leg, initial encounter for closed fracture (principal)
CPT/HCPCS: 27816; 99214

== ENCOUNTER → 2024-04-14 10:33 | Outpatient (BNV) | payer MEDICARE, MEDICAID, SELFPAY | PROVIDERS: Visit Provider Radiology Diagnostic Radiology | DX: M25.572 Pain in left ankle and joints of left foot (principal) | CPT/HCPCS: 73610 ==

== ENCOUNTER 2024-04-23 10:44 | Outpatient (REF) | payer MEDICARE, MEDICAID, SELFPAY ==
--- NOTE | ~2024-04-23 | XR_ITS ---
CLINICAL HISTORY: M25.579 - Pain in unspecified ankle and joints of unspecified foot 4 view left ankle Comparison: 04/14/2024 Findings: There is no significant healing of the distal distal fibular, dorsal distal tibial, or medial malleolar fractures and no overall significant change in the appearance of the ankle. IMPRESSION: 1. No significant change from prior examination. This document has been electronically signed by: Timothy Abbott MD on 04/23/2024 18:33:16
--- OUTSIDE RECORDS SUMMARY | 2024-04-24 12:18 | XMS_ITS | Encounter Summary ---
Author Organization [facility] Address [address] [place] [address] Care Team Providers Care Flight Tower Dispatcher Name Role Phone Harjit Khoury MD Primary Care Provider [phone] Encounter Details Date Type Department Care Team (Late st Contact Info) Description 04/09/2024 Lab Requisition [facility] - Main Lab [address] [facility] [place] [address] Harjit Khoury MD [address] [place] [address] Essential (primary) hypertension; Vitamin D deficiency, unspecified [...] 25 hydroxy (04/09/2024 5:24 AM EST) Pathologist [facility] Vit D, 25-Hydroxy 10.1(L) 30.0 - 80.0 ng/mL LAB CHEMISTRY METHOD 04/09/2024 12:13 PM EST [facility] Blood Venous blood specimen / Unknown Venipuncture / Unknown 04/09/2024 5:24 AM EST 04/09/2024 10:58 AM EST us Harjit Khoury MD LAB BLOOD ORDERABLES Final Resul t Performing Organization Address [facility] Co de Phone Number [facility] [address] [place] [address], * Folate (04/09/2024 5:24 AM EST) Pathologist [facility] Folate 6.4 2.8 - 17.0 ng/ml LAB CHEMISTRY METHOD 04/09/2024 12:42 PM EST [facility] Blood Venous blood specimen / Unknown Venipuncture / Unknown 04/09/2024 5:24 AM EST 04/09/2024 10:58 AM EST us Harjit Khoury MD LAB BLOOD ORDERABLES Final Resul t Performing Organization Address City/[facility]/ZIP Co de Phone Number [facility] [address] [place] [address], [place] [phone] * Thyroid stimulating hormone (04/09/2024 5:24 AM EST) [facility] TSH 3.07 0.40 - 4.00 mcIU/mL LAB CHEMISTRY METHOD 04/09/2024 12:13 PM EST [facility] Blood Venous blood specimen / Unknown Venipuncture / Unknown 04/09/2024 5:24 AM EST 04/09/2024 10:58 AM EST us Harjit Khoury MD LAB BLOOD ORDERABLES Final Resul t [facility] [address] [place] [address], [place] [phone] * Vitamin B12 (04/09/2024 5:24 AM EST) [facility] Vitamin B-12 466 250 - 900 pcg/mL LAB CHEMISTRY METHOD 04/09/2024 12:[address] [facility] Blood Venous blood specimen / Unknown Venipuncture / Unknown 04/09/2024 5:24 AM EST 04/09/2024 10:58 AM EST us Harjit Khoury MD LAB BLOOD ORDERABLES Final Resul t Performing Organization Address City/[facility]/ZIP Co de Phone Number [facility] [address] [place] [address], [place] [phone] * Comprehensive metabolic panel (04/09/2024 5:24 AM EST) [facility] Sodium 136 133 - 145 mmol/L LAB CHEMISTRY METHOD 04/09/2024 12:[address] [facility] Potassium 4.2 3.5 - 5.5 mmol/L LAB CHEMISTRY METHOD 04/09/2024 12:[address] [facility] Chloride 107 96 - 110 mmol/L LAB CHEMISTRY METHOD 04/09/2024 12:[address] [facility] CO2 26 21 - 32 mmol/L LAB CHEMISTRY METHOD 04/09/2024 12:[address] [facility] Anion Gap 3 3 - 11 LAB CHEMISTRY METHOD 04/09/2024 12:[address] [facility] Glucose 88 70 - 100 mg/dL LAB CHEMISTRY METHOD 04/09/2024 12:[address] [facility] BUN 11 5 - 25 mg/dL LAB CHEMISTRY METHOD 04/09/2024 12:[address] [facility] Creatinine 0.75 0.50 - 1.10 mg/dL LAB CHEMISTRY METHOD 04/09/2024 12:[address] [facility] eGFR 91 >=60 mL/min/1. 73m2 LAB CHEMISTRY METHOD 04/09/2024 12:[address] [facility] Comment:Calculation based on the??Chronic Kidney Disease Epidemiology Collaboration (CKD-EPI) equation refit??without adjustment for race. BUN/Creatinine Ratio 14.7 LAB CHEMISTRY METHOD 04/09/2024 12:[address] [facility] Calcium 9.9 8.5 - 10.5 mg/dL LAB CHEMISTRY METHOD 04/09/2024 12:[address] [facility] AST (SGOT) 16 10 - 42 unit/L LAB CHEMISTRY METHOD 04/09/2024 12:[address] [facility] ALT (SGPT) 18 10 - 60 unit/L LAB CHEMISTRY METHOD 04/09/2024 12:[address] [facility] Alkaline Phosphatase 64 42 - 121 unit/L LAB CHEMISTRY METHOD 04/09/2024 12:[address] [facility] Total Protein 7.3 6.0 - 8.0 g/dL LAB CHEMISTRY METHOD 04/09/2024 12:[address] [facility] Albumin 3.6 3.2 - 5.0 g/dL LAB CHEMISTRY METHOD 04/09/2024 12:[address] [facility] Total Bilirubin 0.5 0.0 - 1.4 mg/dL LAB CHEMISTRY METHOD 04/09/2024 12:[address] [facility] Blood Venous blood specimen / Unknown Venipuncture / Unknown 04/09/2024 5:24 AM EST 04/09/2024 10:58 AM EST us Harjit Khoury MD LAB BLOOD ORDERABLES Final Resul t [facility] [address] [place] [address], * (ABNORMAL) Complete blood count (04/09/2024 5:24 AM EST) WBC 8.6 4.8 - 10.8 K/mcL LAB HEMETOLOGY METHOD 04/09/2024 11:31 AM EST [facility] RBC 4.50 3.80 - 4.80 M/mcL LAB HEMETOLOGY METHOD 04/09/2024 11:[address] [facility] Hemoglobin 12.3 11.5 - 16.0 g/dL LAB HEMETOLOGY METHOD 04/09/2024 11:[address] [facility] Hematocrit 39.2 35.0 - 47.0 % LAB HEMETOLOGY METHOD 04/09/2024 11:[address] [facility] MCV 86.7 79.0 - 98.0 FL LAB HEMETOLOGY METHOD 04/09/2024 11:[address] [facility] MCH 27.2 27.0 - 32.0 pcg LAB HEMETOLOGY METHOD 04/09/2024 11:[address] [facility] MCHC 31.4(L) 32.0 - 37.0 g/dL LAB HEMETOLOGY METHOD 04/09/2024 11:[address] [facility] RDW 13.4 11.0 - 15.0 % LAB HEMETOLOGY METHOD 04/09/2024 11:[address] [facility] Platelets 319 130 - 400 K/mcL LAB HEMETOLOGY METHOD 04/09/2024 11:[address] [facility] MPV 10.4 7.0 - 11.0 FL LAB HEMETOLOGY METHOD 04/09/2024 11:[address] [facility] NRBC 0.0 <1.0 % LAB HEMETOLOGY METHOD 04/09/2024 11:31 AM EST [facility] NRBC Absolute 0.00 <0.10 K/mcL LAB HEMETOLOGY METHOD 04/09/2024 11:31 AM EST [facility] Blood Venous blood specimen / Unknown Venipuncture / Unknown 04/09/2024 5:24 AM EST 04/09/2024 10:58 AM EST us Harjit Khoury MD LAB BLOOD ORDERABLES Final Resul t [facility] [address] [place] [address], documented in this encounter Visit Diagnoses Diagnosis Essential (primary) hypertension Unspecified essential hypertension Vitamin D deficiency, unspecified documented in this encounter Care Teams Flight Tower Dispatcher Relationship Specialty Start Date End Date Harjit Khoury MD [address] [place] [address] [address] [place] [address] PCP - General Geriatric Medicine 04/09/24 documented as of this encounter
--- OUTSIDE RECORDS SUMMARY | 2024-04-24 12:18 | XMS_ITS | Clinical Summary ---
Author Organization 299 [facility] Address [address] [place] [address] Phone Care Team Providers Care Gold Marker Name Role Phone Harjit Khoury MD Primary Care Provider [phone] Encounters Date Type Department Care Team Description 04/09/2024 Lab Requisition [facility] - Main Lab [address] [facility] [place] [address] Harjit Khoury MD Essential (primary) [...] hydroxy (04/09/2024 5:24 AM EST) Pathologist [facility] Vit D, 25-Hydroxy 10.1(L) 30.0 - 80.0 ng/mL LAB CHEMISTRY METHOD 04/09/2024 12:13 PM [facility] Blood Venous blood specimen / Unknown Venipuncture / Unknown 04/09/2024 5:24 AM EST 04/09/2024 10:58 AM EST us Harjit Khoury MD LAB BLOOD ORDERABLES Final Resul t [facility] [address] [place] [address], * (ABNORMAL) Complete blood count (04/09/2024 5:24 AM EST) [facility] WBC 8.6 4.8 - 10.8 K/mcL LAB HEMETOLOGY METHOD 04/09/2024 11:31 AM [facility] RBC 4.50 3.80 - 4.80 M/mcL LAB HEMETOLOGY METHOD 04/09/2024 11:31 AM [facility] Hemoglobin 12.3 11.5 - 16.0 g/dL LAB HEMETOLOGY METHOD 04/09/2024 11:31 AM [facility] Hematocrit 39.2 35.0 - 47.0 % LAB HEMETOLOGY METHOD 04/09/2024 11:31 AM [facility] MCV 86.7 79.0 - 98.0 FL LAB HEMETOLOGY METHOD 04/09/2024 11:31 AM [facility] MCH 27.2 27.0 - 32.0 pcg LAB HEMETOLOGY METHOD 04/09/2024 11:31 AM [facility] MCHC 31.4(L) 32.0 - 37.0 g/dL LAB HEMETOLOGY METHOD 04/09/2024 11:31 AM [facility] RDW 13.4 11.0 - 15.0 % LAB HEMETOLOGY METHOD 04/09/2024 11:31 AM EST [facility] Platelets 319 130 - 400 K/mcL LAB HEMETOLOGY METHOD 04/09/2024 11:31 AM [facility] MPV 10.4 7.0 - 11.0 FL LAB HEMETOLOGY METHOD 04/09/2024 11:31 AM [facility] NRBC 0.0 <1.0 % LAB HEMETOLOGY METHOD 04/09/2024 11:31 AM [facility] NRBC Absolute 0.00 <0.10 K/mcL LAB HEMETOLOGY METHOD 04/09/2024 11:31 AM [facility] Blood Venous blood specimen / Unknown Venipuncture / Unknown 04/09/2024 5:24 AM EST 04/09/2024 10:58 AM EST us Harjit Khoury MD LAB BLOOD ORDERABLES Final Resul t Performing Organization Address City/[facility]/ZIP Co de Phone Number [facility] [address] [place] [address], [place] [phone] * Thyroid stimulating hormone (04/09/2024 5:24 AM EST) TSH 3.07 0.40 - 4.00 mcIU/mL LAB CHEMISTRY METHOD 04/09/2024 12:13 PM EST [facility] Blood Venous blood specimen / Unknown Venipuncture / Unknown 04/09/2024 5:24 AM EST 04/09/2024 10:58 AM EST us Harjit Khoury MD LAB BLOOD ORDERABLES Final Resul t [facility] [address] [place] [address], [place] [phone] * Folate (04/09/2024 5:24 AM EST) [facility] Folate 6.4 2.8 - 17.0 ng/ml LAB CHEMISTRY METHOD 04/09/2024 12:42 PM EST [facility] Blood Venous blood specimen / Unknown Venipuncture / Unknown 04/09/2024 5:24 AM EST 04/09/2024 10:58 AM EST us Harjit Khoury MD LAB BLOOD ORDERABLES Final Resul t [facility] [address] [place] [address], [place] [phone] * Vitamin B12 (04/09/2024 5:24 AM EST) [facility] Vitamin B-12 466 250 - 900 pcg/mL LAB CHEMISTRY METHOD 04/09/2024 12:42 PM [facility] Blood Venous blood specimen / Unknown Venipuncture / Unknown 04/09/2024 5:24 AM EST 04/09/2024 10:58 AM EST us Harjit Khoury MD LAB BLOOD ORDERABLES Final Resul t Performing Organization Address [facility]/ZIP Co de Phone Number [facility] [address] [place] [address], [place] [phone] * Comprehensive metabolic panel (04/09/2024 5:24 AM EST) [facility] Sodium 136 133 - 145 mmol/L LAB CHEMISTRY METHOD 04/09/2024 12:42 PM EST [facility] Potassium 4.2 3.5 - 5.5 mmol/L LAB CHEMISTRY METHOD 04/09/2024 12:42 PM [facility] Chloride 107 96 - 110 mmol/L LAB CHEMISTRY METHOD 04/09/2024 12:42 PM EST [facility] CO2 26 21 - 32 mmol/L LAB CHEMISTRY METHOD 04/09/2024 12:42 PM [facility] Anion Gap 3 3 - 11 LAB CHEMISTRY METHOD 04/09/2024 12:42 PM [facility] Glucose 88 70 - 100 mg/dL LAB CHEMISTRY METHOD 04/09/2024 12:42 PM [facility] BUN 11 5 - 25 mg/dL LAB CHEMISTRY METHOD 04/09/2024 12:42 PM [facility] Creatinine 0.75 0.50 - 1.10 mg/dL LAB CHEMISTRY METHOD 04/09/2024 12:42 PM [facility] eGFR 91 >=60 mL/min/1. 73m2 LAB CHEMISTRY METHOD 04/09/2024 12:42 PM [facility] Comment:Calculation based on the??Chronic Kidney Disease Epidemiology Collaboration (CKD-EPI) equation refit??without adjustment for race. BUN/Creatinine Ratio 14.7 LAB CHEMISTRY METHOD 04/09/2024 12:42 PM [facility] Calcium 9.9 8.5 - 10.5 mg/dL LAB CHEMISTRY METHOD 04/09/2024 12:42 PM [facility] AST (SGOT) 16 10 - 42 unit/L LAB CHEMISTRY METHOD 04/09/2024 12:42 PM [facility] ALT (SGPT) 18 10 - 60 unit/L LAB CHEMISTRY METHOD 04/09/2024 12:42 PM [facility] Alkaline Phosphatase 64 42 - 121 unit/L LAB CHEMISTRY METHOD 04/09/2024 12:42 PM [facility] Total Protein 7.3 6.0 - 8.0 g/dL LAB CHEMISTRY METHOD 04/09/2024 12:42 PM [facility] Albumin 3.6 3.2 - 5.0 g/dL LAB CHEMISTRY METHOD 04/09/2024 12:42 PM [facility] Total Bilirubin 0.5 0.0 - 1.4 mg/dL LAB CHEMISTRY METHOD 04/09/2024 12:42 PM [facility] [place] ([facility] Blood Venous blood specimen / Unknown Venipuncture / Unknown 04/09/2024 5:24 AM EST 04/09/2024 10:58 AM EST Harjit Khoury MD LAB BLOOD ORDERABLES Final Resul t [facility] [address] [place] [address], from Last 3 Months Insurance MEDICAID - [place] AET[employer] Care Teams Gold Marker Relationship Specialty Start Date End Date Harjit Khoury MD [address] [place] [address] [address] [place] [address] PCP - General Geriatric Medicine 04/09/24
== END 2024-04-23 10:45 | disposition home or self-care (01) ==
LOC: HO.HOSX 10:44
PROVIDERS: Visit Provider Physician Assistant
DX: S82.852D Displaced trimalleolar fracture of left lower leg, subsequent encounter for closed fracture with routine healing (principal); G81.90 Hemiplegia, unspecified affecting unspecified side; I69.30 Unspecified sequelae of cerebral infarction
CPT/HCPCS: 29405; 73610; 99212

== ENCOUNTER 2024-04-23 11:02 | Outpatient (AMB) | payer MEDICARE, MEDICAID, SELFPAY ==
--- NOTE | 2024-04-23 11:07 | A.OFFVIS_ITS ---
Intake Visit Reasons: OV-LT ankle fx, DOI 04/06/24-w/xrays Intake Note: Maya is a 63 year old female who presents today for a follow up of her left trimalleolar ankle fx, DOI 04/06/24. Patient reports her pain is a 10/10 on the pain scale. Denies numbness and tingling in her toes. Allergies perfume Allergy (Intermediate, Verified 04/23/24 11:29) Shortness of Breath Seasonal Allergies Allergy (Intermediate, Verified 04/23/24 11:29) Watery Eye, sneezing HPI HPI OV-LT ankle fx, DOI 04/06/24-w/xrays: Details: Ms. Cain is a 63-year-old female with a complicated past medical history of CVA with left-sided hemiparesis who presents to the office today for routine follow-up of a left ankle trimalleolar fracture that she sustained on 04/06/2024. At her last appointment on 04/14/2024 the patient was placed back into a posterior splint and instructed to non weightbear. The case was discussed with Dr. Ma and due to the comorbidities of the patient the decision was made to treat this nonoperatively. [facility] Medical History HTN (hypertension) Nicotine dependence, cigarettes, uncomplicated Mass of left thigh Suspected exposure to mold Left leg swelling Obesity (BMI 30-39.9) Hemiparesis (~2017) ADHD (attention deficit hyperactivity disorder) Hypercalcemia Anxiety Hyperparathyroidism Sleep apnea in adult History of asthma History of CVA with residual deficit (~2017) Allergic rhinitis Surgical History History of biopsy History of hand surgery History of hysterectomy History of tubal ligation History of History of colonoscopy History of bilateral breast reduction surgery History of tonsillectomy S/P Botox injection Hx of arthroscopy of left knee Family History Father HTN (hypertension) Mother HTN (hypertension) Social History Household Members: None Housing: House Alcohol intake: current Alcohol intake frequency: does not drink Comment: left sided hemiparesis walks wih cane Patient Tobacco Use Status: Former Tobacco user Tobacco use type: Cigarette Years Smoked: 2017 stopped 2.5 packs /20 years e-Cigarette/Vaping Use: Never Used Second Hand Smoke Exposure: No service: No Current occupational status: disabled Cognitive needs: No Hearing needs: No Vision needs: No Female Reproductive History Menstrual Age of Menarche: 15 Review of Systems Const All systems reviewed & are unremarkable except as noted in HPI and below Physical Exam Const General: cooperative, healthy appearing and no acute distress Resp Effort & Inspection: normal respiratory effort and able to speak in complete sentences Cardio Rate: regular rate Peripheral pulses: Peripheral pulses 2+ throughout Skin Lesions: no lesions Rashes: no rashes Extrem Other: Left ankle mild to moderate circumferential edema. Able to slightly dorsiflex and plantar flex. Sensation is diminished at baseline but reportedly normal for the patient. Pedal pulse intact. Office Procedures Casting/Splints [id number] Leg Cast Application Procedure code (CPT) selection complete Assessment & Plan Assessment & Plan (1) Closed trimalleolar fracture of left ankle: Code(s): S82.852A - Displaced trimalleolar fracture of left lower leg, initial encounter for closed fracture Category: Medical (2) History of CVA with residual deficit: Onset Date: ~2016 Comment: (CVA with left-sided weakness - 10/2016) Code(s): I69.30 - Unspecified sequelae of cerebral infarction Category: Medical (3) Hemiparesis: Onset Date: ~2016 Comment: (left side s/p CVA 10/2016, walks with cane) Code(s): G81.90 - Hemiplegia, unspecified affecting unspecified side Category: Medical Plan Ms. Cain is a 63-year-old female with a complicated past medical history of CVA with left-sided hemiparesis who presents to the office today for routine follow-up of a left ankle trimalleolar fracture that she sustained on 04/06/2024. At her last appointment on 04/14/2024 the patient was placed back into a posterior splint and instructed to non weightbear. The case was discussed with Dr. Ma and due to the comorbidities of the patient the decision was made to treat this nonoperatively. While in the office today, I discussed the case with Dr. Ma in a collabora tive treatment plan was created. We will continue to treat this injury nonoperatively. The patient was placed into a short-leg cast. Patient was educated on cast maintenance and instructed to keep the cast clean, dry, and intact. However, should the cast become wet, dirty, damaged, or there are any concerns please call the office immediately for a cast change. Additionally, I did place these recommendations in the consult sheet that the patient came with from [facility]. The patient will continue nonweightbearing of the left lower extremity. She will follow up in 4 weeks with repeat x-rays, sooner if needed. X-rays of the left which were obtained while in the office today and were reviewed by me, Gege Galvez PA-C, revealed redemonstration of trimalleolar fracture. Orders: Orders XR ankle LT min 3V Today M25.579 - Pain in unspecified ankle and joints of unspecified foot Coding Level of Care Code Global (60070) Diagnoses Closed trimalleolar fracture of left ankle S82.852A History of CVA with residual deficit I69.30 Hemiparesis G81.90 CPT Codes Casting - CPT: 53995-[id number] Leg Cast Application ([id number])
--- OUTSIDE RECORDS SUMMARY | 2024-04-23 13:16 | XMS_ITS | Encounter Summary ---
Author Organization [employer] Address [address] [place] [address] Care Team Providers Care Back Tender Cloth Printing Name Role Phone Harjit Khoury MD Primary Care Provider [phone] Encounter Details Date Type Department Care Team (Late st Contact Info) Description 04/09/2024 Lab Requisition [facility] - Main Lab [address] [facility] [place] [address] Harjit Khoury MD [address] [place] [address] Essential (primary) hypertension; Vitamin D deficiency, unspecified [...] hydroxy (04/09/2024 5:24 AM EST) Pathologist [facility] Vit D, 25-Hydroxy 10.1(L) 30.0 - 80.0 ng/mL LAB CHEMISTRY METHOD 04/09/2024 12:13 PM EST [facility] Blood Venous blood specimen / Unknown Venipuncture / Unknown 04/09/2024 5:24 AM EST 04/09/2024 10:58 AM EST us Harjit Khoury MD LAB BLOOD ORDERABLES Final Resul t Performing Organization Address [facility] [place]/[facility] Co de Phone Number [facility] LAB [address] [place] [address], * Folate (04/09/2024 5:24 AM EST) Pathologist [facility] Folate 6.4 2.8 - 17.0 ng/ml LAB CHEMISTRY METHOD 04/09/2024 12:42 PM EST [facility] LAB Blood Venous blood specimen / Unknown Venipuncture / Unknown 04/09/2024 5:24 AM EST 04/09/2024 10:58 AM EST us Harjit Khoury MD LAB BLOOD ORDERABLES Final Resul t Performing Organization Address City/[facility] [place]/ZIP Co de Phone Number [facility] [address] [place] [address], [place] [phone] * Thyroid stimulating hormone (04/09/2024 5:24 AM EST) [facility] TSH 3.07 0.40 - 4.00 mcIU/mL LAB CHEMISTRY METHOD 04/09/2024 12:13 PM EST [facility] Blood Venous blood specimen / Unknown Venipuncture / Unknown 04/09/2024 5:24 AM EST 04/09/2024 10:58 AM EST us Harjit Khoury MD LAB BLOOD ORDERABLES Final Resul t [facility] [address] [place] [address], [place] [phone] * Vitamin B12 (04/09/2024 5:24 AM EST) [facility] Vitamin B-12 466 250 - 900 pcg/mL LAB CHEMISTRY METHOD 04/09/2024 12:42 PM [facility] LAB Blood Venous blood specimen / Unknown Venipuncture / Unknown 04/09/2024 5:24 AM EST 04/09/2024 10:58 AM EST us Harjit Khoury MD LAB BLOOD ORDERABLES Final Resul t Performing Organization Address City/[facility] [place]/ZIP Co de Phone Number [facility] [address] [place] [address], [place] [phone] * Comprehensive metabolic panel (04/09/2024 5:24 AM EST) [facility] Sodium 136 133 - 145 mmol/L LAB CHEMISTRY METHOD 04/09/2024 12:42 PM [facility] Potassium 4.2 3.5 - 5.5 mmol/L LAB CHEMISTRY METHOD 04/09/2024 12:42 PM [facility] Chloride 107 96 - 110 mmol/L LAB CHEMISTRY METHOD 04/09/2024 12:42 PM [facility] CO2 26 21 - 32 mmol/L LAB CHEMISTRY METHOD 04/09/2024 12:42 PM [facility] Anion Gap 3 3 - 11 LAB CHEMISTRY METHOD 04/09/2024 12:42 PM [facility] LAB Glucose 88 70 - 100 mg/dL LAB CHEMISTRY METHOD 04/09/2024 12:42 PM [facility] BUN 11 5 - 25 mg/dL LAB CHEMISTRY METHOD 04/09/2024 12:42 PM [facility] Creatinine 0.75 0.50 - 1.10 mg/dL LAB CHEMISTRY METHOD 04/09/2024 12:42 PM [facility] LAB eGFR 91 >=60 mL/min/1. 73m2 LAB CHEMISTRY METHOD 04/09/2024 12:42 PM [facility] LAB Comment:Calculation based on the??Chronic Kidney Disease Epidemiology Collaboration (CKD-EPI) equation refit??without adjustment for race. BUN/Creatinine Ratio 14.7 LAB CHEMISTRY METHOD 04/09/2024 12:42 PM [facility] LAB Calcium 9.9 8.5 - 10.5 mg/dL LAB CHEMISTRY METHOD 04/09/2024 12:42 PM [facility] LAB AST (SGOT) 16 10 - 42 unit/L LAB CHEMISTRY METHOD 04/09/2024 12:42 PM [facility] ALT (SGPT) 18 10 - 60 unit/L LAB CHEMISTRY METHOD 04/09/2024 12:42 PM [facility] Alkaline Phosphatase 64 42 - 121 unit/L LAB CHEMISTRY METHOD 04/09/2024 12:42 PM [facility] Total Protein 7.3 6.0 - 8.0 g/dL LAB CHEMISTRY METHOD 04/09/2024 12:42 PM [facility] Albumin 3.6 3.2 - 5.0 g/dL LAB CHEMISTRY METHOD 04/09/2024 12:42 PM [facility] Total Bilirubin 0.5 0.0 - 1.4 mg/dL LAB CHEMISTRY METHOD 04/09/2024 12:42 PM [facility] LAB Blood Venous blood specimen / Unknown Venipuncture / Unknown 04/09/2024 5:24 AM EST 04/09/2024 10:58 AM EST us Harjit Khoury MD LAB BLOOD ORDERABLES Final Resul t [facility] [address] [place] [address], * (ABNORMAL) Complete blood count (04/09/2024 5:24 AM EST) WBC 8.6 4.8 - 10.8 K/mcL LAB HEMETOLOGY METHOD 04/09/2024 11:31 AM EST [facility] RBC 4.50 3.80 - 4.80 M/mcL LAB HEMETOLOGY METHOD 04/09/2024 11:31 AM [facility] Hemoglobin 12.3 11.5 - 16.0 g/dL LAB HEMETOLOGY METHOD 04/09/2024 11:31 AM [facility] LAB Hematocrit 39.2 35.0 - 47.0 % LAB HEMETOLOGY METHOD 04/09/2024 11:31 AM [facility] LAB MCV 86.7 79.0 - 98.0 FL LAB HEMETOLOGY METHOD 04/09/2024 11:31 AM [facility] MCH 27.2 27.0 - 32.0 pcg LAB HEMETOLOGY METHOD 04/09/2024 11:31 AM [facility] LAB MCHC 31.4(L) 32.0 - 37.0 g/dL LAB HEMETOLOGY METHOD 04/09/2024 11:31 AM [facility] RDW 13.4 11.0 - 15.0 % LAB HEMETOLOGY METHOD 04/09/2024 11:31 AM [facility] LAB Platelets 319 130 - 400 K/mcL LAB HEMETOLOGY METHOD 04/09/2024 11:31 AM [facility] LAB MPV 10.4 7.0 - 11.0 FL LAB HEMETOLOGY METHOD 04/09/2024 11:31 AM [facility] NRBC 0.0 <1.0 % [...] t [facility] [address] [place] [address], documented in this encounter Visit Diagnoses Diagnosis Essential (primary) hypertension Unspecified essential hypertension Vitamin D deficiency, unspecified documented in this encounter Care Teams Back Tender Cloth Printing Relationship Specialty Start Date End Date Harjit Khoury MD [address] [place] [address] [address] [place] [address] PCP - General Geriatric Medicine 04/09/24 documented as of this encounter
--- OUTSIDE RECORDS SUMMARY | 2024-04-23 13:16 | XMS_ITS | Clinical Summary ---
Author Organization [address] [facility] Address [address] [place] [address] Phone Care Team Providers Care Local Delivery Truck Driver Name Role Phone Harjit Khoury MD Primary Care Provider [phone] Encounters Date Type Department Care Team Description 04/09/2024 Lab Requisition [facility] - Main Lab [address] [facility] [place] [address] Harjit Khoury MD Essential (primary) [...] ng/mL LAB CHEMISTRY METHOD 04/09/2024 12:13 PM [facility] Blood Venous blood specimen / Unknown Venipuncture / Unknown 04/09/2024 5:24 AM EST 04/09/2024 10:58 AM EST us Harjit Khoury MD LAB BLOOD ORDERABLES Final Resul t [facility] [address] [place] [address], * (ABNORMAL) Complete blood count (04/09/2024 5:24 AM EST) [facility] WBC 8.6 4.8 - 10.8 K/mcL LAB HEMETOLOGY METHOD 04/09/2024 11:31 AM [facility] RBC 4.50 3.80 - 4.80 M/mcL LAB HEMETOLOGY METHOD 04/09/2024 11:31 AM [facility] Hemoglobin 12.3 11.5 - 16.0 g/dL LAB HEMETOLOGY METHOD 04/09/2024 11:31 AM [facility] Hematocrit 39.2 35.0 - 47.0 % LAB HEMETOLOGY METHOD 04/09/2024 11:31 AM [facility] MCV 86.7 79.0 - 98.0 FL LAB HEMETOLOGY METHOD 04/09/2024 11:31 AM [facility] MCH 27.2 27.0 - 32.0 pcg LAB HEMETOLOGY METHOD 04/09/2024 11:31 AM [facility] MCHC 31.4(L) 32.0 - 37.0 g/dL LAB HEMETOLOGY METHOD 04/09/2024 11:31 AM [facility] RDW 13.4 11.0 - 15.0 % LAB HEMETOLOGY METHOD 04/09/2024 11:31 AM EST [facility] Platelets 319 130 - 400 K/mcL LAB HEMETOLOGY METHOD 04/09/2024 11:31 AM [facility] MPV 10.4 7.0 - 11.0 FL LAB HEMETOLOGY METHOD 04/09/2024 11:31 AM [facility] NRBC 0.0 <1.0 % LAB HEMETOLOGY METHOD 04/09/2024 11:31 AM [facility] NRBC Absolute 0.00 <0.10 K/mcL LAB HEMETOLOGY METHOD 04/09/2024 11:31 AM [facility] Blood Venous blood specimen / Unknown Venipuncture / Unknown 04/09/2024 5:24 AM EST 04/09/2024 10:58 AM EST us Harjit Khoury MD LAB BLOOD ORDERABLES Final Resul t Performing Organization Address City/[facility]/ZIP Co de Phone Number [facility] [address] [place] [address], [place] [phone] * Thyroid stimulating hormone (04/09/2024 5:24 AM EST) TSH 3.07 0.40 - 4.00 mcIU/mL LAB CHEMISTRY METHOD 04/09/2024 12:13 PM EST [facility] Blood Venous blood specimen / Unknown Venipuncture / Unknown 04/09/2024 5:24 AM EST 04/09/2024 10:58 AM EST us Harjit Khoury MD LAB BLOOD ORDERABLES Final Resul t [facility] [address] [place] [address], [place] [phone] * Folate (04/09/2024 5:24 AM EST) [facility] Folate 6.4 2.8 - 17.0 ng/ml LAB CHEMISTRY METHOD 04/09/2024 12:42 PM EST [facility] Blood Venous blood specimen / Unknown Venipuncture / Unknown 04/09/2024 5:24 AM EST 04/09/2024 10:58 AM EST us Harjit Khoury MD LAB BLOOD ORDERABLES Final Resul t [facility] [address] [place] [address], [place] [phone] * Vitamin B12 (04/09/2024 5:24 AM EST) [facility] Vitamin B-12 466 250 - 900 pcg/mL LAB CHEMISTRY METHOD 04/09/2024 12:42 PM [facility] Blood Venous blood specimen / Unknown Venipuncture / Unknown 04/09/2024 5:24 AM EST 04/09/2024 10:58 AM EST us Harjit Khoury MD LAB BLOOD ORDERABLES Final Resul t Performing Organization Address [facility]/ZIP Co de Phone Number [facility] [address] [place] [address], [place] [phone] * Comprehensive metabolic panel (04/09/2024 5:24 AM EST) [facility] Sodium 136 133 - 145 mmol/L LAB CHEMISTRY METHOD 04/09/2024 12:42 PM EST [facility] Potassium 4.2 3.5 - 5.5 mmol/L LAB CHEMISTRY METHOD 04/09/2024 12:42 PM [facility] Chloride 107 96 - 110 mmol/L LAB CHEMISTRY METHOD 04/09/2024 12:42 PM EST [facility] CO2 26 21 - 32 mmol/L LAB CHEMISTRY METHOD 04/09/2024 12:42 PM [facility] Anion Gap 3 3 - 11 LAB CHEMISTRY METHOD 04/09/2024 12:42 PM [facility] Glucose 88 70 - 100 mg/dL LAB CHEMISTRY METHOD 04/09/2024 12:42 PM [facility] BUN 11 5 - 25 mg/dL LAB CHEMISTRY METHOD 04/09/2024 12:42 PM [facility] Creatinine 0.75 0.50 - 1.10 mg/dL LAB CHEMISTRY METHOD 04/09/2024 12:42 PM [facility] eGFR 91 >=60 mL/min/1. 73m2 LAB CHEMISTRY METHOD 04/09/2024 12:42 PM [facility] Comment:Calculation based on the??Chronic Kidney Disease Epidemiology Collaboration (CKD-EPI) equation refit??without adjustment for race. BUN/Creatinine Ratio 14.7 LAB CHEMISTRY METHOD 04/09/2024 12:42 PM [facility] Calcium 9.9 8.5 - 10.5 mg/dL LAB CHEMISTRY METHOD 04/09/2024 12:42 PM [facility] AST (SGOT) 16 10 - 42 unit/L LAB CHEMISTRY METHOD 04/09/2024 12:42 PM [facility] ALT (SGPT) 18 10 - 60 unit/L LAB CHEMISTRY METHOD 04/09/2024 12:42 PM [facility] Alkaline Phosphatase 64 42 - 121 unit/L LAB CHEMISTRY METHOD 04/09/2024 12:42 PM [facility] Total Protein 7.3 6.0 - 8.0 g/dL LAB CHEMISTRY METHOD 04/09/2024 12:42 PM [facility] Albumin 3.6 3.2 - 5.0 g/dL LAB CHEMISTRY METHOD 04/09/2024 12:42 PM [facility] Total Bilirubin 0.5 0.0 - 1.4 mg/dL LAB CHEMISTRY METHOD 04/09/2024 12:42 PM [facility] [place] [facility] Blood Venous blood specimen / Unknown Venipuncture / Unknown 04/09/2024 5:24 AM EST 04/09/2024 10:58 AM EST Harjit Khoury MD LAB BLOOD ORDERABLES Final Resul t [facility] [address] [place] [address], from Last 3 Months Insurance MEDICAID - [place] AET[place] Care Teams Local Delivery Truck Driver Relationship Specialty Start Date End Date Harjit Khoury MD [address] [place] [address] [address] [place] [address] PCP - General Geriatric Medicine 04/09/24
--- OUTSIDE RECORDS SUMMARY | 2024-04-23 13:16 | XMS_ITS | Data Portability ---
Author Organization [facility] Address [address] [place] [address] Care Team Providers Care Death Surveys Coder Name Role Phone PRAKASH MON Primary Care [...] 2023 024 [facility] [place], [address], [place], [address], 5 15:23:20 Procedures None recorded. Surgeries None recorded. Imaging XR, wrist, 3 or more view - room 113 3V L wrist 2023 024 [facility], [address], [place], [address], 5 15:23:19 XR, wrist, 3 or more view - rm.[email or web address] 3 v of the L wrist 2023 024 [facility], [address], [address], [place], [address], 4 07:59:37 XR, wrist, 3 or more view - RM 119 3V 2023 024 [email or web address], [address], [address], [place], [address], 4 15:56:17 Medication Orders None recorded. Patient TargetsNo targets recorded. Patient Instructions Encounter Date Encounter Id Patient Instructions Last Modified By Organization Details Last Modified Time 01/10/[id number] application of cast, short arm cast* - RM 119 [facility] [email or web address] Not available 01/13/2024 15:56:17 01/17/[id number] application of cast, short arm cast* leisa [...] aYqtaq 0bqfl% 2Fg9IQ a4ajBk vP9nXo QUaueC m3YtLR FvZl[address] 2x3496 AC0Kqa X2DV6K gKiQtr MwF INTERFACE [facility] [address] [facility] [address], [place], [address], 01/10/2024 11:13:21 01/10/20 24 01/10/2024 XR, wrist , 3 or more view [email or web address]:/ [email or web address] ?Encry pted=s hAaTro YD8dLq bEUv6g %2BXZw aYqtaq 0bqfl% 2Fg9IQ a4ajBk vP9nXo QUaueC m3YtLR [address]tai[address] 6b3553 AC0Kqa X2DV6K gKiQtr MwF INTERFACE [facility] [address], [place], [address], 01/10/2024 11:13:24 01/17/20 24 01/17/2024 XR, wrist , 3 or more view [email or web address]:/ [email or web address] ?Encry pted=s hAaTro YD8dLq bEUv6g %2BXZw aYqtaq 0bqfl% 2Fg9IQ a4ajBk vP9nXo QUaueC m3YtLR FvZl[address] 9h9832 AC0Kqa X6CWae hKiQtr MwF INTERFACE [facility] [address] [facility] [address] [address], [place], [address], 01/17/2024 12:04:14 01/17/20 24 01/17/2024 XR, wrist , 3 or more view http:/ [email or web address] ?Encry pted=s hAaTro YD8dLq bEUv6g %2BXZw aYqtaq 0bqfl% 2Fg9IQ a4ajBk vP9nXo QUaueC m3YtLR FvZlgJ [place] HZtai3 7b9827 AC0Kqa X6CWae hKiQtr MwF INTERFACE [facility] [address] [address], [place], [address], 01/17/2024 12:04:16 02/07/20 24 02/07/2024 XR, wrist , 3 or more view http:/ [email or web address] ?Encry pted=s hAaTro YD8dLq bEUv6g %2BXZw aYqtaq 0bqfl% 2Fg9IQ a4ajBk vP9nXo QUaueC m3YtLR FvZlgJ JJ8mAn HZtai3 5y8644 AC0Kqb nyMWKa uKiQtr MwF INTERFACE [facility] [address] [facility] [address] [address], [place], [address], 02/07/2024 10:33:47 02/07/20 24 02/07/2024 XR, wrist , 3 or more view http:/ [email or web address] ?Encry pted=s hAaTro YD8dLq bEUv6g %2BXZw aYqtaq 0bqfl% 2Fg9IQ a4ajBk vP9nXo QUaueC m3YtLR FvZlgJ JJ8mAn HZtai3 2c4644 AC0Kqb nyMWKa uKiQtr MwF INTERFACE [facility] [address], [place], [address], 02/07/2024 10:33:49 Result Notes None recorded. Procedures Surgical History None recorded. Imaging Results Imaging Date Name Status LastModified by [facility] Details LastModified Time 01/10/2024 XR, wrist, 3 or more view completed INTERFACE [facility] [address], [place], [address], 01/10/2024 11:13:21 01/10/2024 XR, wrist, 3 or more view completed INTERFACE [facility] [address], [place], [address], 01/10/2024 11:13:24 01/17/2024 XR, wrist, 3 or more view completed INTERFACE [facility] [address], [place], [address], 01/17/2024 12:04:14 01/17/2024 XR, wrist, 3 or more view completed INTERFACE [facility] [address], [place], [address], 01/17/2024 12:04:16 02/07/2024 XR, wrist, 3 or more view completed INTERFACE [facility] [address], [place], [address], 02/07/2024 10:33:47 02/07/2024 XR, wrist, 3 or more view completed INTERFACE [facility] [address], [place], [address], 02/07/2024 10:33:49 Procedure Notes None recorded. Medical [...] Updated DateTime 01/10/2024 162.56 cm 33.5 kg/m2 64345.51 g SONY MAJOR [facility] 01/10/2024 11:04:19 Date Recorded Body height Body mass index (BMI) Body weight Provider Name and Address Organization Details Last Updated DateTime 01/17/2024 162.56 cm 34.3 kg/m2 29160.47 g connie spencer [facility] 01/17/2024 11:50:48 Date Recorded Body height Body mass index (BMI) Body weight Provider Name and Address Organization Details Last Updated DateTime 02/07/2024 162.56 cm 34.3 kg/m2 82080.47 g STEFANI BABAR [place] [facility] [place] [facility] 02/07/2024 10:14:34 [...] SNOMED-CT Code Diagnosis ICD10 Code Diagnosis Note [id number] MANUELITO Jeffersnisarthak [address] [place] [address] 01/10/2024 10:35:31 01/29/2024 10:07:21 Pain of left wrist 2794288707 83960 M25.106 [id number] MD Antonia Laws [address] [place] [address] 01/17/2024 11:18:11 02/05/2024 07:59:37 Pain of left wrist 6775724130 56803 M25.532 Closed Col les' fracture [id number] S52.532D [id number] MD Antonia Laws [address] [place] [address] 02/07/2024 10:01:00 02/27/2024 15:23:19 Pain of left wrist 7044632759 23407 M25.532 Closed Col les' fracture [id number] S52.532D Health Concerns Section Related Observation LastModified by Organization Detai ls LastModified Time None Recorded Concern Status LastModified by Organization Details LastModified Time None Recorded Advance Directives Directive None Recorded Payers Encounter Date Sequence Insurance Name Policy Number Policy Alvarado Covered Member ID Alvarado Member ID Guarantor Name 01/10/2024 2 [place] Maya Cain [id number] Maya Cain 01/10/2024 1 A[employer] (MEDICARE REPLACEMENT PPO) [id number] Maya Cain [id number] Maya Cain 01/17/2024 2 [place] Maya Cain [id number] Maya Cain 01/17/2024 1 [employer] (MEDICARE REPLACEMENT PPO) [id number] Maya Leahyle [id number] Maya Cain 02/07/2024 2 [place] [facility] Maya Cain [id number] Maya Cain 02/07/2024 1 [employer]ET[employer] (MEDICARE REPLACEMENT PPO) [id number] Maya Leahyle [id number] Maya Cain Notes Date Note Type Note [...] ordered, obtained and reviewed at [facility] m3 views left wrist reveals a [...] motion and strengthening. Tabitha Redman PA-C [address] [employer] [facility], [place], [address], [facility] 01/10/2024 13:48:27 01/17/2024 text/html DX: Left distal radius An ulnar styloid process fracture 12/30/2023Left-sided hemiparesis from previous CVA HPI:63-year-old female here for orthopedic consultation. Patient fell onto the outstretched hand and injured the left wrist. Fracture is being treated conservatively. She has been in a splint Latanya Hughes MD [address] [address], [place], [address], [facility] 01/17/2024 17:00:21 02/07/2024 text/html DX: Left distal radius and ulnar styloid process fracture 12/30/2023Left-sided hemiparesis from previous CVA HPI:63-year-old female here for orthopedic consultation. Patient fell onto the outstretched hand and injured the left wrist. Fracture is being treated conservatively. She reports that the cast applied at her most recent visit quickly fell off. Latanya Hughes MD [address], [place], [address], [facility] 02/07/2024 12:27:02 OBGyn Episode No OBEpisode recorded.
== END 2024-04-23 12:04 | disposition home or self-care (01) ==
PROVIDERS: PCP Internal Medicine; Visit Provider Physician Assistant
DX: S82.852A Displaced trimalleolar fracture of left lower leg, initial encounter for closed fracture (principal); I69.30 Unspecified sequelae of cerebral infarction; G81.90 Hemiplegia, unspecified affecting unspecified side
CPT/HCPCS: 29405; 99024

== ENCOUNTER → 2024-04-23 11:09 | Outpatient (BNV) | payer MEDICARE, MEDICAID, SELFPAY | PROVIDERS: Visit Provider Specialist | DX: M25.572 Pain in left ankle and joints of left foot (principal) | CPT/HCPCS: 73610 ==

== ENCOUNTER 2024-05-21 09:00 | Outpatient (REF) | payer MEDICARE, MEDICAID, SELFPAY ==
--- NOTE | ~2024-05-21 | XR_ITS ---
EXAMINATION: XR ANKLE 3 OR MORE VIEWS LEFT HISTORY: M25.579 - Pain in unspecified ankle and joints of unspecified foot COMPARISON: Comparison is made with the prior examination dated 04/23/2024. FINDINGS: Three views of the left ankle are submitted. The bones are osteopenic. Again seen is a fracture of the medial malleolus which is mildly displaced. The fracture margins are corticated suggestive of nonunion. There is callus formation noted at the site of the previously seen distal fibular fracture with healing. Again seen is a posterior malleolar fracture. The fracture line is less well visualized, consistent with healing. The joint spaces are preserved. There is a small plantar calcaneal spur. The soft tissues are unremarkable. XR/XR ankle LT min 3V IMPRESSION: 1. 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 2. Healing fractures of the distal fibula and posterior malleolus. Electronically signed by: Leland Alcazar MD 05/21/2024 01:32 PM EDT
== END 2024-05-21 09:01 | disposition home or self-care (01) ==
LOC: HO.HOSX 09:00
PROVIDERS: Visit Provider Physician Assistant
DX: M25.572 Pain in left ankle and joints of left foot (principal); S82.852A Displaced trimalleolar fracture of left lower leg, initial encounter for closed fracture
CPT/HCPCS: 73610; 99212

== ENCOUNTER 2024-05-21 10:02 | Outpatient (AMB) | payer MEDICARE, MEDICAID, SELFPAY ==
--- NOTE | 2024-05-21 10:42 | MHC.OFFVIS ---
Vital Signs 05/21/24 10:49 Height 5 ft 4 in Weight 200 lb BMI 34.3 Intake Visit Reasons: OV-LT Ankle Fx 04/06/24- Cast off W XR Intake Note: Maya is a 64 year old female who presents today for a follow up of her Left Ankle Fracture 04/06/24. Patient was going down the stairs when her leg gave out and she twisted her ankle resulting in fracture. At he last visit she was placed in a short leg cast and instructed to remain non weight bearing. Patient is feeling better, she is having little to no pain. Allergies perfume Allergy (Intermediate, Verified 05/21/24 10:48) Shortness of Breath Seasonal Allergies Allergy (Intermediate, Verified 05/21/24 10:48) Watery Eye, sneezing HPI HPI OV-LT Ankle Fx 04/06/24- Cast off W XR: Details: Ms. Cain is a 64-year-old female presenting for followup for a trimalleolar fracture of the left ankle. I last saw the patient on April 23, 2024, where the patient was placed in a short leg cast and strict [id number]-[id number] instructions. 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 Treatment was decided to be nonoperative due to her pre-existing conditions affecting her left side. The patient is wheelchair-bound primarily but uses a rico walker for ambulation. 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 [facility] Medical History HTN (hypertension) Nicotine dependence, cigarettes, uncomplicated Mass of left thigh Suspected exposure to mold Left leg swelling Obesity (BMI 30-39.9) Hemiparesis (~2017) ADHD (attention deficit hyperactivity disorder) Hypercalcemia Anxiety Hyperparathyroidism Sleep apnea in adult History of asthma History of CVA with residual deficit (~2017) Allergic rhinitis Surgical History History of biopsy History of hand surgery History of hysterectomy History of tubal ligation History of History of colonoscopy History of bilateral breast reduction surgery History of tonsillectomy S/P Botox injection Hx of arthroscopy of left knee Family History Father HTN (hypertension) Mother HTN (hypertension) Social History Household Members: None Housing: House Alcohol intake: current Alcohol intake frequency: does not drink Comment: left sided hemiparesis walks wih cane Patient Tobacco Use Status: Former Tobacco user Tobacco use type: Cigarette Years Smoked: 2017 stopped 2.5 packs /20 years e-Cigarette/Vaping Use: Never Used Second Hand Smoke Exposure: No service: No Current occupational status: disabled Cognitive needs: No Hearing needs: No Vision needs: No Female Reproductive History Menstrual Age of Menarche: 15 Review of Systems Const All systems reviewed & are unremarkable except as noted in HPI and below Physical Exam Vital Signs: BMI result Body Mass Index 34.3 Const General: cooperative, healthy appearing and no acute distress Resp Effort & Inspection: normal respiratory effort and able to speak in complete sentences Cardio Rate: regular rate Peripheral pulses: Peripheral pulses 2+ throughout Skin Lesions: no lesions Rashes: no rashes Extrem Other: Left ankle mild to moderate circumferential edema. Able to slightly dorsiflex and plantar flex. Sensation is diminished at baseline but reportedly normal for the patient. Pedal pulse intact. Assessment & Plan Assessment & Plan (1) Closed trimalleolar fracture of left ankle: Code(s): S82.852A - Displaced trimalleolar fracture of left lower leg, initial encounter for closed fracture Category: Medical (2) Hemiparesis: Onset Date: ~2016 Comment: (left side s/p CVA 10/2016, walks with cane) Code(s): G81.90 - Hemiplegia, unspecified affecting unspecified side Category: Medical Plan Ms. Cain is a 64-year-old female presenting for followup for a trimalleolar fracture of the left ankle. I last saw the patient on April 23, 2024, where the patient was placed in a short leg cast and strict lrq-ywlmml-nvfprjh instructions. 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 Treatment was decided to be nonoperative due to her pre-existing conditions affecting her left side. The patient is wheelchair-bound primarily but uses a rico walker for ambulation. 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 The patient's trimalleolar fracture is healing as expected. The cast was removed today, and x-rays confirmed satisfactory healing progress. She was placed into a tall walking boot that was split off the shelf today. She is instructed to perform toe-touch weightbearing. She should continue this until she is 3 months status post her injury. During today's examination, I explained the current status of her healing trimalleolar fracture and the rationale for transitioning to a toe-touch weightbearing regimen. I discussed the importance of adhering to this and the potential risks of not following the recommended treatment plan, including delayed healing or further complications. The patient was informed of the benefits, including improved fracture stability and eventual resumption of normal ambulation. Follow-up is scheduled in six weeks to obtain repeat x-rays, with an earlier review if necessary. Imaging: X-rays of the left ankle obtained in the office today showed routine healing of the left ankle trimalleolar fracture. Orders: Orders XR ankle LT min 3V Today M25.579 - Pain in unspecified ankle and joints of unspecified foot Coding Level of Care Code Global (10923) Diagnoses Closed trimalleolar fracture of left ankle S82.852A Hemiparesis G81.90
[2024-05-21 10:49] VITALS: BMI 34.3
--- OUTSIDE RECORDS SUMMARY | 2024-05-21 12:37 | XMS_ITS | Clinical Summary ---
Author Organization 299 [facility] Address [address] [place] [address] Phone Care Team Providers Care Events And Promotions Assistant Name Role Phone Harjit Khoury MD Primary Care Provider [phone] Encounters Date Type Department Care Team Description 04/09/2024 Lab Requisition [facility] - Main Lab [address] [facility] [place] [address] Harjit Khoury MD Essential (primary) [...] hydroxy (04/09/2024 5:24 AM EST) Pathologist [facility] Vit D, 25-Hydroxy 10.1(L) 30.0 - 80.0 ng/mL LAB CHEMISTRY METHOD 04/09/2024 12:13 PM [facility] Blood Venous blood specimen / Unknown Venipuncture / Unknown 04/09/2024 5:24 AM EST 04/09/2024 10:58 AM EST us Harjit Khoury MD LAB BLOOD ORDERABLES Final Resul t [facility] [address] [place] [address], * (ABNORMAL) Complete blood count (04/09/2024 5:24 AM EST) [facility] WBC 8.6 4.8 - 10.8 K/mcL LAB HEMETOLOGY METHOD 04/09/2024 11:31 AM [facility] RBC 4.50 3.80 - 4.80 M/mcL LAB HEMETOLOGY METHOD 04/09/2024 11:31 AM [facility] Hemoglobin 12.3 11.5 - 16.0 g/dL LAB HEMETOLOGY METHOD 04/09/2024 11:31 AM [facility] Hematocrit 39.2 35.0 - 47.0 % LAB HEMETOLOGY METHOD 04/09/2024 11:31 AM [facility] MCV 86.7 79.0 - 98.0 FL LAB HEMETOLOGY METHOD 04/09/2024 11:31 AM [facility] MCH 27.2 27.0 - 32.0 pcg LAB HEMETOLOGY METHOD 04/09/2024 11:31 AM [facility] MCHC 31.4(L) 32.0 - 37.0 g/dL LAB HEMETOLOGY METHOD 04/09/2024 11:31 AM [facility] RDW 13.4 11.0 - 15.0 % LAB HEMETOLOGY METHOD 04/09/2024 11:31 AM EST [facility] Platelets 319 130 - 400 K/mcL LAB HEMETOLOGY METHOD 04/09/2024 11:31 AM [facility] MPV 10.4 7.0 - 11.0 FL LAB HEMETOLOGY METHOD 04/09/2024 11:31 AM [facility] NRBC 0.0 <1.0 % LAB HEMETOLOGY METHOD 04/09/2024 11:31 AM [facility] NRBC Absolute 0.00 <0.10 K/mcL LAB HEMETOLOGY METHOD 04/09/2024 11:31 AM [facility] Blood Venous blood specimen / Unknown Venipuncture / Unknown 04/09/2024 5:24 AM EST 04/09/2024 10:58 AM EST us Harjit Khoury MD LAB BLOOD ORDERABLES Final Resul t Performing Organization Address City/[facility]/ZIP Co de Phone Number [facility] [address] [place] [address], [place] [phone] * Thyroid stimulating hormone (04/09/2024 5:24 AM EST) TSH 3.07 0.40 - 4.00 mcIU/mL LAB CHEMISTRY METHOD 04/09/2024 12:13 PM EST [facility] Blood Venous blood specimen / Unknown Venipuncture / Unknown 04/09/2024 5:24 AM EST 04/09/2024 10:58 AM EST us Harjit Khoury MD LAB BLOOD ORDERABLES Final Resul t [facility] [address] [place] [address], [place] [phone] * Folate (04/09/2024 5:24 AM EST) [facility] Folate 6.4 2.8 - 17.0 ng/ml LAB CHEMISTRY METHOD 04/09/2024 12:42 PM EST [facility] Blood Venous blood specimen / Unknown Venipuncture / Unknown 04/09/2024 5:24 AM EST 04/09/2024 10:58 AM EST us Harjit Khoury MD LAB BLOOD ORDERABLES Final Resul t [facility] [address] [place] [address], [place] [phone] * Vitamin B12 (04/09/2024 5:24 AM EST) [facility] Vitamin B-12 466 250 - 900 pcg/mL LAB CHEMISTRY METHOD 04/09/2024 12:42 PM [facility] Blood Venous blood specimen / Unknown Venipuncture / Unknown 04/09/2024 5:24 AM EST 04/09/2024 10:58 AM EST us Harjit Khoury MD LAB BLOOD ORDERABLES Final Resul t Performing Organization Address [facility]/ZIP Co de Phone Number [facility] [address] [place] [address], [place] [phone] * Comprehensive metabolic panel (04/09/2024 5:24 AM EST) [facility] Sodium 136 133 - 145 mmol/L LAB CHEMISTRY METHOD 04/09/2024 12:42 PM EST [facility] Potassium 4.2 3.5 - 5.5 mmol/L LAB CHEMISTRY METHOD 04/09/2024 12:42 PM [facility] Chloride 107 96 - 110 mmol/L LAB CHEMISTRY METHOD 04/09/2024 12:42 PM EST [facility] CO2 26 21 - 32 mmol/L LAB CHEMISTRY METHOD 04/09/2024 12:42 PM [facility] Anion Gap 3 3 - 11 LAB CHEMISTRY METHOD 04/09/2024 12:42 PM [facility] Glucose 88 70 - 100 mg/dL LAB CHEMISTRY METHOD 04/09/2024 12:42 PM [facility] BUN 11 5 - 25 mg/dL LAB CHEMISTRY METHOD 04/09/2024 12:42 PM [facility] Creatinine 0.75 0.50 - 1.10 mg/dL LAB CHEMISTRY METHOD 04/09/2024 12:42 PM [facility] eGFR 91 >=60 mL/min/1. 73m2 LAB CHEMISTRY METHOD 04/09/2024 12:42 PM [facility] Comment:Calculation based on the??Chronic Kidney Disease Epidemiology Collaboration (CKD-EPI) equation refit??without adjustment for race. BUN/Creatinine Ratio 14.7 LAB CHEMISTRY METHOD 04/09/2024 12:42 PM [facility] Calcium 9.9 8.5 - 10.5 mg/dL LAB CHEMISTRY METHOD 04/09/2024 12:42 PM [facility] AST (SGOT) 16 10 - 42 unit/L LAB CHEMISTRY METHOD 04/09/2024 12:42 PM [facility] ALT (SGPT) 18 10 - 60 unit/L LAB CHEMISTRY METHOD 04/09/2024 12:42 PM [facility] Alkaline Phosphatase 64 42 - 121 unit/L LAB CHEMISTRY METHOD 04/09/2024 12:42 PM [facility] Total Protein 7.3 6.0 - 8.0 g/dL LAB CHEMISTRY METHOD 04/09/2024 12:42 PM [facility] Albumin 3.6 3.2 - 5.0 g/dL LAB CHEMISTRY METHOD 04/09/2024 12:42 PM [facility] Total Bilirubin 0.5 0.0 - 1.4 mg/dL LAB CHEMISTRY METHOD 04/09/2024 12:42 PM [facility] [place] [facility] Blood Venous blood specimen / Unknown Venipuncture / Unknown 04/09/2024 5:24 AM EST 04/09/2024 10:58 AM EST Harjit Khoury MD LAB BLOOD ORDERABLES Final Resul t [facility] [address] [place] [address], from Last 3 Months Insurance MEDICA[place] - [place] [employer] Care Teams Events And Promotions Assistant Relationship Specialty Start Date End Date Harjit Khoury MD [address] [place] [address] [address] [place] [address] PCP - General Geriatric Medicine 04/09/24
--- OUTSIDE RECORDS SUMMARY | 2024-05-21 12:37 | XMS_ITS | Encounter Summary ---
Author Organization [employer] Address [address] [place] [address] Care Team Providers Care Can Intake Worker Name Role Phone Harjit Khoury MD Primary Care Provider [phone] Encounter Details Date Type Department Care Team (Late st Contact Info) Description 04/09/2024 Lab Requisition [facility] - Main Lab 299 [facility] [place] [address] Harjit Khoury MD [address] [place] [address] Essential (primary) hypertension; Vitamin D deficiency, unspecified [...] 25 hydroxy (04/09/2024 5:24 AM EST) Pathologist [facility] Vit D, 25-Hydroxy 10.1(L) 30.0 - 80.0 ng/mL LAB CHEMISTRY METHOD 04/09/2024 12:13 PM EST [facility] Blood Venous blood specimen / Unknown Venipuncture / Unknown 04/09/2024 5:24 AM EST 04/09/2024 10:58 AM EST us Harjit Khoury MD LAB BLOOD ORDERABLES Final Resul t Performing Organization Address [facility] Co de Phone Number [facility] [address] [place] [address], * Folate (04/09/2024 5:24 AM EST) Pathologist [facility] Folate 6.4 2.8 - 17.0 ng/ml LAB CHEMISTRY METHOD 04/09/2024 12:42 PM EST [facility] Blood Venous blood specimen / Unknown Venipuncture / Unknown 04/09/2024 5:24 AM EST 04/09/2024 10:58 AM EST us Harjit Khoury MD LAB BLOOD ORDERABLES Final Resul t Performing Organization Address City/[facility]/ZIP Co de Phone Number [facility] [address] [place] [address], [place] [phone] * Thyroid stimulating hormone (04/09/2024 5:24 AM EST) [facility] TSH 3.07 0.40 - 4.00 mcIU/mL LAB CHEMISTRY METHOD 04/09/2024 12:13 PM EST [facility] Blood Venous blood specimen / Unknown Venipuncture / Unknown 04/09/2024 5:24 AM EST 04/09/2024 10:58 AM EST us Harjit Khoury MD LAB BLOOD ORDERABLES Final Resul t [facility] [address] [place] [address], [place] [phone] * Vitamin B12 (04/09/2024 5:24 AM EST) [facility] Vitamin B-12 466 250 - 900 pcg/mL LAB CHEMISTRY METHOD 04/09/2024 12:42 PM [facility] Blood Venous blood specimen / Unknown Venipuncture / Unknown 04/09/2024 5:24 AM EST 04/09/2024 10:58 AM EST us Harjit Khoury MD LAB BLOOD ORDERABLES Final Resul t Performing Organization Address City/[facility]/ZIP Co de Phone Number [facility] [address] [place] [address], [place] [phone] * Comprehensive metabolic panel (04/09/2024 5:24 AM EST) [facility] Sodium 136 133 - 145 mmol/L LAB CHEMISTRY METHOD 04/09/2024 12:42 PM [facility] Potassium 4.2 3.5 - 5.5 mmol/L LAB CHEMISTRY METHOD 04/09/2024 12:42 PM [facility] Chloride 107 96 - 110 mmol/L LAB CHEMISTRY METHOD 04/09/2024 12:42 PM [facility] CO2 26 21 - 32 mmol/L LAB CHEMISTRY METHOD 04/09/2024 12:42 PM [facility] Anion Gap 3 3 - 11 LAB CHEMISTRY METHOD 04/09/2024 12:42 PM [facility] Glucose 88 70 - 100 mg/dL LAB CHEMISTRY METHOD 04/09/2024 12:42 PM [facility] BUN 11 5 - 25 mg/dL LAB CHEMISTRY METHOD 04/09/2024 12:42 PM [facility] Creatinine 0.75 0.50 - 1.10 mg/dL LAB CHEMISTRY METHOD 04/09/2024 12:42 PM [facility] eGFR 91 >=60 mL/min/1. 73m2 LAB CHEMISTRY METHOD 04/09/2024 12:42 PM [facility] Comment:Calculation based on the??Chronic Kidney Disease Epidemiology Collaboration (CKD-EPI) equation refit??without adjustment for race. BUN/Creatinine Ratio 14.7 LAB CHEMISTRY METHOD 04/09/2024 12:42 PM [facility] Calcium 9.9 8.5 - 10.5 mg/dL LAB CHEMISTRY METHOD 04/09/2024 12:42 PM [facility] AST (SGOT) 16 10 - 42 unit/L LAB CHEMISTRY METHOD 04/09/2024 12:42 PM [facility] ALT (SGPT) 18 10 - 60 unit/L LAB CHEMISTRY METHOD 04/09/2024 12:42 PM [facility] Alkaline Phosphatase 64 42 - 121 unit/L LAB CHEMISTRY METHOD 04/09/2024 12:42 PM [facility] Total Protein 7.3 6.0 - 8.0 g/dL LAB CHEMISTRY METHOD 04/09/2024 12:42 PM [facility] Albumin 3.6 3.2 - 5.0 g/dL LAB CHEMISTRY METHOD 04/09/2024 12:42 PM [facility] Total Bilirubin 0.5 0.0 - 1.4 mg/dL LAB CHEMISTRY METHOD 04/09/2024 12:42 PM [facility] Blood Venous blood specimen / Unknown Venipuncture / Unknown 04/09/2024 5:24 AM EST 04/09/2024 10:58 AM EST us Harjit Khoury MD LAB BLOOD ORDERABLES Final Resul t [facility] [address] [place] [address], * (ABNORMAL) Complete blood count (04/09/2024 5:24 AM EST) WBC 8.6 4.8 - 10.8 K/mcL LAB HEMETOLOGY METHOD 04/09/2024 11:31 AM EST [facility] RBC 4.50 3.80 - 4.80 M/mcL LAB HEMETOLOGY METHOD 04/09/2024 11:31 AM [facility] Hemoglobin 12.3 11.5 - 16.0 g/dL LAB HEMETOLOGY METHOD 04/09/2024 11:31 AM [facility] Hematocrit 39.2 35.0 - 47.0 % LAB HEMETOLOGY METHOD 04/09/2024 11:31 AM [facility] MCV 86.7 79.0 - 98.0 FL LAB HEMETOLOGY METHOD 04/09/2024 11:31 AM [facility] MCH 27.2 27.0 - 32.0 pcg LAB HEMETOLOGY METHOD 04/09/2024 11:31 AM [facility] MCHC 31.4(L) 32.0 - 37.0 g/dL LAB HEMETOLOGY METHOD 04/09/2024 11:31 AM [facility] RDW 13.4 11.0 - 15.0 % LAB HEMETOLOGY METHOD 04/09/2024 11:31 AM [facility] Platelets 319 130 - 400 K/mcL LAB HEMETOLOGY METHOD 04/09/2024 11:31 AM [facility] MPV 10.4 7.0 - 11.0 FL LAB HEMETOLOGY METHOD 04/09/2024 11:31 AM [facility] NRBC 0.0 <1.0 % LAB HEMETOLOGY METHOD 04/09/2024 11:31 AM EST [facility] NRBC Absolute 0.00 <0.10 K/mcL LAB HEMETOLOGY METHOD 04/09/2024 11:31 AM EST [facility] Blood Venous blood specimen / Unknown Venipuncture / Unknown 04/09/2024 5:24 AM EST 04/09/2024 10:58 AM EST us Harjit Khoury MD LAB BLOOD ORDERABLES Final Resul t [facility] [address] [place] [address], documented in this encounter Visit Diagnoses Diagnosis Essential (primary) hypertension Unspecified essential hypertension Vitamin D deficiency, unspecified documented in this encounter Care Teams Can Intake Worker Relationship Specialty Start Date End Date Harjit Khoury MD [address] [place] [address] [address] [place] [address] PCP - General Geriatric Medicine 04/09/24 documented as of this encounter
== END 2024-05-21 11:04 | disposition home or self-care (01) ==
LOC: HO.HOS 10:03
PROVIDERS: Visit Provider Physician Assistant
DX: S82.852A Displaced trimalleolar fracture of left lower leg, initial encounter for closed fracture (principal); G81.90 Hemiplegia, unspecified affecting unspecified side
CPT/HCPCS: 99024

== ENCOUNTER → 2024-05-21 10:07 | Outpatient (BNV) | payer MEDICARE, MEDICAID, SELFPAY | PROVIDERS: Visit Provider Radiology Diagnostic Radiology | DX: M25.572 Pain in left ankle and joints of left foot (principal) | CPT/HCPCS: 73610 ==

== ENCOUNTER 2024-07-07 08:25 | Outpatient (REF) | payer MEDICARE, MEDICAID, SELFPAY ==
--- NOTE | ~2024-07-07 | XR_ITS ---
EXAMINATION: XR ANKLE 3 OR MORE VIEWS LEFT HISTORY: M25.579 - Pain in unspecified ankle and joints of unspecified foot COMPARISON: Comparison is made with the prior examination dated 05/21/2024. FINDINGS: Three views of the left ankle are submitted. The bones are osteopenic. Again seen is a mildly displaced fracture of the medial malleolus with corticated margins, suggestive of nonunion. There has been further healing of the previously seen distal fibular fracture. The fracture line is less well visualized. A posterior malleolar fracture is similar in appearance. The joint spaces are preserved. There is a small plantar calcaneal spur. The soft tissues are unremarkable. XR/XR ankle LT min 3V IMPRESSION: Further healing of the previously seen distal fibular fracture. 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 A posterior malleolar fracture is similar in appearance. Electronically signed by: Leland Alcazar MD 07/07/2024 10:05 AM EDT
--- OUTSIDE RECORDS SUMMARY | 2024-07-08 08:38 | XMS_ITS | Encounter Summary ---
Author Organization [facility] Address [address] [place] [address] Care Team Providers Care [employer] Special [employer] Teacher Name Role Phone Harjit Khoury MD Primary Care Provider [phone] Encounter Details Date Type Department Care Team (Late st Contact Info) Description 04/09/2024 Lab Requisition [facility] Main Lab [address] [facility] [place] [address] Harjit Khoury MD [address] [place] [address] Essential (primary) hypertension; Vitamin D deficiency, unspecified [...] ORDERABLES Final Resul t Performing Organization Address [facility] Co de Phone Number [facility] [address] [place] [address], * Folate (04/09/2024 5:24 AM EST) Pathologist [facility] Folate 6.4 2.8 - 17.0 ng/ml LAB CHEMISTRY METHOD 04/09/2024 12:[address] [facility] Blood Venous blood specimen / Unknown Venipuncture / Unknown 04/09/2024 5:24 AM EST 04/09/2024 10:58 AM EST us Harjit Khoury MD LAB BLOOD ORDERABLES Final Resul t Performing Organization Address City/Va Hospital/ZIP Co de Phone Number [facility] [address] [place] [address], [place] [phone] * Thyroid stimulating hormone (04/09/2024 5:24 AM EST) [facility] TSH 3.07 0.40 - 4.00 mcIU/mL LAB CHEMISTRY METHOD 04/09/2024 12:[address] [facility] Blood Venous blood specimen / Unknown Venipuncture / Unknown 04/09/2024 5:24 AM EST 04/09/2024 10:58 AM EST us Harjit Khoury MD LAB BLOOD ORDERABLES Final Resul t [facility] [address] [place] [address], [place] [phone] * Vitamin B12 (04/09/2024 5:24 AM EST) [facility] Vitamin B-12 466 250 - 900 pcg/mL LAB CHEMISTRY METHOD 04/09/2024 12:42 PM [facility] Blood Venous blood specimen / Unknown Venipuncture / Unknown 04/09/2024 5:24 AM EST 04/09/2024 10:58 AM EST us Harjit Khoury MD LAB BLOOD ORDERABLES Final Resul t Performing Organization Address City/[facility] Hospital/ZIP Co de Phone Number [facility] [address] [place] [address], [place] [phone] * Comprehensive metabolic panel (04/09/2024 5:24 AM EST) [facility] Sodium 136 133 - 145 mmol/L LAB CHEMISTRY METHOD 04/09/2024 12:42 PM [facility] Potassium 4.2 3.5 - 5.5 mmol/L LAB CHEMISTRY METHOD 04/09/2024 12:42 PM [facility] Chloride 107 96 - 110 mmol/L LAB CHEMISTRY METHOD 04/09/2024 12:42 PM [facility] CO2 26 21 - 32 mmol/L LAB CHEMISTRY METHOD 04/09/2024 12:42 PM [facility] Anion Gap 3 3 - 11 LAB CHEMISTRY METHOD 04/09/2024 12:42 PM [facility] Glucose 88 70 - 100 mg/dL LAB CHEMISTRY METHOD 04/09/2024 12:42 PM [facility] BUN 11 5 - 25 mg/dL LAB CHEMISTRY METHOD 04/09/2024 12:42 PM [facility] Creatinine 0.75 0.50 - 1.10 mg/dL LAB CHEMISTRY METHOD 04/09/2024 12:42 PM [facility] eGFR 91 >=60 mL/min/1. 73m2 LAB CHEMISTRY METHOD 04/09/2024 12:42 PM [facility] Comment:Calculation based on the??Chronic Kidney Disease Epidemiology Collaboration (CKD-EPI) equation refit??without adjustment for race. BUN/Creatinine Ratio 14.7 LAB CHEMISTRY METHOD 04/09/2024 12:42 PM [facility] Calcium 9.9 8.5 - 10.5 mg/dL LAB CHEMISTRY METHOD 04/09/2024 12:42 PM [facility] AST (SGOT) 16 10 - 42 unit/L LAB CHEMISTRY METHOD 04/09/2024 12:42 PM [facility] ALT (SGPT) 18 10 - 60 unit/L LAB CHEMISTRY METHOD 04/09/2024 12:42 PM [facility] Alkaline Phosphatase 64 42 - 121 unit/L LAB CHEMISTRY METHOD 04/09/2024 12:42 PM [facility] Total Protein 7.3 6.0 - 8.0 g/dL LAB CHEMISTRY METHOD 04/09/2024 12:42 PM [facility] Albumin 3.6 3.2 - 5.0 g/dL LAB CHEMISTRY METHOD 04/09/2024 12:42 PM [facility] Total Bilirubin 0.5 0.0 - 1.4 mg/dL LAB CHEMISTRY METHOD 04/09/2024 12:42 PM [facility] Blood Venous blood specimen / Unknown Venipuncture / Unknown 04/09/2024 5:24 AM EST 04/09/2024 10:58 AM EST us Harjit Khoury MD LAB BLOOD ORDERABLES Final Resul t [facility] [address] [place] [address], * (ABNORMAL) Complete blood count (04/09/2024 5:24 AM EST) WBC 8.6 4.8 - 10.8 K/mcL LAB HEMETOLOGY METHOD 04/09/2024 11:[address] [facility] RBC 4.50 3.80 - 4.80 M/mcL LAB HEMETOLOGY METHOD 04/09/2024 11:31 AM [facility] Hemoglobin 12.3 11.5 - 16.0 g/dL LAB HEMETOLOGY METHOD 04/09/2024 11:31 AM [facility] Hematocrit 39.2 35.0 - 47.0 % LAB HEMETOLOGY METHOD 04/09/2024 11:31 AM [facility] MCV 86.7 79.0 - 98.0 FL LAB HEMETOLOGY METHOD 04/09/2024 11:31 AM [facility] MCH 27.2 27.0 - 32.0 pcg LAB HEMETOLOGY METHOD 04/09/2024 11:31 AM [facility] MCHC 31.4(L) 32.0 - 37.0 g/dL LAB HEMETOLOGY METHOD 04/09/2024 11:31 AM [facility] RDW 13.4 11.0 - 15.0 % LAB HEMETOLOGY METHOD 04/09/2024 11:31 AM [facility] Platelets 319 130 - 400 K/mcL LAB HEMETOLOGY METHOD 04/09/2024 11:31 AM [facility] MPV 10.4 7.0 - 11.0 FL LAB HEMETOLOGY METHOD 04/09/2024 11:31 AM [facility] NRBC 0.0 <1.0 % LAB HEMETOLOGY METHOD 04/09/2024 11:[address] [facility] NRBC Absolute 0.00 <0.10 K/mcL LAB HEMETOLOGY METHOD 04/09/2024 11:[address] [facility] Blood Venous blood specimen / Unknown Venipuncture / Unknown 04/09/2024 5:24 AM EST 04/09/2024 10:58 AM EST us Harjit Khoury MD LAB BLOOD ORDERABLES Final Resul t [facility] [address] [place] [address], documented in this encounter Visit Diagnoses Diagnosis Essential (primary) hypertension Unspecified essential hypertension Vitamin D deficiency, unspecified documented in this encounter Care Teams [employer] Teacher Relationship Specialty Start Date End Date Harjit Khoury MD [address] [place] [address] [address] [place] [address] PCP - General Geriatric Medicine 04/09/24 documented as of this encounter
--- OUTSIDE RECORDS SUMMARY | 2024-07-08 08:38 | XMS_ITS | Data Portability ---
Author Organization [facility], [facility] Address [address] [place] [address] Care Team Providers Care [employer] Executive Director Name Role Phone PRAKASH MON Primary Care [...] 2023 024 [facility] [place], [address], [place], [address], 5 15:23:20 Procedures None recorded. Surgeries None recorded. Imaging XR, wrist, 3 or more view - room 113 3V L wrist 2023 024 [facility], [address], [address], [place], [address], 5 15:23:19 XR, wrist, 3 or more view - rm.115 3 v of the L wrist 2023 024 [facility], [address], [address], [place], [address], 4 07:59:37 XR, wrist, 3 or more view - RM 119 3V 2023 024 [email or web address], [address], [address], [place], [address], 4 15:56:17 Medication Orders None recorded. Patient TargetsNo targets recorded. Patient Instructions Encounter Date Encounter Id Patient Instructions Last Modified By Organization Details Last Modified Time 01/10/[id number] application of cast, short arm cast* - RM 119 [facility] [email or web address] Not available 01/13/2024 15:56:17 01/17/[id number] application of cast, short arm cast* leisa [...] aYqtaq 0bqfl% 2Fg9IQ a4ajBk vP9nXo QUaueC m3YtLR FvZl24 [address]tai[address] [id number] AC0Kqa X2DV6K gKiQtr MwF INTERFACE [facility] [address] [facility] [address], [place], [address], 01/10/2024 11:13:21 01/10/20 24 01/10/2024 XR, wrist , 3 or more view [email or web address] ?Encry pted=s hAaTro YD8dLq bEUv6g %2BXZw aYqtaq 0bqfl% 2Fg9IQ a4ajBk vP9nXo QUaueC m3YtLR [address] 1r0751 AC0Kqa X2DV6K gKiQtr MwF INTERFACE [facility] [address], [place], [address], 01/10/2024 11:13:24 01/17/20 24 01/17/2024 XR, wrist , 3 or more view [email or web address]:/ [email or web address] ?Encry pted=s hAaTro YD8dLq bEUv6g %2BXZw aYqtaq 0bqfl% 2Fg9IQ a4ajBk vP9nXo QUaueC m3YtLR FvZl24 [address]ta[address] 3i1163 AC0Kqa X6CWae hKiQtr MwF INTERFACE [facility] [address] [facility] [address] [address], [place], [address], 01/17/2024 12:04:14 01/17/20 24 01/17/2024 XR, wrist , 3 or more view http:/ [email or web address] ?Encry pted=s hAaTro YD8dLq bEUv6g %2BXZw aYqtaq 0bqfl% 2Fg9IQ a4ajBk vP9nXo QUaueC m3YtLR FvZlgJ [place] HZtai3 0a4820 AC0Kqa X6CWae hKiQtr MwF INTERFACE [facility] [address] [address], [place], [address], 01/17/2024 12:04:16 02/07/20 24 02/07/2024 XR, wrist , 3 or more view http:/ [email or web address] ?Encry pted=s hAaTro YD8dLq bEUv6g %2BXZw aYqtaq 0bqfl% 2Fg9IQ a4ajBk vP9nXo QUaueC m3YtLR FvZlgJ JJ8mAn HZtai3 3o6987 AC0Kqb nyMWKa uKiQtr MwF INTERFACE [facility] [address] [facility] [address] [address], [place], [address], 02/07/2024 10:33:47 02/07/20 24 02/07/2024 XR, wrist , 3 or more view [email or web address]:/ [email or web address] ?Encry pted=s hAaTro YD8dLq bEUv6g %2BXZw aYqtaq 0bqfl% 2Fg9IQ a4ajBk vP9nXo QUaueC m3YtLR FvZlgJ JJ8mAn HZtai3 0x1698 AC0Kqb nyMWKa uKiQtr MwF INTERFACE [facility] [address], [place], [address], 02/07/2024 10:33:49 Result Notes None recorded. Procedures Surgical History None recorded. Imaging Results Imaging Date Name Status LastModified by Organiz [facility] Details LastModified Time 01/10/2024 XR, wrist, 3 or more view completed INTERFACE [facility] [address], [place], [address], 01/10/2024 11:13:21 01/10/2024 XR, wrist, 3 or more view completed INTERFACE [facility] [address], [place], [address], 01/10/2024 11:13:24 01/17/2024 XR, wrist, 3 or more view completed INTERFACE [facility] [address], [place], [address], 01/17/2024 12:04:14 01/17/2024 XR, wrist, 3 or more view completed INTERFACE [facility] [address], [place], [address], 01/17/2024 12:04:16 02/07/2024 XR, wrist, 3 or more view completed INTERFACE [facility] [address], [place], [address], 02/07/2024 10:33:47 02/07/2024 XR, wrist, 3 or more view completed INTERFACE [facility] [address], [place], [address], 02/07/2024 10:33:49 Procedure Notes None recorded. Medical [...] Updated DateTime 01/10/2024 162.56 cm 33.5 kg/m2 97175.51 g SONY MAJOR [facility] 01/10/2024 11:04:19 Date Recorded Body height Body mass index (BMI) Body weight Provider Name and Address Organization Details Last Updated DateTime 01/17/2024 162.56 cm 34.3 kg/m2 16642.47 g connie spencer [facility] 01/17/2024 11:50:48 Date Recorded Body height Body mass index (BMI) Body weight Provider Name and Address Organization Details Last Updated DateTime 02/07/2024 162.56 cm 34.3 kg/m2 92174.[address] [facility] [place] [facility] 02/07/2024 10:14:34 Social History None recorded. Functional Status None recorded. Mental Status None recorded. Family History Nothing Reported. Medical History No medical history recorded. Gynecological HistoryNo gynecological history recorded. Obstetrics History GPAL:G 0 P 0 0 0 0 Past Encounters Encounter ID Performer Location Encounter Start Date Encounter Closed Date Diagnosis/Indication Diagnosis SNOMED-CT Code Diagnosis ICD10 Code Diagnosis Note [id number] MANUELITO Jeffersnisarthak [address] [place] [address] 01/10/2024 10:35:31 01/29/2024 10:07:21 Pain of left wrist 4294615797 69402 M25.634 [id number] MD Antonia Laws [address] [place] [address] 01/17/2024 11:18:11 02/05/2024 07:59:37 Pain of left wrist 9286775433 32451 M25.532 Closed Col les' fracture 496353856 S52.532D [id number] MD Antonia Laws [address] [place] [address] 02/07/2024 10:01:00 02/27/2024 15:23:19 Pain of left wrist 1994007561 65905 M25.532 Closed Col les' fracture 145881794 S52.532D Health Concerns Section Related Observation LastModified by Organization Detai ls LastModified Time None Recorded Concern Status LastModified by Organization Details LastModified Time None Recorded Advance Directives Directive None Recorded Payers Encounter Date Sequence Insurance Name Policy Number Policy Alvarado Covered Member ID Alvarado Member ID Guarantor Name 01/10/2024 2 [place] Maya Cain [id number] Maya Cain 01/10/2024 1 [employer] (MEDICARE REPLACEMENT PPO) [id number] Maya Cain [id number] Maya Cain 01/17/2024 2 [place] Maya Cain [id number] Maya Cain 01/17/2024 1 [employer] (MEDICARE REPLACEMENT PPO) [id number] Maya Leahyle [id number] Maya Cain 02/07/2024 2 [place] [facility] Maya Cain [id number] Maya Cain 02/07/2024 1 [employer] (MEDICARE REPLACEMENT PPO) [id number] Maya Leahyle [id number] Maya Cain Notes Date Note Type Note [...] instability. X-rays ordered, obtained and reviewed at [facility] m3 views left wrist reveals a comminuted [...] motion and strengthening. Tabitha Redman PA-C [address] [facility], [place], [address], [facility] 01/10/2024 13:48:27 01/17/2024 text/html DX: Left distal radius An ulnar styloid process fracture 12/30/2023Left-sided hemiparesis from previous CVA HPI:63-year-old female here for orthopedic consultation. Patient fell onto the outstretched hand and injured the left wrist. Fracture is being treated conservatively. She has been in a splint Latanya Hughes MD [address] [facility] [address] [address], [place], [address], [facility] 01/17/2024 17:00:21 02/07/2024 text/html DX: Left distal radius and ulnar styloid process fracture 12/30/2023Left-sided hemiparesis from previous CVA HPI:63-year-old female here for orthopedic consultation. Patient fell onto the outstretched hand and injured the left wrist. Fracture is being treated conservatively. She reports that the cast applied at her most recent visit quickly fell off. Latanya Hughes MD [address], [place], [address], [facility] 02/07/2024 12:27:02 OBGyn Episode No OBEpisode recorded.
--- OUTSIDE RECORDS SUMMARY | 2024-07-08 08:38 | XMS_ITS | Clinical Summary ---
Author Organization [address] [facility] Address [address] [place] [address] Phone Care Team Providers Care Manager Med Surg Name Role Phone Harjit Khoury MD Primary Care Provider [phone] Social History Tobacco Use Types Packs/Day Years [...] Procedure Name Priority Date/Time Associated Diagnosis Comments COMPREHENSIVE METABOLIC PANEL Routine 04/09/2024 5:24 AM EST Essential (primary) hypertension Vitamin D deficiency, unspecified from Last 3 Months or Most Recently Relevant to Health Maintenance Results * Comprehensive metabolic panel (04/09/2024 5:24 AM EST) Sodium 136 133 - 145 mmol/L LAB CHEMISTRY METHOD 04/09/2024 12:[address] [facility] Potassium 4.2 3.5 - 5.5 mmol/L LAB CHEMISTRY METHOD 04/09/2024 12:[address] [facility] Chloride 107 96 - 110 mmol/L LAB CHEMISTRY METHOD 04/09/2024 12:[address] [facility] CO2 26 21 - 32 mmol/L LAB CHEMISTRY METHOD 04/09/2024 12:[address] [facility] Anion Gap 3 3 - 11 LAB CHEMISTRY METHOD 04/09/2024 12:[address] [facility] Glucose 88 70 - 100 mg/dL LAB CHEMISTRY METHOD 04/09/2024 12:[address] [facility] BUN 11 5 - 25 mg/dL LAB CHEMISTRY METHOD 04/09/2024 12:[address] [facility] Creatinine 0.75 0.50 - 1.10 mg/dL LAB CHEMISTRY METHOD 04/09/2024 12:[address] [facility] eGFR 91 >=60 mL/min/1. 73m2 LAB CHEMISTRY METHOD 04/09/2024 12:[address] [facility] Comment:Calculation based on the??Chronic Kidney Disease Epidemiology Collaboration (CKD-EPI) equation refit??without adjustment for race. BUN/Creatinine Ratio 14.7 LAB CHEMISTRY METHOD 04/09/2024 12:[address] [facility] Calcium 9.9 8.5 - 10.5 mg/dL LAB CHEMISTRY METHOD 04/09/2024 12:[address] [facility] AST (SGOT) 16 10 - 42 unit/L LAB CHEMISTRY METHOD 04/09/2024 12:[address] [facility] ALT (SGPT) 18 10 - 60 unit/L LAB CHEMISTRY METHOD 04/09/2024 12:[address] [facility] Alkaline Phosphatase 64 42 - 121 unit/L LAB CHEMISTRY METHOD 04/09/2024 12:[address] [facility] Total Protein 7.3 6.0 - 8.0 g/dL LAB CHEMISTRY METHOD 04/09/2024 12:[address] [facility] Albumin 3.6 3.2 - 5.0 g/dL LAB CHEMISTRY METHOD 04/09/2024 12:[address] [facility] Total Bilirubin 0.5 0.0 - 1.4 mg/dL LAB CHEMISTRY METHOD 04/09/2024 12:[address] [facility] Blood Venous blood specimen / Unknown Venipuncture / Unknown 04/09/2024 5:24 AM EST 04/09/2024 10:58 AM EST us Harjit Khoury MD LAB BLOOD ORDERABLES Final Resul t [facility] [address] [place] [address], from Last 3 Months or Most Recently Relevant to Health Maintenance Insurance MEDICA[place] AET[place] Care Teams Manager Med Surg Relationship Specialty Start Date End Date Harjit Khoury MD [address] [place] [address] [address] [place] [address] PCP - General Geriatric Medicine 04/09/24
== END 2024-07-07 08:26 | disposition home or self-care (01) ==
LOC: HO.HOSX 08:25
PROVIDERS: Visit Provider Physician Assistant
DX: M25.572 Pain in left ankle and joints of left foot (principal)
CPT/HCPCS: 73610

== ENCOUNTER 2024-07-07 08:37 | Outpatient (AMB) | payer MEDICARE, MEDICAID, SELFPAY ==
--- OUTSIDE RECORDS SUMMARY | 2024-07-07 08:56 | XMS_ITS | Encounter Summary ---
Author Organization [employer] Address [address] [place] [address] Care Team Providers Care Polymerization Kettle Operator Name Role Phone Harjit Khoury MD Primary Care Provider [phone] Encounter Details Date Type Department Care Team (Late st Contact Info) Description 04/09/2024 Lab Requisition [facility] - Main Lab 299 [facility] [place] [address] Harjit Khoury MD [address] [place] [address] Essential (primary) hypertension; Vitamin D deficiency, unspecified [...] 25 hydroxy (04/09/2024 5:24 AM EST) Pathologist [facility] Vit D, 25-Hydroxy 10.1(L) 30.0 - 80.0 ng/mL LAB CHEMISTRY METHOD 04/09/2024 12:13 PM EST [facility] Blood Venous blood specimen / Unknown Venipuncture / Unknown 04/09/2024 5:24 AM EST 04/09/2024 10:58 AM EST us Harjit Khoury MD LAB BLOOD ORDERABLES Final Resul t Performing Organization Address [facility] Co de Phone Number [facility] [address] [place] [address], * Folate (04/09/2024 5:24 AM EST) Pathologist [facility] Folate 6.4 2.8 - 17.0 ng/ml LAB CHEMISTRY METHOD 04/09/2024 12:42 PM EST [facility] Blood Venous blood specimen / Unknown Venipuncture / Unknown 04/09/2024 5:24 AM EST 04/09/2024 10:58 AM EST us Harjit Khoury MD LAB BLOOD ORDERABLES Final Resul t Performing Organization Address City/[facility]/ZIP Co de Phone Number [facility] [address] [place] [address], [place] [phone] * Thyroid stimulating hormone (04/09/2024 5:24 AM EST) [facility] TSH 3.07 0.40 - 4.00 mcIU/mL LAB CHEMISTRY METHOD 04/09/2024 12:13 PM EST [facility] Blood Venous blood specimen / Unknown Venipuncture / Unknown 04/09/2024 5:24 AM EST 04/09/2024 10:58 AM EST us Harjit Khoury MD LAB BLOOD ORDERABLES Final Resul t [facility] [address] [place] [address], [place] [phone] * Vitamin B12 (04/09/2024 5:24 AM EST) [facility] Vitamin B-12 466 250 - 900 pcg/mL LAB CHEMISTRY METHOD 04/09/2024 12:42 PM [facility] Blood Venous blood specimen / Unknown Venipuncture / Unknown 04/09/2024 5:24 AM EST 04/09/2024 10:58 AM EST us Harjit Khoury MD LAB BLOOD ORDERABLES Final Resul t Performing Organization Address City/[facility]/ZIP Co de Phone Number [facility] [address] [place] [address], [place] [phone] * Comprehensive metabolic panel (04/09/2024 5:24 AM EST) [facility] Sodium 136 133 - 145 mmol/L LAB CHEMISTRY METHOD 04/09/2024 12:42 PM [facility] Potassium 4.2 3.5 - 5.5 mmol/L LAB CHEMISTRY METHOD 04/09/2024 12:42 PM [facility] Chloride 107 96 - 110 mmol/L LAB CHEMISTRY METHOD 04/09/2024 12:42 PM [facility] CO2 26 21 - 32 mmol/L LAB CHEMISTRY METHOD 04/09/2024 12:42 PM [facility] Anion Gap 3 3 - 11 LAB CHEMISTRY METHOD 04/09/2024 12:42 PM [facility] Glucose 88 70 - 100 mg/dL LAB CHEMISTRY METHOD 04/09/2024 12:42 PM [facility] BUN 11 5 - 25 mg/dL LAB CHEMISTRY METHOD 04/09/2024 12:42 PM [facility] Creatinine 0.75 0.50 - 1.10 mg/dL LAB CHEMISTRY METHOD 04/09/2024 12:42 PM [facility] eGFR 91 >=60 mL/min/1. 73m2 LAB CHEMISTRY METHOD 04/09/2024 12:42 PM [facility] Comment:Calculation based on the??Chronic Kidney Disease Epidemiology Collaboration (CKD-EPI) equation refit??without adjustment for race. BUN/Creatinine Ratio 14.7 LAB CHEMISTRY METHOD 04/09/2024 12:42 PM [facility] Calcium 9.9 8.5 - 10.5 mg/dL LAB CHEMISTRY METHOD 04/09/2024 12:42 PM [facility] AST (SGOT) 16 10 - 42 unit/L LAB CHEMISTRY METHOD 04/09/2024 12:42 PM [facility] ALT (SGPT) 18 10 - 60 unit/L LAB CHEMISTRY METHOD 04/09/2024 12:42 PM [facility] Alkaline Phosphatase 64 42 - 121 unit/L LAB CHEMISTRY METHOD 04/09/2024 12:42 PM [facility] Total Protein 7.3 6.0 - 8.0 g/dL LAB CHEMISTRY METHOD 04/09/2024 12:42 PM [facility] Albumin 3.6 3.2 - 5.0 g/dL LAB CHEMISTRY METHOD 04/09/2024 12:42 PM [facility] Total Bilirubin 0.5 0.0 - 1.4 mg/dL LAB CHEMISTRY METHOD 04/09/2024 12:42 PM [facility] Blood Venous blood specimen / Unknown Venipuncture / Unknown 04/09/2024 5:24 AM EST 04/09/2024 10:58 AM EST us Harjit Khoury MD LAB BLOOD ORDERABLES Final Resul t [facility] [address] [place] [address], * (ABNORMAL) Complete blood count (04/09/2024 5:24 AM EST) WBC 8.6 4.8 - 10.8 K/mcL LAB HEMETOLOGY METHOD 04/09/2024 11:31 AM EST [facility] RBC 4.50 3.80 - 4.80 M/mcL LAB HEMETOLOGY METHOD 04/09/2024 11:31 AM [facility] Hemoglobin 12.3 11.5 - 16.0 g/dL LAB HEMETOLOGY METHOD 04/09/2024 11:31 AM [facility] Hematocrit 39.2 35.0 - 47.0 % LAB HEMETOLOGY METHOD 04/09/2024 11:31 AM [facility] MCV 86.7 79.0 - 98.0 FL LAB HEMETOLOGY METHOD 04/09/2024 11:31 AM [facility] MCH 27.2 27.0 - 32.0 pcg LAB HEMETOLOGY METHOD 04/09/2024 11:31 AM [facility] MCHC 31.4(L) 32.0 - 37.0 g/dL LAB HEMETOLOGY METHOD 04/09/2024 11:31 AM [facility] RDW 13.4 11.0 - 15.0 % LAB HEMETOLOGY METHOD 04/09/2024 11:31 AM [facility] Platelets 319 130 - 400 K/mcL LAB HEMETOLOGY METHOD 04/09/2024 11:31 AM [facility] MPV 10.4 7.0 - 11.0 FL LAB HEMETOLOGY METHOD 04/09/2024 11:31 AM [facility] NRBC 0.0 <1.0 % LAB HEMETOLOGY METHOD 04/09/2024 11:31 AM EST [facility] NRBC Absolute 0.00 <0.10 K/mcL LAB HEMETOLOGY METHOD 04/09/2024 11:31 AM EST [facility] Blood Venous blood specimen / Unknown Venipuncture / Unknown 04/09/2024 5:24 AM EST 04/09/2024 10:58 AM EST us Harjit Khoury MD LAB BLOOD ORDERABLES Final Resul t [facility] [address] [place] [address], documented in this encounter Visit Diagnoses Diagnosis Essential (primary) hypertension Unspecified essential hypertension Vitamin D deficiency, unspecified documented in this encounter Care Teams Polymerization Kettle Operator Relationship Specialty Start Date End Date Harjit Khoury MD [address] [place] [address] [address] [place] [address] PCP - General Geriatric Medicine 04/09/24 documented as of this encounter
--- OUTSIDE RECORDS SUMMARY | 2024-07-07 08:56 | XMS_ITS | Clinical Summary ---
Author Organization [address] [facility] Address [address] [place] [address] Phone Care Team Providers Care Heading Saw Operator Name Role Phone Harjit Khoury MD Primary Care Provider [phone] Encounters Date Type Department Care Team Description 04/09/2024 Lab Requisition [facility] - Main Lab 299 [facility] [place] [address] Harjit Khoury MD Essential (primary) [...] Cervical Cancer Screening: P ap Smear 05/17/1983 Cholesterol Screening (Lipid Panel) 04/09/2024 Colorectal Cancer Screening: Colonoscopy 04/09/2024 Depression Screening 04/09/2024 HIV Screening 04/09/2024 Hepatitis C Screening 04/09/2024 Lung Cancer Screening (Low Dose CT) 04/09/2024 Social Influencers of Health Screening 04/09/2024 Influenza Vaccine (Season Ended) 2024 Hypertension/CHF/CAD Annual BMP Blood Test 04/09/2025 04/09/2024, 01/18/2023, 10/18/2022 RSV Immunization Adult Patients (1 - 1-dose 75+ series) 2037 HIB [...] age to complete this topic Meningococcal B Vaccine Aged Out No l onger eligible based on patient's age to complete [...] ng/mL LAB CHEMISTRY METHOD 04/09/2024 12:13 PM [facility] Blood Venous blood specimen / Unknown Venipuncture / Unknown 04/09/2024 5:24 AM EST 04/09/2024 10:58 AM EST Harjit Khoury MD LAB BLOOD ORDERABLES Final Resul t [facility] [address] [place] [address], [place] [phone] * (ABNORMAL) Complete blood count (04/09/2024 5:24 AM EST) [facility] WBC 8.6 4.8 - 10.8 K/mcL LAB HEMETOLOGY METHOD 04/09/2024 11:31 AM [facility] RBC 4.50 3.80 - 4.80 M/mcL LAB HEMETOLOGY METHOD 04/09/2024 11:31 AM [facility] Hemoglobin 12.3 11.5 - 16.0 g/dL LAB HEMETOLOGY METHOD 04/09/2024 11:31 AM [facility] Hematocrit 39.2 35.0 - 47.0 % LAB HEMETOLOGY METHOD 04/09/2024 11:31 AM [facility] MCV 86.7 79.0 - 98.0 FL LAB HEMETOLOGY METHOD 04/09/2024 11:31 AM [facility] MCH 27.2 27.0 - 32.0 pcg LAB HEMETOLOGY METHOD 04/09/2024 11:31 AM [facility] MCHC 31.4(L) 32.0 - 37.0 g/dL LAB HEMETOLOGY METHOD 04/09/2024 11:31 AM [facility] RDW 13.4 11.0 - 15.0 % LAB HEMETOLOGY METHOD 04/09/2024 11:31 AM EST [facility] Platelets 319 130 - 400 K/mcL LAB HEMETOLOGY METHOD 04/09/2024 11:31 AM EST [facility] MPV 10.4 7.0 - 11.0 FL LAB HEMETOLOGY METHOD 04/09/2024 11:31 AM EST [facility] NRBC 0.0 <1.0 % LAB HEMETOLOGY METHOD 04/09/2024 11:31 AM EST [facility] NRBC Absolute 0.00 <0.10 K/mcL LAB HEMETOLOGY METHOD 04/09/2024 11:31 AM [facility] Blood Venous blood specimen / Unknown Venipuncture / Unknown 04/09/2024 5:24 AM EST 04/09/2024 10:58 AM EST us Harjit Khoury MD LAB BLOOD ORDERABLES Final Resul t Performing Organization Address City/[facility]/ZIP Co de Phone Number [facility] [address] [place] [address], [place] [phone] * Thyroid stimulating hormone (04/09/2024 5:24 AM EST) [facility] Signature TSH 3.07 0.40 - 4.00 mcIU/mL LAB CHEMISTRY METHOD 04/09/2024 12:13 PM EST [facility] Blood Venous blood specimen / Unknown Venipuncture / Unknown 04/09/2024 5:24 AM EST 04/09/2024 10:58 AM EST us Harjit Khoury MD LAB BLOOD ORDERABLES Final Resul t [facility] [address] [place] [address], [place] [phone] * Folate (04/09/2024 5:24 AM EST) [facility] Folate 6.4 2.8 - 17.0 ng/ml LAB CHEMISTRY METHOD 04/09/2024 12:42 PM EST [facility] Blood Venous blood specimen / Unknown Venipuncture / Unknown 04/09/2024 5:24 AM EST 04/09/2024 10:58 AM EST us Harjit Khoury MD LAB BLOOD ORDERABLES Final Resul t Performing Organization Address City/[facility]/ZIP Co de Phone Number [facility] [address] [place] [address], [place] [phone] * Vitamin B12 (04/09/2024 5:24 AM EST) [facility] Vitamin B-12 466 250 - 900 pcg/mL LAB CHEMISTRY METHOD 04/09/2024 12:42 PM EST [facility] Blood Venous blood specimen / Unknown Venipuncture / Unknown 04/09/2024 5:24 AM EST 04/09/2024 10:58 AM EST us Harjit Khoury MD LAB BLOOD ORDERABLES Final Resul t Performing Organization Address [facility]/ZIP Co de Phone Number [facility] [address] [place] [address], [place] [phone] * Comprehensive metabolic panel (04/09/2024 5:24 AM EST) [facility] Sodium 136 133 - 145 mmol/L LAB CHEMISTRY METHOD 04/09/2024 12:42 PM EST [facility] Potassium 4.2 3.5 - 5.5 mmol/L LAB CHEMISTRY METHOD 04/09/2024 12:42 PM [facility] Chloride 107 96 - 110 mmol/L LAB CHEMISTRY METHOD 04/09/2024 12:42 PM [facility] CO2 26 21 - 32 mmol/L LAB CHEMISTRY METHOD 04/09/2024 12:42 PM [facility] Anion Gap 3 3 - 11 LAB CHEMISTRY METHOD 04/09/2024 12:42 PM [facility] Glucose 88 70 - 100 mg/dL LAB CHEMISTRY METHOD 04/09/2024 12:42 PM [facility] BUN 11 5 - 25 mg/dL LAB CHEMISTRY METHOD 04/09/2024 12:42 PM [facility] Creatinine 0.75 0.50 - 1.10 mg/dL LAB CHEMISTRY METHOD 04/09/2024 12:42 PM [facility] eGFR 91 >=60 mL/min/1. 73m2 LAB CHEMISTRY METHOD 04/09/2024 12:42 PM [facility] Comment:Calculation based on the??Chronic Kidney Disease Epidemiology Collaboration (CKD-EPI) equation refit??without adjustment for race. BUN/Creatinine Ratio 14.7 LAB CHEMISTRY METHOD 04/09/2024 12:42 PM [facility] Calcium 9.9 8.5 - 10.5 mg/dL LAB CHEMISTRY METHOD 04/09/2024 12:42 PM [facility] AST (SGOT) 16 10 - 42 unit/L LAB CHEMISTRY METHOD 04/09/2024 12:42 PM [facility] ALT (SGPT) 18 10 - 60 unit/L LAB CHEMISTRY METHOD 04/09/2024 12:42 PM [facility] Alkaline Phosphatase 64 42 - 121 unit/L LAB CHEMISTRY METHOD 04/09/2024 12:42 PM [facility] Total Protein 7.3 6.0 - 8.0 g/dL LAB CHEMISTRY METHOD 04/09/2024 12:42 PM [facility] Albumin 3.6 3.2 - 5.0 g/dL LAB CHEMISTRY METHOD 04/09/2024 12:42 PM [facility] Total Bilirubin 0.5 0.0 - 1.4 mg/dL LAB CHEMISTRY METHOD 04/09/2024 12:42 PM EST [facility] Blood Venous blood specimen / Unknown Venipuncture / Unknown 04/09/2024 5:24 AM EST 04/09/2024 10:58 AM EST Harjit Khoury MD LAB BLOOD ORDERABLES Final Resul t [facility] [address] [place] [address], from Last 3 Months Insurance MEDICAID - [place] [employer] Care Teams Heading Saw Operator Relationship Specialty Start Date End Date Harjit Khoury MD [address] [place] [address] [address] [place] [address] PCP - General Geriatric Medicine 04/09/24
--- NOTE | 2024-07-07 09:01 | A.OFFVIS_ITS ---
Intake Visit Reasons: OV-LT Ankle Fx DOI 04/06/24 Intake Note: Maya is a 64 year old female who presents today for a follow up of her left closed trimalleolar fx 04/06/24. At her last visit patient was placed in a tall walking boot and was instructed to perform toe-touch weight bearing w/ walker. She states she is doing better and she is having little to no pain at this time. IMPRESSION (last x rays): 1. 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 2. Healing fractures of the distal fibula and posterior malleolus. Allergies perfume Allergy (Intermediate, Verified 07/07/24 09:02) Shortness of Breath Seasonal Allergies Allergy (Intermediate, Verified 07/07/24 09:02) Watery Eye, sneezing HPI HPI OV-LT Ankle Fx DOI 04/06/24: Details: Ms. Cain is a 64-year-old female presenting for followup for a trimalleolar fracture of the left ankle. I last saw the patient on May 21, 2024, where the patient was placed in a tall walking boot and instructed to TTWB. 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 Treatment was decided to be nonoperative due to her pre-existing conditions affecting her left side. The patient is wheelchair-bound primarily but uses a rico walker for ambulation. 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 [facility] Medical History HTN (hypertension) Nicotine dependence, cigarettes, uncomplicated Mass of left thigh Suspected exposure to mold Left leg swelling Obesity (BMI 30-39.9) Hemiparesis (~2017) ADHD (attention deficit hyperactivity disorder) Hypercalcemia Anxiety Hyperparathyroidism Sleep apnea in adult History of asthma History of CVA with residual deficit (~2017) Allergic rhinitis Surgical History History of biopsy History of hand surgery History of hysterectomy History of tubal ligation History of History of colonoscopy History of bilateral breast reduction surgery History of tonsillectomy S/P Botox injection Hx of arthroscopy of left knee Family History Father HTN (hypertension) Mother HTN (hypertension) Social History Household Members: None Housing: House Alcohol intake: current Alcohol intake frequency: does not drink Comment: left sided hemiparesis walks wih cane Patient Tobacco Use Status: Former Tobacco user Tobacco use type: Cigarette Years Smoked: 2017 stopped 2.5 packs /20 years e-Cigarette/Vaping Use: Never Used Second Hand Smoke Exposure: No service: No Current occupational status: disabled Cognitive needs: No Hearing needs: No Vision needs: No Female Reproductive History Menstrual Age of Menarche: 15 Review of Systems Const All systems reviewed & are unremarkable except as noted in HPI and below Physical Exam Const General: cooperative, healthy appearing and no acute distress Resp Effort & Inspection: normal respiratory effort and able to speak in complete sentences Extrem Other: Left ankle mild to moderate circumferential edema. Able to dorsiflex and plantar flex. Sensation is diminished at baseline but reportedly normal for the patient. Pedal pulse intact. Assessment & Plan Assessment & Plan (1) Closed trimalleolar fracture of left ankle: Code(s): S82.852A - Displaced trimalleolar fracture of left lower leg, initial encounter for closed fracture Category: Medical Plan Ms. Cain is a 64-year-old female presenting for followup for a trimalleolar fracture of the left ankle. I last saw the patient on May 21, 2024, where the patient was placed in a tall walking boot and instructed to TTWB. 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 Treatment was decided to be nonoperative due to her pre-existing conditions affecting her left side. The patient is wheelchair-bound primarily but uses a rico walker for ambulation. 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 While the office today, the patient was instructed she may begin to weightbear as tolerated in the boot as it has been 3 months since her injury. I would like her to practice weight-bearing in the boot for the next 4 weeks due to her baseline neurological deficits on the left side. I would like to see the patient back in 4 weeks with repeat x-rays, sooner if needed. X-rays of the left ankle which were obtained while in the office today and were reviewed by me, Gege Galvez PA-C, revealed routine healing trimalleolar fracture. Orders: Orders XR ankle LT min 3V Today M25.579 - Pain in unspecified ankle and joints of unspecified foot Coding Level of Care Code Est Pt Level 3 (80616) Diagnoses Closed trimalleolar fracture of left ankle S82.852A
== END 2024-07-07 09:16 | disposition home or self-care (01) ==
LOC: HO.HOS 08:37
PROVIDERS: Visit Provider Physician Assistant
DX: S82.852D Displaced trimalleolar fracture of left lower leg, subsequent encounter for closed fracture with routine healing (principal)
CPT/HCPCS: 99024

== ENCOUNTER → 2024-07-07 08:43 | Outpatient (BNV) | payer MEDICARE, MEDICAID, SELFPAY | PROVIDERS: Visit Provider Radiology Diagnostic Radiology | DX: M25.572 Pain in left ankle and joints of left foot (principal) | CPT/HCPCS: 73610 ==

== ENCOUNTER 2024-07-16 10:12 | Emergency (ER) | payer MEDICARE, MEDICAID, SELFPAY ==
--- NOTE | ~2024-07-16 | CT_ITS ---
EXAMINATION: CT ANGIOGRAM HEAD AND NECK CLINICAL INFORMATION: Status post carotid repair 06/15 with persistent headache. COMPARISON: CT angiography head 04/06/2024. No prior CT angiography of the neck. TECHNIQUE: Noncontrast axial imaging of the head was performed. This was followed by test bolus sequences and head and neck intravenous bolus administration 70 mL of Omnipaque 350. Helical imaging was performed in the axial plane from the aortic arch to the skull vertex. The data was processed at the product/device technologist's workstation for generation of MIP sequences. Angled MIPs and volume rendered reformatted images were also generated at an offline 3D workstation. Stenoses are assessed in accordance with NASCET criteria unless otherwise indicated. This CT examination was performed using dose optimization techniques as appropriate, variously including the following: *Automated exposure control *Adjustment of mA and/or kV according to patient size (this includes techniques or standardized protocols for targeted exams where dose is matched to indication/reason for exam; i.e. extremities or head) *Use of iterative reconstruction technique FINDINGS: NONCONTRAST HEAD CT: There is no evidence of intracranial hemorrhage or extra-axial fluid collection. There is no mass effect, or edema. No CT evidence of acute territorial infarct. Ventricles, sulci, and cisterns are normal in size and configuration for patient age. No hydrocephalus. No midline shift. Moderate supratentorial white matter hypodensities in keeping with small vessel ischemia. Empty sella noted. There is a stent in the right cavernous ICA. Globes and orbital contents image normally. No extracranial soft tissue abnormalities. The paranasal sinuses, mastoid air cells, and tympanic cavities are normally aerated. No suspicious bony abnormalities. Moderate degenerative changes left greater than right TM joints. NECK CTA: -AORTIC ARCH: Proximal arch is borderline aneurysmal at 4.1 cm. Mild atheromatous calcification. Two-vessel branching pattern. -GREAT VESSEL ORIGINS: Widely patent. No stenosis. -RIGHT COMMON CAROTID ARTERY: Distal course is retropharyngeal. Otherwise normal in caliber to the level of the bifurcation. -CERVICAL RIGHT INTERNAL CAROTID ARTERY: Mild calcific atherosclerotic disease of the carotid bulb and proximal internal carotid artery without flow-limiting stenosis. -LEFT COMMON CAROTID ARTERY: Distal course is retropharyngeal. Otherwise normal in caliber to the level of the bifurcation. -CERVICAL LEFT INTERNAL CAROTID ARTERY: Mild calcific atherosclerotic disease of the carotid bulb and proximal internal carotid artery without flow-limiting stenosis. -CERVICAL RIGHT VERTEBRAL ARTERY: Mildly dominant.. Normal in course and caliber into the skull base. -CERVICAL LEFT VERTEBRAL ARTERY: Normal in course and caliber into the skull base. OTHER, SOFT TISSUES: -No lymphadenopathy or mass. No abnormal fluid collection or soft tissue swelling. -Normal thyroid. -Imaged superior mediastinal structures normal. -Imaged lung apices clear. CTA OF THE BRAIN: -INTRACRANIAL INTERNAL CAROTID ARTERIES: There is a stent within the right cavernous segment ICA, which appears patent. There is no extravasation of contrast into the aneurysm sac, which has been repaired. The left is normal in caliber and patent. -RIGHT ANTERIOR CEREBRAL ARTERY: Normal A1 segment. Normal arborization of the distal segments. -LEFT ANTERIOR CEREBRAL ARTERY: Normal A1 segment. Normal arborization of the distal segments. -ANTERIOR COMMUNICATING ARTERY: Normal. -RIGHT MIDDLE CEREBRAL ARTERY: Normal M1 segment of the MCA without focal stenosis or occlusion. Normal bifurcation. Normal arborization of the distal segments. -LEFT MIDDLE CEREBRAL ARTERY: Normal M1 segment of the MCA without focal stenosis or occlusion. Normal bifurcation. Normal arborization of the distal segments. -RIGHT VERTEBRAL ARTERY V4: Normal in course and caliber. -LEFT VERTEBRAL ARTERY V4: Normal in course and caliber. -BASILAR ARTERY: Normal without focal stenosis or occlusion. Normal appearance of the proximal superior cerebellar arteries. Normal basilar tip. -RIGHT POSTERIOR CEREBRAL ARTERY: Normal P1 segment. Normal opacification of the distal BOOKSEAMER BLINDSTITCH segments. -LEFT POSTERIOR CEREBRAL ARTERY: Normal P1 segment. Normal opacification of the distal BOOKSEAMER BLINDSTITCH segments. -POSTERIOR COMMUNICATING ARTERIES: Diminutive bilaterally. Normal opacification of the superior sagittal, straight, transverse, and sigmoid sinuses. No venous thrombosis. No space-occupying hemorrhage or definite evolving infarct. CT/CT angio head neck IMPRESSION: NONCONTRAST HEAD CT: 1. No acute intracranial abnormalities. CTA NECK: 1. There is no evidence of significant stenosis, occlusion, dissection, or aneurysm of the major cervical arterial vasculature. CTA HEAD: 1. There has been prior stent assisted aneurysm repair involving the proximal right cavernous ICA. The stent is patent. No extravasation of contrast into the aneurysm sac. 2. There is no evidence of significant stenosis, occlusion, dissection, or additional aneurysm within the intracranial arterial circulation. 3. The major cortical and dural venous sinuses are patent. Electronically signed by: Lencho Laura MD 07/16/2024 03:22 PM EDT
--- NOTE | 2024-07-16 10:17 | ED_ITS ---
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 Daughter states patient has been experiencing constant right sided headaches, with R eye blurry vision, increased pressure behind R eye, dizziness, nausea, vomiting. Reports 2 episodes of vomiting today (07/16). Patient states she had a telehealth with [facility] neuro on 07/02 with no plan to resolve symptoms. She currently resides at [facility] and ambulates with wheelchair due to trimalleolar fracture. Denies chest pain, SOB, bloody vomit, black/tarry stool, diarrhea. MD elicited complaint: headache Pertinent past history: other Onset (ago): month(s) (1) Location: right Severity: moderate Quality & Timing: aching and throbbing Exacerbating factors: movement of head/neck Relieving factors: nothing Context: other (aneurysm repair 06/15/24 at [facility]) Associated symptoms: nausea, vomiting and other (R eye blurry vision ) Treatments prior to arrival: none Related Data Home Medications ?Medication ?Instructions ?Recorded ?Confirmed clopidogrel 75 mg tablet 75 mg PO DAILY 04/06/24 04/06/24 Previous Rx's ?Medication ?Instructions ?Recorded Ankle/Foot Orthotics #1 ea 04/19/22 reusable bed pads and disposable #90 ea 05/27/23 liners. venlafaxine 150 mg 150 mg PO BEDTIME #90 caps 11/26/23 capsule,extended release 24 hr (Effexor XR) gabapentin 600 mg tablet 600 mg PO BID #60 tabs 03/01/24 amlodipine 10 mg tablet 10 mg PO DAILY #90 tabs 03/25/24 albuterol sulfate 90 mcg/actuation 2 puff inhalation Q6H PRN 04/03/24 aerosol inhaler shortness of breath or wheezing #8.5 grams mirabegron 50 mg tablet,extended 50 mg PO BID 90 days #180 tabs 04/07/24 release 24 hr oxycodone 5 mg tablet 5 mg PO Q6H PRN severe pain (scale 04/08/24 score 7-10) #10 tabs diazepam 5 mg tablet (Valium) 5 mg PO BID PRN sedation #8 tabs 07/16/24 Allergies Allergy/AdvReac Type Severity Reaction Status Date / Time perfume Allergy Intermediate Shortness Verified 07/16/24 10:30 of Breath Seasonal Allergies Allergy Intermediate Watery Verified 07/16/24 10:30 Eye, sneezing Review of Systems 2 Review of Systems: CONST: Negative for fever, body aches and chills. HENT: POS for R side neck pain, headache. Negative congestion, sore throat, swelling. EYES: Negative for discharge/pain. POS R eye blurry vision RESP: Negative for cough/hemoptysis and shortness of breath. CV: Negative chest pain, difficulty breathing, palpitations. ABD: Negative pain, nausea, vomiting. : Negative increase frequency, dysuria, blood in urine or stool. MUSC: Negative for muscle aches, edema. SKIN: Negative rash, lesions/sores. NEURO: POS headache, dizziness, weakness. Yes all other systems are reviewed and are negative [facility] Past Medical History Attestation statement: The following information was validated with the patient. Source: old records reviewed and obtained from family ( daughter at bedside) Medical History HTN (hypertension) Nicotine dependence, cigarettes, uncomplicated Mass of left thigh Suspected exposure to mold Left leg swelling Obesity (BMI 30-39.9) Hemiparesis (~2017) ADHD (attention deficit hyperactivity disorder) Hypercalcemia Anxiety Hyperparathyroidism Sleep apnea in adult History of asthma History of CVA with residual deficit (~2016) Allergic rhinitis Surgical History History of biopsy History of hand surgery History of hysterectomy History of tubal ligation History of History of colonoscopy History of bilateral breast reduction surgery History of tonsillectomy S/P Botox injection Hx of arthroscopy of left knee Family History Family History Father HTN (hypertension) Mother HTN (hypertension) Social History Social History Household Members: None Housing: House Alcohol intake: current Alcohol intake frequency: does not drink Comment: left sided hemiparesis walks nato espinoe Patient Tobacco Use Status: Former Tobacco user Tobacco use type: Cigarette Years Smoked: 2017 stopped 2.5 packs /20 years e-Cigarette/Vaping Use: Never Used Second Hand Smoke Exposure: No Advance Directives: Yes Advance Directives on File: Yes Advance Directives Date on File: 04/08/24 Do you have a plan to hurt others: No Plan service: No Current occupational status: disabled Cognitive needs: No Hearing needs: No Vision needs: No Physical Exam 2 Vital Signs: Vital Signs: Last Vital Signs Temp 98.0 F 07/16/24 11:41 Pulse 70 07/16/24 13:56 Resp 14 07/16/24 13:56 BP 169/85 H 07/16/24 13:56 Pulse Ox 93 07/16/24 13:56 O2 Del Method Room Air 07/16/24 13:56 BMI result Body Mass Index 36.3 Const: General: cooperative, anxious and tired appearing O rientation/consciousness: patient oriented x3 Limitations: wheelchair HEENT: Head: Yes normal to inspection, Yes No palpable skull fracture present, Yes normocephalic and Yes atraumatic Ears: hearing grossly impaired (patient is hard of hearing at baseline) Face and sinus: No face symmetric (asymetry of R side since aneurysm repair on 06/15/24 ) Mouth: Normal oral and palatal mucosa present Eyes: General: appearance normal, both eyes and all related structures P upils: Equal, round and reactive pupils present EOM: EOMs intact bilaterally Neck: Neck: Yes normal visual inspection and Yes supple Resp: Effort & Inspection: normal respiratory effort, able to speak in complete sentences, no audible wheezes, no cough, respiratory effort not decreased, no grunting, not labored and no nasal flaring Auscultation: clear to auscultation bilaterally, no crackles, no rales, no rhonchi, no wheezes, breath sounds present and lung sounds not diminished Cardio: Jugular venous distension: no JVD Rate: regular rate Rhythm: r egular rhythm Heart sounds: S1 normal heart sound present and S2 normal heart sound present Neuro: General: patient oriented x3 and Unable to assess gait Cranial nerves: Yes Facial sensation intact/muscles of mastication intact, Yes Equal, round and reactive pupils present, Yes Bilaterally intact EOM present and Yes Nystagmus not present Cognition (Neuro): normal cognition Gait exam (Neuro): Unable to assess gait Motor exam (neuro): 5/5 motor strength present throughout Extrem: Left lower extremity: ankle (trimalleolar fx, with airboot on ) Medications Administered Discontinued Medications Generic Name Dose Route Start Last Admin Trade Name Freq PRN Reason Stop Dose Admin Lactated Ringer's 1,000 mls @ 999 mls/hr 07/16/24 11:15 07/16/24 13:19 Lr IV 07/16/24 12:15 Infused .Q1H1M LORENA Infusion Iohexol 100 ml 07/16/24 14:41 07/16/24 14:42 Iohexol 350 Mg/Ml 100 Ml Infus..Btl IV 07/16/24 14:42 70 ml ONCE ONE Administration Morphine Sulfate 4 mg 07/16/24 11:04 07/16/24 11:14 Morphine Sulfate 4 Mg/Ml Cartridge IVPUSH 07/16/24 11:05 4 mg ONCE ONE Administration Protocol Ondansetron HCl 4 mg 07/16/24 11:04 07/16/24 11:14 Ondansetron Hcl 4 Mg/2 Ml Vial IVPUSH 07/16/24 11:05 4 mg ONCE ONE Administration Medical Decision Making Medical Decision Making MDM Narrative: 64-year-old female with medical history of HTN, hyperparathyroidism, asthma, CVA with L sided weakness (2016), right carotid aneurysm S/P [facility]ovascular [facility] (06[facility]), trimalleolar fracture (04/21), 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 Daughter states patient has been experiencing constant right sided headaches, with R eye blurry vision, increased pressure behind R eye, dizziness, nausea, vomiting. Reports 2 episodes of vomiting today (07/16). Daughter states she has recently had CT (06/26) at [facility] due to ongoing symptoms with no acute findings. Vital signs stable, patient in mild distress due to pain of right-sided headache. Nontoxic appearing. On physical exam patient is uncomfortable. Head is normocephalic, R sided paracervical TTP. Eyes are without tearing or discharge, EOMI, GABI. There are no focal neurological deficits. Patient with an airboot on LLE due to trimalleolar fracture. Will obtain labs, and CTA of head/neck for evaluation. Will start IV fluids, 4mg zofran for nausea, and 4mg morphine for severe headache. Course 16:14- Patient headache improved after IV fluids, zofran and morphine. CTA head/neck observes a patent stent of the proximal right cavernous ICA. No evidence of stenosis, occlusion, dissection or additional aneurysm. Patient encouraged to follow up with her surgeon from [facility] who performed her surgery for evaluation and pain management. Patient will be prescribed a 4 day course of Valium to aid in pain management and allow her to get rest. Differential Diagnosis Differential Diagnoses: The differential diagnosis associated with the presentation includes ICH Aneurysm Electrolyte abnormality Migraine Admission/Observation Consideration of admission/observation: Escalation of care including admission/observation considered Lab Data MDM Lab Attestation statement: I reviewed the patient's lab results. 07/16/24 11:47 07/16/24 11:47 Labs: Lab Results 07/16/24 Range/Units 11:47 WBC 9.7 (4.8-10.8) X10*3/uL RBC 4.72 (4.20-5.50) X10*6/uL Hgb 13.4 (12.0-16.0) g/dl Hct 41.9 (37.0-47.0) % MCV 88.8 (80.0-98.0) fL MCH 28.4 (27.0-33.0) pg MCHC 32.0 (31.0-35.0) g/dl RDW 14.4 (11.0-16.0) % Plt Count 282 (160-400) X10*3/uL MPV 9.5 (9.4-12.3) fL Immature Gran % (Auto) 0.3 (0.0-0.4) % Neut % (Auto) 80.4 H (45-73) % Lymph % (Auto) 13.2 L (20-40) % [place] % (Auto) 4.3 (2-11) % Eos % (Auto) 1.3 (0-4) % Baso % (Auto) 0.5 (0-2) % Lymph # (Auto) 1.3 (1.2-4.9) X10*3/uL [place] # (Auto) 0.4 (0.1-1.2) X10*3/uL Eos # (Auto) 0.1 (0.0-0.4) X10*3/uL Baso # (Auto) 0.1 (0.0-0.2) X10*3/uL Abs Immat Gran (auto) 0.03 (0.00-0.03) X10*3/uL Absolute Neuts (auto) 7.8 (2.0-8.3) x10*3/uL Absolute Nucleated RBC 0.000 (0.0-0.012) X10*3/uL Nucleated RBC % (auto) 0.0 (0.0-0.2) /100WBC PT 11.0 (10.9-12.4) SEC INR 1.0 (0.9-1.1) Sodium 139 (135-145) mmol/L Potassium 4.3 (3.3-5.1) mmol/L Chloride 107 (96-108) mmol/L Carbon Dioxide 26 (22-29) mmol/L Anion Gap 10 L (12-20) BUN 7 L (9-16) mg/dL Creatinine 0.65 (0.5-1.4) mg/dL Estim Creat Clear Calc 100.8 Estimated GFR > 60 Random Glucose 116 H (60-115) mg/dL Calcium 9.9 (8.4-10.2) mg/dL Magnesium 1.9 (1.6-2.6) mg/dL Total Bilirubin 0.3 (0.0-1.0) mg/dL AST 28 (5-31) U/L ALT 46 H (0-31) U/L Alkaline Phosphatase 84 (39-117) U/L Total Protein 7.5 (6.5-8.0) g/dL Albumin 4.3 (3.5-5.0) g/dL Independent Interpretation I performed an independent interpretation of an: CT Scan Radiology Impression Discussion of test interpretation with radiology: I have reviewed the radiologist's reading. Independent Historian Clinical information obtained from an independent historian. History obtained from or confirmed by: Other (daughter at bedside ) External Record Review External record reviewed: Inpatient record, Office record, Outpatient record and Prior outpatient labs Chronic Conditions Patient?s care impacted by: Hypertension and Other ( hx of aneurysm, CVA, anxiety) Discharge Plan Discharge Clinical Impression: Headache Patient Disposition: Home, Self-Care Instructions: Acute Headache (ED) Additional Instructions: You were evaluated in the emergency department today for chronic headache after brain aneurysm repair. Your labs are reassuring. Your head and neck CT did not show any evidence of arterial occlusion, dissection, additional aneurysm or any other abnormalities. This is reassuring that nothing emergent is going on. You were medicated with IV fluids, Zofran, and 4 mg of morphine for pain and nausea management. You will be prescribed a 4 day course of Valium to metal fabricator helper in pain management. You can take Tylenol every 6 hours for additional pain relief. Please follow-up with your surgeon at [facility] and your PCP for further management of your chronic headaches. Please return to the emergency department if you experience fevers over 100.4?, worsening headache, vomiting, visual changes, or any other new or concerning symptoms. Prescriptions: New diazepam [Valium] 5 mg tablet 5 mg PO BID PRN (Reason: sedation) Qty: 8 0RF No Action (DME) Ankle/Foot Orthotics See Rx Instructions .Route .MEDSUPPLY Qty: 1 0RF Rx Instructions: As directed (DME) reusable bed pads and disposable liners. See Rx Instructions .Route .MEDSUPPLY Qty: 90 12RF Rx Instructions: As directed venlafaxine [Effexor XR] 150 mg capsule,extended release 24hr 150 mg PO BEDTIME Qty: 90 3RF gabapentin 600 mg tablet 600 mg PO BID Qty: 60 8RF amlodipine 10 mg tablet 10 mg PO DAILY Qty: 90 11RF mirabegron 50 mg tablet extended release 24 hr 50 mg PO BID 90 Days Qty: 180 11RF clopidogrel 75 mg tablet 75 mg PO DAILY oxycodone 5 mg tablet 5 mg PO Q6H PRN (Reason: severe pain (scale score 7-10)) Qty: 10 0RF Rx Instructions: Partial Fill upon patient request. albuterol sulfate 90 mcg/actuation HFA aerosol inhaler 2 puff inhalation Q6H PRN (Reason: shortness of breath or wheezing) Qty: 8.5 0RF Print Language: Welsh
[2024-07-16 10:21] VITALS: BP 135/70; PULSE 75; O2SAT 98
[2024-07-16 10:23] VITALS: BP 149/88; PULSE 67; RESP 11; TEMP 36.8; O2SAT 95; BMI 36.3
[2024-07-16] MEDS: ondansetron HCL 4 MG/2 ML VIAL IVPUSH (11:14)
[2024-07-16] MEDS: Morphine Sulfate 4 MG/ML CARTRIDGE IVPUSH (11:14)
[2024-07-16] MEDS: Lactated Ringers 1,000 ML 999 ML IV (11:15)
[2024-07-16 11:41] VITALS: BP 153/92; PULSE 66; RESP 14; TEMP 36.7; O2SAT 93
--- OUTSIDE RECORDS SUMMARY | 2024-07-16 11:42 | XMS_ITS | Clinical Summary ---
Author Organization [address] [facility] Address [address] [place] [address] Phone Care Team Providers Care Log Cutter Name Role Phone Harjit Khoury MD Primary Care Provider [phone] Social History Tobacco Use Types Packs/Day Years [...] mmol/L LAB CHEMISTRY METHOD 04/09/2024 12:42 PM [facility] Potassium 4.2 3.5 - 5.5 mmol/L LAB CHEMISTRY METHOD 04/09/2024 12:42 PM [facility] Chloride 107 96 - 110 mmol/L LAB CHEMISTRY METHOD 04/09/2024 12:42 PM [facility] CO2 26 21 - 32 mmol/L LAB CHEMISTRY METHOD 04/09/2024 12:42 PM [facility] Anion Gap 3 3 - 11 LAB CHEMISTRY METHOD 04/09/2024 12:42 PM [facility] Glucose 88 70 - 100 mg/dL LAB CHEMISTRY METHOD 04/09/2024 12:42 PM [facility] BUN 11 5 - 25 mg/dL LAB CHEMISTRY METHOD 04/09/2024 12:42 PM [facility] Creatinine 0.75 0.50 - 1.10 mg/dL LAB CHEMISTRY METHOD 04/09/2024 12:42 PM [facility] eGFR 91 >=60 mL/min/1. 73m2 LAB CHEMISTRY METHOD 04/09/2024 12:42 PM [facility] Comment:Calculation based on the??Chronic Kidney Disease Epidemiology Collaboration (CKD-EPI) equation refit??without adjustment for race. BUN/Creatinine Ratio 14.7 LAB CHEMISTRY METHOD 04/09/2024 12:42 PM [facility] Calcium 9.9 8.5 - 10.5 mg/dL LAB CHEMISTRY METHOD 04/09/2024 12:42 PM [facility] AST (SGOT) 16 10 - 42 unit/L LAB CHEMISTRY METHOD 04/09/2024 12:42 PM [facility] ALT (SGPT) 18 10 - 60 unit/L LAB CHEMISTRY METHOD 04/09/2024 12:42 PM [facility] Alkaline Phosphatase 64 42 - 121 unit/L LAB CHEMISTRY METHOD 04/09/2024 12:42 PM [facility] Total Protein 7.3 6.0 - 8.0 g/dL LAB CHEMISTRY METHOD 04/09/2024 12:42 PM [facility] Albumin 3.6 3.2 - 5.0 g/dL LAB CHEMISTRY METHOD 04/09/2024 12:42 PM [facility] Total Bilirubin 0.5 0.0 - 1.4 mg/dL LAB CHEMISTRY METHOD 04/09/2024 12:42 PM [facility] Blood Venous blood specimen / Unknown Venipuncture / Unknown 04/09/2024 5:24 AM EST 04/09/2024 10:58 AM EST us Harjit Khoury MD LAB BLOOD ORDERABLES Final Resul t [facility] [address] [place] [address], from Last 3 Months or Most Recently Relevant to Health Maintenance Insurance MEDICAID - [place] Care Teams Log Cutter Relationship Specialty Start Date End Date Harjit Khoury MD [address] [place] [address] [address] [place] [address] PCP - General Geriatric Medicine 04/09/24
--- OUTSIDE RECORDS SUMMARY | 2024-07-16 11:42 | XMS_ITS | Encounter Summary ---
Author Organization [employer] Address [address] [place] [address] Care Team Providers Care Watch Train Inspector Name Role Phone Harjit Khoury MD Primary Care Provider [phone] Encounter Details Date Type Department Care Team (Late st Contact Info) Description 04/09/2024 Lab Requisition [facility] Main Lab [address] [facility] [place] [address] Harjit Khoury MD [address] [place] [address] Essential (primary) hypertension; Vitamin D deficiency, unspecified [...] LAB CHEMISTRY METHOD 04/09/2024 12:13 PM EST [facility] Blood Venous blood specimen / Unknown Venipuncture / Unknown 04/09/2024 5:24 AM EST 04/09/2024 10:58 AM EST us Harjit Khoury MD LAB BLOOD ORDERABLES Final Resul t Performing Organization Address [facility] Co de Phone Number [facility] [address] [place] [address], * Folate (04/09/2024 5:24 AM EST) Pathologist [facility] Folate 6.4 2.8 - 17.0 ng/ml LAB CHEMISTRY METHOD 04/09/2024 12:42 PM EST [facility] Blood Venous blood specimen / Unknown Venipuncture / Unknown 04/09/2024 5:24 AM EST 04/09/2024 10:58 AM EST us Harjit Khoury MD LAB BLOOD ORDERABLES Final Resul t Performing Organization Address City/[facility]/ZIP Co de Phone Number [facility] [address] [place] [address], [place] [phone] * Thyroid stimulating hormone (04/09/2024 5:24 AM EST) [facility] TSH 3.07 0.40 - 4.00 mcIU/mL LAB CHEMISTRY METHOD 04/09/2024 12:13 PM EST [facility] Blood Venous blood specimen / Unknown Venipuncture / Unknown 04/09/2024 5:24 AM EST 04/09/2024 10:58 AM EST us Harjit Khoury MD LAB BLOOD ORDERABLES Final Resul t [facility] [address] [place] [address], [place] [phone] * Vitamin B12 (04/09/2024 5:24 AM EST) [facility] Vitamin B-12 466 250 - 900 pcg/mL LAB CHEMISTRY METHOD 04/09/2024 12:42 PM [facility] Blood Venous blood specimen / Unknown Venipuncture / Unknown 04/09/2024 5:24 AM EST 04/09/2024 10:58 AM EST us Harjit Khoury MD LAB BLOOD ORDERABLES Final Resul t Performing Organization Address City/[facility]/ZIP Co de Phone Number [facility] [address] [place] [address], [place] [phone] * Comprehensive metabolic panel (04/09/2024 5:24 AM EST) [facility] Sodium 136 133 - 145 mmol/L LAB CHEMISTRY METHOD 04/09/2024 12:42 PM [facility] Potassium 4.2 3.5 - 5.5 mmol/L LAB CHEMISTRY METHOD 04/09/2024 12:42 PM [facility] Chloride 107 96 - 110 mmol/L LAB CHEMISTRY METHOD 04/09/2024 12:42 PM [facility] CO2 26 21 - [...] MD LAB BLOOD ORDERABLES Final Resul t [facility] [address] [place] [address], * (ABNORMAL) Complete blood count (04/09/2024 5:24 AM EST) WBC 8.6 4.8 - 10.8 K/mcL LAB HEMETOLOGY METHOD 04/09/2024 11:31 AM EST [facility] RBC 4.50 3.80 - 4.80 [...] 04/09/2024 11:31 AM [facility] Platelets 319 130 - 400 K/mcL LAB HEMETOLOGY METHOD 04/09/2024 11:31 AM [facility] MPV 10.4 7.0 - 11.0 FL LAB HEMETOLOGY METHOD 04/09/2024 11:31 AM [facility] NRBC 0.0 <1.0 % LAB HEMETOLOGY METHOD 04/09/2024 11:31 AM EST [facility] NRBC Absolute 0.00 <0.10 K/mcL LAB HEMETOLOGY METHOD 04/09/2024 11:31 AM EST [facility] Blood Venous blood specimen / Unknown Venipuncture / Unknown 04/09/2024 5:24 AM EST 04/09/2024 10:58 AM EST us Harjit Khoury MD LAB BLOOD ORDERABLES Final Resul t [facility] [address] [place] [address], documented in this encounter Visit Diagnoses Diagnosis Essential (primary) hypertension Unspecified essential hypertension Vitamin D deficiency, unspecified documented in this encounter Care Teams Watch Train Inspector Relationship Specialty Start Date End Date Harjit Khoury MD [address] [place] [address] [address] [place] [address] PCP - General Geriatric Medicine 04/09/24 documented as of this encounter
--- OUTSIDE RECORDS SUMMARY | 2024-07-16 11:42 | XMS_ITS | Data Portability ---
Author Organization [facility], [facility] Address [address] [place] [address] Care Team Providers Care Furniture Mover Helper Name Role Phone PRAKASH MON Primary Care [...] 2023 024 [facility] [place] [facility], [address], [place], [address], 5 15:23:20 Procedures None recorded. Surgeries None recorded. Imaging XR, wrist, 3 or more view - room 113 3V L wrist 2023 024 [facility], [address], [place], [address], 5 15:23:19 XR, wrist, 3 or more view - rm.115 3 v of the L wrist 2023 024 [facility], [address], [address], [place], [address], 4 07:59:37 XR, wrist, 3 or more view - RM 119 3V 2023 024 [email or web address], [address], [address], [place], [address], 4 15:56:17 Medication Orders None recorded. Patient TargetsNo targets recorded. Patient Instructions Encounter Date Encounter Id Patient Instructions Last Modified By Organization Details Last Modified Time 01/10/[id number] application of cast, short arm cast* - RM 119 S[facility] ON [facility] [email or web address] Not available 01/13/2024 15:56:17 01/17/[id number] application of cast, short arm cast* leisa [...] aYqtaq 0bqfl% 2Fg9IQ a4ajBk vP9nXo QUaueC m3YtLR FvZl50 [address] Streettai[address] 2e7341 AC0Kqa X2DV6K gKiQtr MwF INTERFACE [facility] [address] [facility] [address], [place], [address], 01/10/2024 11:13:21 01/10/20 24 01/10/2024 XR, wrist , 3 or more view [email or web address] ?Encry pted=s hAaTro YD8dLq bEUv6g %2BXZw aYqtaq 0bqfl% 2Fg9IQ a4ajBk vP9nXo QUaueC m3YtLR [address] 4f6666 AC0Kqa X2DV6K gKiQtr MwF INTERFACE [facility] [address], [place], [address], 01/10/2024 11:13:24 01/17/20 24 01/17/2024 XR, wrist , 3 or more view [email or web address]:/ [email or web address] ?Encry pted=s hAaTro YD8dLq bEUv6g %2BXZw aYqtaq 0bqfl% 2Fg9IQ a4ajBk vP9nXo QUaueC m3YtLR FvZl50 [address] Streettai[address] 5h1329 AC0Kqa X6CWae hKiQtr MwF INTERFACE [facility] [address] [facility] [address] [address], [place], [address], 01/17/2024 12:04:14 01/17/20 24 01/17/2024 XR, wrist , 3 or more view [email or web address]:/ [email or web address] 0:[email or web address] ?Encry pted=s hAaTro YD8dLq bEUv6g %2BXZw aYqtaq 0bqfl% 2Fg9IQ a4ajBk vP9nXo QUaueC m3YtLR FvZlgJ JJ8[place]wood HZtai3 9r3493 AC0Kqa X6CWae hKiQtr MwF INTERFACE [facility] [address] [address], [place], [address], 01/17/2024 12:04:16 02/07/20 24 02/07/2024 XR, wrist , 3 or more view http:/ [email or web address] [email or web address] ?Encry pted=s hAaTro YD8dLq bEUv6g %2BXZw aYqtaq 0bqfl% 2Fg9IQ a4ajBk vP9nXo QUaueC m3YtLR FvZlgJ JJ8mAn HZtai3 5y7481 AC0Kqb nyMWKa uKiQtr MwF INTERFACE [facility] [address] [facility] [address] [address], [place], [address], 02/07/2024 10:33:47 02/07/20 24 02/07/2024 XR, wrist , 3 or more view [email or web address]:/ [email or web address] ?Encry pted=s hAaTro YD8dLq bEUv6g %2BXZw aYqtaq 0bqfl% 2Fg9IQ a4ajBk vP9nXo QUaueC m3YtLR FvZlgJ JJ8mAn HZtai3 0k9831 AC0Kqb nyMWKa uKiQtr MwF INTERFACE [facility] [address], [place], [address], 02/07/2024 10:33:49 Result Notes None recorded. Procedures Surgical History None recorded. Imaging Results Imaging Date Name Status LastModified by [facility]iz [facility] Details LastModified Time 01/10/2024 XR, wrist, 3 or more view completed INTERFACE [facility] [address], [place], [address], 01/10/2024 11:13:21 01/10/2024 XR, wrist, 3 or more view completed INTERFACE [facility] [address], [place], [address], 01/10/2024 11:13:24 01/17/2024 XR, wrist, 3 or more view completed INTERFACE [facility] [address], [place], [address], 01/17/2024 12:04:14 01/17/2024 XR, wrist, 3 or more view completed INTERFACE [facility] [address], [place], [address], 01/17/2024 12:04:16 02/07/2024 XR, wrist, 3 or more view completed INTERFACE [facility] [address], [place], [address], 02/07/2024 10:33:47 02/07/2024 XR, wrist, 3 or more view completed INTERFACE [facility] [address], [place], [address], 02/07/2024 10:33:49 Procedure Notes None recorded. Medical [...] Updated DateTime 01/10/2024 162.56 cm 33.5 kg/m2 37119.51 g SONY MAJOR [facility] 01/10/2024 11:04:19 Date Recorded Body height Body mass index (BMI) Body weight Provider Name and Address Organization Details Last Updated DateTime 01/17/2024 162.56 cm 34.3 kg/m2 33341.47 g connie spencer [facility] 01/17/2024 11:50:48 Date Recorded Body height Body mass index (BMI) Body weight Provider Name and Address Organization Details Last Updated DateTime 02/07/2024 162.56 cm 34.3 kg/m2 [address]64.[address] [facility] 02/07/2024 10:14:34 Social History None recorded. Functional Status None recorded. Mental Status None recorded. Family History Nothing Reported. Medical History No medical history recorded. Gynecological HistoryNo gynecological history recorded. Obstetrics History GPAL:G 0 P 0 0 0 0 Past Encounters Encounter ID Performer Location Encounter Start Date Encounter Closed Date Diagnosis/Indication Diagnosis SNOMED-CT Code Diagnosis ICD10 Code Diagnosis Note [id number] MANUELITO Jeffers [address] [place] [address] 01/10/2024 10:35:31 01/29/2024 10:07:21 Pain of left wrist 5642488932 60615 M25.959 [id number] MD Antonia Laws [address] [place] [address] 01/17/2024 11:18:11 02/05/2024 07:59:37 Pain of left wrist 5742354966 34663 M25.532 Closed Col les' fracture 270374551 S52.532D [id number] MD Antonia Laws [address] [place] [address] 02/07/2024 10:01:00 02/27/2024 15:23:19 Pain of left wrist 6341178881 30712 M25.532 Closed Col les' fracture 323678938 S52.532D Health Concerns Section Related Observation LastModified by Organization Detai ls LastModified Time None Recorded Concern Status LastModified by Organization Details LastModified Time None Recorded Advance Directives Directive None Recorded Payers Encounter Date Sequence Insurance Name Policy Number Policy Alvarado Covered Member ID Alvarado Member ID Guarantor Name 01/10/2024 2 [place] [facility] Maya Cain [id number] Maya Cain 01/10/2024 1 [employer] (MEDICARE REPLACEMENT/A DVANTAGE - PPO) [id number] Maya Cain [id number] Maya Cain 01/17/2024 2 [place] Maya Cain [id number] Maya Cain 01/17/2024 1 [employer] (MEDICARE REPLACEMENT/A DVANTAGE - PPO) [id number] Maya Cain [id number] Maya Cain 02/07/2024 2 [place] [facility] Maya Cain [id number] Maya Cain 02/07/2024 1 [employer] (MEDICARE REPLACEMENT/A DVANTAGE - PPO) [id number] Maya Cain [id number] Maya Cain Notes Date Note Type Note [...] instability. X-rays ordered, obtained and reviewed at [facility] m3 views left wrist reveals a [...] motion and strengthening. Tabitha Redman PA-C [address] [address], [place], [address], [facility] 01/10/2024 13:48:27 01/17/2024 text/html DX: Left distal radius An ulnar styloid process fracture 12/30/2023Left-sided hemiparesis from previous CVA HPI:63-year-old female here for orthopedic consultation. Patient fell onto the outstretched hand and injured the left wrist. Fracture is being treated conservatively. She has been in a splint Latanya Hughes MD [address] [address], [place], [address], [facility] 01/17/2024 17:00:21 02/07/2024 text/html DX: Left distal radius and ulnar styloid process fracture 12/30/2023Left-sided hemiparesis from previous CVA HPI:63-year-old female here for orthopedic consultation. Patient fell onto the outstretched hand and injured the left wrist. Fracture is being treated conservatively. She reports that the cast applied at her most recent visit quickly fell off. Latanya Hughes MD [address] [facility] [address], [place], [address], [facility] 02/07/2024 12:27:02 OBGyn Episode No OBEpisode recorded.
[2024-07-16 11:56] LABS: MANUAL DIFF FLAG NO
[2024-07-16 11:58] LABS: Basophils Absolute Auto 0.1 X10*3/uL (0.0-0.2); Basophils Percent Auto 0.5 % (0-2); Eosinophils Absolute Auto 0.1 X10*3/uL (0.0-0.4); Eosinophils Percent Auto 1.3 % (0-4); Hematocrit 41.9 % (37.0-47.0); Hemoglobin 13.4 g/dl (12.0-16.0); Imm Gran Abs Auto 0.03 X10*3/uL (0.00-0.03); Imm Gran Pct Auto 0.3 % (0.0-0.4); Lymphocytes Absolute Auto 1.3 X10*3/uL (1.2-4.9); Lymphocytes Percent Auto 13.2 % (20-40); Mean Corpuscular Hemoglobin 28.4 pg (27.0-33.0); Mean Corpuscular Volume 88.8 fL (80.0-98.0); Mean Platelet Volume 9.5 fL (9.4-12.3); Monocytes Absolute Auto 0.4 X10*3/uL (0.1-1.2); Monocytes Percent Auto 4.3 % (2-11); Neutrophils Absolute Auto 7.8 x10*3/uL (2.0-8.3); Neutrophils Percent Auto 80.4 % (45-73); Platelet Count 282 X10*3/uL (160-400); Red Blood Count 4.72 X10*6/uL (4.20-5.50); Red Cell Distribution Width 14.4 % (11.0-16.0); White Blood Count 9.7 X10*3/uL (4.8-10.8)
[2024-07-16 12:13] LABS: Alanine Aminotransferase 46 U/L (0-31); Albumin Level 4.3 g/dL (3.5-5.0); Alkaline Phosphatase 84 U/L (39-117); Anion Gap 10 (12-20); Aspartate Amino Transferase 28 U/L (5-31); Bilirubin Total 0.3 mg/dL (0.0-1.0); Blood Urea Nitrogen 7 mg/dL (9-16); Calcium 9.9 mg/dL (8.4-10.2); Carbon Dioxide 26 mmol/L (22-29); Chloride 107 mmol/L (96-108); Creatinine Clr Calc Pharmacy 100.8; Estimated Glomerular Filt Rate > 60; Glucose Random 116 mg/dL (60-115); Magnesium 1.9 mg/dL (1.6-2.6); Potassium 4.3 mmol/L (3.3-5.1); Sodium 139 mmol/L (135-145); Total Protein 7.5 g/dL (6.5-8.0)
[2024-07-16 13:18] VITALS: BP 164/86; PULSE 68; RESP 20; O2SAT 94
[2024-07-16 13:56] VITALS: BP 169/85; PULSE 70; RESP 14; O2SAT 93
[2024-07-16] MEDS: iohexoL 350 MG/ML 100 ML INFUS..BTL IV (14:42)
--- NOTE | 2024-07-16 17:57 | PC.NURSE ---
Attempted to call twice to give report to [place] travis with no answer
[2024-07-16 18:33] VITALS: BP 169/85; PULSE 70; RESP 14; TEMP 36.9; O2SAT 93
== END 2024-07-16 18:34 | disposition home or self-care (01) ==
PROVIDERS: Emergency Provider Emergency Medicine; PCP Internal Medicine
DX: R51.9 Headache, unspecified (principal); R11.2 Nausea with vomiting, unspecified; H53.8 Other visual disturbances; M54.2 Cervicalgia; I10 Essential (primary) hypertension; J45.909 Unspecified asthma, uncomplicated; E21.3 Hyperparathyroidism, unspecified; Z86.73 Personal history of transient ischemic attack (TIA), and cerebral infarction without residual deficits; Z79.899 Other long term (current) drug therapy
CPT/HCPCS: 36415; 70496; 70498; 80053; 83735; 85025; 85610; 96361; 96374; 96375; 99284; J2270; J2405; J7120; Q9967

== ENCOUNTER → 2024-07-16 11:04 | Outpatient (BNV) | payer MEDICARE, MEDICAID, SELFPAY | PROVIDERS: PCP Internal Medicine; Visit Provider Radiology Diagnostic Radiology | DX: R51.9 Headache, unspecified (principal) | CPT/HCPCS: 70496; 70498 ==

== ENCOUNTER 2024-07-29 13:42 | Outpatient (AMB) | payer MEDICARE, MEDICAID, SELFPAY ==
--- OUTSIDE RECORDS SUMMARY | 2024-07-29 13:53 | XMS_ITS | Clinical Summary ---
Author Organization [facility] Address [address] [place] [address] Phone Care Team Providers Care Cinder Man Name Role Phone Harjit Khoury MD Primary Care Provider [phone] Social History Tobacco Use Types Packs/Day Years [...] Final Resul t [facility] [address] [place] [address], from Last 3 Months or Most Recently Relevant to Health Maintenance Insurance [place] - [place] AETNA Care Teams Cinder Man Relationship Specialty Start Date End Date Harjit Khoury MD [address] [place] [id number] [address] [place] [address] PCP - General Geriatric Medicine 04/09/24
--- NOTE | 2024-07-29 14:18 | A.OFFVIS_ITS ---
Intake Visit Reasons: Neuromuscular dysfunction follow up Intake Note: Patient is present for neuromuscular dysfunction follow up Urology Med: Myrbetriq Antibiotic Allergy: None Blood Thinner: Aspirin, Clopidogrel Air Support Operations Operator Required: No Director Of Acquisition Marketing: Director Of Acquisition Marketing Present Accompanied by: Daughter Allergies perfume Allergy (Intermediate, Verified 07/29/24 14:20) Shortness of Breath Seasonal Allergies Allergy (Intermediate, Verified 07/29/24 14:20) Watery Eye, sneezing Medication List - Last Reconciled 07/29/24 by Torres Connell MD [reusable bed pads and disposable liners. As directed] albuterol sulfate 90 mcg/actuation 2 puffs inhalation Q6H PRN amlodipine 10 mg PO DAILY [Ankle/Foot Orthotics As directed] clopidogrel 75 mg PO DAILY diazepam (Valium) 5 mg PO BID PRN gabapentin 600 mg PO BID lisinopril 5 mg PO DAILY mirabegron ER 50 mg PO BID 90 days oxycodone 5 mg PO Q6H PRN venlafaxine ER (Effexor XR) 150 mg PO BEDTIME HPI Comments Details: 07/29/24-- History of Present Illness The patient is a 64-year-old female presenting with concerns related to her neurogenic bladder secondary to a previous stroke. She previously received Botox injections, the last being over seven months ago, September,. Her current regimen of Myrbetriq 50 mg bi-daily helps manage symptoms, though she reports some leakage incidents. The patient's condition has been complicated by a recent ankle fracture, which limits her mobility and delays the next scheduled Botox treatment. While in rehab, she is addressing these mobility challenges, and once improved, the Botox injections will be resumed due to better efficacy. Urinary Symptoms Review - Leakage incidents occur despite medication, wearing pads - Neurogenic bladder secondary to stroke. - Previously managed with Botox injections, the last one over seven months ago. - Currently on oral Myrbetriq 50 mg twice daily. Results - Urinalysis: Negative, no signs of infection. 03/27/24--Last botox 200 units on 10/22/23. She has had treatments for cancer and had to reschedule her follow up. She has started leaking again, denies dysuria. Unable to give urine sample. PVR 0 ML. Will reschedule out patient botox 200 units. Pt must bring urine to be tested to rule out UTI prior. 11/14/23--Maya is being managed for spastic neurogenic bladder, CoMorbidity - Stroke--she is s/p repeat botox 10/22/23, she states she is doing much better. She is able to make it to the bathroom without leaking, denies dysuria. fu in 3 months 10/04/23--Teresa is s/p Botox 200 units on 06/18/23 and she states her urinary urgency is still present, she is still leaking, she states the botox worked for about 6-8 weeks. I will send urine for culture and empiracally start antibiotics. The patient may need botox every 3 months alternatively may consider interstim neuromodulation therapy. 06/07/23--Maya is a 62-year-old female who presents today telehealth visit. She states that she diagnosed with bone cancer. She had radiation therapy and surgery in [place] in January 2023. She states she is doing much better. She remains on Myrbetriq 50 mg twice a day. She is scheduled for bladder Botox injection 200 units, 06/18/2023. She denies dysuria. Plan urine culture prior to Botox injection. 10/15/2022?She was last seen by me on 07/13/2022 for overactive bladder. Advised the patient to continue Myrbetriq twice a day, and follow up Tele-health in 3 months during that time. She has a history of stroke in 2017. Patient states that she is starting to have urinary urgency with incontinence episodes. She denies dysuria. She states that she was recently diagnosed with bone cancer and was seeing a specialist in [place]. She has an upcoming surgery and wants to delay repeat Botox treatment. She states that she will call the office for follow up. She was unable to give urine specimen at this time. Bladder scan: 118 mL. Plan --Continue Myrbetriq 50 mg BID daily. Patient has recently diagnosed with bone cancer and she has planned surgery. She will call to the office when she is recovered from the surgery and will repeat Botox for the bladder. 07/13/2022: The patient is s/p cystoscopy and bladder Botox 100 units on 01/04/22. history of stroke in 2016. States having improvement in OAB symtoms post the Botox treatment. The patient is taking Myrbetriq twice a day without any reported side effects. States improvement in urinary leakage after the Botox therapy. I discussed to repeat the Botox 100 units. Will schedule a tele-health visit and will monitor her urinary symptoms. Plan: Continue Myrbetriq twice a day. Tele- health follow-up in three months. [facility] Medical History HTN (hypertension) Nicotine dependence, cigarettes, uncomplicated Mass of left thigh Suspected exposure to mold Left leg swelling Obesity (BMI 30-39.9) Hemiparesis (~2017) ADHD (attention deficit hyperactivity disorder) Hypercalcemia Anxiety Hyperparathyroidism Sleep apnea in adult History of asthma History of CVA with residual deficit (~2016) Allergic rhinitis Surgical History History of biopsy History of hand surgery History of hysterectomy History of tubal ligation History of History of colonoscopy History of bilateral breast reduction surgery History of tonsillectomy S/P Botox injection Hx of arthroscopy of left knee Family History Father HTN (hypertension) Mother HTN (hypertension) Social History Household Members: None Housing: House Alcohol intake: current Alcohol intake frequency: does not drink Comment: left sided hemiparesis walks nato espinoe Patient Tobacco Use Status: Former Tobacco user Tobacco use type: Cigarette Years Smoked: 2017 stopped 2.5 packs /20 years e-Cigarette/Vaping Use: Never Used Second Hand Smoke Exposure: No Advance Directives Date on File: 04/08/24 service: No Current occupational status: disabled Cognitive needs: No Hearing needs: No Vision needs: No Female Reproductive History Menstrual Age of Menarche: 15 Review of Systems Const All systems reviewed & are unremarkable except as noted in HPI and below Reports no additional complaints Eyes Reports no additional complaints ENT Reports no additional complaints Card Reports no additional complaints Resp Reports no additional complaints GI Reports no additional complaints Reports as per HPI Musc Reports no additional complaints Skin/Breast Reports system reviewed and no additional complaints, except as documented Neuro Reports no additional complaints Psych Reports no additional complaints Endo Reports no additional complaints Lexa/Lymph Reports no additional complaints Aller/Immun Reports no additional complaints Assessment & Plan Assessment & Plan (1) OAB (overactive bladder): Code(s): N32.81 - Overactive bladder Category: Medical (2) History of CVA (cerebrovascular accident): Onset Date: ~2016 Comment: (CVA 2017 left-sided weakness) Code(s): Z86.73 - Personal history of transient ischemic attack (TIA), and cerebral infar ction without residual deficits Category: Medical (3) Spastic neurogenic bladder: Code(s): N31.8 - Other neuromuscular dysfunction of bladder Category: Medical Plan Plan The management of her spastic neurogenic bladder will continue with Myrbetriq 50 mg twice daily until she completes her rehabilitation. Once she gains sufficient mobility, we will plan a Botox injection. The patient will reach out when ready, and if not, a video consultation will occur in three months. This approach allows us to manage bladder symptoms until she is physically capable of undergoing the procedure. Patient Instructions: The patient had an opportunity to ask questions regarding treatment plan. The patient expressed understanding and agreement with the above treatment plan. The patient is aware they should contact our office by phone for worsening of their current condition or the appearance of new symptoms. Compliance is encouraged with any medications and followup testing that is ordered. It is a privilege to be allowed the opportunity to participate in the urologic care of your patient. If you have any questions or concerns regarding treatment for the above conditions please do not hesitate to contact me. The office telephone contact is [phone]. This note is constructed in part using voice recognition software. While every effort has been made to ensure accuracy copper plate printer errors may have been included. Yours sincerely, Torres Connell MD Scribe Plan - Not visible on output: Patient was informed and verbally consented to the use of an ambient scribe for clinic note documentation during this visit. Coding Level of Care Code Est Pt Level 4 (40609) Complex EM visit Add On G2211 Diagnoses OAB (overactive bladder) N32.81 History of CVA (cerebrovascular accident) Z86.73 Spastic neurogenic bladder N31.8
== END 2024-07-29 14:49 | disposition home or self-care (01) ==
PROVIDERS: PCP Internal Medicine; Visit Provider Urology
DX: N32.81 Overactive bladder (principal); Z86.73 Personal history of transient ischemic attack (TIA), and cerebral infarction without residual deficits; N31.8 Other neuromuscular dysfunction of bladder; Z13.9 Encounter for screening, unspecified
CPT/HCPCS: 99214; G2211

== ENCOUNTER → 2024-07-29 13:42 | Outpatient (BNVA) | payer MEDICARE, MEDICAID, SELFPAY | PROVIDERS: PCP Internal Medicine; Visit Provider Urology | DX: N32.81 Overactive bladder (principal); N31.8 Other neuromuscular dysfunction of bladder; Z87.891 Personal history of nicotine dependence; Z86.73 Personal history of transient ischemic attack (TIA), and cerebral infarction without residual deficits | CPT/HCPCS: 81003; 99212 ==

== ENCOUNTER 2024-08-06 08:37 | Outpatient (REF) | payer MEDICARE, MEDICAID, SELFPAY ==
--- NOTE | ~2024-08-06 | XR_ITS ---
EXAMINATION: XR ANKLE, LEFT CLINICAL INFORMATION: M25.579 - Pain in unspecified ankle and joints of unspecified foot COMPARISON: July 07, 2024. TECHNIQUE: AP, lateral, and mortise views of the left ankle. FINDINGS: Old traumatic deformities with callus formation involving the distal diaphysis/metaphysis of the fibula and medial malleolus. Osteopenia versus osteoporosis. Degenerative changes. No acute cortical disruption or gross malalignment. Small spur, plantar calcaneus. No subcutaneous emphysema. No gross joint effusion. XR/XR ankle LT min 3V IMPRESSION: Old traumatic deformity without acute fracture or dislocation. Electronically signed by: Bart Jones MD 08/06/2024 11:52 AM EDT
--- OUTSIDE RECORDS SUMMARY | 2024-08-07 08:49 | XMS_ITS | Clinical Summary ---
Author Organization [address] [facility] Address [address] [place] [address] Phone Care Team Providers Care Emergency Worker Name Role Phone Harjit Khoury MD Primary Care Provider [phone] Social History Tobacco Use Types Packs/Day Years [...] mmol/L LAB CHEMISTRY METHOD 04/09/2024 12:42 PM [facility] Potassium 4.2 3.5 - 5.5 mmol/L LAB CHEMISTRY METHOD 04/09/2024 12:42 PM [facility] Chloride 107 96 - 110 mmol/L LAB CHEMISTRY METHOD 04/09/2024 12:42 PM [facility] CO2 26 21 - 32 mmol/L LAB CHEMISTRY METHOD 04/09/2024 12:42 PM [facility] Anion Gap 3 3 - 11 LAB CHEMISTRY METHOD 04/09/2024 12:42 PM [facility] Glucose 88 70 - 100 mg/dL LAB CHEMISTRY METHOD 04/09/2024 12:42 PM [facility] BUN 11 5 - 25 mg/dL LAB CHEMISTRY METHOD 04/09/2024 12:42 PM [facility] Creatinine 0.75 0.50 - 1.10 mg/dL LAB CHEMISTRY METHOD 04/09/2024 12:42 PM [facility] eGFR 91 >=60 mL/min/1. 73m2 LAB CHEMISTRY METHOD 04/09/2024 12:42 PM [facility] Comment:Calculation based on the??Chronic Kidney Disease Epidemiology Collaboration (CKD-EPI) equation refit??without adjustment for race. BUN/Creatinine Ratio 14.7 LAB CHEMISTRY METHOD 04/09/2024 12:42 PM [facility] Calcium 9.9 8.5 - 10.5 mg/dL LAB CHEMISTRY METHOD 04/09/2024 12:42 PM [facility] AST (SGOT) 16 10 - 42 unit/L LAB CHEMISTRY METHOD 04/09/2024 12:42 PM [facility] ALT (SGPT) 18 10 - 60 unit/L LAB CHEMISTRY METHOD 04/09/2024 12:42 PM [facility] Alkaline Phosphatase 64 42 - 121 unit/L LAB CHEMISTRY METHOD 04/09/2024 12:42 PM [facility] Total Protein 7.3 6.0 - 8.0 g/dL LAB CHEMISTRY METHOD 04/09/2024 12:42 PM [facility] Albumin 3.6 3.2 - 5.0 g/dL LAB CHEMISTRY METHOD 04/09/2024 12:42 PM [facility] Total Bilirubin 0.5 0.0 - 1.4 mg/dL LAB CHEMISTRY METHOD 04/09/2024 12:42 PM [facility] Blood Venous blood specimen / Unknown Venipuncture / Unknown 04/09/2024 5:24 AM EST 04/09/2024 10:58 AM EST us Harjit Khoury MD LAB BLOOD ORDERABLES Final Resul t [facility] [address] [place] [address], from Last 3 Months or Most Recently Relevant to Health Maintenance Insurance [place] Care Teams Emergency Worker Relationship Specialty Start Date End Date Harjit Khoury MD [address] [place] [address] [address] [place] [address] PCP - General Geriatric Medicine 04/09/24
== END 2024-08-06 08:38 | disposition home or self-care (01) ==
LOC: HO.HOSX 08:37
PROVIDERS: Visit Provider Physician Assistant
DX: M25.572 Pain in left ankle and joints of left foot (principal)
CPT/HCPCS: 73610; 99212

== ENCOUNTER 2024-08-06 11:30 | Outpatient (AMB) | payer MEDICARE, MEDICAID, SELFPAY ==
--- NOTE | 2024-08-06 11:54 | MHC.OFFVIS ---
Intake Visit Reasons: OV-LT Ankle Fx DOI 04/06/24-w/xrays Intake Note: Maya is a 64 year old female who presents today for a follow up of her left closed trimalleolar fx 04/06/24. Patient reports she is doing well, no pain or discomfort at this time. Allergies perfume Allergy (Intermediate, Verified 08/06/24 11:55) Shortness of Breath Seasonal Allergies Allergy (Intermediate, Verified 08/06/24 11:55) Watery Eye, sneezing HPI HPI OV-LT Ankle Fx DOI 04/06/24-w/xrays: Details: Ms. Cain is a 64 yo female who presents to the office today accompanied by an aide from [facility] for routine follow-up status post left ankle bimalleolar fracture that occurred on 04/06/2024. Patient stated that she is doing very well she has little to no pain. She is working with physical therapy and has developed more strength in the left lower extremity. 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 She uses a rico walker at baseline to ambulate. She was instructed to continue wearing the boot at her last appointment in which she has done so. [facility] Medical History HTN (hypertension) Nicotine dependence, cigarettes, uncomplicated Mass of left thigh Suspected exposure to mold Left leg swelling Obesity (BMI 30-39.9) Hemiparesis (~2017) ADHD (attention deficit hyperactivity disorder) Hypercalcemia Anxiety Hyperparathyroidism Sleep apnea in adult History of asthma History of CVA with residual deficit (~2017) Allergic rhinitis Surgical History History of biopsy History of hand surgery History of hysterectomy History of tubal ligation History of History of colonoscopy History of bilateral breast reduction surgery History of tonsillectomy S/P Botox injection Hx of arthroscopy of left knee Family History Father HTN (hypertension) Mother HTN (hypertension) Social History Household Members: None Housing: House Alcohol intake: current Alcohol intake frequency: does not drink Comment: left sided hemiparesis walks nato espinoe Patient Tobacco Use Status: Former Tobacco user Tobacco use type: Cigarette Years Smoked: 2017 stopped 2.5 packs /20 years e-Cigarette/Vaping Use: Never Used Second Hand Smoke Exposure: No Advance Directives Date on File: 04/08/24 service: No Current occupational status: disabled Cognitive needs: No Hearing needs: No Vision needs: No Female Reproductive History Menstrual Age of Menarche: 15 Review of Systems Const All systems reviewed & are unremarkable except as noted in HPI and below Physical Exam Const General: cooperative, healthy appearing and no acute distress Resp Effort & Inspection: normal respiratory effort and able to speak in complete sentences Extrem Other: Left ankle No erythema or edema. Able to dorsiflex and plantar flex. Sensation is diminished at baseline but reportedly normal for the patient. Pedal pulse intact. Assessment & Plan Assessment & Plan (1) Closed trimalleolar fracture of left ankle: Code(s): S82.852A - Displaced trimalleolar fracture of left lower leg, initial encounter for closed fracture Category: Medical Plan Ms. Cain is a 64 yo female who presents to the office today accompanied by an aide from [facility] for routine follow-up status post left ankle bimalleolar fracture that occurred on 04/06/2024. Patient stated that she is doing very well she has little to no pain. She is working with physical therapy and has developed more strength in the left lower extremity. 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 She uses a rico walker at baseline to ambulate. She was instructed to continue wearing the boot at her last appointment in which she has done so. While the office today, the patient was cleared to discontinue the boot use at this time. She will continue to work with physical therapy to optimize her range of motion and strength on the left ankle. She can resume back to normal activities as tolerated. She will follow up with Orthopedics p.r.n., sooner if needed. X-rays of the left ankle which were obtained while in the office today and were reviewed by me, Gege Galvez PA-C, revealed healed left trimalleolar fracture. Orders: Orders XR ankle LT min 3V Today M25.579 - Pain in unspecified ankle and joints of unspecified foot Coding Level of Care Code Est Pt Level 3 (71902) Diagnoses Closed trimalleolar fracture of left ankle S82.852A
--- OUTSIDE RECORDS SUMMARY | 2024-08-06 13:41 | XMS_ITS | Clinical Summary ---
Author Organization [address] [facility] Address [address] [place] [address] Phone Care Team Providers Care Engineering Instructor Name Role Phone Harjit Khoury MD Primary Care Provider [phone] Social History Tobacco Use Types Packs/Day Years [...] mmol/L LAB CHEMISTRY METHOD 04/09/2024 12:42 PM [facility] Potassium 4.2 3.5 - 5.5 mmol/L LAB CHEMISTRY METHOD 04/09/2024 12:42 PM [facility] Chloride 107 96 - 110 mmol/L LAB CHEMISTRY METHOD 04/09/2024 12:42 PM [facility] CO2 26 21 - 32 mmol/L LAB CHEMISTRY METHOD 04/09/2024 12:42 PM [facility] Anion Gap 3 3 - 11 LAB CHEMISTRY METHOD 04/09/2024 12:42 PM [facility] Glucose 88 70 - 100 mg/dL LAB CHEMISTRY METHOD 04/09/2024 12:42 PM [facility] BUN 11 5 - 25 mg/dL LAB CHEMISTRY METHOD 04/09/2024 12:42 PM [facility] Creatinine 0.75 0.50 - 1.10 mg/dL LAB CHEMISTRY METHOD 04/09/2024 12:42 PM [facility] eGFR 91 >=60 mL/min/1. 73m2 LAB CHEMISTRY METHOD 04/09/2024 12:42 PM [facility] Comment:Calculation based on the??Chronic Kidney Disease Epidemiology Collaboration (CKD-EPI) equation refit??without adjustment for race. BUN/Creatinine Ratio 14.7 LAB CHEMISTRY METHOD 04/09/2024 12:42 PM [facility] Calcium 9.9 8.5 - 10.5 mg/dL LAB CHEMISTRY METHOD 04/09/2024 12:42 PM [facility] AST (SGOT) 16 10 - 42 unit/L LAB CHEMISTRY METHOD 04/09/2024 12:42 PM [facility] ALT (SGPT) 18 10 - 60 unit/L LAB CHEMISTRY METHOD 04/09/2024 12:42 PM [facility] Alkaline Phosphatase 64 42 - 121 unit/L LAB CHEMISTRY METHOD 04/09/2024 12:42 PM [facility] Total Protein 7.3 6.0 - 8.0 g/dL LAB CHEMISTRY METHOD 04/09/2024 12:42 PM [facility] Albumin 3.6 3.2 - 5.0 g/dL LAB CHEMISTRY METHOD 04/09/2024 12:42 PM [facility] Total Bilirubin 0.5 0.0 - 1.4 mg/dL LAB CHEMISTRY METHOD 04/09/2024 12:42 PM [facility] Blood Venous blood specimen / Unknown Venipuncture / Unknown 04/09/2024 5:24 AM EST 04/09/2024 10:58 AM EST us Harjit Khoury MD LAB BLOOD ORDERABLES Final Resul t [facility] [address] [place] [address], from Last 3 Months or Most Recently Relevant to Health Maintenance Insurance [place]ICA[place] - [place] Care Teams Engineering Instructor Relationship Specialty Start Date End Date Harjit Khoury MD [address] [place] [address] [address] [place] [address] PCP - General Geriatric Medicine 04/09/24
== END 2024-08-06 13:21 | disposition home or self-care (01) ==
LOC: HO.HOS 11:31
PROVIDERS: PCP Internal Medicine; Visit Provider Physician Assistant
DX: S82.852A Displaced trimalleolar fracture of left lower leg, initial encounter for closed fracture (principal)
CPT/HCPCS: 99213

== ENCOUNTER → 2024-08-06 11:34 | Outpatient (BNV) | payer MEDICARE, MEDICAID, SELFPAY | PROVIDERS: Visit Provider Radiology Diagnostic Radiology | DX: M25.572 Pain in left ankle and joints of left foot (principal) | CPT/HCPCS: 73610 ==

== ENCOUNTER 2024-08-25 10:23 | Outpatient (AMB) | payer MEDICARE, MEDICAID, SELFPAY ==
--- NOTE | 2024-08-25 10:39 | MHC.PC.OV ---
Vital Signs 08/25/24 10:40 08/25/24 11:10 Height 5 ft 4 in Weight 210 lb 8.663 oz BMI 36.1 BP 140/70 H 118/82 Blood Pressure Location Lt brachial Rt brachial Position Sitting Sitting Pulse 74 Pulse Source Pulse Oximeter Temp 97.5 F Temp Source Temporal Artery Scan Pulse Oximetry (%) 98 Oxygen Delivery Method Room Air Intake Visit Reasons: [facility] 08/17 Intake Note: Patient is here for hospital discharge follow up. Patient was discharged from [facility] on 08/17/24. Maintenance Mechanic Elevators Required: No 3Rd Grade Reading Teacher: Not Required per policy Accompanied by: Self / Same As Patient Allergies perfume Allergy (Intermediate, Verified 08/25/24 10:58) Shortness of Breath Seasonal Allergies Allergy (Intermediate, Verified 08/25/24 10:58) Watery Eye, sneezing Medication List - Last Reconciled 08/25/24 by Naomi George PA-C [reusable bed pads and disposable liners. As directed] albuterol sulfate 90 mcg/actuation 2 puffs inhalation Q6H PRN amlodipine 10 mg PO DAILY [Ankle/Foot Orthotics As directed] clopidogrel 75 mg PO DAILY diazepam (Valium) 5 mg PO BID PRN gabapentin 600 mg PO BID lisinopril 5 mg PO DAILY mirabegron ER 50 mg PO BID 90 days oxycodone 5 mg PO Q6H PRN venlafaxine ER (Effexor XR) 150 mg PO BEDTIME Tobacco use date assessed: 08/25/24 Dental Screening Dental Screen Date: 04/03/24 HPI [facility] 08/17 HPI Details 64-year-old female with past medical history of CVA, generalized anxiety disorder, hypertension 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 Neurosurgery follow up attributing symptoms to postprocedure changes and pain well managed with current medication regimen. Patient was discharged from [facility] 08/17/2024 to home with services. Of note she was also seen in [facility] ED 07/21/2024 MRI reassuring and discharged back to SNF with tramadol and propranolol 40 mg daily. She is to continue on aspirin and Plavix for 6 months. Presenting with follow-up care for an intracranial aneurysm. The aneurysm was identified during a previous visit to [place] and was subsequently repaired by neurosurgery at [facility]. Post-surgery, the patient was discharged to [facility], where she experienced migraines. An MRI at [facility] showed no complications, and the patient was prescribed propranolol for migraine management. The patient reports that the migraines have improved but still occur occasionally, particularly when she becomes overexcited. She continues to take propranolol as prescribed. The patient reports persistent blurred vision, which has shown minimal improvement. She has not seen an eye doctor yet, but it is suspected that the vision issues may be related to the aneurysm. The patient is advised to consult with an eye doctor for further evaluation. [facility] Medical History HTN (hypertension) Nicotine dependence, cigarettes, uncomplicated Mass of left thigh Suspected exposure to mold Left leg swelling Obesity (BMI 30-39.9) Hemiparesis (~2017) ADHD (attention deficit hyperactivity disorder) Hypercalcemia Anxiety Hyperparathyroidism Sleep apnea in adult History of asthma History of CVA with residual deficit (~2017) Allergic rhinitis Surgical History History of surgery of head History of biopsy History of hand surgery History of hysterectomy History of tubal ligation History of History of colonoscopy History of bilateral breast reduction surgery History of tonsillectomy S/P Botox injection Hx of arthroscopy of left knee Family History Father HTN (hypertension) Mother HTN (hypertension) Social History Household Members: None Housing: House Alcohol intake: current Alcohol intake frequency: does not drink Comment: left sided hemiparesis walks wih cane Patient Tobacco Use Status: Former Tobacco user Tobacco use type: Cigarette Years Smoked: 2017 stopped 2.5 packs /20 years e-Cigarette/Vaping Use: Never Used Second Hand Smoke Exposure: Yes Advance Directives Date on File: 04/08/24 service: No Current occupational status: disabled Cognitive needs: Yes (Wheelchair, walker) Hearing needs: Yes (hearing aides) Vision needs: Yes (Glasses) Female Reproductive History Menstrual Age of Menarche: 15 Questionnaire Thrive Questionnaire Date Thrive assessed: 04/03/24 SANDY-7 AMB Questionnaire SANDY-7 Date SANDY - 7 assessed: 04/03/24 Source: Developed by Drs. Leland Small, Melodie Chambers, Rudi Lewis and colleagues, with an educational zhang from [employer]. Review of Systems Const Denies body aches, Denies chills, Denies fever(s), Denies headache(s) and Denies poor appetite Eyes Reports no additional complaints ENT Denies dysphagia, Denies dizziness, Denies headache(s) and Denies odynophagia Card Denies chest pain, Denies syncope, Denies edema, Denies irregular heart rhythm, Denies lightheadedness and Denies dyspnea Resp Denies cough and Denies dyspnea GI Denies abdominal pain, Denies constipation, Denies dysphagia, Denies diarrhea, Denies nausea, Denies odynophagia and Denies vomiting Reports no additional complaints Musc Reports no additional complaints and Denies abnormal gait Skin/Breast Reports system reviewed and no additional complaints, except as documented Neuro Denies abnormal gait, Denies dizziness, Denies syncope and Denies headache(s) Psych Reports no additional complaints Physical exam (Primary Care) Vital Signs: Last Vital Signs Temp 97.5 F 08/25/24 10:40 Pulse 74 08/25/24 10:40 BP 118/82 08/25/24 11:10 Pulse Ox 98 08/25/24 10:40 Oxygen Delivery Method Room Air 08/25/24 10:40 BMI result Body Mass Index 36.1 Tobacco/Smoking Status: Tobacco use Status Tobacco use date assessed 08/25/24 08/25/24 10:51 Patient Tobacco Use Status Former Tobacco user 08/25/24 10:51 Tobacco use type Cigarette 08/25/24 10:51 e-Cigarette/Vaping Use Never Used 08/25/24 10:51 Thrive Assessment: Date of Thrive Assessment Date Thrive assessed 04/03/24 08/25/24 10:51 Const General: cooperative, healthy appearing, comfortable and no acute distress Orientation/consciousness: patient oriented x3 HENMT Head: Yes normocephalic Ears: hearing grossly normal bilaterally General nose exam: Normal external nose present Eyes General: appearance normal, both eyes and all related structures Conjunctivae: conjunctivae normal Neck Neck: Yes full ROM and Yes no lymphadenopathy Resp Effort & Inspection: normal respiratory effort Auscultation: clear to auscultation bilaterally, no crackles, no rales, no rhonchi and no wheezes Cardio Rate: regular rate Rhythm: regular rhythm Skin General skin exam: no rashes or lesions noted Neuro General: patient oriented x3 Cranial nerves: Yes CN's II-XII intact bilaterally Gait exam (Neuro): Normal gait present Extrem General: Yes normal to inspection, Yes full ROM and No edema Psych Affect: normal affect Attitude: cooperative Insight: Good insight present (Psych) Judgement: Good judgement present (Psych) Coding Level of Care Code Est Pt Level 3 (42016) Diagnoses Essential hypertension I10 Hypertension type: essential hypertension Carotid aneurysm, right I72.0 Obesity (BMI 30-39.9) E66.9 Migraine G43.909 Assessment & Plan Assessment & Plan (1) Hypertension: Code(s): I10 - Essential (primary) hypertension Category: Medical Qualifiers: Hypertension type: essential hypertension Qualified Code(s): I10 - Essential (primary) hypertension Plan: Continue on current blood pressure medication. Avoid salt intake and encourage healthy diet and regular exercise. (2) Carotid aneurysm, right: Comment: May 2024 Code(s): I72.0 - Aneurysm of carotid artery Category: Medical Plan: Continue to follow with vascular surgery. Patient is neurovascularly intact at this time and shows no evidence of focal neurological weakness. She continues on propranolol. We will need to manage blood pressure, blood sugars and cholesterol very closely going forward. Continue on dual antiplatelet with clopidogrel and aspirin for 6 months as advised by vascular. (3) Obesity (BMI 30-39.9): Code(s): E66.9 - Obesity, unspecified Category: Medical Plan: Healthy diet and regular exercise is encouraged. (4) Migraine: Code(s): G43.909 - Migraine, unspecified, not intractable, without status migrainosus Category: Medical Plan: Continue on propranolol for management of migraines. Patient has seen benefit from this medication and migraines have improved significantly since surgery. Plan The patient will continue taking propranolol for migraine management, as it has shown some improvement in symptoms. Follow-up with an eye doctor is recommended to evaluate the persistent blurred vision, which may be related to the aneurysm. Blood pressure monitoring is crucial, and the patient is advised to maintain regular checks to ensure it remains controlled. Blood work is scheduled to assess cholesterol levels, given the last test was in 2022. The patient is advised to continue physical and occupational therapy to aid in mobility and recovery. This note was constructed using voice recognition software. While every effort has been made to ensure accuracy and curb builder, still areas may have been included sometimes these areas may affect the content or meeting of the given symptoms. Total time spent caring for the patient today was 30 minutes. This includes time spent before the visit reviewing the chart, time spent during the visit, and time spent after the visit and documentation. Patient was informed and verbally consented to the use of an ambient scribe for clinic note documentation during this visit. Orders: Orders Lipid Panel Today E78.00 - Pure hypercholesterolemia, unspecified, I72.0 - Aneurysm of carotid artery Comprehensive Met. Panel Today E83.52 - Hypercalcemia, Z00.00 - Encounter for general adult medical examination without abnormal findings TSH reflex Free T4 Today E21.3 - Hyperparathyroidism, unspecified, Z00.00 - Encounter for general adult medical examination without abnormal findings Vitamin B12 and Folate Today E66.9 - Obesity, unspecified, Z13.21 - Encounter for screening for nutritional disorder Vitamin D 25-OH Total Today E66.9 - Obesity, unspecified, Z00.00 - Encounter for general adult medical examination without abnormal findings Free T4 (Free Thyroxine) Today E21.3 - Hyperparathyroidism, unspecified, Z00.00 - Encounter for general adult medical examination without abnormal findings Complete Blood Count Auto Diff Today E66.9 - Obesity, unspecified, Z00.00 - Encounter for general adult medical examination without abnormal findings Hemoglobin A1c Today E66.9 - Obesity, unspecified
[2024-08-25 10:40] VITALS: BP 140/70; PULSE 74; TEMP 36.4; O2SAT 98; BMI 36.1
[2024-08-25 11:10] VITALS: BP 118/82
--- OUTSIDE RECORDS SUMMARY | 2024-08-25 11:34 | XMS_ITS | Clinical Summary ---
Author Organization [address] [facility] Address [address] [place] [address] Phone Care Team Providers Care Gyn Physician Name Role Phone Harjit Khoury MD Primary Care Provider [phone] Social History Tobacco Use Types Packs/Day Years [...] [facility] Comment:Calculation based on the Chronic Kidney Disease Epidemiology Collaboration (CKD-EPI) equation refit without adjustment for race. BUN/Creatinine Ratio 14.7 LAB [...] MD LAB BLOOD ORDERABLES Final Resul t [facility] [address] [place] [address], from Last 3 Months or Most Recently Relevant to Health Maintenance Insurance [place] Care Teams Gyn Physician Relationship Specialty Start Date End Date Harjit Khoury MD [address] [place] [address] [address] [place] [address] PCP - General Geriatric Medicine 04/09/24
--- OUTSIDE RECORDS SUMMARY | 2024-08-25 11:34 | XMS_ITS | Data Portability ---
Author Organization [facility] Eloy Love Tn[facility]a [facility] Surgeons [facility], [facility] Address [address] [place] [address] Care Team Providers Care Ship Propeller Finisher Name Role Phone PRAKASH MON Primary Care [...] condition, to please contact our office immediately. [email or web address] Not available 02/07/2024 10:47:35 Plan of Treatment Reminders Order Date Submit Date Provider Last Modified By Organization Details Last Modified Time Details Appointments None recorded. Lab None recorded. Referral occupatio nal therapist referral - OT- s/p Left distal radius and ulnar styloid fractures , baseline hemipares is left upper extremity status post CVA- ROM progressi ve strengthe csear 2023 024 [email or web address] [place], [address], [place], [address], 5 15:23:20 Procedures None recorded. Surgeries None recorded. Imaging XR, wrist, 3 or more view - room 113 3V L wrist 2023 024 [email or web address], [address], [place], [address], 5 15:23:19 XR, wrist, 3 or more view - rm.115 3 v of the L wrist 2023 024 [email or web address] [facility], [address], [address], [place], [address], 4 07:59:37 XR, wrist, 3 or more view - RM 119 3V 2023 024 [email or web address], [address], [address], [place], [address], 4 15:56:17 Medication Orders None recorded. Patient TargetsNo targets recorded. Patient Instructions Encounter Date Encounter Id Patient Instructions Last Modified By Organization Details Last Modified Time 01/10/2024 application of cast, short arm cast* - RM 119 SAC HIGH ON FOREARM [email or web address] Not available 01/13/2024 15:56:17 01/17/[id number] application of cast, short arm cast* leisa [...] aYqtaq 0bqfl% 2Fg9IQ a4ajBk vP9nXo QUaueC m3YtLR [place] [place] [address] 0y2649 AC0Kqa X2DV6K gKiQtr Mw INTERFACE [facility] [address], [place], [address], 01/10/2024 11:13:21 01/10/20 24 01/10/2024 XR, wrist , 3 or more view [email or web address] ?Encry pted=s hAaTro YD8dLq bEUv6g %2BXZw aYqtaq 0bqfl% 2Fg9IQ a4ajBk vP9nXo QUaueC m3YtLR [place] [address] 2b8623 AC0Kqa X2DV6K gKiQtr MwF INTERFACE [facility] [address], [place], [address], 01/10/2024 11:13:24 01/17/20 24 01/17/2024 XR, wrist , 3 or more view [email or web address]:/ [email or web address] ?Encry pted=s hAaTro YD8dLq bEUv6g %2BXZw aYqtaq 0bqfl% 2Fg9IQ a4ajBk vP9nXo QUaueC m3YtLR FvZlJackson [facility] CenterJ8mAn HZtai3 0b3014 AC0Kqa X6CWae hKiQtr MwF INTERFACE [facility] [address] [address], [place], [address], 01/17/2024 12:04:14 01/17/20 24 01/17/2024 XR, wrist , 3 or more view [email or web address]:/ [email or web address] ?Encry pted=s hAaTro YD8dLq bEUv6g %2BXZw aYqtaq 0bqfl% 2Fg9IQ a4ajBk vP9nXo QUaueC m3YtLR FvZlJ [place] HZtai3 5q3491 AC0Kqa X6CWae hKiQtr MwF INTERFACE [facility] [address] [address], [place], [address], 01/17/2024 12:04:16 02/07/20 24 02/07/2024 XR, wrist , 3 or more view [email or web address] ?Encry pted=s hAaTro YD8dLq bEUv6g %2BXZw aYqtaq 0bqfl% 2Fg9IQ a4ajBk vP9nXo QUaueC m3YtLR FvZlgJ JJ8mAn HZtai3 4j5299 AC0Kqb nyMWKa uKiQtr MwF INTERFACE [facility] [address] [address], [place], [address], 02/07/2024 10:33:47 02/07/20 24 02/07/2024 XR, wrist , 3 or more view [email or web address] ?Encry pted=s hAaTro YD8dLq bEUv6g %2BXZw aYqtaq 0bqfl% 2Fg9IQ a4ajBk vP9nXo QUaueC m3YtLR FvZlgJ JJ8mAn HZtai3 7u7695 AC0Kqb nyMWKa uKiQtr MwF INTERFACE [facility] [address] [facility] [address], [place], [address], 02/07/2024 10:33:49 Result Notes Documentation Provider Name and Address Organization Details Recorded Time Xr, Wrist, 3 Or More View : [email or web address] Encrypted=lnQjLltVU6dRhiV Uv6g%5ZIAfyCsmma9jaqq%2Fg 7OFq4wfOegE7fWeFZiykCb4Ff KHJnLfaAZH2bYmBHrjs93v059 7OO4LcgS5OK7WlGqXlkQjU Not Available [facility] 01/10/2024 11:13: 22 Xr, Wrist, 3 Or More View : [email or web address] Encrypted=ekUfTbyOJ2yJrtZ Uv6g%6DUIicZhfjy1hkph%2Fg 3OTj5zeLinR8hCdYQuilMn3Hu GMDyNuaMCH0bInIAboq20t200 3XI8CzpR7NI7LdFiDtqQpX Not Available [facility] 01/10/2024 11:13: 25 Xr, Wrist, 3 Or More View : [email or web address] Encrypted=efXuYzwPV8qSssG Uv6g%3JSUeyDfmxi0sbcz%2Fg 9IHc1ktFhoJ6fOlMRkkuJj1Eq VABfXhuGZS1oNhMCvzb03e723 9YX8AztC7AGfuiDqKrhWgO Not Available [facility] 01/17/2024 12:04: 14 Xr, Wrist, 3 Or More View : [email or web address]? Encrypted=brXgGpmNN7eCaxK Uv6g%5DIIhfFboct9vpvy%2Fg 0BVa5deRtwE2dQeWWqexTu6Do KQDlTkvBZO8kWlUUuxj31x821 5AY9UafG6SNytwEnVtrDgC Not Available [facility] 01/17/2024 12:04: 16 Xr, Wrist, 3 Or More View : [email or web address] Encrypted=thQaUogRX8fSrsB Uv6g%4TFVjgPkoed7hiqt%2Fg 7MPc2vaTjcW6cBvEQbiqUq6Lv YGJzVtiYXM2mMbJWmrf99y372 7BO5PbgchEHKljIhUzyTlH Not Available [facility] 02/07/2024 10:33: 47 Xr, Wrist, 3 Or More View : [email or web address] Encrypted=hdFzQrbAT6yJbzF Uv6g%5CWDuxXfhpo4qgoy%2Fg 3DUj4mqDhgG2xQjVAqyeWt4Mg ZRKfBxlKXT2kPkYXnns74o347 3JK1TuwdgRDStsPlWpdCbZ Not Available [facility] 02/07/2024 10:33: 49 Medical Equipment None Reported. Allergies No known [...] Updated DateTime 01/10/2024 162.56 cm 33.5 kg/m2 35584.51 g SONY MAJOR [facility] 01/10/2024 11:04:19 Date Recorded Body height Body mass index (BMI) Body weight Provider Name and Address Organization Details Last Updated DateTime 01/17/2024 162.56 cm 34.3 kg/m2 91779.47 g connie spencer [facility] 01/17/2024 11:50:48 Date Recorded Body height Body mass index (BMI) Body weight Provider Name and Address Organization Details Last Updated DateTime 02/07/2024 162.56 cm 34.3 kg/m2 34143.47 g STEFANI ECKERT [facility] 02/07/2024 10:14:34 Social History None recorded. Functional Status None recorded. Mental Status None recorded. Family History Nothing Reported. Medical History No medical history recorded. Gynecological HistoryNo gynecological history recorded. Obstetrics History GPAL:G 0 P 0 0 0 0 Past Encounters Encounter ID Performer Location Encounter Start Date Encounter Closed Date Diagnosis/Indication Diagnosis SNOMED-CT Code Diagnosis ICD10 Code Diagnosis Note [id number] MANUELITO Jeffers [address] [place] [address] 01/10/2024 10:35:31 01/29/2024 10:07:21 Pain of left wrist 7228441674 85743 M25.985 [id number] MD Antonia Laws [address] [place] [address] 01/17/2024 11:18:11 02/05/2024 07:59:37 Pain of left wrist 3734877888 44892 M25.532 Closed Col les' fracture 351782373 S52.532D [id number] MD Antonia Laws [address] [place] [address] 02/07/2024 10:01:00 02/27/2024 15:23:19 Pain of left wrist 6703393872 55664 M25.532 Closed Col les' fracture 967521845 S52.532D Health Concerns Section Related Observation LastModified by Organization Detai ls LastModified Time None Recorded Concern Status LastModified by Organization Details LastModified Time None Recorded Advance Directives Directive None Recorded Payers Insurance Date Sequence Insurance Name Policy Number Policy Alvarado Covered Member ID Alvarado Member ID Guarantor Name 03/27/2024 2 [place] [facility] Maya Cain [id number] Maya Cain 02/27/2024 1 [employer] (MEDICARE REPLACEMENT/A DVANTAGE - PPO) [id number] Maya Cain [id number] Maya Cain Notes Date Note Type Note [...] reviewed, updated and is located in the patient s chart. Examination: Alert and oriented, No [...] instability. X-rays ordered, obtained and reviewed at [facility] m3 views left wrist reveals a [...] motion and strengthening. Tabitha Redman PA-C [address] [address], [place], [address], [facility] 01/10/2024 13:48:27 01/17/2024 text/html DX: Left distal radius An ulnar styloid process fracture 12/30/2023Left-sided hemiparesis from previous CVA HPI:63-year-old female here for orthopedic consultation. Patient fell onto the outstretched hand and injured the left wrist. Fracture is being treated conservatively. She has been in a splint Latanya Hughes MD [address] [facility] [address], [place], [address], [facility] 01/17/2024 17:00:21 02/07/2024 text/html DX: Left distal radius and ulnar styloid process fracture 12/30/2023Left-sided hemiparesis from previous CVA HPI:63-year-old female here for orthopedic consultation. Patient fell onto the outstretched hand and injured the left wrist. Fracture is being treated conservatively. She reports that the cast applied at her most recent visit quickly fell off. Latanya Hughes MD [address] [place] [address] [address], [place], [address], [facility] [place] [facility] 02/07/2024 12:27:02 OBGyn Episode No OBEpisode recorded.
== END 2024-08-25 11:25 | disposition home or self-care (01) ==
LOC: HO.HMCH 10:25
PROVIDERS: PCP Internal Medicine
DX: I10 Essential (primary) hypertension (principal); I72.0 Aneurysm of carotid artery; E66.9 Obesity, unspecified; Z68.36 Body mass index [BMI] 36.0-36.9, adult; G43.909 Migraine, unspecified, not intractable, without status migrainosus

== ENCOUNTER → 2024-08-25 10:23 | Outpatient (BNVA) | payer MEDICARE, MEDICAID, SELFPAY | PROVIDERS: PCP Internal Medicine | DX: F41.1 Generalized anxiety disorder (principal); I10 Essential (primary) hypertension; I72.0 Aneurysm of carotid artery; G43.909 Migraine, unspecified, not intractable, without status migrainosus; E66.9 Obesity, unspecified; Z68.36 Body mass index [BMI] 36.0-36.9, adult; Z86.73 Personal history of transient ischemic attack (TIA), and cerebral infarction without residual deficits | CPT/HCPCS: 99212 ==

== ENCOUNTER 2024-11-09 14:10 | Outpatient (AMB) | payer MEDICARE, MEDICAID, SELFPAY ==
[2024-11-09 14:15] VITALS: BP 138/76; PULSE 78; O2SAT 97; BMI 35.9
--- NOTE | 2024-11-09 14:15 | MHC.PC.OV ---
Vital Signs 11/09/24 14:15 Height 5 ft 4 in Weight 209 lb 7.026 oz BMI 35.9 BP 138/76 Blood Pressure Location Lt brachial Position Sitting Pulse 78 Pulse Source Pulse Oximeter Pulse Oximetry (%) 97 Oxygen Delivery Method Room Air Intake Visit Reasons: follow up Allergies perfume Allergy (Intermediate, Verified 11/09/24 14:15) Shortness of Breath Seasonal Allergies Allergy (Intermediate, Verified 11/09/24 14:15) Watery Eye, sneezing Medication List - Last Reconciled 11/09/24 by Sofía Lucas MD [reusable bed pads and disposable liners. As directed] albuterol-budesonide 90-80 mcg/actuation (Airsupra) 2 inhalations inhalation DAILY PRN amlodipine 10 mg PO DAILY [Ankle/Foot Orthotics As directed] aspirin (Adult Aspirin Regimen) 81 mg PO DAILY cholecalciferol (vitamin D3) 1,250 mcg PO QWEEK clopidogrel 75 mg PO DAILY cyclobenzaprine 5 mg PO QAM PRN duloxetine 20 mg PO DAILY gabapentin 600 mg PO BID lisinopril 10 mg PO DAILY loratadine (Allergy Relief (loratadine)) 10 mg PO DAILY mirabegron ER 50 mg PO BID 90 days ondansetron 4 mg PO Q8H tramadol 50 mg PO BEDTIME PRN Tobacco use date assessed: 08/25/24 Dental Screening Dental Screen Date: 04/03/24 [facility] Medical History HTN (hypertension) Nicotine dependence, cigarettes, uncomplicated Mass of left thigh Suspected exposure to mold Left leg swelling Obesity (BMI 30-39.9) Hemiparesis (~2017) ADHD (attention deficit hyperactivity disorder) Hypercalcemia Anxiety Hyperparathyroidism Sleep apnea in adult History of asthma History of CVA with residual deficit (~2017) Allergic rhinitis Surgical History History of surgery of head History of biopsy History of hand surgery History of hysterectomy History of tubal ligation History of History of colonoscopy History of bilateral breast reduction surgery History of tonsillectomy S/P Botox injection Hx of arthroscopy of left knee Family History Father HTN (hypertension) Mother HTN (hypertension) Social History Household Members: None Housing: House Alcohol intake: current Alcohol intake frequency: does not drink Comment: left sided hemiparesis walks nato dubon Patient Tobacco Use Status: Former Tobacco user Tobacco use type: Cigarette Years Smoked: 2017 stopped 2.5 packs /20 years e-Cigarette/Vaping Use: Never Used Second Hand Smoke Exposure: Yes Advance Directives Date on File: 04/08/24 service: No Current occupational status: disabled Cognitive needs: Yes (Wheelchair, walker) Hearing needs: Yes (hearing aides) Vision needs: Yes (Glasses) Female Reproductive History Menstrual Age of Menarche: 15 Questionnaire PHQ-9 Over the last 2 weeks, how often have you been bothered by any of the following problems? 1. Little interest or pleasure in doing things: not at all 2. Feeling down, depressed, or hopeless: not at all 3. Trouble falling or staying asleep, or sleeping too much: not at all 4. Feeling tired or having little energy: not at all 5. Poor appetite or overeating: not at all 6. Feeling bad about yourself - or that you are a failure or have let yourself or your family down: not at all 7. Trouble concentrating on things, such as reading the newspaper or watching television: not at all 8. Moving or speaking so slowly that other people could have noticed. Or the opposite - being so fidgety or restless that you have been moving around a lot more than usual: not at all 9. Thoughts that you would be better off or of hurting yourself in some way: not at all Total score: 0 Depression Screening Interpretation: Negative Depression Screening Done: Yes Source: Developed by Drs. Leland Small, Melodie Chambers, Rudi Lewis and colleagues, with an educational zhang from [employer]. Thrive Questionnaire Date Thrive assessed: 04/03/24 I am a: Patient What is your living situation today?: I have a steady place to live Within the past 12 months, did the food you bought not last and you didn't have the money to get more?: Never true Within the past 12 months, did you worry whether your food would run out before you got money to buy more?: Never true Do you have trouble paying for medicines?: No Do you have trouble getting transportation to medical appointments?: No Do you have trouble paying your heating and electricity bill?: No Do you have trouble taking care of your child, family member or friend?: No Do you have trouble with day-to-day activities such as bathing, preparing meals, shopping, managing finances, etc.?: No Are you currently unemployed and looking for a job?: Yes Are you interested in more education?: No Please select the resources that you would like help with: None Currently or been in a relationship where the following occur: No concerns reported THRIVE Score: 0 AUDIT C Alcohol Use Questionnaire (AUDIT-C) 1. How often do you have a drink containing alcohol?: Never 3. How often do you have six or more drinks on one occasion?: Never Total Score: 0 SANDY-7 AMB Questionnaire SANDY-7 Date SANDY - 7 assessed: 04/03/24 Feeling nervous, anxious, or on edge: 0 = Not at all Not being able to stop or control worryin = Not at all Worrying too much about different things: 0 = Not at all Trouble relaxin = Not at all Being so restless that it is hard to sit still: 0 = Not at all Becoming easily annoyed or irritable: 0 = Not at all Feeling afraid as if something awful might happen: 0 = Not at all Total SANDY-7 score (0-4 normal; 5-9 mild; 10-14 moderate; 15-21 severe): 0 Source: Developed by Drs. Leland Small, Melodie Chambers, Rudi Lewis and colleagues, with an educational zhang from [employer]. Physical exam (Primary Care) Vital Signs: Last Vital Signs Pulse 78 11/09/24 14:15 BP 138/76 11/09/24 14:15 Pulse Ox 97 11/09/24 14:15 Oxygen Delivery Method Room Air 11/09/24 14:15 BMI result Body Mass Index 35.9 Tobacco/Smoking Status: Tobacco use Status Tobacco use date assessed 08/25/24 11/09/24 14:26 Patient Tobacco Use Status Former Tobacco user 11/09/24 14:26 Tobacco use type Cigarette 11/09/24 14:26 e-Cigarette/Vaping Use Never Used 11/09/24 14:26 PHQ-9: PHQ-9 Score PHQ-9: Total score 0 11/09/24 14:34 Depression Screening Interpretation: Negative Thrive Assessment: Date of Thrive Assessment Date Thrive assessed 04/03/24 11/09/24 14:26 Currently or been in a relationship where the following occur: No concerns reported Const General: alert; No acute distress Eyes Conjunctivae: conjunctivae normal Resp Auscultation: clear to auscultation bilaterally Cardio Rate: regular rate Rhythm: regular rhythm GI Inspection: Yes normal to inspection Extrem Other: Left-sided weakness with left arm 2/5, left leg 3/5, right upper and lower extremity 5/5 Coding Level of Care Code Est Pt Level 4 (03198) Complex EM visit Add On G2211 Diagnoses History of CVA with residual deficit I69.30 Distal radius fracture, left S52.502A Spastic neurogenic bladder N31.8 Tubular adenoma of colon D12.6 Obesity (BMI 30-39.9) E66.9 Impaired glucose tolerance R73.02 Carotid aneurysm, right I72.0 Essential hypertension I10 Hypertension type: essential hypertension Generalized anxiety disorder F41.1 Assessment & Plan Assessment & Plan (1) History of CVA with residual deficit: Onset Date: ~2016 Comment: (CVA with left-sided weakness - 10/2016) Code(s): I69.30 - Unspecified sequelae of cerebral infarction Category: Medical Plan: Patient on clopidogrel 75 mg once a day and aspirin (2) Distal radius fracture, left: Code(s): S52.502A - Unspecified fracture of the lower end of left radius, initial encounter for closed fracture Category: Medical Plan: Patient continues to follow-up with ortho supportive management. (3) Spastic neurogenic bladder: Code(s): N31.8 - Other neuromuscular dysfunction of bladder Category: Medical Plan: Patient has been follow-up with urology with Botox shots and this will be done tomorrow (4) Tubular adenoma of colon: Comment: (TA/TVA on 12/2018, 04/2019 & 10/2019 scopes) Code(s): D12.6 - Benign neoplasm of colon, unspecified Category: Medical Plan: Reminded about colon cancer screening (5) Obesity (BMI 30-39.9): Code(s): E66.9 - Obesity, unspecified Category: Medical Plan: Diet and exercise (6) Impaired glucose tolerance: Code(s): R73.02 - Impaired glucose tolerance (oral) Category: Medical Plan: Decrease the amount of carbohydrate intake, pasta, bread, rice and potatoes are all sugar and that is aside from all the sweet stuff, remember that fruits are good but they are Sweet also. (7) Carotid aneurysm, right: Comment: May 2024, June 2024 interval ICA stent placement Code(s): I72.0 - Aneurysm of carotid artery Category: Medical Plan: Patient is being followed up by Neurology with interval ICA stent placement (8) Hypertension: Code(s): I10 - Essential (primary) hypertension Category: Medical Qualifiers: Hypertension type: essential hypertension Qualified Code(s): I10 - Essential (primary) hypertension Plan: Continue with blood pressure medication. Decrease salt intake and exercise on lisinopril 10 mg once a day amlodipine 10 mg once a day (9) Generalized anxiety disorder: Comment: [facility]. March 2021 Code(s): F41.1 - Generalized anxiety disorder Category: Medical Plan: Continue with counseling and therapy Plan History of Present Illness The patient is a 64-year-old female presenting for a follow-up visit. The patient has a history of cerebrovascular accident in 2016, resulting in left-sided weakness. She reports using a rico walker for mobility assistance. The patient has been diagnosed with hyperparathyroidism and hypertension, which are being managed with lisinopril and amlodipine. In 2019, the patient was found to have a tubular adenoma of the colon. She has been reminded about the need for colon cancer screening. The patient has a neurogenic bladder and follows up with urology, receiving Botox injections for management. 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 The patient has a history of a distal radial fracture and a left ankle fracture, which occurred in March 2024. The patient had a right carotid artery aneurysm, which was treated with a stent placement in June 2024. Follow-up imaging showed no residual filling of the thrombus in the right internal carotid artery aneurysm. The patient has an intracranial aneurysm, which was treated with a pipeline shield flow diverting stent. A follow-up CT angiogram showed complete occlusion of the aneurysm, although there was significant mass effect caused by the thrombus aneurysm. Health Maintenance - Colon cancer screening reminder - Mammogram referral - Shingles vaccination discussed - Tetanus and pneumonia vaccinations up to date Social History - Mobility: Uses a rico walker for assistance Review of Systems - Neurological: Reports left-sided weakness Physical Exam - Neurological: Left arm strength 2/5, left leg strength 3/5, right upper and lower extremity strength 5/5 Results - CT angiogram: Complete occlusion of intracranial aneurysm, significant mass effect from thrombus aneurysm - Blood work: Normal blood count, elevated blood sugar at 116, elevated liver function - Cholesterol: LDL 64 (July 2022) Plan Patient was informed and verbally consented to the use of an ambient scribe for clinic note documentation during this visit. 1. Cerebrovascular Accident With Left-Sided Weakness The patient continues to manage left-sided weakness with the use of a rico walker for mobility. No new interventions were discussed during this visit. 2. Hyperparathyroidism The condition is being monitored, and no specific treatment changes were discussed during this visit. 3. Hypertension The patient is currently on lisinopril 10 mg and amlodipine 10 mg daily for blood pressure management. 4. Tubular Adenoma Of The Colon The patient was reminded about the importance of regular colon cancer screening. 5. Neurogenic Bladder The patient continues to follow up with urology and receives Botox injections for management. 6. 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 7. Distal Radial Fracture The fracture is part of the patient's medical history, and no new interventions were discussed during this visit. 8. Left Ankle Fracture The fracture occurred in March 2024, and the patient has been managing well with supportive care. 9. Right Carotid Artery Aneurysm The aneurysm was treated with a stent placement in June 2024, and follow-up imaging showed no residual filling of the thrombus. 10. Intracranial Aneurysm The aneurysm was treated with a pipeline shield flow diverting stent, and follow-up CT angiogram showed complete occlusion. Discussion Notes During the visit, we discussed the importance of regular follow-ups for managing the patient's multiple health conditions, including hypertension and neurogenic bladder. We also reviewed the need for colon cancer screening and the patient's recent imaging results, which showed no residual filling of the thrombus in the right carotid artery aneurysm. Patient Instructions - Continue taking lisinopril and amlodipine as prescribed for blood pressure management. - Follow up with urology for Botox injections as scheduled. - Schedule and attend colon cancer screening as discussed. - Maintain regular follow-up appointments for ongoing health management. Orders: Orders Comprehensive Met. Panel Today E83.52 - Hypercalcemia, Z00.00 - Encounter for general adult medical examination without abnormal findings TSH reflex Free T4 Today E21.3 - Hyperparathyroidism, unspecified, Z00.00 - Encounter for general adult medical examination without abnormal findings Lipid Panel Today E78.00 - Pure hypercholesterolemia, unspecified, I72.0 - Aneurysm of carotid artery Free T4 (Free Thyroxine) Today E21.3 - Hyperparathyroidism, unspecified, Z00.00 - Encounter for general adult medical examination without abnormal findings MM tomosynthesis screening BI Today D12.6 - Benign neoplasm of colon, unspecified, Z12.31 - Encounter for screening mammogram for malignant neoplasm of breast Complete Blood Count Auto Diff Today E66.9 - Obesity, unspecified, Z00.00 - Encounter for general adult medical examination without abnormal findings Hemoglobin A1c Today E66.9 - Obesity, unspecified Vitamin B12 and Folate Today E66.9 - Obesity, unspecified, Z13.21 - Encounter for screening for nutritional disorder Vitamin D 25-OH Total Today E66.9 - Obesity, unspecified, Z00.00 - Encounter for general adult medical examination without abnormal findings Referrals Gastroenterology Referral D12.6 - Benign neoplasm of colon, unspecified Medications: New lidocaine 5% leave on most painful area L hip area 1 patch topical DAILY 30 ea 5RF [TRANSPORT WHEELCHAIR] As directed 1 ea 0RF I69.30 - Unspecified sequelae of cerebral infarction Refilled loratadine (Allergy Relief (loratadine)) 10 mg PO DAILY 90 tabs 0RF
--- OUTSIDE RECORDS SUMMARY | 2024-11-09 19:30 | XMS_ITS | Encounter Summary ---
Author Organization [facility] Address [address] [address] Phone Care Team Providers Care Supervisor Color Paste Mixing Name Role Phone Sofía Lucas MD Primary Care Provider [phone] Self-Referred, Patient Unavailable Unavailab Daniela Valencia MD, MARTHA Unavailable [phone] Reny Joseph INNERSOLE MAKER Unavailable [phone] Sofía Lucas MD Primary Care Provider [phone] Marcus Henderson PA-C Unavailable [phone] Encounter Details Date Type Department Care Team (Late st Contact Info) Description 11/07/2022 Procedure Pass [facility] [address] [place] [address] Social History Tobacco Use Types Packs/Day Years [...] high school, GED, job training, learning the Chadian language, technical skills, or developing parenting skills)? [...] on filedocumented in this encounter Care Teams Supervisor Color Paste Mixing Relationship Specialty Start Date End Date Sofía Lucas MD [address] [place] [address] PCP - General 12/11/16 05/14/23 Sofía Lucas MD [address] [place] [address] PCP - General Internal Medicine 05/15/23 Self-Referred, Patient 10/05/22 Daniela Kiran MD, MARTHA [address] [place] [id number] [email or web address] Radiation Oncology 11/02/22 Reny Joseph, [address] [address] [email or web address] U Manager Child Oncology 11/30/22 Marcus Henderson PA-C [address] [place] [id number] [email or web address] Physician Bladder Changer 05/28/23 documented as of this encounter Additional Source Comments The information contained in this document represents components of the legal health record. It is not the complete legal health record.[facility]
--- OUTSIDE RECORDS SUMMARY | 2024-11-09 19:31 | XMS_ITS | Encounter Summary ---
Author Organization [facility] Address [address] [address] Phone Care Team Providers Care Pillar Man Name Role Phone Sofía Lucas MD Primary Care Provider Self-Referred, Patient Unavailable Unavailab Daniela Valencia MD, MARTHA Unavailable [phone] Reny Joseph MASTER SCHEDULER Unavailable [phone] Sofía Lucas MD Primary Care Provider [phone] Marcus Henderson PA-C Unavailable [phone] Encounter Details Date Type Department Care Team (Late st Contact Info) Description 11/07/2022 Procedure Pass [facility] MR Imaging, [place] [address] [place] [address] Social History Tobacco Use Types Packs/Day Years [...] high school, GED, job training, learning the Maori language, technical skills, or developing parenting skills)? [...] on filedocumented in this encounter Care Teams Pillar Man Relationship Specialty Start Date End Date Sofía Lucas MD [address] [place] [address] PCP - General 12/11/16 05/14/23 Sofía Lucas MD [address] [place] [address] PCP - General Internal Medicine 05/15/23 Self-Referred, Patient 10/05/22 Daniela Kiran MD, MARTHA [address] [place] [id number] [email or web address] Radiation Oncology 11/02/22 Reny Joseph, [address] [address] [email or web address] U Bridge Operator Oncology 11/30/22 Marcus Henderson PA-C [address] [place] [phone] [email or web address] Physician Auto Body Mechanic 05/28/23 documented as of this encounter Additional Source Comments The information contained in this document represents components of the legal health record. It is not the complete legal health record.[facility]
--- OUTSIDE RECORDS SUMMARY | 2024-11-09 19:31 | XMS_ITS | Encounter Summary ---
Author Organization [facility] Address [address] [address] Phone Care Team Providers Care Graduate Teacher Education Name Role Phone Self-Referred, Patient Unavailable Unavailab Daniela Valencia MD, MARTHA Unavailable [phone] Reny Joseph Unavailable [phone] Sofía Lucas MD Primary Care Provider [phone] Marcus Henderson PA-C Unavailable [phone] Encounter Details Date Type Department Care Team (Late st Contact Info) Description 05/15/2023 Procedure Pass [facility], Ct Scan - [address] [address] Social History Tobacco Use Types Packs/Day Years Used Date Smoking Tobacco: Former Cigarettes 1 45 1 972 - 2017 Smokeless Tobacco: Never Alcohol Use Standard Drinks/Week Comments Never 0 [...] high school, GED, job training, learning the [place] language, technical skills, or developing parenting skills)? [...] with a working camera? Not on file Intimate Partner Violence Answer Date R ecorded Are you denied basic needs s uch as food, clothing, or medical care? No 01/25/2023 In the past 12 months have y ou been in a relationship with a person who hurts, threatens, or tries to control you? No 01/25/2023 Are you denied basic needs s uch as food, clothing, or medical care? No 01/25/2023 In the past 12 months have y ou been in a relationship with a person who hurts, threatens, or tries to control you? No 01/25/2023 Comments No Sex and Gender Information Value Date Recorded Sex Assigned at Female 10/05/2022 12:45 PM EDT Legal Sex Female 12:26 PM EDT Gender Identity Female 10/05/2022 12:45 PM EDT Sexual Orientation Straight 10/05/2022 12 :45 PM EDT documented as of this encounter Plan of Treatment Not on file documented as of this encounter Visit Diagnoses Not on filedocumented in this encounter Care Teams Graduate Teacher Education Relationship Specialty Start Date End Date Lance Sofía Zamarripa MD [address] [place] [address] [address] [place] [id number] PCP - General Internal Medicine 05/15/23 Self-Referred, Patient 10/05/22 Daniela Kiran MD, MARTHA [address] [place] [id number] [email or web address] Radiation Oncology 11/02/22 Reny Joseph, [address] [address] [email or web address] U Brake Drum Lathe Operator Oncology 11/30/22 Marcus Henderson PA-C [address] [place] [phone] [email or web address] [email or web address] Email Marketing Coordinator 05/28/23 documented as of this encounter Additional Source Comments The information contained in this document represents components of the legal health record. It is not the complete legal health record.[facility]
--- OUTSIDE RECORDS SUMMARY | 2024-11-09 19:31 | XMS_ITS ---
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 Past Treatment and Therapy Plans No past plan information found. Radiation Treatments * Course C1 11/06/2022 - 12/11/2022 Treatment Period Energy Fraction Dose Fractions Total Dose Plans Planned A1_L_THIGHnew 11/16/2022 - 12/11/2022 200 cGy 3,400 cGy A1_L_THIGH:1 11/15/2022 - 11/15/2022 200 cGy 200 cGy A1_L_THIGH 11/06/2022 - 11/14/2022 200 cGy 5 5,000 cGy Reference Points Delivered A_L_THIGH 11/06/2022 - 12/11/2022 5,000 cGy
--- OUTSIDE RECORDS SUMMARY | 2024-11-09 19:31 | XMS_ITS | Encounter Summary ---
Author Organization [facility] Address [address] [employer] [address] [address] Phone Care Team Providers Care Residential Appliance Repair Technician Name Role Phone Self-Referred, Patient Unavailable Unavailab Daniela Valencia MD, MARTHA Unavailable [phone] Reny Joseph Unavailable [phone] Sofía Lucas MD Primary Care Provider [phone] Marcus Henderson PA-C Unavailable [phone] Encounter Details Date Type Department Care Team (Late st Contact Info) Description 07/29/2024 Procedure Pass [facility], [address] [address] Social History Tobacco Use Types Packs/Day Years [...] high school, GED, job training, learning the Honduran language, technical skills, or developing parenting skills)? [...] on filedocumented in this encounter Care Teams Residential Appliance Repair Technician Relationship Specialty Start Date End Date Lance Sofía Zamarripa MD [address] [place] [address] [address] [place] [phone] PCP - General Internal Medicine 05/15/23 Self-Referred, Patient 10/05/22 Dnaiela Kiran MD, MARTHA [address] [place] [address] [email or web address] Radiation Oncology 11/02/22 Reny Joseph, [address] [address] [email or web address]. U Crime Scene Analyst Oncology 11/30/22 Marcus Henderson PA-C [address] [place] [address] [email or web address] Physician General Agent 05/28/23 documented as of this encounter Additional Source Comments The information contained in this document represents components of the legal health record. It is not the complete legal health record.[facility]
--- OUTSIDE RECORDS SUMMARY | 2024-11-09 19:31 | XMS_ITS | Encounter Summary ---
Author Organization [facility] Address [address] [employer] [address] [address] Phone Care Team Providers Care Television Equipment Operator Name Role Phone Sofía Lucas MD Primary Care Provider Self-Referred, Patient Unavailable Unavailab Daniela [place] MD, MARTHA Unavailable [phone] Reny Joseph Unavailable [phone] Sofía Lucas MD Primary Care Provider [phone] Marcus Henderson PA-C Unavailable [phone] Encounter Details Date Type Department Care Team (Late st Contact Info) Description 01/08/2023 Procedure Pass [facility], [facility] [place], [place] [address] [facility], Floor [address] [place] [address] Social History Tobacco Use Types Packs/Day Years [...] a working camera? Not on file Comments No Sex and Gender Information Value [...] on filedocumented in this encounter Care Teams Television Equipment Operator Relationship Specialty Start Date End Date Sofía Lucas MD [address] [place] [phone] PCP - General 12/11/16 05/14/23 Sofía Lucas MD [address] [place] [address] PCP - General Internal Medicine 05/15/23 Self-Referred, Patient 10/05/22 Daniela Kiran MD, MARTHA [address] [place] [address] [email or web address] Radiation Oncology 11/02/22 Reny Joseph, [facility] [address] [place] [address] [email or web address]. U Director Of Veterans Affairs Oncology 11/30/22 Marcus Henderson PA-C [address] [place] [address] [email or web address] Physician Roaster Supervisor 05/28/23 documented as of this encounter Additional Source Comments The information contained in this document represents components of the legal health record. It is not the complete legal health record.[facility]
--- OUTSIDE RECORDS SUMMARY | 2024-11-09 19:31 | XMS_ITS | Encounter Summary ---
Author Organization [facility] Address [address] [employer] [address] [address] Phone Care Team Providers Care Hybrid Technologist Name Role Phone Self-Referred, Patient Unavailable Unavailab Daniela Valencia MD, MARTHA Unavailable [phone] Reny Joseph Unavailable [phone] Sofía Lucas MD Primary Care Provider [phone] Marcus Henderson PA-C Unavailable [phone] Encounter Details Date Type Department Care Team (Late st Contact Info) Description 05/15/2023 Procedure Pass [address] [address] Social History Tobacco Use Types Packs/Day Years [...] high school, GED, job training, learning the Australian language, technical skills, or developing parenting skills)? [...] on filedocumented in this encounter Care Teams Hybrid Technologist Relationship Specialty Start Date End Date Lance Sofía Zamarripa MD [address] [place] [address] Drive [address] [place] [phone] PCP - General Internal Medicine 05/15/23 Self-Referred, Patient 10/05/22 Daniela Kiran MD, MARTHA [address] [place] [address] [email or web address] Radiation Oncology 11/02/22 Reny Joseph, [address] [address] [email or web address]. U Clinic Receptionist Oncology 11/30/22 Marcus Henderson PA-C [address] [place] [address] [email or web address] Physician Physics Technical Officer 05/28/23 documented as of this encounter Additional Source Comments The information contained in this document represents components of the legal health record. It is not the complete legal health record.[facility]
--- OUTSIDE RECORDS SUMMARY | 2024-11-09 19:31 | XMS_ITS | Encounter Summary ---
Author Organization [facility] Address [address] [employer] [address] [address] Phone Care Team Providers Care Health Information Clerk Name Role Phone Self-Referred, Patient Unavailable Unavailab Daniela [place] MD, MARTHA Unavailable [phone] Reny Joseph Unavailable [phone] Sofía Lucas MD Primary Care Provider [phone] Marcus Henderson PA-C Unavailable [phone] Encounter Details Date Type Department Care Team (Late st Contact Info) Description 10/25/2023 Procedure Pass [facility], Ct Scan - [address] [address] Social History Tobacco Use Types Packs/Day Years [...] high school, GED, job training, learning the Greenlandic language, technical skills, or developing parenting skills)? [...] on filedocumented in this encounter Care Teams Health Information Clerk Relationship Specialty Start Date End Date Lance Sofía Zamarripa MD [address] [place] [address] [address] [place] [phone] PCP - General Internal Medicine 05/15/23 Self-Referred, Patient 10/05/22 Daniela Kiran MD, MARTHA [address] [place] [address] [email or web address] Radiation Oncology 11/02/22 Reny Joseph, [address] [address] [email or web address] U Sizing End Bander Oncology 11/30/22 Marcus Henderson PA-C [address] [place] [address] [email or web address] Physician Sack Filler 05/28/23 documented as of this encounter Additional Source Comments The information contained in this document represents components of the legal health record. It is not the complete legal health record.[facility]
--- OUTSIDE RECORDS SUMMARY | 2024-11-09 19:31 | XMS_ITS | Clinical Summary ---
Author Organization [address] [facility] Address [address] [place] [address] Phone Care Team Providers Care Clinical Rehabilitation Specialist Name Role Phone Harjit Khoury MD Primary Care Provider [phone] Social History Tobacco Use Types Packs/Day Years [...] 2012 Zoster Vaccines (1 of 2) 2012 Depression Screening 02/26/2024 Cholesterol Screening (Lipid Panel) 04/09/2024 Colorectal Cancer Screening: Colonoscopy 04/09/2024 HIV Screening 04/09/2024 Hepatitis C Screening 04/09/2024 Lung Cancer Screening (Low Dose CT) 04/09/2024 Social Influencers of Health Screening 04/09/2024 COVID-19 Vaccine ( - 2023-2 5 season) 2024 Influenza Vaccine (#1) 2024 Hypertension/CHF/CAD Annual BMP [...] [facility] Comment:Calculation based on the [...] [facility] [address] [place] [address], [place] [phone] from Last 3 Months or Most Recently Relevant to Health Maintenance Insurance [place]ICA[place] AET[place] Care Teams Clinical Rehabilitation Specialist Relationship Specialty Start Date End Date Harjit Khoury MD PCP - General Geriatric Medicine 04/09/24
--- OUTSIDE RECORDS SUMMARY | 2024-11-09 19:31 | XMS_ITS | Encounter Summary ---
Author Organization [facility] Address [address] [address] Phone Care Team Providers Care Beef Killer Name Role Phone Sofía Lucas MD Primary Care Provider [phone] Self-Referred, Patient Unavailable Unavailab Daniela Valencia MD, MARTHA Unavailable [phone] Reny Joseph ACCESS SPECIALIST Unavailable [phone] Sofía Lucas MD Primary Care Provider [phone] Marcus Henderson PA-C Unavailable [phone] Encounter Details Date Type Department Care Team (Late st Contact Info) Description 10/18/2022 Procedure Pass [facility] Imaging, [facility] [address] [place] [address] Social History Tobacco Use Types Packs/Day Years [...] on filedocumented in this encounter Care Teams Beef Killer Relationship Specialty Start Date End Date Sofía Lucas MD [address] [place] [address] PCP - General 12/11/16 05/14/23 Sofía Lucas MD [address] [place] [address] PCP - General Internal Medicine 05/15/23 Self-Referred, Patient 10/05/22 Daniela Kiran MD, MARTHA [address] [place] [address] [email or web address] Radiation Oncology 11/02/22 Reny Joseph, [address] [address] [email or web address] U Laboratory Animal Facility Supervisor Oncology 11/30/22 Marcus Henderson PA-C [address] [place] [address] [email or web address] Physician Appliance Repairer 05/28/23 documented as of this encounter Additional Source Comments The information contained in this document represents components of the legal health record. It is not the complete legal health record.[facility]
--- OUTSIDE RECORDS SUMMARY | 2024-11-09 19:31 | XMS_ITS | Clinical Summary ---
Author Organization [facility] Address [address] [address] Phone Care Team Providers Care Poly Operator Name Role Phone Self-Referred, Patient Unavailable Unavailab Daniela Valencia MD, MARTHA Unavailable [phone] Reny Joseph Unavailable [phone] Sofía Lucas MD Primary Care Provider [phone] Marcus Henderson PA-C Unavailable [phone] Allergies No known active allergies Medications diclofenac sodium (VOLTAREN) 1 % Gel 3 Active ALLERGY RELIEF, FEXOFENADINE, 180 mg tablet Take 1 tablet by mouth every morning. 3 Active MYRBETRIQ 50 mg Tb24 Take 50 mg by mouth daily. 3 Active venlafaxine (EFFEXOR-XR) 150 MG 24 hr capsule Take 150 mg by mouth nightly at bedtime. 3 Active enoxaparin (LOVENOX) 40 mg/0.4 mL Syrg subcutaneous syringe Inject 0.4 mL (40 mg total) under the skin daily for 28 days. 11.2 mL 3 Active clopidogrel (PLAVIX) 75 mg tablet Take 1 tablet (75 mg total) by mouth every morning. 3 Active senna (SENOKOT) 8.6 mg tablet Take 1 tablet by mouth daily. 30 tablet 6 3 Active docusate sodium (COLACE) 100 MG capsule Take 1 capsule (100 mg total) by mouth 2 (two) times a day. 60 capsule 6 3 Active polyethylene glycol (MIRALAX) 17 gram packet Take 17 g by mouth daily. 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 Encounters Date Type Department Care Team Description 10/12/2024 Orders Only [facility], [facility] [address], [address] [place] [address] Jaclyn Wray RN 10/09/2024 10:00 AM EDT Telemedicine [facility], [facility] [address], [address] [place] [address] Bryant Lira MD Sarcoma (Primary Dx) 09/18/2024 12:00 PM EDT - 09/18/2024 11:59 PM EDT Hospital Encounter [facility], Ct Scan [address] [address] Bryant Lira MD Discharge Disposition: Home or Self Care 09/18/2024 10:51 AM EDT - 09/18/2024 11:59 AM EDT Hospital Encounter [address] [address] Bryant Lira MD Discharge Disposition: Home or Self Care 07/29/2024 Procedure Pass [address] [address] 10/25/2023 Procedure Pass [facility], Ct Scan - [facility] [address] [place] [address] from Last 3 Months Social History Tobacco Use Types Packs/Day Years Used Date Smoking Tobacco: Former Cigarettes 1 45 1 972 - 2017 Smokeless Tobacco: Never Tobacco Cessation:Counseling Given: Not Answered Alcohol Use Standard Drinks/Week Comments Never 0 (1 standard drink = 0.6 oz pur e alcohol) Child or Family Care Answer Date Record ed Do you have problems with on e of the following making it difficult for you to work, study, or receive health care? No 10/18/2022 Education Answer Date Recorded Are you interested in more education? Not on yary e 10/21/2024 Are you concerned about learning? Not on file 10/21/2024 No 10/21/2024 No 10/21/2024 Food Answer Date Recorded Within the past [...] Orientation Straight 10/05/2022 12 :45 PM EDT Last Filed Vital Signs Vital Sign Reading Time Taken Comments Blood Pressure 144/91 10/25/2023 11:10 AM EDT Pulse 67 10/25/2023 11:10 AM EDT Temperature 36.8 C (98.2 F) 10/25/2023 11:10 AM EDT Respiratory Rate 20 10/25/2023 11:10 AM EDT Oxygen Saturation 96% 10/25/2023 11:10 AM EDT Inhaled Oxygen Concentration - - Weight 92.3 kg (203 lb 7.8 oz) 10/25/2023 11:10 AM EDT Height 163.5 cm (5' 4.37 ) 10/25/2023 11:10 AM E DT Body Mass Index 34.53 10/25/2023 11:10 AM EDT Plan of Treatment Health Maintenance Due Date Last Done Comments LIPID PANEL 1962 DEPRESSION SCREENING 1974 SMOKING Hx and SMOKELESS TOBACCO SCREENING 05/17/1975 HEPATITIS C SCREENING 1980 HIV ONE-TIME SCREENING (18-65 YEARS) 1980 ZOSTER VACCINES (1 of 2) 1981 PAP SMEAR 05/17/1983 MAMMOGRAM 2002 COLOGUARD 05/17/2007 COLONOSCOPY 05/17/2007 COLORECTAL CANCER SCREENING 05/17/2007 FIT TEST 05/17/2007 FOBT 05/17/2007 SIGMOIDOSCOPY 05/17/2007 VIRTUAL COLONOSCOPY 05/17/2007 PNEUMOCOCCAL VACCINES (50+ years) (2 of 2 - PCV) 08/07/2018 08/07/2017 INFLUENZA VACCINE (#1) 2024 3, 11/29/2021, 02/13/2021, Additional history exists COVID-19 VACCINE (3 - 2024-26 season) 2024 03/04/2021, 06/01/2020 SCREENING FOR DIABETES 01/26/2026 01/26/2023 Adult Td,Tdap Booster 03/21/2028 03/21/2018 RSV VACCINE (1 - 1-dose 75+ series) 2037 HEPATITIS A VACCINES Aged Out No long er eligible based on patient's age to complete this topic HIB VACCINES Aged Out No longer eligi ble based on patient's age to complete this topic MENINGOCOCCAL VACCINES (ACWY) Aged Out No longer eligible based on patient's age to complete this topic MENINGOCOCCAL VACCINES (B) Aged Out N o longer eligible based on patient's age to complete this topic Medical Devices Not on file Procedures Procedure Name Priority Date/Time Associated Diagnosis Comments MRI FEMUR WITH AND WITHOUT CONTRAST (LEFT) Routine 09/18/2024 1:[address] CHEST WITH CONTRAST Routine 09/18/2024 12:48 PM EDT Sarcoma from Last 3 Months Results * MRI FEMUR WITH AND WITHOUT CONTRAST (LEFT) (09/18/2024 1:10 PM EDT) Anatomical Region Laterality Modality Thigh Left Magnetic Resonan ce 09/21/2024 11:3 2 AM EDT Impressions 09/21/2024 11:57 AM EDT 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 No evidence of recurrent disease. Narrative 09/21/2024 11:57 AM EDT MRI FEMUR WITH AND WITHOUT CONTRAST (LEFT) Referring clinician's provided indication for this examination in Epic: Sarcoma re-evaluation TECHNIQUE: Multi-sequence, multi-planar MRI of the femur with and without intravenous contrast. COMPARISON: MRI FEMUR WITH AND WITHOUT CONTRAST (LEFT) ; US UPPER/LOWER EXTREMITY NON-VASCULAR OUTSIDE (NO INTERPRETATI.. 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 Edema-like signal and ill-defined enhancement in the operative bed is again seen, but there is no mass-like signal alteration to suggest recurrent disease. No suspicious marrow replacing lesion. There is fatty infiltration within the musculature of the thigh, including the quadriceps musculature where there is also edema-like signal. Top normal left external iliac and inguinal lymph nodes are seen. Procedure Note Edison Guzman MD - 09/21/2024 MRI FEMUR WITH AND WITHOUT CONTRAST (LEFT) Referring clinician's provided indication for this examination in Epic:Sarcoma re-evaluation TECHNIQUE: Multi-sequence, multi-planar MRI of the femur with and withoutintravenous contrast. COMPARISON: MRI FEMUR WITH AND WITHOUT CONTRAST (LEFT) ; USUPPER/LOWER EXTREMITY NON-VASCULAR OUTSIDE (NO INTERPRETATI.. 2022-;MRI FEMUR WITH AND WITHOUT CONTRAST (LEFT) 2022-; MRI FEMUR WITH ANDWITHOUT CONTRAST (LEFT) FINDINGS Again seen are postoperative changes from resection of a pathology provenspindle cell sarcoma from the distal anterior thigh. Edema-like signal andill-defined enhancement in the operative bed is again seen, but there isno mass-like signal alteration to suggest recurrent disease. No suspiciousmarrow replacing lesion. There is fatty infiltration within themusculature of the thigh, including the quadriceps musculature where thereis also edema-like signal. Top normal left external iliac and inguinallymph nodes are seen. 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 No evidence of recurrent disease. us Braynt Lira MD IMG MR EXTREMITY Final R esult * CT CHEST WITH CONTRAST (09/18/2024 12:48 PM EDT) Anatomical Region Laterality Modality Chest Computed Tomogra phy 09/25/2024 11:1 8 AM EDT Impressions 09/25/2024 11:25 AM EDT Since 09/24/2023: 1. New 2 mm right middle lobe nodule. Consider follow-up chest CT in 3 months. 2. Other pulmonary nodules are unchanged. 3. Ascending aorta measures 4.2 cm. Narrative 09/25/2024 11:[address] CHEST WITH CONTRAST Referring clinician's provided indication for [facility]: Sarcoma re-evaluation TECHNIQUE: Multidetector CT of the chest was performed with intravenous contrast using tailored dose modulation techniques. COMPARISON: CT CHEST WITH CONTRAST FINDINGS: Devices/Tubes/Lines: None. Lungs: The central airways are patent. Scarring/atelectasis at the lung bases. There is a new 2 mm right middle lobe nodule (4:120). Other scattered 2 to 3 mm pulmonary nodules are unchanged (4:75,, 121, 172). Pleura: No pleural effusion or pneumothorax. Mediastinum: No thyroid nodules. A cine aorta measures 4.2 cm. Small hiatal hernia. Lymph Nodes: No enlarged supraclavicular, axillary, mediastinal, or hilar lymph nodes. Upper Abdomen: No abnormality detected in the visualized upper abdomen. Chest Wall: No chest wall mass. Bones: No suspicious lytic or blastic lesions. Degenerative changes. Procedure Note Tejal Thomason MD - 09/25/2024 CT CHEST WITH CONTRAST Referring clinician's provided indication for this examination in Epic:Sarcoma re-evaluation TECHNIQUE: Multidetector CT of the chest was performed with intravenouscontrast using tailored dose modulation techniques. COMPARISON: CT CHEST WITH CONTRAST FINDINGS: Devices/Tubes/Lines: None. Lungs: The central airways are patent. Scarring/atelectasis at the lungbases. There is a new 2 mm right middle lobe nodule (4:120). Otherscattered 2 to 3 mm pulmonary nodules are unchanged (4:75,, 121, 172). Pleura: No pleural effusion or pneumothorax. Mediastinum: No thyroid nodules. A cine aorta measures 4.2 cm. Smallhiatal hernia. Lymph Nodes: No enlarged supraclavicular, axillary, mediastinal, or hilarlymph nodes. Upper Abdomen: No abnormality detected in the visualized upper abdomen. Chest Wall: No chest wall mass. Bones: No suspicious lytic or blastic lesions. Degenerative changes. IMPRESSION: Since 09/24/2023: 1. New 2 mm right middle lobe nodule. Consider follow-up chest CT in 3months. 2. Other pulmonary nodules are unchanged. 3. Ascending aorta measures 4.2 cm. Bryant Lira MD IMG CT CHEST Final Re sult from Last 3 Months Insurance [facility] MEDICARE PART A & B AETNA O MEDICARE [facility]PLAC[facility] B AETNA O MEDICARE REPLACEMENT [facility] & B [employer]ET[employer] O MEDICARE REPLACEMENT [facility] MEDICARE PART A & [facility] RE[facility] MEDICARE PART A & B [facility] MEDICARE REPLACEMENT [facility] MEDICARE PART A & B [facility] MEDICARE REPLACEMENT Care Teams Poly Operator Relationship Specialty Start Date End Date Lance, Sofía Zamarripa MD [address] [place] [phone] PCP - General Internal Medicine 05/15/23 Self-Referred, Patient 10/05/22 Daniela Kiran MD, MARTHA [address] [place] [phone] [email or web address] Radiation Oncology 11/02/22 Reny Joseph, HAND PACKER [address] [place] [address] [email or web address]. U [place] Operator Oncology 11/30/22 Marcus Henderson PA-C [address] [place] [phone] [email or web address] Physician Peanut Sorter 05/28/23 Additional Source Comments The information contained in this document represents components of the legal health record. It is not the complete legal health record.[facility]
--- OUTSIDE RECORDS SUMMARY | 2024-11-09 19:31 | XMS_ITS | Encounter Summary ---
Author Organization [facility] Address [address] [facility] [address] [address] Phone Care Team Providers Care Belt Conveyor Drier Name Role Phone Self-Referred, Patient Unavailable Unavailab Daniela Valencia MD, MARTHA Unavailable [phone] Reny Joseph Unavailable [phone] Sofía Lucas MD Primary Care Provider [phone] Marcus Henderson PA-C Unavailable [phone] Encounter Details Date Type Department Care Team (Late st Contact Info) Description 05/15/2023 Procedure Pass [facility], Ct Scan - [address] [address] Social History Tobacco Use Types Packs/Day Years [...] high school, GED, job training, learning the Armenian language, technical skills, or developing parenting skills)? [...] on filedocumented in this encounter Care Teams Belt Conveyor Drier Relationship Specialty Start Date End Date Lance Sofía Zamarripa MD [address] [place] [address] [address] [place] [phone] PCP - General Internal Medicine 05/15/23 Self-Referred, Patient 10/05/22 Daniela Kiran MD, MARTHA [address] [place] [phone] [email or web address] Radiation Oncology 11/02/22 Reny Joseph, [address] [address] [email or web address] U Journeyman Molder Oncology 11/30/22 Marcus Henderson PA-C [address] [place] [phone] [email or web address] Physician Director Writing 05/28/23 documented as of this encounter Additional Source Comments The information contained in this document represents components of the legal health record. It is not the complete legal health record.[facility]
--- OUTSIDE RECORDS SUMMARY | 2024-11-09 19:31 | XMS_ITS | Encounter Summary ---
Author Organization [facility] Address [address] [address] Phone Care Team Providers Care Security Field Supervisor Name Role Phone Sofía Lucas MD Primary Care Provider [phone] Self-Referred, Patient Unavailable Unavailab Daniela Valencia MD, MARTHA Unavailable [phone] Reny Joseph BSA OFFICER Unavailable [phone] Sofía Lucas MD Primary Care Provider [phone] Marcus Henderson PA-C Unavailable [phone] Encounter Details Date Type Department Care Team (Late st Contact Info) Description 10/18/2022 Procedure Pass [facility] CT Imaging, [place] [address] [place] [address] Social History Tobacco Use Types Packs/Day Years [...] high school, GED, job training, learning the Pashto language, technical skills, or developing parenting skills)? [...] on filedocumented in this encounter Care Teams Security Field Supervisor Relationship Specialty Start Date End Date Sofía Lucas MD [address] [place] [address] PCP - General 12/11/16 05/14/23 Sofía Lucas MD [address] [place] [address] PCP - General Internal Medicine 05/15/23 Self-Referred, Patient 10/05/22 Daniela Kiran MD, MARTHA [address] [place] [address] [email or web address] Radiation Oncology 11/02/22 Reny Joseph, [address] [address] [email or web address]. U Transit Planning Manager Oncology 11/30/22 Marcus Henderson PA-C [address] [place] [address] [email or web address] Physician Android Programmer 05/28/23 documented as of this encounter Additional Source Comments The information contained in this document represents components of the legal health record. It is not the complete legal health record.[facility]
--- OUTSIDE RECORDS SUMMARY | 2024-11-09 19:31 | XMS_ITS | Encounter Summary ---
Author Organization [facility] Address [address] [address] Phone Care Team Providers Care Watch Parts Grinder Name Role Phone Sofía Lucas MD Primary Care Provider Self-Referred, Patient Unavailable Unavailab Daniela Valencia MD, MARTHA Unavailable [phone] Reny Joseph ASSEMBLER MECHANICAL ORDNANCE Unavailable [phone] Sofía Lucas MD Primary Care Provider [phone] Marcus Henderson PA-C Unavailable [phone] Encounter Details Date Type Department Care Team (Late st Contact Info) Description 11/07/2022 Procedure Pass [facility] [address] [place] [address] Social History Tobacco Use Types Packs/Day Years [...] high school, GED, job training, learning the Icelandic language, technical skills, or developing parenting skills)? [...] on filedocumented in this encounter Care Teams Watch Parts Grinder Relationship Specialty Start Date End Date Sofía Lucas MD [address] [place] [address] PCP - General 12/11/16 05/14/23 Sofía Lucas MD [address] [place] [address] PCP - General Internal Medicine 05/15/23 Self-Referred, Patient 10/05/22 Daniela Kiran MD, MARTHA [address] [place] [address] [email or web address] Radiation Oncology 11/02/22 Reny Joseph, [address] [address] [email or web address]. U Implementation Services Analyst Oncology 11/30/22 Marcus Henderson PA-C [address] [place] [address] [email or web address] Physician Pediatric Nephrologist 05/28/23 documented as of this encounter Additional Source Comments The information contained in this document represents components of the legal health record. It is not the complete legal health record.[facility]
--- OUTSIDE RECORDS SUMMARY | 2024-11-09 19:31 | XMS_ITS | Encounter Summary ---
Author Organization [employer] Address [address] [place] [address] Care Team Providers Care Fellmongery Worker Name Role Phone Harjit Khoury MD Primary Care Provider [phone] Encounter Details Date Type Department Care Team (Late st Contact Info) Description 04/09/2024 Lab Requisition [facility] - Main Lab [address] [facility] [place] [address] Harjit Khoury MD [address] [place] [address] Essential (primary) hypertension; Vitamin D deficiency, unspecified [...] LAB CHEMISTRY METHOD 04/09/2024 12:13 PM EST [facility] Blood Venous blood specimen / Unknown Venipuncture / Unknown 04/09/2024 5:24 AM EST 04/09/2024 10:58 AM EST us Harjit Khoury MD LAB BLOOD ORDERABLES Final Resul t Performing Organization Address [facility] [[email or web address]] Co de Phone Number [facility] [address] [place] [address], * Folate (04/09/2024 5:24 AM EST) Pathologist [facility] Folate 6.4 2.8 - 17.0 ng/ml LAB CHEMISTRY METHOD 04/09/2024 12:42 PM EST [facility] Blood Venous blood specimen / Unknown Venipuncture / Unknown 04/09/2024 5:24 AM EST 04/09/2024 10:58 AM EST us Harjit Khoury MD LAB BLOOD ORDERABLES Final Resul t Performing Organization Address City/[facility]/ZIP Co de Phone Number [facility] [address] [place] [address], [place] [phone] * Thyroid stimulating hormone (04/09/2024 5:24 AM EST) [facility] TSH 3.07 0.40 - 4.00 mcIU/mL LAB CHEMISTRY METHOD 04/09/2024 12:13 PM EST [facility] Blood Venous blood specimen / Unknown Venipuncture / Unknown 04/09/2024 5:24 AM EST 04/09/2024 10:58 AM EST us Harjit Khoury MD LAB BLOOD ORDERABLES Final Resul t [facility] [address] [place] [address], [place] [phone] * Vitamin B12 (04/09/2024 5:24 AM EST) [facility] Vitamin B-12 466 250 - 900 pcg/mL LAB CHEMISTRY METHOD 04/09/2024 12:42 PM [facility] Blood Venous blood specimen / Unknown Venipuncture / Unknown 04/09/2024 5:24 AM EST 04/09/2024 10:58 AM EST us Harjit Khoury MD LAB BLOOD ORDERABLES Final Resul t Performing Organization Address City/[facility]/ZIP Co de Phone Number [facility] [address] [place] [address], [place] [phone] * Comprehensive metabolic panel (04/09/2024 5:24 AM EST) [facility] Sodium 136 133 - 145 mmol/L LAB CHEMISTRY METHOD 04/09/2024 12:42 PM [facility] Potassium 4.2 3.5 - 5.5 mmol/L LAB CHEMISTRY METHOD 04/09/2024 12:42 PM [facility] Chloride 107 96 - 110 mmol/L LAB CHEMISTRY METHOD 04/09/2024 12:42 PM [facility] CO2 26 21 - 32 [...] [facility] Comment:Calculation based on the Chronic [...] MD LAB BLOOD ORDERABLES Final Resul t [facility] [address] [place] [address], * (ABNORMAL) Complete blood count (04/09/2024 5:24 [...] 11:31 AM [facility] Platelets 319 130 - 400 K/mcL LAB HEMETOLOGY METHOD 04/09/2024 11:31 AM [facility] MPV 10.4 7.0 - 11.0 FL LAB HEMETOLOGY METHOD 04/09/2024 11:31 AM [facility] NRBC 0.0 <1.0 % LAB HEMETOLOGY METHOD 04/09/2024 11:31 AM EST [facility] NRBC Absolute 0.00 <0.10 K/mcL LAB HEMETOLOGY METHOD 04/09/2024 11:31 AM EST [facility] Blood Venous blood specimen / Unknown Venipuncture / Unknown 04/09/2024 5:24 AM EST 04/09/2024 10:58 AM EST us Harjit Khoury MD LAB BLOOD ORDERABLES Final Resul t [facility] [address] [place] [address], documented in this encounter Visit Diagnoses Diagnosis Essential (primary) hypertension Unspecified essential hypertension Vitamin D deficiency, unspecified documented in this encounter Care Teams Fellmongery Worker Relationship Specialty Start Date End Date Harjit Khoury MD PCP - General Geriatric Medicine 04/09/24 documented as of this encounter
--- OUTSIDE RECORDS SUMMARY | 2024-11-09 19:31 | XMS_ITS | Encounter Summary ---
Author Organization [facility] Address [address] [address] Phone Care Team Providers Care Minister Helper Name Role Phone Sofía Lucas MD Primary Care Provider [phone] Self-Referred, Patient Unavailable Unavailab Daniela Valencia MD, MARTHA Unavailable [phone] Reny Joseph Unavailable [phone] Sofía Lucas MD Primary Care Provider [phone] Marcus Henderson PA-C Unavailable [phone] Encounter Details Date Type Department Care Team (Late st Contact Info) Description 01/08/2023 Procedure Pass [facility], [facility] [place] [place] [address] [facility], [address] [place] [address] Social History Tobacco Use Types Packs/Day Years [...] on filedocumented in this encounter Care Teams Minister Helper Relationship Specialty Start Date End Date Sofía Lucas MD [address] [place] [address] PCP - General 12/11/16 05/14/23 Sofía Lucas MD [address] [place] [address] PCP - General Internal Medicine 05/15/23 Self-Referred, Patient 10/05/22 Danieal Kiran MD, MARTHA [address] [place] [address] [email or web address] Radiation Oncology 11/02/22 Reny Joseph, [facility] [address] [place] [address] [email or web address]. U Freight Broker Oncology 11/30/22 Marcus Henderson PA-C [address] [place] [address] [email or web address] Physician Agronomy Specialist 05/28/23 documented as of this encounter Additional Source Comments The information contained in this document represents components of the legal health record. It is not the complete legal health record.[facility]
--- OUTSIDE RECORDS SUMMARY | 2024-11-09 19:31 | XMS_ITS | Encounter Summary ---
Author Organization [facility] Address [address] [employer] [address] [address] Phone Care Team Providers Care Director Of Income Tax Name Role Phone Sofía Lucas MD Primary Care Provider [phone] Self-Referred, Patient Unavailable Unavailab Daniela Valencia MD, MARTHA Unavailable [phone] Reny Joseph SUPERVISOR REMELT Unavailable [phone] Sofía Lucas MD Primary Care Provider [phone] Marcus Henderson PA-C Unavailable [phone] Encounter Details Date Type Department Care Team (Late st Contact Info) Description 01/25/2023 Procedure Pass [facility] Periop [address] [place] [address] Social History Tobacco Use Types Packs/Day Years [...] high school, GED, job training, learning the Bulgarian language, technical skills, or developing parenting skills)? [...] PM EDT documented as of this encounter Functional Status * Calculated C-SSRS Risk Score (Lifetime/Recent) Answer Date of Assessment Author No Risk Indicated 01/25/2023 3:00 PM Kati French RN * Stark Suicide Severity Rating Scale (Screener/Recent Self-Report) Question Answer Date of Assessment Author 1. Wish to be (Past 1 Month) No 01/25/2023 3:00 PM Kati French ae, RN 2. Non-Specific Active Suici rachid Thoughts (Past 1 Month) No 01/25/2023 3:00 PM Candy French RN 6. Suicidal Behavior (Lifetime) No 3:00 PM Kati French RN documented as of this encounter Plan of Treatment Not on file documented as of this encounter Visit Diagnoses Not on filedocumented in this encounter Care Teams Director Of Income Tax Relationship Specialty Start Date End Date Sofía Lucas MD [address] [place] [phone] PCP - General 12/11/16 05/14/23 Sofía Lucas MD [address] [place] [address] [address] [place] [phone] PCP - General Internal Medicine 05/15/23 Self-Referred, Patient 10/05/22 Daniela Kiran MD, MARTHA [address] [place] [address] [email or web address] Radiation Oncology 11/02/22 Reny Joseph, [facility] [address] [place] [address] [email or web address]. U Memorial Counselor Oncology 11/30/22 Marcus Henderson PA-C [address] [place] [address] [email or web address] Physician Jig And Fixture Maker 05/28/23 documented as of this encounter Additional Source Comments The information contained in this document represents components of the legal health record. It is not the complete legal health record.[facility]
--- OUTSIDE RECORDS SUMMARY | 2024-11-09 19:31 | XMS_ITS | Encounter Summary ---
Author Organization [facility] Address [address] [employer] [address] [address] Phone Care Team Providers Care Freight Coordinator Name Role Phone Sofía Lucas MD Primary Care Provider [phone] Self-Referred, Patient Unavailable Unavailab Daniela Valencia MD, MARTHA Unavailable [phone] Reny Joseph [facility] Unavailable [phone] Sofía Lucas MD Primary Care Provider [phone] Marcus Henderson PA-C Unavailable [phone] Encounter Details Date Type Department Care Team (Late st Contact Info) Description 10/11/2022 Procedure Pass [facility]'s Instructor [place] [address] [place] [address] Social History Tobacco Use Types Packs/Day Years Used Date Smoking Tobacco: Former Cigarettes 1 45 Alcohol Use Standard Drinks/Week Comments Never 0 (1 standard drink = 0.6 oz pur e alcohol) Education Answer Date Recorded Are you interested in more education? Not on yary e 09/24/2022 Are you concerned about learning? Not on file 09/24/2022 No 09/24/2022 No 09/24/2022 Digital Access Answer Date Recorded No 09/24/2022 [...] on filedocumented in this encounter Care Teams Freight Coordinator Relationship Specialty Start Date End Date Sofía Lucas MD [address] [place] [phone] PCP - General 12/11/16 05/14/23 Sofía Lucas MD [address] [place] [phone] PCP - General Internal Medicine 05/15/23 Self-Referred, Patient 10/05/22 Daniela Kiran MD, MARTHA [address] [place] [address] [email or web address] Radiation Oncology 11/02/22 Reny Joseph, [facility] [address] [place] [address] [email or web address]. U Strategic Planning Manager Oncology 11/30/22 Marcus Henderson PA-C [address] [place] [address] [email or web address] Physician Case Aide 05/28/23 documented as of this encounter Additional Source Comments The information contained in this document represents components of the legal health record. It is not the complete legal health record.[facility]
== END 2024-11-09 14:53 | disposition home or self-care (01) ==
LOC: HO.HMCH 14:11
PROVIDERS: Visit Provider Internal Medicine
DX: I69.30 Unspecified sequelae of cerebral infarction (principal); S52.502A Unspecified fracture of the lower end of left radius, initial encounter for closed fracture; E66.9 Obesity, unspecified; Z68.35 Body mass index [BMI] 35.0-35.9, adult; N31.8 Other neuromuscular dysfunction of bladder; D12.6 Benign neoplasm of colon, unspecified; R73.02 Impaired glucose tolerance (oral); I72.0 Aneurysm of carotid artery; I10 Essential (primary) hypertension; F41.1 Generalized anxiety disorder

== ENCOUNTER → 2024-11-09 14:10 | Outpatient (BNVA) | payer MEDICARE, MEDICAID, SELFPAY | PROVIDERS: Visit Provider Internal Medicine | DX: I10 Essential (primary) hypertension (principal); N31.8 Other neuromuscular dysfunction of bladder; D12.6 Benign neoplasm of colon, unspecified; E66.9 Obesity, unspecified; R73.02 Impaired glucose tolerance (oral); I72.0 Aneurysm of carotid artery; F41.1 Generalized anxiety disorder; S52.502D Unspecified fracture of the lower end of left radius, subsequent encounter for closed fracture with routine healing; X58.XXXD Exposure to other specified factors, subsequent encounter; Z86.73 Personal history of transient ischemic attack (TIA), and cerebral infarction without residual deficits | CPT/HCPCS: 99212 ==

== ENCOUNTER 2024-11-10 10:55 | Day surgery (SDC) | payer MEDICARE, MEDICAID, SELFPAY ==
--- OUTSIDE RECORDS SUMMARY | 2024-10-16 14:40 | XMS_ITS | Encounter Summary ---
Author Organization [facility] Address [address] [address] Phone Care Team Providers Care Vice President Of Advertising Name Role Phone Sofía Lucas MD Primary Care Provider [phone] Self-Referred, Patient Unavailable Unavailab Daniela Valencia MD, MARTHA Unavailable [phone] Reny Joseph BENEFITS PROCESSOR Unavailable [phone] Sofía Lucas MD Primary Care Provider [phone] Marcus Henderson PA-C Unavailable [phone] Encounter Details Date Type Department Care Team (Late st Contact Info) Description 11/07/2022 Procedure Pass [facility] [address] [place] [address] Social History Tobacco Use Types Packs/Day Years Used Date Smoking Tobacco: Former Cigarettes 1 45 Alcohol Use Standard Drinks/Week Comments Never 0 (1 standard drink = 0.6 oz pur e alcohol) Child or Family Care Answer Date Record ed Do you have problems with on e of the following making it difficult for you to work, study, or receive health care? No 10/18/2022 Education Answer Date Recorded Are you interested in help w ith more adult education (for example, completing high school, GED, job training, learning the [place] language, technical skills, or developing parenting skills)? No 10/18/2022 Are you concerned about learning? Not on file 10/18/2022 No 10/18/2022 Yes 10/18/2022 Food Answer Date Recorded Within the past 6 months we worried whether our food would run out before we got money to buy more. Never True 10/18/2022 Within the past 6 months the food we bought just didn't last and we didn't have enough money to get more. Never True Residential Stability Answer Date Recor ded What is your housing situation today? I have surendra sing 10/18/2022 How many times have you move d in the past 12 months? Zero (I did not move) 10/18/2022 Paying for Meds Answer Date Recorded Do you have trouble paying for medicines? No 10/18/2022 Paying Utility Bills Answer Date Record ed Do you have trouble paying your heating or elect ricity bill? No 10/18/2022 Transportation Answer Date Recorded Has the lack of transportati on kept you from medical appointments or from getting medications? No 10/18/2022 Digital Access Answer Date Recorded No 09/24/2022 No 09/24/2022 Reliable internet access at home? Not on file 09/24/2022 Device with a working camera? Not on file Comments Unknown Sex and Gender Information Value Date Recorded Sex Assigned at Female 10/05/2022 12:45 PM EDT Legal Sex Female 12:26 PM EDT Gender Identity Female 10/05/2022 12:45 PM EDT Sexual Orientation Straight 10/05/2022 12 :45 PM EDT documented as of this encounter Plan of Treatment Not on file documented as of this encounter Visit Diagnoses Not on filedocumented in this encounter Care Teams Vice President Of Advertising Relationship Specialty Start Date End Date Sofía Lucas MD [address] [place] [address] PCP - General 12/11/16 05/14/23 Sofía Lucas MD [address] [place] [address] PCP - General Internal Medicine 05/15/23 Self-Referred, Patient 10/05/22 Daniela Kiran MD, MARTHA [address] [place] [address] [email or web address] Radiation Oncology 11/02/22 Reny Joseph, [address] [address] [email or web address] Worker Oncology 11/30/22 Marcus Henderson PA-C [address] [place] [id number] [email or web address] Physician Feller Machine Operator 05/28/23 documented as of this encounter Additional Source Comments The information contained in this document represents components of the legal health record. It is not the complete legal health record.[facility]
--- OUTSIDE RECORDS SUMMARY | 2024-10-16 14:40 | XMS_ITS | Clinical Summary ---
Author Organization [facility] Address [address] [place] [address] Phone Care Team Providers Care Guide Domestic Tour Name Role Phone Harjit Khoury MD Primary Care Provider [phone] Social History Tobacco Use Types Packs/Day Years Used Date Smoking Tobacco: Never Assessed Comments Unknown Sex and Gender Information Value Date Recorded Sex Assigned at Not on file Legal Sex Female 5:38 PM EST Gender Identity Not on file Sexual Orientation Not on file Plan of Treatment Health Maintenance Due Date Last Done Comments Breast Cancer Screening 1962 DTaP,Tdap,and Td Vaccines (1 - Tdap) 1981 Cervical Cancer Screening: P ap Smear 05/17/1983 Pneumococcal Vaccine: 50+ Years (1 of 1 - PCV) 2012 Zoster Vaccines (1 of 2) 2012 COVID-19 Vaccine ( - 2023-2 5 season) 2023 Depression Screening 02/26/2024 Cholesterol Screening (Lipid Panel) 04/09/2024 Colorectal Cancer Screening: Colonoscopy 04/09/2024 HIV Screening 04/09/2024 Hepatitis C Screening 04/09/2024 Lung Cancer Screening (Low Dose CT) 04/09/2024 Social Influencers of Health Screening 04/09/2024 Influenza Vaccine (#1) 2024 Hypertension/CHF/CAD Annual BMP Blood Test 04/09/2025 [...] 04/09/2024 12:42 PM [facility] Potassium 4.2 3.5 - [...] [facility] Comment:Calculation based on the Chronic Kidney [...] 04/09/2024 12:42 PM [facility] Blood Venous blood specimen / Unknown Venipuncture / Unknown 04/09/2024 5:24 AM EST 04/09/2024 10:58 AM EST us Harjit Khoury MD LAB BLOOD ORDERABLES Final Resul t [facility] [address] [place] [address], [place] [phone] from Last 3 Months or Most Recently Relevant to Health Maintenance Insurance MEDICAID - [place] AETNA Care Teams Guide Domestic Tour Relationship Specialty Start Date End Date Harjit Khoury MD PCP - General Geriatric Medicine 04/09/24
[2024-11-06 07:47] VITALS: BMI 36.0
--- NOTE | 2024-11-09 09:12 | HO.ANESPROP2 ---
Documented by User: Latha Montano NP 11/09/24 09:16 HPI - Anesthesia Eval Consult details Narrative: 64 yr old female for cystoscopy botox injection 200 IU Right carotid aneurysm: [place]iph[place] [facility] [place] dual [place]-platelet [place] CVA ~2017 with residual deficits RUTHIE PMF[facility] Active Problems Active Problems: All Active Problems (Updated 09/17/24 @ 11:57 by Torres Connell MD) Urge incontinence of urine (Acute) Migraine (Acute) Hypercalcemia (Acute) Carotid aneurysm, right (Acute) Closed trimalleolar fracture of left ankle (Acute) Cough (Acute) Distal radius fracture, left (Acute) Hip pain, left (Acute) Left knee pain (Acute) Fall (Acute) Vaginal lesion (Acute) Spindle cell carcinoma (Acute ~2022) OAB (overactive bladder) (Acute) Spastic neurogenic bladder (Acute) Impaired glucose tolerance (Acute) Breast cancer screening (Acute) Hearing deficit (Acute) Generalized anxiety disorder (Acute) Cervical cancer screening (Acute) Tubular adenoma of colon (Acute) Hypertension (Acute) History of CVA with residual deficit (Acute ~2017) Hemiparesis (Acute ~2017) Hyperparathyroidism (Acute) Hypercalcemia (Acute) Allergic rhinitis (Acute) Obesity (BMI 30-39.9) (Acute) Past Medical History Medical History HTN (hypertension) Nicotine dependence, cigarettes, uncomplicated Mass of left thigh Suspected exposure to mold Left leg swelling Obesity (BMI 30-39.9) Hemiparesis (~2017) ADHD (attention deficit hyperactivity disorder) Hypercalcemia Anxiety Hyperparathyroidism Sleep apnea in adult History of asthma History of CVA with residual deficit (~2017) Allergic rhinitis Family History Family History Father HTN (hypertension) Mother HTN (hypertension) Family history of problems with anesthesia: No Surgical History Surgical History History of surgery of head History of biopsy History of hand surgery History of hysterectomy History of tubal ligation History of History of colonoscopy History of bilateral breast reduction surgery History of tonsillectomy S/P Botox injection Hx of arthroscopy of left knee History of Problems with Anesthesia: No Social History Social History Household Members: None Housing: House Alcohol intake: current Alcohol intake frequency: does not drink Comment: left sided hemiparesis walks wih cane Patient Tobacco Use Status: Former Tobacco user Tobacco use type: Cigarette Years Smoked: 2017 stopped 2.5 packs /20 years e-Cigarette/Vaping Use: Never Used Second Hand Smoke Exposure: Yes Advance Directives Date on File: 04/08/24 service: No Current occupational status: disabled Cognitive needs: Yes (Wheelchair, walker) Hearing needs: Yes (hearing aides) Vision needs: Yes (Glasses) Meds Allergies Allergy/AdvReac Type Severity Reaction Status Date / Time perfume Allergy Intermediate Shortness Verified 11/09/24 14:15 of Breath Seasonal Allergies Allergy Intermediate Watery Verified 11/09/24 14:15 Eye, sneezing Home Medications ?Medication ?Instructions ?Recorded ?Confirmed ?Last Taken ?Type clopidogrel 75 mg tablet 75 mg PO DAILY 04/06/24 11/09/24 04/06/24 History albuterol 90 mcg-budesonide 80 2 inh inhalation DAILY PRN 11/09/24 11/09/24 Unknown History mcg/actuation HFA aerosol inhaler (Airsupra) aspirin 81 mg tablet,delayed 81 mg PO DAILY 11/09/24 11/09/24 Unknown History release (Adult Aspirin Regimen) cholecalciferol (vitamin D3) 1,250 1,250 mcg PO QWEEK 11/09/24 11/09/24 Unknown History mcg (50,000 unit) capsule cyclobenzaprine 5 mg tablet 5 mg PO QAM PRN Pain 11/09/24 11/10/24 11/10/24 08:00 History duloxetine 20 mg capsule,delayed 20 mg PO DAILY 11/09/24 11/09/24 Unknown History release lisinopril 10 mg tablet 10 mg PO DAILY 11/09/24 11/09/24 Unknown History ondansetron 4 mg disintegrating 4 mg PO Q8H 11/09/24 11/09/24 Unknown History tablet tramadol 50 mg tablet 50 mg PO BEDTIME PRN 11/09/24 11/09/24 Unknown History Exam Height,Weight and Vital Signs: Height 5 ft 4 in Weight 95.254 kg Narrative Narrative: CT angio head/neck 06/2024 IMPRESSION: NONCONTRAST HEAD CT: 1. No acute intracranial abnormalities. CTA NECK: 1. There is no evidence of significant stenosis, occlusion, dissection, or aneurysm of the major cervical arterial vasculature. CTA HEAD: 1. There has been prior stent assisted aneurysm repair involving the proximal right cavernous ICA. The stent is patent. No extravasation of contrast into the aneurysm sac. 2. There is no evidence of significant stenosis, occlusion, dissection, or additional aneurysm within the intracranial arterial circulation. 3. The major cortical and dural venous sinuses are patent. Assessment and Plan Final Anesthetic Review Family History of Problems with Anesthesia: No History of Problems with Anesthesia: No Documented by User: Jaun Trevizo MD 11/10/24 16:05 [facility] Past Medical History Medical History HTN (hypertension) Nicotine dependence, cigarettes, uncomplicated Mass of left thigh Suspected exposure to mold Left leg swelling Obesity (BMI 30-39.9) Hemiparesis (~2017) ADHD (attention deficit hyperactivity disorder) Hypercalcemia Anxiety Hyperparathyroidism Sleep apnea in adult History of asthma History of CVA with residual deficit (~2017) Allergic rhinitis Family History Family History Father HTN (hypertension) Mother HTN (hypertension) Surgical History Surgical History History of surgery of head History of biopsy History of hand surgery History of hysterectomy History of tubal ligation History of History of colonoscopy History of bilateral breast reduction surgery History of tonsillectomy S/P Botox injection Hx of arthroscopy of left knee Social History Social History Household Members: None Housing: House Alcohol intake: current Alcohol intake frequency: does not drink Comment: left sided hemiparesis walks nato cane Patient Tobacco Use Status: Former Tobacco user Tobacco use type: Cigarette Years Smoked: 2017 stopped 2.5 packs /20 years e-Cigarette/Vaping Use: Never Used Second Hand Smoke Exposure: Yes Advance Directives Date on File: 04/08/24 service: No Current occupational status: disabled Cognitive needs: Yes (Wheelchair, walker) Hearing needs: Yes (hearing aides) Vision needs: Yes (Glasses) Meds Allergies Allergy/AdvReac Type Severity Reaction Status Date / Time perfume Allergy Intermediate Shortness Verified 11/09/24 14:15 of Breath Seasonal Allergies Allergy Intermediate Watery Verified 11/09/24 14:15 Eye, sneezing Home Medications ?Medication ?Instructions ?Recorded ?Confirmed ?Last Taken ?Type clopidogrel 75 mg tablet 75 mg PO DAILY 04/06/24 11/09/24 04/06/24 History albuterol 90 mcg-budesonide 80 2 inh inhalation DAILY PRN 11/09/24 11/09/24 Unknown History mcg/actuation HFA aerosol inhaler (Airsupra) aspirin 81 mg tablet,delayed 81 mg PO DAILY 11/09/24 11/09/24 Unknown History release (Adult Aspirin Regimen) cholecalciferol (vitamin D3) 1,250 1,250 mcg PO QWEEK 11/09/24 11/09/24 Unknown History mcg (50,000 unit) capsule cyclobenzaprine 5 mg tablet 5 mg PO QAM PRN Pain 11/09/24 11/10/24 11/10/24 08:00 History duloxetine 20 mg capsule,delayed 20 mg PO DAILY 11/09/24 11/09/24 Unknown History release lisinopril 10 mg tablet 10 mg PO DAILY 11/09/24 11/09/24 Unknown History ondansetron 4 mg disintegrating 4 mg PO Q8H 11/09/24 11/09/24 Unknown History tablet tramadol 50 mg tablet 50 mg PO BEDTIME PRN 11/09/24 11/09/24 Unknown History Exam Airway Mallampati Class: II TM Dist: >3cm Neck ROM: Full Loose/Missing/Broken Teeth: Yes Assessment and Plan Assessment Anesthesia Assessment: Anesthesia Plan Discussed and Chart Reviewed Final Anesthetic Review NPO: Yes ASA Class: III Final Preanesthetic Review: No Changes in Pt Med Stat, Meds/Allgs Chart Reviewed, Consent Obtained/Reviewed and Anes Risks/Benef Reviewed Patient Risk: Intermediate Procedure Risk: Low Anesthetic Plan Anesthetic Plan: MAC: Disposition: Standard PACU
[2024-11-10 11:31] VITALS: BP 117/74; PULSE 67; RESP 16; TEMP 36.6; O2SAT 97
[2024-11-10] MEDS: Lactated Ringers 1,000 ML 100 ML IVCONT (11:33)
--- NOTE | 2024-11-10 11:40 | MHC.SHP ---
Pre-Procedural Eval Section A - 24 Hr Update-Section A only Date of Service: 11/10/24 The patient is an INPATIENT: No The patient has been examined within 24 hours of the surgical procedure. The History & Physical has been completed within 30 days and I have reviewed it.: Yes Section B - Complete if H&P > 30 days Chief Complaint: Other neuromuscular dysfunction of bladder Allergies: Allergies Allergy/AdvReac Type Severity Reaction Status Date / Time perfume Allergy Intermediate Shortness Verified 11/09/24 14:15 of Breath Seasonal Allergies Allergy Intermediate Watery Verified 11/09/24 14:15 Eye, sneezing Plan Diagnosis/Plan: Unchanged I have reviewed the history and physical and performed a pertinent physical examination on my patient. No changes have occurred unless specified. Cystoscopy Bladder Botox injection. I have discussed risks to include hematuria, UTI, urinary retention, need to repeat procedure for sustained efficacy. Time Spent With Patient Time: Total time managing care of this patient today ____ minutes.
--- NOTE | 2024-11-10 11:42 | P.OP_ITS ---
Operative Note Operative Note Date of Service: 11/10/24 Narrative: PreOperative Diagnosis: Overactive bladder, spastic neurogenic bladder Post Operative Diagnosis: Overactive bladder, spastic neurogenic bladder Procedure: Cystoscopy with injection 200 units Botox intra detrusor muscle Surgeon: Dr Torres Connell Anesthesia: General Procedure: After informed consent was verified the patient was brought to the operating room and placed in a supine position. Anesthesia was administered per protocol. Time out was done per protocol. Antibiotics confirmed. Cystoscopy performed with 22 [place] Island[place] cystoscope. Bladder was emptied of urine. Urine sent for culture. Bladder was refilled. The bladder was visualized, the right and left ureteral orifices were visualized. Using 200 units of Botox mixed in 10 cc of normal saline; transurethral injections were placed into the posterior wall of the bladder. 0.5cc placed at each injection site. Injections were placed in a grid 5 across and 4 longitudinally. Injections were placed from the inferior to superior position. The bladder was drained, the cystoscope was removed. 2% lidocaine was passed transurethrally. The patient tolerated the procedure and was brought out of anesthesia and taken to the recovery room in stable condition. Complications: none EBL: minimal (<5 mL) Drains:None
[2024-11-10 13:25] VITALS: BP 104/62; PULSE 68; RESP 16; TEMP 36.2; O2SAT 93
[2024-11-10 13:40] VITALS: BP 112/74; PULSE 65; RESP 18; O2SAT 100
[2024-11-10 13:55] VITALS: BP 142/88; PULSE 66; RESP 18; TEMP 36.3; O2SAT 99
== END 2024-11-10 14:51 | disposition home or self-care (01) ==
PROVIDERS: PCP Internal Medicine; Visit Provider Urology
PROC: 3E0K8GC Introduction of Other Therapeutic Substance into Genitourinary Tract, Via Natural or Artificial Opening Endoscopic (ICD-10-PCS; CPT 52287; principal; 2024-11-10 12:00)
DX: N31.8 Other neuromuscular dysfunction of bladder (principal); N32.81 Overactive bladder; N39.41 Urge incontinence; I69.398 Other sequelae of cerebral infarction; I69.354 Hemiplegia and hemiparesis following cerebral infarction affecting left non-dominant side; I10 Essential (primary) hypertension; E21.3 Hyperparathyroidism, unspecified; E66.9 Obesity, unspecified; J30.2 Other seasonal allergic rhinitis; F41.9 Anxiety disorder, unspecified; G47.30 Sleep apnea, unspecified; Z99.89 Dependence on other enabling machines and devices; Z79.899 Other long term (current) drug therapy; Z79.82 Long term (current) use of aspirin; Z91.048 Other nonmedicinal substance allergy status; Z98.890 Other specified postprocedural states; Z87.891 Personal history of nicotine dependence
CPT/HCPCS: 52287; 87086; J0585; J0690; J2003; J2704

== ENCOUNTER → 2024-11-10 10:55 | Outpatient (BNV) | payer MEDICARE, MEDICAID, SELFPAY | PROVIDERS: PCP Internal Medicine; Visit Provider Urology | DX: N32.81 Overactive bladder (principal) | CPT/HCPCS: 52287 ==

== ENCOUNTER → 2024-11-20 09:30 | Outpatient (BNV) | payer MEDICARE, MEDICAID, SELFPAY | PROVIDERS: PCP Internal Medicine; Visit Provider Internal Medicine | DX: Z12.31 Encounter for screening mammogram for malignant neoplasm of breast (principal) | CPT/HCPCS: 77063; 77067 ==

== ENCOUNTER 2024-11-20 09:31 | Outpatient (REF) | payer MEDICARE, MEDICAID, SELFPAY ==
--- NOTE | ~2024-11-20 | MM_ITS ---
EXAMINATION: MM SCREENING DIGITAL BREAST TOMOSYNTHESIS, BILATERAL CLINICAL INFORMATION: Screening. Asymptomatic. COMPARISON: Mammography: Comparison is made with available priors TECHNIQUE: Digital breast mammography with tomosynthesis is performed in both the craniocaudal and mediolateral oblique views along with computer-aided detection (CAD). FINDINGS: There are scattered areas of fibroglandular density. Limited images patient had a stroke and limited left-sided range of motion. Within these limitations: Prior reduction mammoplasty. There are no significant masses, abnormal calcifications, or other abnormalities. MM/MM tomosynthesis screening BI IMPRESSION: No mammographic evidence of malignancy. ASSESSMENT: BI-RADS Category 2: Benign RECOMMENDATION: Routine annual mammography screening. 1 year F/U This examination should not preclude the clinical evaluation of a suspicious palpable abnormality. This patient's information was entered into a reminder system with a target due date for their next mammogram. Electronically signed by: Kayley Luna DO 11/23/2024 09:29 AM EDT
--- OUTSIDE RECORDS SUMMARY | 2024-11-20 10:28 | XMS_ITS | Encounter Summary ---
Author Organization [facility] Address [address] [address] Phone Care Team Providers Care Fiscal Accounting Clerk Name Role Phone Sofía Lucas MD Primary Care Provider [phone] Self-Referred, Patient Unavailable Unavailab Daniela Valencia MD, MARTHA Unavailable [phone] Reny Joseph PROMOTIONS ASSOCIATE Unavailable [phone] Sofía Lucas MD Primary Care Provider [phone] Marcus Henderson PA-C Unavailable [phone] Encounter Details Date Type Department Care Team (Late st Contact Info) Description 01/25/2023 Procedure Pass [facility] Periop [address] [place] [address] Social History Tobacco Use Types Packs/Day Years [...] high school, GED, job training, learning the Thai language, technical skills, or developing parenting skills)? [...] 01/25/2023 3:00 PM Kati French RN * [place] Suicide Severity Rating Scale (Screener/Recent Self-Report) Question [...] on filedocumented in this encounter Care Teams Fiscal Accounting Clerk Relationship Specialty Start Date End Date Sofía Lucas MD [address] [place] [phone] PCP - General 12/11/16 05/14/23 Sofía Lucas MD [address] [place] [address] [address] [place] [phone] PCP - General Internal Medicine 05/15/23 Self-Referred, Patient 10/05/22 Daniela Kiran MD, MARTHA [address] [place] [address] [email or web address] Radiation Oncology 11/02/22 Reny Joseph, [facility] [address] [place] [address] [email or web address]. U Facilities Engineer Oncology 11/30/22 Marcus Henderson PA-C [address] [place] [address] [email or web address] Physician Supervisor Estimator And Drafter 05/28/23 documented as of this encounter Additional Source Comments The information contained in this document represents components of the legal health record. It is not the complete legal health record.[facility]
--- OUTSIDE RECORDS SUMMARY | 2024-11-20 10:28 | XMS_ITS | Clinical Summary ---
Author Organization [facility] Address [address] [address] Phone Care Team Providers Care Metal Finisher Name Role Phone Self-Referred, Patient Unavailable Unavailab Daniela Valencia MD, MARTHA Unavailable [phone] Reny Joseph Unavailable [phone] Sofía Lucas MD Primary Care Provider [phone] Marcus Henderson PA-C Unavailable [phone] Allergies No known active allergies Medications diclofenac [...] Only [facility], [facility] [address] [place] [address] Jaclyn Wray RN 10/09/2024 10:00 AM EDT Telemedicine [facility], [facility] [address], [address] [place] [address] Bryant Lira MD Sarcoma (Primary Dx) 09/18/2024 12:00 PM EDT - 09/18/2024 11:59 PM EDT Hospital Encounter [facility], [facility] Scan [address] [address] Bryant Lira MD Discharge Disposition: Home or Self Care 09/18/2024 10:51 AM EDT - 09/18/2024 11:59 AM EDT Hospital Encounter [address] [address] Bryant Lira MD Discharge Disposition: Home or Self Care 07/29/2024 Procedure Pass [address] [address] 10/25/2023 Procedure Pass [facility] - [facility] [address] [place] [address] from Last 3 Months Social History Tobacco [...] thigh. No evidence of recurrent disease. us Bryant Lira MD IMG MR EXTREMITY Final R [...] clinician's provided indication for this examination in [facility]: Sarcoma re-evaluation TECHNIQUE: Multidetector CT of the [...] Re sult from Last 3 Months Insurance [facility] MEDICARE PART A & B AET[employer] O MEDICARE REPLACEMENT [facility] B Member Subscriber Plan / Payer (Ef fective 2019-Present) Name:Maya Cain Member ID:[id number] Relation to Subscriber:Self Name:Maya Cain Subscriber ID:[id number] Payer ID:[id number] Group ID:Not on file Type:Medicare Address: [facility] [employer] [facility] [address] [place] [phone] AETNA O MEDICARE REPLACEMENT [facility] & B Member Subscriber Plan / Payer (Ef fective 2019-Present) Name:Maya Cain Member ID:[id number] Relation to Subscriber:Self Name:Maya Cain Subscriber ID:[id number] Payer ID:[id number] Group ID:Not on file Type:Medicare Address: [facility] [employer] [facility] [address] [place] [address] AETNA O MEDICARE REPLACEMENT [facility] MEDICARE PART A & B [facility] MEDICARE REPLACEMENT [facility] MEDICARE PART A & B [facility] MEDICARE REPLACEMENT [facility] MEDICARE PART A & B [facility] MEDICARE REPLACEMENT Care Teams Metal Finisher Relationship Specialty Start Date End Date Lance, Sofía Zamarripa MD [address] [place] [phone] PCP - General Internal Medicine 05/15/23 Self-Referred, Patient 10/05/22 Daniela Kiran MD, MARTHA [address] [place] [address] [email or web address] Radiation Oncology 11/02/22 Reny Joseph, DIRECTOR ORGANIZATIONAL [address] [place] [address] [email or web address]. U Honeycomb Blanket Maker Oncology 11/30/22 Marcus Henderson PA-C [address] [place] [address] [email or web address] Physician Hydrant Setter 05/28/23 Additional Source Comments The information contained in this document represents components of the legal health record. It is not the complete legal health record.[facility]
--- OUTSIDE RECORDS SUMMARY | 2024-11-20 10:28 | XMS_ITS | Data Portability ---
Author Organization [facility] Eloy Love [facility] Address [address] [place] [address] Care Team Providers Care Post Hole Digger Name Role Phone PRAKASH MON Primary Care Provider [phone] Assessment Encounter Date Assessment Date Assessment LastModified [...] status post CVA- ROM progressi ve strengthe cesar 2023 024 [facility] [place], [address], [place], [address], 5 15:23:20 Procedures None recorded. Surgeries None recorded. Imaging XR, wrist, 3 or more view - room 113 3V L wrist 2023 024 [facility], [address], [address], [place], [address], 5 15:23:19 XR, wrist, 3 or more view - rm.115 3 v of the L wrist 2023 024 rmessenger [facility], [address], [address], [place], [address], 4 07:59:37 XR, wrist, 3 or more view - RM 119 3V 2023 024 [email or web address] [facility], [address], [address], [place], [address], 4 15:56:17 Medication Orders None recorded. Patient TargetsNo targets recorded. Patient Instructions Encounter Date Encounter Id Patient Instructions Last Modified By Organization Details Last Modified Time 01/10/2024 application of cast, short arm cast* - RM 119 SAC HIGH ON FOREARM [email or web address] Not available 01/13/2024 15:56:17 01/17/[id number] application of cast, short arm cast* leisa [...] 0bqfl% 2Fg9IQ a4ajBk vP9nXo QUaueC m3YtLR [place] [address] 0v3647 AC0Kqa X2DV6K gKiQtr Mw INTERFACE [facility] [address], [place], [address], 01/10/2024 11:13:21 01/10/20 24 01/10/2024 XR, wrist , 3 or more view [email or web address]:/ [email or web address] ?Encry pted=s hAaTro YD8dLq bEUv6g %2BXZw aYqtaq 0bqfl% 2Fg9IQ a4ajBk vP9nXo QUaueC m3YtLR [place] [address] 9b8185 AC0Kqa X2DV6K gKiQtr MwF INTERFACE [facility] [address], [place], [address], 01/10/2024 11:13:24 01/17/20 24 01/17/2024 XR, wrist , 3 or more view [email or web address]:/ [email or web address] ?Encry pted=s hAaTro YD8dLq bEUv6g %2BXZw aYqtaq 0bqfl% 2Fg9IQ a4ajBk vP9nXo QUaueC m3YtLR FvZlGood [facility] CenterJ8mAn HZtai3 8o4622 AC0Kqa X6CWae hKiQtr MwF INTERFACE [facility] [address] [address], [place], [address], 01/17/2024 12:04:14 01/17/20 24 01/17/2024 XR, wrist , 3 or more view http:/ [email or web address] ?Encry pted=s hAaTro YD8dLq bEUv6g %2BXZw aYqtaq 0bqfl% 2Fg9IQ a4ajBk vP9nXo QUaueC m3YtLR FvZlJ [place] HZtai3 1t4794 AC0Kqa X6CWae hKiQtr MwF INTERFACE [facility] [address] [address], [place], [address], 01/17/2024 12:04:16 02/07/20 24 02/07/2024 XR, wrist , 3 or more view http:/ [email or web address] ?Encry pted=s hAaTro YD8dLq bEUv6g %2BXZw aYqtaq 0bqfl% 2Fg9IQ a4ajBk vP9nXo QUaueC m3YtLR FvZlgJ JJ8mAn HZtai3 3o5073 AC0Kqb nyMWKa uKiQtr MwF INTERFACE [facility] [address] [address], [place], [address], 02/07/2024 10:33:47 02/07/20 24 02/07/2024 XR, wrist , 3 or more view [email or web address]:/ [email or web address] ?Encry pted=s hAaTro YD8dLq bEUv6g %2BXZw aYqtaq 0bqfl% 2Fg9IQ a4ajBk vP9nXo QUaueC m3YtLR FvZlgJ JJ8mAn HZtai3 8b7585 AC0Kqb nyMWKa uKiQtr MwF INTERFACE [facility] [address] [facility] [address], [place], [address], 02/07/2024 10:33:49 Result Notes Documentation Provider Name and Address Organization Details Recorded Time Xr, Wrist, 3 Or More View : [email or web address]? Encrypted=jpTpBrnRO6vLvrK Uv6g%4SWIoiSvnpm6pmlk%2Fg 2CSu9ymPvcC1uGdVDeixIx3Fj YENcWydKFI9sRzFRbcj30a650 1NM5NlfW9DQ4VdYrCndOhA Not Available [facility] 01/10/2024 11:13: 22 Xr, Wrist, 3 Or More View : [email or web address]? Encrypted=cdXqTnrQM9gBctJ Uv6g%4PPAreRcsxs2fbqx%2Fg 9BAu6bpDmwD4gFfGXexdNz6Qo KKFtFlsXKY5kXrHDbfy12k322 2KW6OyfV7LJ1ApWcYndHyJ Not Available [facility] 01/10/2024 11:13: 25 Xr, Wrist, 3 Or More View : [email or web address]? Encrypted=kxJzKbiUP1tNmeJ Uv6g%3RNMmwLjvyn2pyxz%2Fg 8ANf2sdJrzI3jUeBXnriJp1Nw YPTlIgaUZQ1tYpWOpuj28j932 3TV8WxnY1GOztiAvIljQaM Not Available [facility] 01/17/2024 12:04: 14 Xr, Wrist, 3 Or More View : [email or web address]? Encrypted=fwMbUbnDL7vVqdF Uv6g%7UIVboSvxwa0qjbo%2Fg 7JDr3qfPgzF9oZuWYatjPp8Af RIXsChmOBD0jWjDGbrd47l930 2JQ6VlrS6MPxyoBsVfkBbU Not Available Pending sale to [facility] 01/17/2024 12:04: 16 Xr, Wrist, 3 Or More View : [email or web address]? Encrypted=ezCwDytNJ0hGxmB Uv6g%2IIRqzOnsla0zlcc%2Fg 5THg6euXymG3cBhNTecyCl5Np TYEfPztTGK7wJrOWojy06x437 2IR5VtrnaSOEvqDzVydAkS Not Available Pending sale to [facility] 02/07/2024 10:33: 47 Xr, Wrist, 3 Or More View : [email or web address] Encrypted=hkAlFfaWB9nVlmA Uv6g%7EMMcvWdhkk5eqar%2Fg 5MAd8zbLsqO4gGpPXfilOt8Kj PLXiLnkELL9pXwOCtwy41d598 6WU3ZojcpOOCxoIhWurCwB Not Available Pending sale to [facility] 02/07/2024 10:33: 49 Medical Equipment None Reported. [...] Updated DateTime 01/10/2024 162.56 cm 33.5 kg/m2 02907.51 g SONY MAJOR [facility] 01/10/2024 11:04:19 Date Recorded Body height Body mass index (BMI) Body weight Provider Name and Address Organization Details Last Updated DateTime 01/17/2024 162.56 cm 34.3 kg/m2 18048.47 g connie spencer [facility] 01/17/2024 11:50:48 Date Recorded Body height Body mass index (BMI) Body weight Provider Name and Address Organization Details Last Updated DateTime 02/07/2024 162.56 cm 34.3 kg/m2 60863.47 g STEFANI ECKERT [facility] 02/07/2024 10:14:34 Social History None recorded. Functional Status None recorded. Mental Status None recorded. Family History Nothing Reported. Medical History No medical history recorded. Gynecological HistoryNo gynecological history recorded. Obstetrics History GPAL:G 0 P 0 0 0 0 Past Encounters Encounter ID Performer Location Encounter Start Date Encounter Closed Date Diagnosis/Indication Diagnosis SNOMED-CT Code Diagnosis ICD10 Code Diagnosis IMO Codes Diagnosis Note [id number] MANUELITO Jeffers [address] [place] [address] 01/10/2024 10:35:31 01/29/2024 10:07:21 Pain of left wrist 2816837506 67826 M25.532 [id number] MD Yu Laws [address] [place] [address] 01/17/2024 11:18:11 02/05/2024 07:59:37 Pain of left wrist 2934997643 90933 M25.532 [id number] Closed Col les' fracture 429656690 S52.532D [id number] MD Yu Laws [address] [place] [address] 02/07/2024 10:01:00 02/27/2024 15:23:19 Pain of left wrist 8160546039 66571 M25.532 [id number] Closed Col les' fracture 326000230 S52.532D [id number] Health Concerns Section Related Observation LastModified by Organization Detai ls LastModified Time None Recorded Concern Status LastModified by Organization Details LastModified Time None Recorded Advance Directives Directive None Recorded Payers Insurance Date Sequence Insurance Name Policy Number Policy Alvarado Covered Member ID Alvarado Member ID Guarantor Name 03/27/2024 2 [place] [facility] Maya Cain [id number] Maya Cain 02/27/2024 1 [employer] (MEDICARE REPLACEMENT/A DVANTAGE - PPO) [id number] Maya Cain [id number] Maya Cain Notes Date Note Type Note [...] instability. X-rays ordered, obtained and reviewed at [facility] m3 views left wrist reveals a [...] motion and strengthening. Tabitha Redman PA-C [address], [place], [address], [facility] 01/10/2024 13:48:27 01/17/2024 text/html ROS as noted in the HPI DX: Left distal radius An ulnar styloid process fracture 12/30/2023Left-sided hemiparesis from previous CVA HPI:63-year-old female here for orthopedic consultation. Patient fell onto the outstretched hand and injured the left wrist. Fracture is being treated conservatively. She has been in a splint Latanya Hughes MD [address], [place], [address], [facility] 01/17/2024 17:00:21 02/07/2024 text/html ROS as noted in the HPI DX: Left distal radius and ulnar styloid process fracture 12/30/2023Left-sided hemiparesis from previous CVA HPI:63-year-old female here for orthopedic consultation. Patient fell onto the outstretched hand and injured the left wrist. Fracture is being treated conservatively. She reports that the cast applied at her most recent visit quickly fell off. Latanya Hughes MD [address] [facility] [address], [place], [address], [facility] 02/07/2024 12:27:02 OBGyn Episode No OBEpisode recorded.
--- OUTSIDE RECORDS SUMMARY | 2024-11-20 10:28 | XMS_ITS | Encounter Summary ---
Author Organization [facility] Address [address] [address] Phone Care Team Providers Care Supervisor Forming And Tempering Name Role Phone Sofía Lucas MD Primary Care Provider [phone] Self-Referred, Patient Unavailable Unavailab Daniela Valencia MD, MARTHA Unavailable [phone] Reny Joseph [employer] Unavailable [phone] Sofía Lucas MD Primary Care Provider [phone] Marcus Henderson PA-C Unavailable [phone] Encounter Details Date Type Department Care Team (Late st Contact Info) Description 11/07/[address] [facility] [address] [place] [address] Social History Tobacco Use Types Packs/Day Years [...] high school, GED, job training, learning the [place] language, technical skills, or developing parenting skills)? [...] filedocumented in this encounter Care Teams Supervisor Forming And Tempering Relationship Specialty Start Date End Date Sofía Lucas MD [address] [place] [address] PCP - General 12/11/16 05/14/23 Sofía Lucas MD [address] [place] [address] PCP - General Internal Medicine 05/15/23 Self-Referred, Patient 10/05/22 Daniela Kiran MD, MARTHA [address] [place] [address] [email or web address] Radiation Oncology 11/02/22 Reny Joseph, [address] [address] [email or web address] U Special Shopper Oncology 11/30/22 Marcus Henderson PA-C [address] [place] [address] [email or web address] Physician Assistant Professor Of Biochemistry 05/28/23 documented as of this encounter Additional Source Comments The information contained in this document represents components of the legal health record. It is not the complete legal health record.[facility]
--- OUTSIDE RECORDS SUMMARY | 2024-11-20 10:28 | XMS_ITS | Encounter Summary ---
Author Organization [facility] Address [address] [place] [address] [address] Phone Care Team Providers Care Portal Administrator Name Role Phone Sofía Lucas MD Primary Care Provider [phone] Self-Referred, Patient Unavailable Unavailab Daniela Valencia MD, MARTHA Unavailable [phone] Reny Joseph [facility] Unavailable [phone] Sfoía Lucas MD Primary Care Provider [phone] Marcus Henderson PA-C Unavailable [phone] Encounter Details Date Type Department Care Team (Late st Contact Info) Description 10/11/2022 Procedure Pass [facility]'s Carton Stapler [place] [address] [place] [address] Social History Tobacco Use Types Packs/Day Years [...] on filedocumented in this encounter Care Teams Portal Administrator Relationship Specialty Start Date End Date Sofía Lucas MD [address] [place] [address] PCP - General 12/11/16 05/14/23 Sofía Lucas MD [address] [facility] [address] [place] [id number] PCP - General Internal Medicine 05/15/23 Self-Referred, Patient 10/05/22 Daniela Kiran MD, MARTHA [address] [place] [address] [email or web address] Radiation Oncology 11/02/22 Reny Joseph, [facility] [address] [place] [address] [email or web address] U Lean Manufacturing Specialist Oncology 11/30/22 Marcus Henderson PA-C [address] [place] [address] [email or web address] Physician Ladle Car Operator 05/28/23 documented as of this encounter Additional Source Comments The information contained in this document represents components of the legal health record. It is not the complete legal health record.[facility]
--- OUTSIDE RECORDS SUMMARY | 2024-11-20 10:28 | XMS_ITS | Encounter Summary ---
Author Organization [facility] Address [address] [address] Phone Care Team Providers Care Manager Of Tax Name Role Phone Sofía Lucas MD Primary Care Provider [phone] Self-Referred, Patient Unavailable Unavailab Daniela Valencia MD, MARTHA Unavailable [phone] Reny Joseph [employer] Unavailable [phone] Sofía Lucas MD Primary Care Provider [phone] Marcus Henderson PA-C Unavailable [phone] Encounter Details Date Type Department Care Team (Late st Contact Info) Description 11/07/2022 Procedure Pass [facility], [place] [address] [place] [address] Social History Tobacco Use Types Packs/Day Years [...] high school, GED, job training, learning the Hebrew language, technical skills, or developing parenting skills)? [...] on filedocumented in this encounter Care Teams Manager Of Tax Relationship Specialty Start Date End Date Sofía Lucas MD [address] [place] [address] PCP - General 12/11/16 05/14/23 Sofía Lucas MD [address] [place] [address] PCP - General Internal Medicine 05/15/23 Self-Referred, Patient 10/05/22 Daniela Kiran MD, MARTHA [address] [place] [address] [email or web address] Radiation Oncology 11/02/22 Reny Joseph, [address] [address] [email or web address] U Voice Network Administrator Oncology 11/30/22 Marcus Henderson PA-C [address] [place] [address] [email or web address] Physician Residence Manager 05/28/23 documented as of this encounter Additional Source Comments The information contained in this document represents components of the legal health record. It is not the complete legal health record.[facility]
--- OUTSIDE RECORDS SUMMARY | 2024-11-20 10:28 | XMS_ITS | Encounter Summary ---
Author Organization [facility] Address [address] [employer] [address] [address] Phone Care Team Providers Care Pen Tester Name Role Phone Self-Referred, Patient Unavailable Unavailab Daniela Valencia MD, MARTHA Unavailable [phone] Reny Joseph Unavailable [phone] Sofía Lucas MD Primary Care Provider [phone] Marcus Henderson PA-C Unavailable [phone] Encounter Details Date Type Department Care Team (Late st Contact Info) Description 05/15/2023 Procedure Pass [facility], Ct Scan - [address] [address] Social History Tobacco Use Types Packs/Day Years [...] high school, GED, job training, learning the Burundian language, technical skills, or developing parenting skills)? [...] on filedocumented in this encounter Care Teams Pen Tester Relationship Specialty Start Date End Date Lance Sofía Zamarripa MD [address] [place] [address] [address] [place] [address] PCP - General Internal Medicine 05/15/23 Self-Referred, Patient 10/05/22 Daniela Kiran MD, MARTHA [address] [place] [address] [email or web address] Radiation Oncology 11/02/22 Reny Joseph, [address] [address] [email or web address]. U Pear Picker Oncology 11/30/22 Marcus Henderson PA-C [address] [place] [address] [email or web address] Physician Gel Coater 05/28/23 documented as of this encounter Additional Source Comments The information contained in this document represents components of the legal health record. It is not the complete legal health record.[facility]
--- OUTSIDE RECORDS SUMMARY | 2024-11-20 10:28 | XMS_ITS | Encounter Summary ---
Author Organization [facility] Address [address] [employer] [address] [address] Phone Care Team Providers Care Relationship Assoc Name Role Phone Sofía Lucas MD Primary Care Provider [phone] Self-Referred, Patient Unavailable Unavailab Daniela Valencia MD, MARTHA Unavailable [phone] Reny Joseph [employer] Unavailable [phone] Sofía Lucas MD Primary Care Provider [phone] Marcus Henderson PA-C Unavailable [phone] Encounter Details Date Type Department Care Team (Late st Contact Info) Description 11/07/2022 Procedure Pass [facility] [address] [place] [address] Social History Tobacco Use Types Packs/Day Years [...] high school, GED, job training, learning the Bhutanese language, technical skills, or developing parenting skills)? [...] on filedocumented in this encounter Care Teams Relationship Assoc Relationship Specialty Start Date End Date Sofía Lucas MD [address] [place] [address] PCP - General 12/11/16 05/14/23 Sofía Lucas MD [address] [place] [address] PCP - General Internal Medicine 05/15/23 Self-Referred, Patient 10/05/22 Daniela Kiran MD, MARTHA [address] [place] [address] [email or web address] Radiation Oncology 11/02/22 Reny Joseph, [address] [address] [email or web address] U Billiard Player Oncology 11/30/22 Marcus Henderson PA-C [address] [place] [address] [email or web address] Physician House Furnishings Supervisor 05/28/23 documented as of this encounter Additional Source Comments The information contained in this document represents components of the legal health record. It is not the complete legal health record.[facility]
--- OUTSIDE RECORDS SUMMARY | 2024-11-20 10:29 | XMS_ITS | Encounter Summary ---
Author Organization [employer] Address [address] [place] [address] Care Team Providers Care Sales Representative Facility Services Name Role Phone Harjit Khoury MD Primary Care Provider [phone] Encounter Details Date Type Department Care Team (Late st Contact Info) Description 04/09/2024 Lab Requisition [facility] - Main Lab [address] [facility] [place] [address] Harjit Khoury MD [address] [place] [address] Essential (primary) hypertension; Vitamin D deficiency, unspecified [...] 25 hydroxy (04/09/2024 5:24 AM EST) Pathologist [facility] Vit D, 25-Hydroxy 10.1(L) 30.0 - 80.0 ng/mL LAB CHEMISTRY METHOD 04/09/2024 12:13 PM EST [facility] Blood Venous blood specimen / Unknown Venipuncture / Unknown 04/09/2024 5:24 AM EST 04/09/2024 10:58 AM EST us Harjit Khoury MD LAB BLOOD ORDERABLES Final Resul t Performing Organization Address [facility] Co de Phone Number [facility] [address] [place] [address], * Folate (04/09/2024 5:24 AM EST) Pathologist [facility] Folate 6.4 2.8 - 17.0 ng/ml LAB CHEMISTRY METHOD 04/09/2024 12:42 PM EST [facility] Blood Venous blood specimen / Unknown Venipuncture / Unknown 04/09/2024 5:24 AM EST 04/09/2024 10:58 AM EST us Harjit Khoury MD LAB BLOOD ORDERABLES Final Resul t Performing Organization Address City/[facility]/ZIP Co de Phone Number [facility] [address] [place] [address], [place] [phone] * Thyroid stimulating hormone (04/09/2024 5:24 AM EST) [facility] TSH 3.07 0.40 - 4.00 mcIU/mL LAB CHEMISTRY METHOD 04/09/2024 12:13 PM EST [facility] Blood Venous blood specimen / Unknown Venipuncture / Unknown 04/09/2024 5:24 AM EST 04/09/2024 10:58 AM EST us Harjit Khoury MD LAB BLOOD ORDERABLES Final Resul t [facility] [address] [place] [address], [place] [phone] * Vitamin B12 (04/09/2024 5:24 AM EST) [facility] Vitamin B-12 466 250 - 900 pcg/mL LAB CHEMISTRY METHOD 04/09/2024 12:42 PM [facility] Blood Venous blood specimen / Unknown Venipuncture / Unknown 04/09/2024 5:24 AM EST 04/09/2024 10:58 AM EST us Harjit Khoury MD LAB BLOOD ORDERABLES Final Resul t Performing Organization Address City/[facility]/ZIP Co de Phone Number [facility] [address] [place] [address], [place] [phone] * Comprehensive metabolic panel (04/09/2024 5:24 AM EST) [facility] Sodium 136 133 - 145 mmol/L [...] [facility] Comment:Calculation based on the Chronic [...] t [facility] [address] [place] [address], * (ABNORMAL) Complete blood count (04/09/2024 5:24 AM EST) WBC 8.6 4.8 - 10.8 K/mcL LAB HEMETOLOGY METHOD 04/09/2024 11:31 AM [facility] RBC 4.50 3.80 - 4.80 M/mcL LAB HEMETOLOGY METHOD 04/09/2024 11:31 AM [facility] Hemoglobin 12.3 11.5 - 16.0 g/dL LAB HEMETOLOGY METHOD 04/09/2024 11:31 AM [facility] Hematocrit 39.2 35.0 - 47.0 % LAB HEMETOLOGY METHOD 04/09/2024 11:31 AM [facility] MCV 86.7 79.0 - 98.0 FL LAB HEMETOLOGY METHOD 04/09/2024 11:31 AM [facility] MCH 27.2 27.0 - 32.0 pcg LAB HEMETOLOGY METHOD 04/09/2024 11:31 AM [facility] MCHC 31.4(L) 32.0 - 37.0 g/dL LAB HEMETOLOGY METHOD 04/09/2024 11:31 AM [facility] RDW 13.4 11.0 - 15.0 % LAB HEMETOLOGY METHOD 04/09/2024 11:31 AM [facility] Platelets 319 130 - 400 K/mcL LAB HEMETOLOGY METHOD 04/09/2024 11:31 AM [facility] MPV 10.4 7.0 - 11.0 FL LAB HEMETOLOGY METHOD 04/09/2024 11:31 AM [facility] NRBC 0.0 <1.0 % LAB HEMETOLOGY METHOD 04/09/2024 11:31 AM EST [facility] NRBC Absolute 0.00 <0.10 K/mcL LAB HEMETOLOGY METHOD 04/09/2024 11:31 AM EST [facility] Blood Venous blood specimen / Unknown Venipuncture / Unknown 04/09/2024 5:24 AM EST 04/09/2024 10:58 AM EST us Harjit Khoury MD LAB BLOOD ORDERABLES Final Resul t [facility] [address] [place] [address], documented in this encounter Visit Diagnoses Diagnosis Essential (primary) hypertension Unspecified essential hypertension Vitamin D deficiency, unspecified documented in this encounter Care Teams Sales Representative Facility Services Relationship Specialty Start Date End Date Harjit Khoury MD PCP - General Geriatric Medicine 04/09/24 documented as of this encounter
--- OUTSIDE RECORDS SUMMARY | 2024-11-20 10:29 | XMS_ITS | Encounter Summary ---
Author Organization [facility] Address [address] [employer] [address] [address] Phone Care Team Providers Care Sheet Pile Driver Operator Name Role Phone Self-Referred, Patient Unavailable Unavailab Daniela [place] MD, MARTHA Unavailable [phone] Reny Joseph Unavailable [phone] Sofía Lucas MD Primary Care Provider [phone] Marcus Henderson PA-C Unavailable [phone] Encounter Details Date Type Department Care Team (Late st Contact Info) Description 07/29/2024 Procedure Pass [facility], [address] [address] Social History Tobacco Use Types Packs/Day Years [...] high school, GED, job training, learning the Mosotho language, technical skills, or developing parenting skills)? [...] on filedocumented in this encounter Care Teams Sheet Pile Driver Operator Relationship Specialty Start Date End Date Lance Sofía Zamarripa MD [address] [place] [address] Drive [address] [place] [phone] PCP - General Internal Medicine 05/15/23 Self-Referred, Patient 10/05/22 Daniela Kiran MD, MARTHA [address] [place] [address] [email or web address] Radiation Oncology 11/02/22 Reny Joseph, [address] [address] [email or web address] U It Integration Architect Oncology 11/30/22 Marcus Henderson PA-C [address] [place] [address] [email or web address] Physician Social Work Job Titles 05/28/23 documented as of this encounter Additional Source Comments The information contained in this document represents components of the legal health record. It is not the complete legal health record.[facility]
--- OUTSIDE RECORDS SUMMARY | 2024-11-20 10:29 | XMS_ITS | Encounter Summary ---
Author Organization [facility] Address [address] [facility] [address] [address] Phone Care Team Providers Care Bilingual Manager Name Role Phone Self-Referred, Patient Unavailable Unavailab Daniela [place] MD, MARTHA Unavailable [phone] Reny Joseph Unavailable [phone] Sofía Lucas MD Primary Care Provider [phone] Marcus Henderson PA-C Unavailable [phone] Encounter Details Date Type Department Care Team (Late st Contact Info) Description 05/15/2023 Procedure Pass [facility], Ct Scan - [address] [address] Social History Tobacco Use Types Packs/Day Years [...] high school, GED, job training, learning the Argentine language, technical skills, or developing parenting skills)? [...] on filedocumented in this encounter Care Teams Bilingual Manager Relationship Specialty Start Date End Date Lance Sofía Zamarripa MD [address] [place] [address] Drive [address] [place] [phone] PCP - General Internal Medicine 05/15/23 Self-Referred, Patient 10/05/22 Daniela Kiran MD, MARTHA [address] [place] [address] [email or web address] Radiation Oncology 11/02/22 Reny Joseph, [address] [address] [email or web address]. U Sap Bpc Architect Oncology 11/30/22 Marcus Henderson PA-C [address] [place] [address] [email or web address] Physician Embryology Teacher 05/28/23 documented as of this encounter Additional Source Comments The information contained in this document represents components of the legal health record. It is not the complete legal health record.[facility]
--- OUTSIDE RECORDS SUMMARY | 2024-11-20 10:29 | XMS_ITS | Encounter Summary ---
Author Organization [facility] Address [address] [employer] [address] [address] Phone Care Team Providers Care Media Relations Specialist Name Role Phone Sofía Lucas MD Primary Care Provider [phone] Self-Referred, Patient Unavailable Unavailab Daniela [place] MD, MARTHA Unavailable [phone] eRny Joseph Unavailable [phone] Sofía Lucas MD Primary Care Provider [phone] Marcus Henderson PA-C Unavailable [phone] Encounter Details Date Type Department Care Team (Late st Contact Info) Description 01/08/2023 Procedure Pass [facility], [facility], [place] [address] [facility], Floor [address] [place] [address] Social History Tobacco Use Types Packs/Day Years [...] high school, GED, job training, learning the Polish language, technical skills, or developing parenting skills)? [...] on filedocumented in this encounter Care Teams Media Relations Specialist Relationship Specialty Start Date End Date Sofía Lucas MD [address] [place] [phone] PCP - General 12/11/16 05/14/23 Sofía Lucas MD [address] [place] [address] PCP - General Internal Medicine 05/15/23 Self-Referred, Patient 10/05/22 Daniela Kiran MD, MARTHA [address] [place] [address] [email or web address] Radiation Oncology 11/02/22 Reny Joseph, [facility] [address] [place] [address] [email or web address]. U Group Director Experience Oncology 11/30/22 Marcus Henderson PA-C [address] [place] [address] [email or web address] Physician Salon Assistant 05/28/23 documented as of this encounter Additional Source Comments The information contained in this document represents components of the legal health record. It is not the complete legal health record.[facility]
--- OUTSIDE RECORDS SUMMARY | 2024-11-20 10:29 | XMS_ITS | Clinical Summary ---
Author Organization [address] [facility] Address [address] [place] [address] Phone Care Team Providers Care Scientific Manager Name Role Phone Harjit Khoury MD Primary Care Provider [phone] Social History Tobacco Use Types Packs/Day Years [...] Resul t [facility] [address] [place] [address], [place] [phone] from Last 3 Months or Most Recently Relevant to Health Maintenance Insurance MEDICA[place]ET[place] Care Teams Scientific Manager Relationship Specialty Start Date End Date Harjit Khoury MD PCP - General Geriatric Medicine 04/09/24
--- OUTSIDE RECORDS SUMMARY | 2024-11-20 10:29 | XMS_ITS | Encounter Summary ---
Author Organization [facility] Address [address] [employer] [address] [address] Phone Care Team Providers Care Refrigerator Assembler Name Role Phone Self-Referred, Patient Unavailable Unavailab Daniela [place] MD, MARTHA Unavailable [phone] Reny Joseph Unavailable [phone] Sofía Lucas MD Primary Care Provider Marcus Henderson PA-C Unavailable [phone] Encounter Details Date Type Department Care Team (Late st Contact Info) Description 10/25/2023 Procedure Pass [facility], Ct Scan - [address] [address] Social History Tobacco Use Types Packs/Day Years [...] high school, GED, job training, learning the Solomon Islander language, technical skills, or developing parenting skills)? [...] on filedocumented in this encounter Care Teams Refrigerator Assembler Relationship Specialty Start Date End Date Lance Sofía Zamarripa MD [address] [place] [address] Drive [address] [place] [phone] PCP - General Internal Medicine 05/15/23 Self-Referred, Patient 10/05/22 Daniela Kiran MD, MARTHA [address] [place] [address] [email or web address] Radiation Oncology 11/02/22 Reny Joseph, [address] [address] [email or web address]. U Cell Lead Oncology 11/30/22 Marcus Henderson PA-C [address] [place] [address] [email or web address] Physician Senior Digital Designer 05/28/23 documented as of this encounter Additional Source Comments The information contained in this document represents components of the legal health record. It is not the complete legal health record.[facility]
--- OUTSIDE RECORDS SUMMARY | 2024-11-20 10:29 | XMS_ITS | Encounter Summary ---
Author Organization [facility] Address [address] [facility] [address] [address] Phone Care Team Providers Care Government Auditor Name Role Phone Self-Referred, Patient Unavailable Unavailab Daniela [place] MD, MARTHA Unavailable [phone] Reny Joseph Unavailable [phone] Sofía Lucas MD Primary Care Provider [phone] Marcus Henderson PA-C Unavailable [phone] Encounter Details Date Type Department Care Team (Late st Contact Info) Description 05/15/2023 Procedure Pass [address] [address] Social History Tobacco Use Types Packs/Day Years [...] high school, GED, job training, learning the Turkish language, technical skills, or developing parenting skills)? [...] on filedocumented in this encounter Care Teams Government Auditor Relationship Specialty Start Date End Date Lance Sofía Zamarripa MD [address] [place] [address] Drive [address] [place] [phone] PCP - General Internal Medicine 05/15/23 Self-Referred, Patient 10/05/22 Daniela Kiran MD, MARTHA [address] [place] [address] [email or web address] Radiation Oncology 11/02/22 Reny Joseph, [address] [address] [email or web address]. U Event Promotions Coordinator Oncology 11/30/22 Marcus Henderson PA-C [address] [place] [address] [email or web address] Physician Manager Metrology 05/28/23 documented as of this encounter Additional Source Comments The information contained in this document represents components of the legal health record. It is not the complete legal health record.[facility]
--- OUTSIDE RECORDS SUMMARY | 2024-11-20 10:29 | XMS_ITS | Encounter Summary ---
Author Organization [facility] Address [address] [address] Phone Care Team Providers Care Electronic Bench Technician Name Role Phone Sofía Lucas MD Primary Care Provider [phone] Self-Referred, Patient Unavailable Unavailab Daniela [place] MD, MARTHA Unavailable [phone] Reny Joseph SHIELD OPERATOR Unavailable [phone] Sofía Lucas MD Primary Care Provider [phone] Marcus Henderson PA-C Unavailable [phone] Encounter Details Date Type Department Care Team (Late st Contact Info) Description 10/18/2022 Procedure Pass [facility] CT Imaging, [place] [address] [place] [address] Social History Tobacco Use Types Packs/Day Years [...] high school, GED, job training, learning the Estonian language, technical skills, or developing parenting skills)? [...] on filedocumented in this encounter Care Teams Electronic Bench Technician Relationship Specialty Start Date End Date Sofía Lucas MD [address] [place] [address] PCP - General 12/11/16 05/14/23 Sofía Lucas MD [address] [place] [address] PCP - General Internal Medicine 05/15/23 Self-Referred, Patient 10/05/22 Daniela Kiran MD, MARTHA [address] [place] [address] [email or web address] Radiation Oncology 11/02/22 Reny Joseph, [address] [address] [email or web address]. U Water Proofer Oncology 11/30/22 Marcus Henderson PA-C [address] [place] [phone] [email or web address] Physician Roving Technician 05/28/23 documented as of this encounter Additional Source Comments The information contained in this document represents components of the legal health record. It is not the complete legal health record.[facility]
--- OUTSIDE RECORDS SUMMARY | 2024-11-20 10:29 | XMS_ITS ---
Author Organization [facility] Address [address] [employer] [address] [address] Phone Care Team Providers Care Warehouse Attendant Name Role Phone Self-Referred, Patient Unavailable Unavailab Daniela [place] MD, MARTHA Unavailable Reny Joseph Unavailable Sofía Lucas MD Primary Care Provider [phone] Marcus Henderson PA-C Unavailable [phone] Active Problems Problem Noted Date Diagnosed Date [...]
--- OUTSIDE RECORDS SUMMARY | 2024-11-20 10:29 | XMS_ITS | Encounter Summary ---
Author Organization [facility] Address [address] [address] Phone Care Team Providers Care Roof Slater Name Role Phone Sofía Lucas MD Primary Care Provider [phone] Self-Referred, Patient Unavailable Unavailab Daniela [place] MD, MARTHA Unavailable [phone] Reny Joseph CONDUCTOR YARD Unavailable [phone] Sofía Lucas MD Primary Care Provider [phone] Marcus Henderson PA-C Unavailable [phone] Encounter Details Date Type Department Care Team (Late st Contact Info) Description 10/18/2022 Procedure Pass [facility] CT Imaging, Zhong [address] [place] [address] Social History Tobacco Use Types Packs/Day Years [...] on filedocumented in this encounter Care Teams Roof Slater Relationship Specialty Start Date End Date Sofía Lucas MD [address] [place] [address] PCP - General 12/11/16 05/14/23 Sofía Lucas MD [address] [place] [address] PCP - General Internal Medicine 05/15/23 Self-Referred, Patient 10/05/22 Daniela Kiran MD, MARTHA [address] [place] [address] [email or web address] Radiation Oncology 11/02/22 Reny Joseph, [address] [address] [email or web address]. U Molder Meat Oncology 11/30/22 Marcus Henderson PA-C [address] [place] [phone] [email or web address] Physician Industrial Hygenist 05/28/23 documented as of this encounter Additional Source Comments The information contained in this document represents components of the legal health record. It is not the complete legal health record.[facility]
== END 2024-11-20 09:32 | disposition home or self-care (01) ==
LOC: HO.MAMMO 09:31
PROVIDERS: PCP Internal Medicine; Visit Provider Internal Medicine
DX: Z12.31 Encounter for screening mammogram for malignant neoplasm of breast (principal)
CPT/HCPCS: 77063; 77067

== ENCOUNTER → 2024-11-23 09:59 | Outpatient (BNVA) | payer MEDICARE, MEDICAID, SELFPAY | PROVIDERS: PCP Internal Medicine; Visit Provider Urology | DX: N32.81 Overactive bladder (principal) | CPT/HCPCS: 51798 ==

== ENCOUNTER 2025-02-11 08:36 | Outpatient (AMB) | payer MEDICARE, MEDICAID, SELFPAY ==
--- NOTE | 2025-02-11 08:42 | A.OFFVIS_ITS ---
Intake Visit Reasons: Bladder botox follow up (set)UA+PVR) Intake Note: last PVR today PVR ua frequent bathroom brakes incontinence Oder from urine Allergies perfume Allergy (Intermediate, Verified 11/09/24 14:15) Shortness of Breath Seasonal Allergies Allergy (Intermediate, Verified 11/09/24 14:15) Watery Eye, sneezing HPI Comments Details: 02/11/2025--Maya is a 64-year-old female who is here for follow-up. The patient is managed for neurogenic bladder with overactive bladder symptoms. Comorbidity history of stroke. She is on Myrbetriq 50 mg daily also status post bladder Botox injection 200 units last on 11/10/2024. The patient states for the last couple of weeks she has been noticing an odor to her urine she asked her daughter to by cranberry tablets. She is unable to provide a urine sample at this time and bladder scan PVR 0 mL. The patient is given a specimen cup so that she can provide a urine for the lab later today. I will empirically start her on Macrobid 100 mg twice a day for 7 days pending urine culture results. We will follow-up in a month, telehealth to reassess improvement in irritative UTI symptoms and plan on repeat Botox in 2 months. 09/17/24--Maya is a 64-year-old female with spastic neurogenic bladder she has a history of stroke she is currently on Myrbetriq 50 mg twice a day. She has had Botox bladder injection in the past however she had an ankle fracture and required rehab and so she has not had the scheduled Botox bladder injection. History of Present Illness - The patient is a 64-year-old female presenting with spastic urgent bladder. - She has a history of stroke. - Previous Botox bladder injections were interrupted due to an ankle fracture and subsequent rehabilitation. - the last bladder Botox injection 200 units was done 10/22/2023 Plan - Schedule and perform Botox bladder injection 200 units for spastic neurogenic bladder - Nursing staff to coordinate pre-procedure requirements, including urine sample for surveillance urine culture. 07/29/24--The patient is a 64-year-old female presenting with concerns related to her neurogenic bladder secondary to a previous stroke. She previously received Botox injections, the last being over seven months ago, September,. Her current regimen of Myrbetriq 50 mg bi-daily helps manage symptoms, though she reports some leakage incidents. The patient's condition has been complicated by a recent ankle fracture, which limits her mobility and delays the next scheduled Botox treatment. While in rehab, she is addressing these mobility challenges, and once improved, the Botox injections will be resumed due to better efficacy. Urinary Symptoms Review - Leakage incidents occur despite medication, wearing pads - Neurogenic bladder secondary to stroke. - Previously managed with Botox injections, the last one over seven months ago. - Currently on oral Myrbetriq 50 mg twice daily. Results - Urinalysis: Negative, no signs of infection. 03/27/24--Last botox 200 units on 10/22/23. She has had treatments for cancer and had to reschedule her follow up. She has started leaking again, denies dysuria. Unable to give urine sample. PVR 0 ML. Will reschedule out patient botox 200 units. Pt must bring urine to be tested to rule out UTI prior. 11/14/23--Maya is being managed for spastic neurogenic bladder, CoMorbidity - Stroke--she is s/p repeat botox 10/22/23, she states she is doing much better. She is able to make it to the bathroom without leaking, denies dysuria. fu in 3 months 10/04/23--Teresa is s/p Botox 200 units on 06/18/23 and she states her urinary urgency is still present, she is still leaking, she states the botox worked for about 6-8 weeks. I will send urine for culture and empiracally start antibiotics. The patient may need botox every 3 months alternatively may consider interstim neuromodulation therapy. 06/07/23--Maya is a 62-year-old female who presents today telehealth visit. She states that she diagnosed with bone cancer. She had radiation therapy and surgery in [place] in January 2023. She states she is doing much better. She remains on Myrbetriq 50 mg twice a day. She is scheduled for bladder Botox injection 200 units, 06/18/2023. She denies dysuria. Plan urine culture prior to Botox injection. 10/15/2022?She was last seen by me on 07/13/2022 for overactive bladder. Advised the patient to continue Myrbetriq twice a day, and follow up Tele-health in 3 months during that time. She has a history of stroke in 2017. Patient states that she is starting to have urinary urgency with incontinence episodes. She denies dysuria. She states that she was recently diagnosed with bone cancer and was seeing a specialist in [place]. She has an upcoming surgery and wants to delay repeat Botox treatment. She states that she will call the office for follow up. She was unable to give urine specimen at this time. Bladder scan: 118 mL. Plan --Continue Myrbetriq 50 mg BID daily. Patient has recently diagnosed with bone cancer and she has planned surgery. She will call to the office when she is recovered from the surgery and will repeat Botox for the bladder. 07/13/2022: The patient is s/p cystoscopy and bladder Botox 100 units on 01/04/22. history of stroke in 2017. States having improvement in OAB symtoms post the Botox treatment. The patient is taking Myrbetriq twice a day without any reported side effects. States improvement in urinary leakage after the Botox therapy. I discussed to repeat the Botox 100 units. Will schedule a tele-health visit and will monitor her urinary symptoms. Plan: Continue Myrbetriq twice a day. Tele-health follow-up in three months. [facility] Medical History HTN (hypertension) Nicotine dependence, cigarettes, uncomplicated Mass of left thigh Suspected exposure to mold Left leg swelling Obesity (BMI 30-39.9) Hemiparesis (~2017) ADHD (attention deficit hyperactivity disorder) Hypercalcemia Anxiety Hyperparathyroidism Sleep apnea in adult History of asthma History of CVA with residual deficit (~2017) Allergic rhinitis Surgical History History of surgery of head History of biopsy History of hand surgery History of hysterectomy History of tubal ligation History of History of colonoscopy History of bilateral breast reduction surgery History of tonsillectomy S/P Botox injection Hx of arthroscopy of left knee Family History Father HTN (hypertension) Mother HTN (hypertension) Social History Household Members: None Housing: House Alcohol intake: current Alcohol intake frequency: does not drink Comment: left sided hemiparesis walks nato dubon Patient Tobacco Use Status: Former Tobacco user Tobacco use type: Cigarette Years Smoked: 2017 stopped 2.5 packs /20 years e-Cigarette/Vaping Use: Never Used Second Hand Smoke Exposure: Yes Advance Directives Date on File: 04/08/24 service: No Current occupational status: disabled Cognitive needs: Yes (Wheelchair, walker) Hearing needs: Yes (hearing aides) Vision needs: Yes (Glasses) Female Reproductive History Menstrual Age of Menarche: 15 Review of Systems Const All systems reviewed & are unremarkable except as noted in HPI and below Reports no additional complaints Eyes Reports no additional complaints ENT Reports no additional complaints Card Reports no additional complaints Resp Reports no additional complaints GI Reports no additional complaints Reports as per HPI Musc Reports no additional complaints Skin/Breast Reports system reviewed and no additional complaints, except as documented Neuro Reports no additional complaints Psych Reports no additional complaints Endo Reports no additional complaints Lexa/Lymph Reports no additional complaints Aller/Immun Reports no additional complaints Office Procedures Post Void Residual Post Residual Void Post Void Residual (PVR): 0 [id number] Void Residual by ultrasound Assessment & Plan Assessment & Plan (1) History of CVA (cerebrovascular accident): Onset Date: ~2016 Comment: (CVA 2017 left-sided weakness) Code(s): Z86.73 - Personal history of transient ischemic attack (TIA), and cerebral infarction without residual deficits Category: Medical (2) Spastic neurogenic bladder: Code(s): N31.8 - Other neuromuscular dysfunction of bladder Category: Medical (3) Urge incontinence of urine: Code(s): N39.41 - Urge incontinence Category: Medical (4) OAB (overactive bladder): Code(s): N32.81 - Overactive bladder Category: Medical (5) UTI symptoms: Code(s): R39.9 - Unspecified symptoms and signs involving the genitourinary system Category: Medical Plan She is on Myrbetriq 50 mg daily also status post bladder Botox injection 200 units last on 11/10/2024. The patient states for the last couple of weeks she has been noticing an odor to her urine she asked her daughter to by cranberry tablets. She is unable to provide a urine sample at this time and bladder scan PVR 0 mL. The patient is given a specimen cup so that she can provide a urine for the lab later today. I will empirically start her on Macrobid 100 mg twice a day for 7 days pending urine culture results. We will follow-up in a month, telehealth to reassess improvement in irritative UTI symptoms and plan on repeat Botox in 2 months. Orders: Orders AMB Post Void Residual by ultrasound Today N32.81 - Overactive bladder UA CC w/rflx Micro + Cult Today N39.41 - Urge incontinence Urine Culture Today N39.41 - Urge incontinence Medications: New nitrofurantoin monohyd/m-cryst 100 mg (Macrobid) must administer with a meal/food 100 mg PO BID 14 caps 0RF 7 days Patient Instructions: The patient had an opportunity to ask questions regarding treatment plan. The patient expressed understanding and agreement with the above treatment plan. The patient is aware they should contact our office by phone for worsening of their current condition or the appearance of new symptoms. Compliance is encouraged with any medications and followup testing that is ordered. It is a privilege to be allowed the opportunity to participate in the urologic care of your patient. If you have any questions or concerns regarding treatment for the above conditions please do not hesitate to contact me. The office telephone contact is [phone]. This note is constructed in part using voice recognition software. While every effort has been made to ensure accuracy adult family home program manager errors may have been included. Yours sincerely, Torres Connell MD Coding Level of Care Code Est Pt Level 4 (62684) Diagnoses History of CVA (cerebrovascular accident) Z86.73 Spastic neurogenic bladder N31.8 Urge incontinence of urine N39.41 OAB (overactive bladder) N32.81 UTI symptoms R39.9 CPT Codes Post Residual Void - PVR CPT Code: 09966-Ivvf Void Residual by ultrasound ([id number])
--- OUTSIDE RECORDS SUMMARY | 2025-02-11 09:01 | XMS_ITS | Clinical Summary ---
Author Organization [facility] Address [address] [place] [address] Phone Care Team Providers Care Mining Professionals Name Role Phone Harjit Khoury MD Primary Care Provider [phone] Social History Tobacco Use Types Packs/Day Years Used Date Smoking Tobacco: Never Assessed Comments Unknown Sex and Gender Information Value Date Recorded Sex Assigned at Not on file Legal Sex Female 5:38 PM EST Gender Identity Not on file Sexual Orientation Not on file Plan of Treatment Health Maintenance Due Date Last Done Comments Breast Cancer Screening 1960 Colorectal Cancer Screening: Colonoscopy 1960 DTaP,Tdap,and Td Vaccines (1 - Tdap) 1981 Cervical Cancer Screening: P ap Smear 05/17/1983 Pneumococcal Vaccine: 50+ Ye ars (1 of 1 - PCV) 2012 Zoster Vaccines (1 of 2) 2012 Depression Screening 02/26/2024 HIV Screening 04/09/2024 Hepatitis C Screening 04/09/2024 Lung Cancer Screening (Low Dose CT) 04/09/2024 Social Influencers of Health Screening 04/09/2024 COVID-19 Vaccine (1 - 2024-2 6 season) 2024 Influenza Vaccine (#1) 2024 RSV Immunization Adult Patie nts (1 - 1-dose 75+ series) 2037 HIB [...] to complete this topic RSV Immunization Patients Un alber 20 months Aged Out No longer eligible b ased on patient's age to complete this topic Varicella Vaccines Aged Out No longer eligible based on patient's age to complete this topic [place] AETNA Care Teams Mining Professionals Relationship Specialty Start Date End Date Harjit Khoury MD PCP - General Geriatric Medicine 04/09/24
--- OUTSIDE RECORDS SUMMARY | 2025-02-11 09:02 | XMS_ITS | Data Portability ---
Author Organization [facility] Eloy Love Flleda [facility] [place] [facility], [facility] Address [address] [place] [address] Care Team Providers Care Associate Financial Advisor Name Role Phone PRAKASH MON Primary Care [...] 2023 024 [email or web address] [place], [address], [place], [address], 5 15:23:20 Procedures None recorded. Surgeries None recorded. Imaging XR, wrist, 3 or more view - room 113 3V L wrist 2023 024 [email or web address], [address], [place], [address], 5 15:23:19 XR, wrist, 3 or more view - rm.115 3 v of the L wrist 2023 024 [email or web address] [facility], [address], [address], [place], [address], 4 07:59:37 XR, wrist, 3 or more view - RM 119 3V 2023 024 [email or web address] [facility], [address], [place], [address], 4 15:56:17 Medication Orders None recorded. Patient TargetsNo targets recorded. Patient Instructions Encounter Date Encounter Id Patient Instructions Last Modified By Organization Details Last Modified Time 01/10/2024 application of cast, short arm cast* - RM 119 [facility] [email or web address] Not available 01/13/2024 15:56:17 01/17/[id number] application of cast, short arm cast* leisa [...] 0bqfl% 2Fg9IQ a4ajBk vP9nXo QUaueC m3YtLR [place] [address] 6e4846 AC0Kqa X2DV6K gKiQtr Mw INTERFACE [facility] [address], [place], [address], 01/10/2024 11:13:21 01/10/20 24 01/10/2024 XR, wrist , 3 or more view [email or web address] ?Encry pted=s hAaTro YD8dLq bEUv6g %2BXZw aYqtaq 0bqfl% 2Fg9IQ a4ajBk vP9nXo QUaueC m3YtLR [place] [address] [id number] AC0Kqa X2DV6K gKiQtr MwF INTERFACE [facility] [address], [place], [address], 01/10/2024 11:13:24 01/17/20 24 01/17/2024 XR, wrist , 3 or more view [email or web address]:/ [email or web address] ?Encry pted=s hAaTro YD8dLq bEUv6g %2BXZw aYqtaq 0bqfl% 2Fg9IQ a4ajBk vP9nXo QUaueC m3YtLR Fv[facility] HospitalJ8mAn HZtai3 8m8236 AC0Kqa X6CWae hKiQtr MwF INTERFACE [facility] [address] [address], [place], [address], 01/17/2024 12:04:14 01/17/20 24 01/17/2024 XR, wrist , 3 or more view [email or web address] ?Encry pted=s hAaTro YD8dLq bEUv6g %2BXZw aYqtaq 0bqfl% 2Fg9IQ a4ajBk vP9nXo QUaueC m3YtLR FvZlJ JJ8Von [place] HZtai3 5s0643 AC0Kqa X6CWae hKiQtr MwF INTERFACE [facility] [address] [address], [place], [address], 01/17/2024 12:04:16 02/07/20 24 02/07/2024 XR, wrist , 3 or more view [email or web address] ?Encry pted=s hAaTro YD8dLq bEUv6g %2BXZw aYqtaq 0bqfl% 2Fg9IQ a4ajBk vP9nXo QUaueC m3YtLR FvZlgJ JJ8mAn HZtai3 5d9307 AC0Kqb nyMWKa uKiQtr MwF INTERFACE [facility] [address] [address], [place], [address], 02/07/2024 10:33:47 02/07/20 24 02/07/2024 XR, wrist , 3 or more view [email or web address] ?Encry pted=s hAaTro YD8dLq bEUv6g %2BXZw aYqtaq 0bqfl% 2Fg9IQ a4ajBk vP9nXo QUaueC m3YtLR FvZlgJ JJ8mAn HZtai3 8q8173 AC0Kqb nyMWKa uKiQtr MwF INTERFACE [facility] [address] [facility] [address], [place], [address], 02/07/2024 10:33:49 Result Notes Documentation Provider Name and Address Organization Details Recorded Time Xr, Wrist, 3 Or More View : [email or web address] Encrypted=slOfCtwBJ5tLazY Uv6g%5OBExpXcbwz4qzet%2Fg 3VWc7cqAlwW9rCvLQfygCc7Nl QULmSjnBMB9lNoCXssd34i277 8ZU5AzxT2IK1HoGeFvrGeK Not Available [facility] 01/10/2024 11:13: 22 Xr, Wrist, 3 Or More View : [email or web address] Encrypted=xkFtDxmUJ6pHrcK Uv6g%8QGYgdEjlor8rfpk%2Fg 6XVt7pxRvdN2gMkKNtkwAy6Aw XNVtFttGCS3dRvALrss07k824 7CL0EzaI4ZT0EuQbWapXkB Not Available [facility] 01/10/2024 11:13: 25 Xr, Wrist, 3 Or More View : [email or web address] Encrypted=ouZkImeRJ9dInaQ Uv6g%9FEEnjCogjq3rpgk%2Fg 7YKb3ulWfaR3oZnMVxgkKl3Uw ALXiTzsSHE8aGcKAreg57u376 6HH0SxgX6RMlffChAfeYpC Not Available [facility] 01/17/2024 12:04: 14 Xr, Wrist, 3 Or More View : [email or web address] Encrypted=lbSnWshND5cXbtK Uv6g%0BJUgjVjjit7npyi%2Fg 1TOg5npBjwQ3iDuZNfepFx7Ay EEYiCllFXE0yIrWPkpn07v415 2KF4AgcK9HUwhfVbOqwMtG Not Available [facility] 01/17/2024 12:04: 16 Xr, Wrist, 3 Or More View : [email or web address] Encrypted=pjUvXvvFB1lLjsL Uv6g%1SJQwaShcse2zsla%2Fg 4TMt6uuNcxH7lNaBHlhyNg0Jr XIWpMrvOFU1aPrMNzyy36k896 0RD2VzkexWZNokTxQuwIvF Not Available [facility] 02/07/2024 10:33: 47 Xr, Wrist, 3 Or More View : [email or web address] Encrypted=mmGoOvxHS9gUjvX Uv6g%3ONNqdRbhns6vers%2Fg 8TQo0eyHqiM1eQdHGqjoLd0Dq UMHpMhfDKV2nXxRAjtb35e161 9AY5AnavrTLAmrCkMotEyO Not Available [facility] 02/07/2024 10:33: 49 Medical Equipment None Reported. [...] Updated DateTime 01/10/2024 162.56 cm 33.5 kg/m2 55955.51 g SONY MAJOR [facility] [place] [facility] 01/10/2024 11:04:19 Date Recorded Body height Body mass index (BMI) Body weight Provider Name and Address Organization Details Last Updated DateTime 01/17/2024 162.56 cm 34.3 kg/m2 25497.47 g connie spencer [facility] [place] [facility] 01/17/2024 11:50:48 Date Recorded Body height Body mass index (BMI) Body weight Provider Name and Address Organization Details Last Updated DateTime 02/07/2024 162.56 cm 34.3 kg/m2 07970.47 g STEFANI ECKERT [facility] [place] [facility] 02/07/2024 10:14:34 Social History None recorded. Functional Status None recorded. Mental Status None recorded. Family History Nothing Reported. Medical History No medical history recorded. Gynecological HistoryNo gynecological history recorded. Obstetrics History GPAL:G 0 P 0 0 0 0 Past Encounters Encounter ID Performer Location Encounter Start Date Encounter Closed Date Diagnosis/Indication Diagnosis SNOMED-CT Code Diagnosis ICD10 Code Diagnosis IMO Codes Diagnosis Note [id number] MANUELITO Jeffers [address] [place] [address] 01/10/2024 10:35:31 01/29/2024 10:07:21 Pain of left wrist 8413334545 56667 M25.532 [id number] MD Yu Laws [address] [place] [address] 01/17/2024 11:18:11 02/05/2024 07:59:37 Pain of left wrist 4494360711 93829 M25.532 [id number] Closed Col les' fracture 603806817 S52.532D [id number] MD Yu Laws [address] [place] [address] 02/07/2024 10:01:00 02/27/2024 15:23:19 Pain of left wrist 0542457038 08738 M25.532 [id number] Closed Col les' fracture 580488193 S52.532D [id number] Health Concerns Section Related Observation LastModified by Organization Detai ls LastModified Time None Recorded Concern Status LastModified by Organization Details LastModified Time None Recorded Advance Directives Directive None Recorded Payers Insurance Date Sequence Insurance Name Policy Number Policy Alvarado Covered Member ID Alvarado Member ID Guarantor Name 03/27/2024 2 [place] [facility] Maya Cain [id number] Maya Cain 02/27/2024 1 A[employer] (MEDICARE REPLACEMENT/A DVANTAGE - PPO) [id number] Maya Cain [id number] Maya Cain Notes Date Note Type Note [...] instability. X-rays ordered, obtained and reviewed at [facility] m3 views left wrist reveals [...] motion and strengthening. Tabitha Redman PA-C [address], [place], [address], [facility] [place] [facility] 01/10/2024 13:48:27 01/17/2024 text/html ROS as noted in the HPI DX: Left distal radius An ulnar styloid process fracture 12/30/2023Left-sided hemiparesis from previous CVA HPI:63-year-old female here for orthopedic consultation. Patient fell onto the outstretched hand and injured the left wrist. Fracture is being treated conservatively. She has been in a splint Latanya Hughes MD [address], [place], [address], [facility] 01/17/2024 17:00:21 02/07/2024 text/html [...] quickly fell off. Latanya Hughes MD [address] [facility] [address], [place], [address], [facility] [place] [facility] 02/07/2024 12:27:02 OBGyn Episode No OBEpisode recorded.
--- OUTSIDE RECORDS SUMMARY | 2025-02-11 09:02 | XMS_ITS | Encounter Summary ---
Author Organization [employer] Address [address] [place] [address] Care Team Providers Care Manager Union Name Role Phone Harjit Khoury MD Primary Care Provider [phone] Encounter Details Date Type Department Care Team (Late st Contact Info) Description 04/09/2024 Lab Requisition [facility] - Main Lab [address] [facility] [place] [address] Harjit Khoury MD [address] [place] [address] Essential (primary) hypertension; Vitamin D deficiency, unspecified [...] 25 hydroxy (04/09/2024 5:24 AM EST) Pathologist [facility] Vit D, 25-Hydroxy 10.1(L) 30.0 - 80.0 ng/mL LAB CHEMISTRY METHOD 04/09/2024 12:13 PM EST [facility] Blood Venous blood specimen / Unknown Venipuncture / Unknown 04/09/2024 5:24 AM EST 04/09/2024 10:58 AM EST us Harjit Khoury MD LAB BLOOD ORDERABLES Final Resul t Performing Organization Address [facility] Co de Phone Number [facility] [address] [place] [address], * Folate (04/09/2024 5:24 AM EST) Pathologist [facility] Folate 6.4 2.8 - 17.0 ng/ml LAB CHEMISTRY METHOD 04/09/2024 12:42 PM EST [facility] Blood Venous blood specimen / Unknown Venipuncture / Unknown 04/09/2024 5:24 AM EST 04/09/2024 10:58 AM EST us Harjit Khoury MD LAB BLOOD ORDERABLES Final Resul t Performing Organization Address City/[facility]/ZIP Co de Phone Number [facility] [address] [place] [address], [place] [phone] * Thyroid stimulating hormone (04/09/2024 5:24 AM EST) [facility] TSH 3.07 0.40 - 4.00 mcIU/mL LAB CHEMISTRY METHOD 04/09/2024 12:13 PM EST [facility] Blood Venous blood specimen / Unknown Venipuncture / Unknown 04/09/2024 5:24 AM EST 04/09/2024 10:58 AM EST us Harjit Khoury MD LAB BLOOD ORDERABLES Final Resul t [facility] [address] [place] [address], [place] [phone] * Vitamin B12 (04/09/2024 5:24 AM EST) [facility] Vitamin B-12 466 250 - 900 pcg/mL LAB CHEMISTRY METHOD 04/09/2024 12:42 PM [facility] Blood Venous blood specimen / Unknown Venipuncture / Unknown 04/09/2024 5:24 AM EST 04/09/2024 10:58 AM EST us Harjit Khoury MD LAB BLOOD ORDERABLES Final Resul t Performing Organization Address City/[facility]/ZIP Co de Phone Number [facility] [address] [place] [address], [place] [phone] * Comprehensive metabolic panel (04/09/2024 5:24 AM EST) [facility] Sodium 136 133 - 145 mmol/L LAB [...] [facility] Comment:Calculation based on the [...] [facility] [address] [place] [address], * (ABNORMAL) Complete blood count (04/09/2024 5:24 [...] EST [facility] NRBC Absolute 0.00 <0.10 K/mcL LAB HEMETOLOGY METHOD 04/09/2024 11:31 AM EST [facility] Blood Venous blood specimen / Unknown Venipuncture / Unknown 04/09/2024 5:24 AM EST 04/09/2024 10:58 AM EST us Harjit Khoury MD LAB BLOOD ORDERABLES Final Resul t [facility] [address] [place] [address], documented in this encounter Visit Diagnoses Diagnosis Essential (primary) hypertension Unspecified essential hypertension Vitamin D deficiency, unspecified documented in this encounter Care Teams Manager Union Relationship Specialty Start Date End Date Harjit Khoury MD PCP - General Geriatric Medicine 04/09/24 documented as of this encounter
== END 2025-02-11 09:27 | disposition home or self-care (01) ==
LOC: HO.HUSH 08:36
PROVIDERS: PCP Internal Medicine; Visit Provider Urology
DX: Z86.73 Personal history of transient ischemic attack (TIA), and cerebral infarction without residual deficits (principal); N31.8 Other neuromuscular dysfunction of bladder; N39.41 Urge incontinence; N32.81 Overactive bladder; R39.9 Unspecified symptoms and signs involving the genitourinary system
CPT/HCPCS: 99214

== ENCOUNTER 2025-02-11 08:36 | Outpatient (REF) | payer MEDICARE, MEDICAID, SELFPAY ==
[2025-02-11 14:19] LABS: Appearance Urine Cloudy; Glucose Urine UA Negative (Negative); PH 6.0 (5.0-9.0); Specific Gravity - Urine 1.020 (1.005-1.025); UMIC TRIGGER UA YES
--- OUTSIDE RECORDS SUMMARY | 2025-02-11 18:08 | XMS_ITS | Encounter Summary ---
Author Organization [facility] Address [address] [address] Phone Care Team Providers Care Construction Mgr Name Role Phone Sofía Lucas MD Primary Care Provider [phone] Self-Referred, Patient Unavailable Unavailab Daniela Valencia MD, MARTHA Unavailable [phone] Reny Joseph Unavailable [phone] Sofía Lucas MD Primary Care Provider [phone] Marcus Henderson PA-C Unavailable [phone] Encounter Details Date Type Department Care Team (Late st Contact Info) Description 01/08/2023 Procedure Pass [facility] Imaging Department, [facility] [place], [place] [address] [facility], Floor [address]1 [place] [address] Social History Tobacco Use Types Packs/Day Years [...] high school, GED, job training, learning the Egyptian language, technical skills, or developing parenting skills)? [...] on filedocumented in this encounter Care Teams Construction Mgr Relationship Specialty Start Date End Date Sofía Lucas MD [address] [place] [address] PCP - General 12/11/16 05/14/23 Sofía Lucas MD [address] [place] [address] PCP - General Internal Medicine 05/15/23 Self-Referred, Patient 10/05/22 Daniela Kiran MD, MARTHA [address] [place] [address] [email or web address] Radiation Oncology 11/02/22 Reny Joseph, [facility] [address] [place] [address] [email or web address]. U Event Staff Oncology 11/30/22 Marcus Henderson PA-C [address] [place] [address] [email or web address] Physician Senior Planning Manager 05/28/23 documented as of this encounter Additional Source Comments The information contained in this document represents components of the legal health record. It is not the complete legal health record.[facility]
--- OUTSIDE RECORDS SUMMARY | 2025-02-11 18:08 | XMS_ITS | Encounter Summary ---
Author Organization [facility] Address [address] [employer] [address] [address] Phone Care Team Providers Care Physics Instructor Name Role Phone Self-Referred, Patient Unavailable Unavailab Daniela Valencia MD, MARTHA Unavailable [phone] Reny Joseph Unavailable [phone] Sofía Lucas MD Primary Care Provider [phone] Marcus Henderson PA-C Unavailable [phone] Encounter Details Date Type Department Care Team (Late st Contact Info) Description 07/29/2024 Procedure Pass [facility], [address] [address] Social History Tobacco Use Types Packs/Day Years [...] high school, GED, job training, learning the Welsh language, technical skills, or developing parenting skills)? [...] on filedocumented in this encounter Care Teams Physics Instructor Relationship Specialty Start Date End Date Lance Sofía Zamarripa MD [address] [place] [address] Drive [address] [place] [address] PCP - General Internal Medicine 05/15/23 Self-Referred, Patient 10/05/22 Daniela Kiran MD, MARTHA [address] [place] [address] [email or web address] Radiation Oncology 11/02/22 Reny Joseph, [address] [address] [email or web address]. U Network Program Manager Oncology 11/30/22 Marcus Henderson PA-C [address] [place] [address] [email or web address] Physician Photographer Still 05/28/23 documented as of this encounter Additional Source Comments The information contained in this document represents components of the legal health record. It is not the complete legal health record.[facility]
--- OUTSIDE RECORDS SUMMARY | 2025-02-11 18:08 | XMS_ITS | Encounter Summary ---
Author Organization [facility] Address [address] [address] Phone Care Team Providers Care Ui Designer Name Role Phone Sofía Lucas MD Primary Care Provider [phone] Self-Referred, Patient Unavailable Unavailab Daniela Valencia MD, MARTHA Unavailable [phone] Reny Joseph FILLER MIXER Unavailable [phone] Sofía Lucas MD Primary Care Provider [phone] Marcus Henderson PA-C Unavailable [phone] Encounter Details Date Type Department Care Team (Late st Contact Info) Description 10/18/2022 Procedure Pass [facility] CT Imaging, [place] [address] [place] [address] Social History Tobacco Use Types Packs/Day Years [...] high school, GED, job training, learning the Irish language, technical skills, or developing parenting skills)? [...] on filedocumented in this encounter Care Teams Ui Designer Relationship Specialty Start Date End Date Sofía Lucas MD [address] [place] [address] PCP - General 12/11/16 05/14/23 Sofía Lucas MD [address] [place] [address] PCP - General Internal Medicine 05/15/23 Self-Referred, Patient 10/05/22 Daniela Kiran MD, MARTHA [address] [place] [address] [email or web address] Radiation Oncology 11/02/22 Reny Joseph, [address] [address] [email or web address]. U Local Telephone Operator Oncology 11/30/22 Marcus Henderson PA-C [address] [place] [address] [email or web address] Physician Talend Etl Developer 05/28/23 documented as of this encounter Additional Source Comments The information contained in this document represents components of the legal health record. It is not the complete legal health record.[facility]
--- OUTSIDE RECORDS SUMMARY | 2025-02-11 18:08 | XMS_ITS | Encounter Summary ---
Author Organization [facility] Address [address] [employer] [address] [address] Phone Care Team Providers Care Shrink Pit Operator Name Role Phone Sofía Lucas MD Primary Care Provider [phone] Self-Referred, Patient Unavailable Unavailab Daniela Valencia MD, MARTHA Unavailable [phone] Reny Joseph [employer] Unavailable [phone] Sofía Lucas MD Primary Care Provider [phone] Marcus Henderson PA-C Unavailable [phone] Encounter Details Date Type Department Care Team (Late st Contact Info) Description 11/07/2022 Procedure Pass [facility] [address] [place] [address] Social History Tobacco Use Types Packs/Day Years [...] on filedocumented in this encounter Care Teams Shrink Pit Operator Relationship Specialty Start Date End Date Sofía Lucas MD [address] [place] [address] PCP - General 12/11/16 05/14/23 Sofía Lucas MD [address] [place] [address] PCP - General Internal Medicine 05/15/23 Self-Referred, Patient 10/05/22 Daniela Kiran MD, MARTHA [address] [place] [address] [email or web address] Radiation Oncology 11/02/22 Reny Joseph, [address] [address] [email or web address]. U Manager Quality Improvement Oncology 11/30/22 Marcus Henderson PA-C [address] [place] [address] [email or web address] Physician Live Truck Operator 05/28/23 documented as of this encounter Additional Source Comments The information contained in this document represents components of the legal health record. It is not the complete legal health record.[facility]
--- OUTSIDE RECORDS SUMMARY | 2025-02-11 18:08 | XMS_ITS | Encounter Summary ---
Author Organization [facility] Address [address] [address] Phone Care Team Providers Care Sensor Technician Name Role Phone Sofía Lucas MD Primary Care Provider [phone] Self-Referred, Patient Unavailable Unavailab Daniela Valencia MD, MARTHA Unavailable [phone] Reny Joseph Unavailable [phone] Sofía Lucas MD Primary Care Provider [phone] Marcus Henderson PA-C Unavailable [phone] Encounter Details Date Type Department Care Team (Late st Contact Info) Description 01/08/2023 Procedure Pass [facility] Imaging Department, [facility] [place], [place] [address] [facility], Floor [address]1 [place] [address] Social History Tobacco Use Types Packs/Day Years [...] high school, GED, job training, learning the Puerto Rican language, technical skills, or developing parenting skills)? [...] on filedocumented in this encounter Care Teams Sensor Technician Relationship Specialty Start Date End Date Sofía Lucas MD [address] [place] [address] PCP - General 12/11/16 05/14/23 Sofía Lucas MD [address] [place] [address] PCP - General Internal Medicine 05/15/23 Self-Referred, Patient 10/05/22 Daniela Kiran MD, MARTHA [address] [place] [address] [email or web address] Radiation Oncology 11/02/22 Reny Joseph, [facility] [address] [place] [address] [email or web address]. U Mortgage Loan Originator Oncology 11/30/22 Marcus Henderson PA-C [address] [place] [address] [email or web address] Physician Ssis Etl Developer 05/28/23 documented as of this encounter Additional Source Comments The information contained in this document represents components of the legal health record. It is not the complete legal health record.[facility]
--- OUTSIDE RECORDS SUMMARY | 2025-02-11 18:08 | XMS_ITS | Encounter Summary ---
Author Organization [facility] Address [address] [address] Phone Care Team Providers Care Shore Hand Dredge Or Barge Name Role Phone Sofía Lucas MD Primary Care Provider [phone] Self-Referred, Patient Unavailable Unavailab Daniela Valencia MD, MARTHA Unavailable [phone] Reny Joseph ROOTER OPERATOR Unavailable [phone] Sofía Lucas MD Primary Care Provider [phone] Marcus Henderson PA-C Unavailable [phone] Encounter Details Date Type Department Care Team (Late st Contact Info) Description 11/07/2022 Procedure Pass [facility] MR Imaging, Zhong [address] [place] [address] Social History Tobacco Use Types Packs/Day Years [...] on filedocumented in this encounter Care Teams Shore Hand Dredge Or Barge Relationship Specialty Start Date End Date Sofía Lucas MD [address] [place] [address] PCP - General 12/11/16 05/14/23 Sofía Lucas MD [address] [place] [address] PCP - General Internal Medicine 05/15/23 Self-Referred, Patient 10/05/22 Daniela Kiran MD, MARTHA [address] [place] [address] [email or web address] Radiation Oncology 11/02/22 Reny Joseph, [address] [address] [email or web address]. U Principal Librarian Oncology 11/30/22 Marcus Henderson PA-C [address] [place] [address] [email or web address] Physician Job Cost Estimator 05/28/23 documented as of this encounter Additional Source Comments The information contained in this document represents components of the legal health record. It is not the complete legal health record.[facility]
--- OUTSIDE RECORDS SUMMARY | 2025-02-11 18:08 | XMS_ITS ---
Author Organization [facility] Address [address] [employer] [address] [address] Phone Care Team Providers Care Skein Bander Name Role Phone Self-Referred, Patient Unavailable Unavailab Daniela Valencia MD, MARTHA Unavailable Reny Joseph Unavailable Sofía Lucas MD Primary Care Provider [phone] Marcus Henderson PA-C Unavailable [phone] Active Problems Problem Noted Date Diagnosed Date [...]
--- OUTSIDE RECORDS SUMMARY | 2025-02-11 18:08 | XMS_ITS | Encounter Summary ---
Author Organization [facility] Address [address] [employer] [address] [address] Phone Care Team Providers Care Yarn Weight And Strength Tester Name Role Phone Sofía Lucas MD Primary Care Provider [phone] Self-Referred, Patient Unavailable Unavailab Daniela Valencia MD, MARTHA Unavailable [phone] Reny Joseph NURSE EMERGENCY ROOM Unavailable [phone] Sofía Lucas MD Primary Care Provider [phone] Marcus Henderson PA-C Unavailable [phone] Encounter Details Date Type Department Care Team (Late st Contact Info) Description 01/25/2023 Procedure Pass [facility] Periop [address] [place] [address] Social History Tobacco Use Types Packs/Day Years [...] high school, GED, job training, learning the Liberian language, technical skills, or developing parenting skills)? [...] 01/25/2023 3:00 PM Kati French RN * [place] Suicide Severity Rating Scale (Screener/Recent Self-Report) Question [...] on filedocumented in this encounter Care Teams Yarn Weight And Strength Tester Relationship Specialty Start Date End Date Sofía Lucas MD [address] [place] [phone] PCP - General 12/11/16 05/14/23 Sofía Lucas MD [address] [place] [address] [address] [place] [phone] PCP - General Internal Medicine 05/15/23 Self-Referred, Patient 10/05/22 Daniela Kiran MD, MARTHA [address] [place] [address] [email or web address] Radiation Oncology 11/02/22 Reny Joseph, [facility] [address] [place] [address] [email or web address]. U Boathouse Keeper Oncology 11/30/22 Marcus Henderson PA-C [address] [place] [address] [email or web address] Physician Data Modeler 05/28/23 documented as of this encounter Additional Source Comments The information contained in this document represents components of the legal health record. It is not the complete legal health record.[facility]
--- OUTSIDE RECORDS SUMMARY | 2025-02-11 18:08 | XMS_ITS | Clinical Summary ---
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 10/26/2022 Social History Tobacco Use Types Packs/Day Years Used Date Smoking Tobacco: Former Cigarettes 1 45 1 972 - 2016 Smokeless Tobacco: Never Tobacco Cessation:Counseling Given: Not [...] PCV) 08/07/2018 08/07/2017 INFLUENZA VACCINE (#1) 2024 , 11/29/2021, 02/13/2021, Additional history exists COVID-19 VACCINE ( - season) 2024 03/04/2021, 06/01/2020 SCREENING FOR DIABETES [...] this topic Medical Devices Not on file Insurance [facility] PART A & [facility] PART [facility] & [facility] MEDICARE PART A & B AETNA O MEDICARE REPLACEMENT [facility] & [facility] MEDICARE PART A & B AETNA PPO MEDICARE REPLACEMENT [facility] MEDICARE PART A & B AETNA PPO MEDICARE REPLACEMENT Care Teams Emergency Veterinary Assistant Relationship Specialty Start Date End Date Sofía Lucas MD [address] [place] [address] PCP - General Internal Medicine 05/15/23 Self-Referred, Patient 10/05/22 Daniela Kiran MD, MARTHA [address] [place] [address] [email or web address] Radiation Oncology 11/02/22 Reny Joseph, [facility] [address] [place] [address] [email or web address]. U Warper Tender Oncology 11/30/22 Marcus Henderson PA-C [address] [place] [address] [email or web address] Physician Front Desk Worker 05/28/23 Additional Source Comments The information contained in this document represents components of the legal health record. It is not the complete legal health record.[facility]
--- OUTSIDE RECORDS SUMMARY | 2025-02-11 18:08 | XMS_ITS | Encounter Summary ---
Author Organization [facility] Address [address] [address] Phone Care Team Providers Care Group Exercise Class Instructor Name Role Phone Self-Referred, Patient Unavailable Unavailab Daniela Valencia MD, MARTHA Unavailable [phone] Reny Joseph Unavailable [phone] Sofía Lucas MD Primary Care Provider [phone] Marcus Henderson PA-C Unavailable [phone] Encounter Details Date Type Department Care Team (Late st Contact Info) Description 05/15/2023 Procedure Pass [facility], Ct Scan - [address] [address] Social History Tobacco Use Types Packs/Day Years [...] high school, GED, job training, learning the Montserratian language, technical skills, or developing parenting skills)? [...] on filedocumented in this encounter Care Teams Group Exercise Class Instructor Relationship Specialty Start Date End Date Lance Sofía Zamarripa MD [address] [place] [address] [address] [place] [phone] PCP - General Internal Medicine 05/15/23 Self-Referred, Patient 10/05/22 Daniela Kiran MD, MARTHA [address] [place] [address] [email or web address] Radiation Oncology 11/02/22 Reny Joseph, [address] [address] [email or web address]. U Tab Builder Oncology 11/30/22 Marcus Henderson PA-C [address] [place] [address] [email or web address] Physician Screen Printing Machine Operator Helper 05/28/23 documented as of this encounter Additional Source Comments The information contained in this document represents components of the legal health record. It is not the complete legal health record.[facility]
--- OUTSIDE RECORDS SUMMARY | 2025-02-11 18:08 | XMS_ITS | Encounter Summary ---
Author Organization [facility] Address [address] [address] Phone Care Team Providers Care Rib Stiffener And Heel Dipper Name Role Phone Sofía Lucas MD Primary Care Provider [phone] Self-Referred, Patient Unavailable Unavailab Daniela Valencia MD, MARTHA Unavailable [phone] Reny Joseph MANAGER LIFE INSURANCE Unavailable [phone] Sofía Lucas MD Primary Care Provider [phone] Marcus Henderson PA-C Unavailable [phone] Encounter Details Date Type Department Care Team (Late st Contact Info) Description 10/18/2022 Procedure Pass [facility] CT Imaging, Zhong [address] [place] [address] Social History Tobacco Use Types Packs/Day Years [...] high school, GED, job training, learning the Yi language, technical skills, or developing parenting skills)? [...] on filedocumented in this encounter Care Teams Rib Stiffener And Heel Dipper Relationship Specialty Start Date End Date Sofía Lucas MD [address] [place] [address] PCP - General 12/11/16 05/14/23 Sofía Lucas MD [address] [place] [address] PCP - General Internal Medicine 05/15/23 Self-Referred, Patient 10/05/22 Daniela Kiran MD, MARTHA [address] [place] [address] [email or web address] Radiation Oncology 11/02/22 Reny Joseph, [address] [address] [email or web address]. U Staff Development Educator Oncology 11/30/22 Marcus Henderson PA-C [address] [place] [address] [email or web address] Physician Xray Tech 05/28/23 documented as of this encounter Additional Source Comments The information contained in this document represents components of the legal health record. It is not the complete legal health record.[facility]
--- OUTSIDE RECORDS SUMMARY | 2025-02-11 18:08 | XMS_ITS | Clinical Summary ---
Author Organization [address] [facility] Address [address] [place] [address] Phone Care Team Providers Care Metal Extrusion Supervisor Name Role Phone Harjit Khoury MD Primary Care Provider [phone] Social History Tobacco Use Types Packs/Day Years [...] to complete this topic Insurance [place]ICA[place] AETNA Care Teams Metal Extrusion Supervisor Relationship Specialty Start Date End Date Harjit Khoury MD PCP - General Geriatric Medicine 04/09/24
--- OUTSIDE RECORDS SUMMARY | 2025-02-11 18:08 | XMS_ITS | Encounter Summary ---
Author Organization [employer] Address [address] [place] [address] Care Team Providers Care Marine Geologist Name Role Phone Harjit Khoury MD Primary Care Provider [phone] Encounter Details Date Type Department Care Team (Late st Contact Info) Description 04/09/2024 Lab Requisition [facility] - Main Lab [address] [facility] [place] [address] Harjit Khoury MD [address] [place] [address] Essential (primary) hypertension; Vitamin D deficiency, unspecified [...] LAB CHEMISTRY METHOD 04/09/2024 12:[address] [facility] Blood Venous blood specimen / Unknown Venipuncture / Unknown 04/09/2024 5:24 AM EST 04/09/2024 10:58 AM EST us Harjit Khoury MD LAB BLOOD ORDERABLES Final Resul t Performing Organization Address [facility] Co de Phone Number [facility] [address] [place] [address], * Folate (04/09/2024 5:24 AM EST) Pathologist [facility] Folate 6.4 2.8 - 17.0 ng/ml LAB CHEMISTRY METHOD 04/09/2024 12:[address] [facility] Blood Venous blood specimen / Unknown Venipuncture / Unknown 04/09/2024 5:24 AM EST 04/09/2024 10:58 AM EST us Harjit Khoury MD LAB BLOOD ORDERABLES Final Resul t Performing Organization Address City/[facility]/ZIP Co de Phone Number [facility] [address] [place] [address], [place] [phone] * Thyroid stimulating hormone (04/09/2024 5:24 AM EST) [facility] TSH 3.07 0.40 - 4.00 mcIU/mL LAB CHEMISTRY METHOD 04/09/2024 12:[address] [facility] Blood Venous blood specimen / Unknown Venipuncture / Unknown 04/09/2024 5:24 AM EST 04/09/2024 10:58 AM EST us Harjit Khoury MD LAB BLOOD ORDERABLES Final Resul t [facility] [address] [place] [address], [place] [phone] * Vitamin B12 (04/09/2024 5:24 AM EST) [facility] Vitamin B-12 466 250 - 900 pcg/mL LAB CHEMISTRY METHOD 04/09/2024 12:42 PM [facility] Blood Venous blood specimen / Unknown Venipuncture / Unknown 04/09/2024 5:24 AM EST 04/09/2024 10:58 AM EST us Harjit Khoury MD LAB BLOOD ORDERABLES Final Resul t Performing Organization Address City/[facility]/ZIP Co de Phone Number [facility] [address] [place] [address], [place] [phone] * Comprehensive metabolic panel (04/09/2024 5:24 AM EST) [facility] Sodium 136 133 - 145 mmol/L LAB CHEMISTRY METHOD 04/09/2024 12:42 PM [facility] Potassium 4.2 3.5 - 5.5 mmol/L LAB CHEMISTRY METHOD 04/09/2024 12:42 PM [facility] Chloride 107 96 - 110 mmol/L LAB CHEMISTRY METHOD 04/09/2024 12:42 PM [facility] CO2 26 21 - 32 mmol/L LAB CHEMISTRY METHOD 04/09/2024 12:42 PM [facility] Anion Gap 3 3 - 11 LAB CHEMISTRY METHOD 04/09/2024 12:42 PM [facility] Glucose 88 70 - 100 mg/dL LAB CHEMISTRY METHOD 04/09/2024 12:42 PM [facility] BUN 11 5 - 25 mg/dL LAB CHEMISTRY METHOD 04/09/2024 12:42 PM [facility] Creatinine 0.75 0.50 - 1.10 mg/dL LAB CHEMISTRY METHOD 04/09/2024 12:42 PM [facility] eGFR 91 >=60 mL/min/1. 73m2 LAB CHEMISTRY METHOD 04/09/2024 12:42 PM [facility] Comment:Calculation based on the Chronic Kidney Disease Epidemiology Collaboration (CKD-EPI) equation refit without adjustment for race. BUN/Creatinine Ratio 14.7 LAB CHEMISTRY METHOD 04/09/2024 12:42 PM [facility] Calcium 9.9 8.5 - 10.5 mg/dL LAB CHEMISTRY METHOD 04/09/2024 12:42 PM [facility] AST (SGOT) 16 10 - 42 unit/L LAB CHEMISTRY METHOD 04/09/2024 12:42 PM [facility] ALT (SGPT) 18 10 - 60 unit/L LAB CHEMISTRY METHOD 04/09/2024 12:42 PM [facility] Alkaline Phosphatase 64 42 - 121 unit/L LAB CHEMISTRY METHOD 04/09/2024 12:42 PM [facility] Total Protein 7.3 6.0 - 8.0 g/dL LAB CHEMISTRY METHOD 04/09/2024 12:42 PM [facility] Albumin 3.6 3.2 - 5.0 g/dL LAB CHEMISTRY METHOD 04/09/2024 12:42 PM [facility] Total Bilirubin 0.5 0.0 - 1.4 mg/dL LAB CHEMISTRY METHOD 04/09/2024 12:42 PM [facility] Blood Venous blood specimen / Unknown Venipuncture / Unknown 04/09/2024 5:24 AM EST 04/09/2024 10:58 AM EST Harjit Khoury MD LAB BLOOD ORDERABLES Final Resul t [facility] [address] [place] [address], * (ABNORMAL) Complete blood count (04/09/2024 5:24 AM EST) WBC 8.6 4.8 - 10.8 K/mcL LAB HEMETOLOGY METHOD 04/09/2024 11:31 AM [facility] RBC 4.50 3.80 - 4.80 M/mcL LAB HEMETOLOGY METHOD 04/09/2024 11:31 AM [facility] Hemoglobin 12.3 11.5 - 16.0 g/dL LAB HEMETOLOGY METHOD 04/09/2024 11:31 AM [facility] Hematocrit 39.2 35.0 - 47.0 % LAB HEMETOLOGY METHOD 04/09/2024 11:31 AM [facility] MCV 86.7 79.0 - 98.0 FL LAB HEMETOLOGY METHOD 04/09/2024 11:31 AM [facility] MCH 27.2 27.0 - 32.0 pcg LAB HEMETOLOGY METHOD 04/09/2024 11:31 AM [facility] MCHC 31.4(L) 32.0 - 37.0 g/dL LAB HEMETOLOGY METHOD 04/09/2024 11:31 AM [facility] RDW 13.4 11.0 - 15.0 % LAB HEMETOLOGY METHOD 04/09/2024 11:31 AM [facility] Platelets 319 130 - 400 K/mcL LAB HEMETOLOGY METHOD 04/09/2024 11:31 AM [facility] MPV 10.4 7.0 - 11.0 FL LAB HEMETOLOGY METHOD 04/09/2024 11:31 AM [facility] NRBC 0.0 <1.0 % LAB HEMETOLOGY METHOD 04/09/2024 11:[address] [facility] NRBC Absolute 0.00 <0.10 K/mcL LAB HEMETOLOGY METHOD 04/09/2024 11:[address] [facility] Blood Venous blood specimen / Unknown Venipuncture / Unknown 04/09/2024 5:24 AM EST 04/09/2024 10:58 AM EST us Harjit Khoury MD LAB BLOOD ORDERABLES Final Resul t [facility] [address] [place] [address], documented in this encounter Visit Diagnoses Diagnosis Essential (primary) hypertension Unspecified essential hypertension Vitamin D deficiency, unspecified documented in this encounter Care Teams Marine Geologist Relationship Specialty Start Date End Date Harjit Khoury MD PCP - General Geriatric Medicine 04/09/24 documented as of this encounter
--- OUTSIDE RECORDS SUMMARY | 2025-02-11 18:08 | XMS_ITS | Encounter Summary ---
Author Organization [facility] Address [address] [employer] [address] [address] Phone Care Team Providers Care Area Loss Prevention Manager Name Role Phone Self-Referred, Patient Unavailable Unavailab Daniela Valencia MD, MARTHA Unavailable [phone] Reny Joseph Unavailable [phone] Sofía Lucas MD Primary Care Provider Marcus Henderson PA-C Unavailable [phone] Encounter Details Date Type Department Care Team (Late st Contact Info) Description 10/25/2023 Procedure Pass [facility], Ct Scan - [address] [address] Social History Tobacco Use Types Packs/Day Years [...] high school, GED, job training, learning the Tajik language, technical skills, or developing parenting skills)? [...] on filedocumented in this encounter Care Teams Area Loss Prevention Manager Relationship Specialty Start Date End Date Lance Sofía Zamarripa MD [address] [place] [address] [address] [place] [address] PCP - General Internal Medicine 05/15/23 Self-Referred, Patient 10/05/22 Daniela Kiran MD, MARTHA [address] [place] [address] [email or web address] Radiation Oncology 11/02/22 Reny Joseph, [address] [address] [email or web address] U Third Loader Oncology 11/30/22 Marcus Henderson PA-C [address] [place] [address] [email or web address] Physician Anodic Operator 05/28/23 documented as of this encounter Additional Source Comments The information contained in this document represents components of the legal health record. It is not the complete legal health record.[facility]
--- OUTSIDE RECORDS SUMMARY | 2025-02-11 18:08 | XMS_ITS | Encounter Summary ---
Author Organization [facility] Address [address] [employer] [address] [address] Phone Care Team Providers Care Business Loan Processor Name Role Phone Sofía Lucas MD Primary Care Provider [phone] Self-Referred, Patient Unavailable Unavailab Daniela Valencia MD, MARTHA Unavailable [phone] Reny Joseph [facility] Unavailable [phone] Sofía Lucas MD Primary Care Provider [phone] Marcus Henderson PA-C Unavailable [phone] Encounter Details Date Type Department Care Team (Late st Contact Info) Description 11/07/2022 Procedure Pass [facility] [address] [place] [address] Social History Tobacco Use Types Packs/Day Years [...] on filedocumented in this encounter Care Teams Business Loan Processor Relationship Specialty Start Date End Date Sofía Lucas MD [address] [place] [address] PCP - General 12/11/16 05/14/23 Sofía Lucas MD [address] [place] [address] PCP - General Internal Medicine 05/15/23 Self-Referred, Patient 10/05/22 Daniela Kiran MD, MARTHA [address] [place] [address] [email or web address] Radiation Oncology 11/02/22 Reny Joseph, [address] [address] [email or web address]. U Chief Payroll Clerk Oncology 11/30/22 Marcus Henderson PA-C [address] [place] [address] [email or web address] Physician Monotype Machinist 05/28/23 documented as of this encounter Additional Source Comments The information contained in this document represents components of the legal health record. It is not the complete legal health record.[facility]
--- OUTSIDE RECORDS SUMMARY | 2025-02-11 18:08 | XMS_ITS | Encounter Summary ---
Author Organization [facility] Address [address] [employer] [address] [address] Phone Care Team Providers Care Special Equipment Technician Name Role Phone Sofía Lucas MD Primary Care Provider Self-Referred, Patient Unavailable Unavailab Daniela Valencia MD, MARTHA Unavailable [phone] [facility] Unavailable [phone] Sofía Lucas MD Primary Care Provider [phone] Marcus Henderson PA-C Unavailable [phone] Encounter Details Date Type Department Care Team (Late st Contact Info) Description 10/11/2022 Procedure Pass [facility] Senior Label Specialist [place] [address] [place] [address] Social History Tobacco Use Types Packs/Day Years [...] on filedocumented in this encounter Care Teams Special Equipment Technician Relationship Specialty Start Date End Date Sofía Lucas MD [address] [place] [address] PCP - General 12/11/16 05/14/23 Sofía Lucas MD [address] [place] [phone] PCP - General Internal Medicine 05/15/23 Self-Referred, Patient 10/05/22 Daniela Kiran MD, MARTHA [address] [place] [address] [email or web address] Radiation Oncology 11/02/22 Reny Joseph, [facility] [address] [place] [address] [email or web address]. U Global Implementation Manager Oncology 11/30/22 Marcus Henderson PA-C [address] [place] [address] [email or web address] Physician Supervisor Brine 05/28/23 documented as of this encounter Additional Source Comments The information contained in this document represents components of the legal health record. It is not the complete legal health record.[facility]
--- OUTSIDE RECORDS SUMMARY | 2025-02-11 18:08 | XMS_ITS | Encounter Summary ---
Author Organization [facility] Address [address] [employer] [address] [address] Phone Care Team Providers Care Voice And Data Technician Name Role Phone Self-Referred, Patient Unavailable Unavailab Daniela Valencia MD, MARTHA Unavailable [phone] Reny Joseph Unavailable [phone] Sofía Lucas MD Primary Care Provider [phone] Marcus Henderson PA-C Unavailable [phone] Encounter Details Date Type Department Care Team (Late st Contact Info) Description 05/15/2023 Procedure Pass [address] [address] Social History Tobacco Use Types Packs/Day Years [...] high school, GED, job training, learning the Indonesian language, technical skills, or developing parenting skills)? [...] on filedocumented in this encounter Care Teams Voice And Data Technician Relationship Specialty Start Date End Date Lance Sofía Zamarripa MD [address] [place] [address] [address] [place] [address] PCP - General Internal Medicine 05/15/23 Self-Referred, Patient 10/05/22 Daniela Kiran MD, MARTHA [address] [place] [address] [email or web address] Radiation Oncology 11/02/22 Reny Joseph, [address] [address] [email or web address] U Adult Educator Oncology 11/30/22 Marcus Henderson PA-C [address] [place] [address] [email or web address] Physician Outside Property Agent 05/28/23 documented as of this encounter Additional Source Comments The information contained in this document represents components of the legal health record. It is not the complete legal health record.[facility]
--- OUTSIDE RECORDS SUMMARY | 2025-02-11 18:08 | XMS_ITS | Data Portability ---
Author Organization [facility] Eloy Love [facility], [facility] Address [address] [place] [address] Care Team Providers Care Customer Marketing Intern Name Role Phone PRAKASH MON Primary Care [...] 2023 024 [email or web address] [place], [address], [place], [address], 5 15:23:20 Procedures None recorded. Surgeries None recorded. Imaging XR, wrist, 3 or more view - room 113 3V L wrist 2023 024 [email or web address], [address], [place], [address], 5 15:23:19 XR, wrist, 3 or more view - rm.115 3 v of the L wrist 2023 024 [email or web address] [facility], [address], [address], [place], [address], 4 07:59:37 XR, wrist, 3 or more view - RM 119 3V 2023 024 [email or web address] [facility], [address], [place], [address], 4 15:56:17 Medication Orders None recorded. Patient TargetsNo targets recorded. Patient Instructions Encounter Date Encounter Id Patient Instructions Last Modified By Organization Details Last Modified Time 01/10/2024 application of cast, short arm cast* - RM 119 [facility] [email or web address] Not available 01/13/2024 15:56:17 01/17/[id number] application of cast, short arm cast* leisa [...] 0bqfl% 2Fg9IQ a4ajBk vP9nXo QUaueC m3YtLR [place] [place] [address] 5g5318 AC0Kqa X2DV6K gKiQtr Mw INTERFACE [facility] [address], [place], [address], 01/10/2024 11:13:21 01/10/20 24 01/10/2024 XR, wrist , 3 or more view http:/ [email or web address] ?Encry pted=s hAaTro YD8dLq bEUv6g %2BXZw aYqtaq 0bqfl% 2Fg9IQ a4ajBk vP9nXo QUaueC m3YtLR [place] [address] 4i4632 AC0Kqa X2DV6K gKiQtr MwF INTERFACE [facility] [address], [place], [address], 01/10/2024 11:13:24 01/17/20 24 01/17/2024 XR, wrist , 3 or more view http:/ [email or web address] ?Encry pted=s hAaTro YD8dLq bEUv6g %2BXZw aYqtaq 0bqfl% 2Fg9IQ a4ajBk vP9nXo QUaueC m3YtLR FvZlSt. [facility]'s Medical CenterJ8mAn HZtai3 9e9220 AC0Kqa X6CWae hKiQtr MwF INTERFACE [facility] [address] [facility] [address] [address], [place], [address], 01/17/2024 12:04:14 01/17/20 24 01/17/2024 XR, wrist , 3 or more view http:/ [email or web address] ?Encry pted=s hAaTro YD8dLq bEUv6g %2BXZw aYqtaq 0bqfl% 2Fg9IQ a4ajBk vP9nXo QUaueC m3YtLR FvZlJ JJ8Bryan HZtai3 9c9939 AC0Kqa X6CWae hKiQtr MwF INTERFACE [facility] [address] [address], [place], [address], 01/17/2024 12:04:16 02/07/20 24 02/07/2024 XR, wrist , 3 or more view http:/ [email or web address] ?Encry pted=s hAaTro YD8dLq bEUv6g %2BXZw aYqtaq 0bqfl% 2Fg9IQ a4ajBk vP9nXo QUaueC m3YtLR FvZlgJ JJ8mAn HZtai3 8x4427 AC0Kqb nyMWKa uKiQtr MwF INTERFACE [facility] [address] [address], [place], [address], 02/07/2024 10:33:47 02/07/20 24 02/07/2024 XR, wrist , 3 or more view [email or web address]:/ [email or web address] ?Encry pted=s hAaTro YD8dLq bEUv6g %2BXZw aYqtaq 0bqfl% 2Fg9IQ a4ajBk vP9nXo QUaueC m3YtLR FvZlgJ JJ8mAn HZtai3 6e2431 AC0Kqb nyMWKa uKiQtr MwF INTERFACE [facility] [address] [facility] [address], [place], [address], 02/07/2024 10:33:49 Result Notes Documentation Provider Name and Address Organization Details Recorded Time Xr, Wrist, 3 Or More View : [email or web address]? Encrypted=izGgSqzBF7uTktR Uv6g%1YFFabFprzr2pqff%2Fg 2WNi4raIlkM2qOvEFicgOh6Zb RAReGsaVRP9xWfGFlzy09u439 3JG6UdfS3PI9WqHdBvlVoK Not Available [facility] 01/10/2024 11:13: 22 Xr, Wrist, 3 Or More View : [email or web address]? Encrypted=lfUxKfaDQ3xUydB Uv6g%5TBRwxGmqvx5cfwk%2Fg 7OHq0pvOffM0eUsORpdpYj5Yo FLQkFhhVFW5rIwQLobl27v825 1RT8XydF1YN7YmOpTyuKtV Not Available [facility] 01/10/2024 11:13: 25 Xr, Wrist, 3 Or More View : [email or web address]? Encrypted=rgGdYeyUA8gAbgZ Uv6g%1KHJgpGaksz4zgwt%2Fg 6SZx8psSjbE7fIiETqpiAl3Te LIYcLjzZVV7jMhLPjgd81g785 1IK9PyuX5UHeqxHmAkiWrK Not Available [facility] 01/17/2024 12:04: 14 Xr, Wrist, 3 Or More View : [email or web address]? Encrypted=bfRdMylOM4jUboD Uv6g%4SLHkeZeoes0exxl%2Fg 6FVu5ijUpsO1tHcVAjugZg5Lm ENKzMndJFD7iBbLWohg75d881 3ZX1SffW5EUidaJvAwhQvY Not Available [facility] 01/17/2024 12:04: 16 Xr, Wrist, 3 Or More View : [email or web address]? Encrypted=nbPnIazWK9tYmoV Uv6g%0ZKNlrHdjfy7xjxn%2Fg 3ZXi8xuRatP1oQjAEbabNj3Yj YGQcJewQSC3wZpYCgfs82x376 7FP6AjtklSVMyiHsXfnYnT Not Available [facility] 02/07/2024 10:33: 47 Xr, Wrist, 3 Or More View : [email or web address]? Encrypted=qjVhVivFC9qLkdG Uv6g%5OMJzvHnezv9xriw%2Fg 0LYr3pbMyoW8mOcPSvpaXi0Wl FSWmWgxKNZ4tSoUHjvn67u045 9NY6YwldnMUQbbOpKdgRbF Not Available [facility] 02/07/2024 10:33: 49 Medical Equipment None Reported. [...] Updated DateTime 01/10/2024 162.56 cm 33.5 kg/m2 95802.51 g SONY MAJOR [facility] 01/10/2024 11:04:19 Date Recorded Body height Body mass index (BMI) Body weight Provider Name and Address Organization Details Last Updated DateTime 01/17/2024 162.56 cm 34.3 kg/m2 39519.47 g connie spencer [facility] 01/17/2024 11:50:48 Date Recorded Body height Body mass index (BMI) Body weight Provider Name and Address Organization Details Last Updated DateTime 02/07/2024 162.56 cm 34.3 kg/m2 80615.47 g STEFANI ECKERT [facility] 02/07/2024 10:14:34 Social History None recorded. Functional Status None recorded. Mental Status None recorded. Family History Nothing Reported. Medical History No medical history recorded. Gynecological HistoryNo gynecological history recorded. Obstetrics History GPAL:G 0 P 0 0 0 0 Past Encounters Encounter ID Performer Location Encounter Start Date Encounter Closed Date Diagnosis/Indication Diagnosis SNOMED-CT Code Diagnosis ICD10 Code Diagnosis IMO Codes Diagnosis Note [id number] MANUELITO Jeffers [address] [place] [address] 01/10/2024 10:35:31 01/29/2024 10:07:21 Pain of left wrist 3727122592 91321 M25.532 [id number] MD Yu Laws [address] [place] [address] 01/17/2024 11:18:11 02/05/2024 07:59:37 Pain of left wrist 7049348670 52797 M25.532 [id number] Closed Col les' fracture 393668709 S52.532D [id number] MD Yu Laws [address] [place] [address] 02/07/2024 10:01:00 02/27/2024 15:23:19 Pain of left wrist 8801227566 27061 M25.532 [id number] Closed Col les' fracture 683103235 S52.532D [id number] Health Concerns Section Related Observation LastModified by Organization Detai ls LastModified Time None Recorded Concern Status LastModified by Organization Details LastModified Time None Recorded Advance Directives Directive None Recorded Payers Insurance Date Sequence Insurance Name Policy Number Policy Alvarado Covered Member ID Alvarado Member ID Guarantor Name 03/27/2024 2 [place] [facility] Maya Cain [id number] Maya Cain 02/27/2024 1 [employer] (MEDICARE REPLACEMENT/A DVANTAGE - PPO) [id number] Maya Cain [id number] Maya Cain Notes Date Note Type Note [...] ordered, obtained and reviewed at [facility] m3 views left wrist reveals a [...] motion and strengthening. Tabitha Redman PA-C [address], [place], [address], [facility] 01/10/2024 13:48:27 01/17/2024 text/html ROS as noted in the HPI DX: Left distal radius An ulnar styloid process fracture 12/30/2023Left-sided hemiparesis from previous CVA HPI:63-year-old female here for orthopedic consultation. Patient fell onto the outstretched hand and injured the left wrist. Fracture is being treated conservatively. She has been in a splint Latanya Hughes MD [address] [employer], [place], [address], [facility] 01/17/2024 17:00:21 02/07/2024 [...] quickly fell off. Latanya Hughes MD [address] [facility] [address], [place], [address], [facility] 02/07/2024 12:27:02 OBGyn Episode No OBEpisode recorded.
--- OUTSIDE RECORDS SUMMARY | 2025-02-11 18:09 | XMS_ITS | Encounter Summary ---
Author Organization [facility] Address [address] [address] Phone Care Team Providers Care Museum Director Name Role Phone Self-Referred, Patient Unavailable Unavailab Daniela Valencia MD, MARTHA Unavailable [phone] Reny Joseph Unavailable [phone] Sofía Lucas MD Primary Care Provider [phone] Marcus Henderson PA-C Unavailable [phone] Encounter Details Date Type Department Care Team (Late st Contact Info) Description 05/15/2023 Procedure Pass [facility], Ct Scan - [address] [address] Social History Tobacco Use Types Packs/Day Years [...] high school, GED, job training, learning the Iranian language, technical skills, or developing parenting skills)? [...] on filedocumented in this encounter Care Teams Museum Director Relationship Specialty Start Date End Date Lance Sofía Zamarripa MD [address] [place] [address] Drive [address] [place] [phone] PCP - General Internal Medicine 05/15/23 Self-Referred, Patient 10/05/22 Daniela Kiran MD, MARTHA [address] [place] [id number] [email or web address] [email or web address] Oncology 11/02/22 Reny Joseph, [address] [id number] [email or web address] Supervisor Oncology 11/30/22 Marcus Henderson PA-C [address] [place] [phone] [email or web address] Physician Pencil Inspector 05/28/23 documented as of this encounter Additional Source Comments The information contained in this document represents components of the legal health record. It is not the complete legal health record.[facility]
== END 2025-02-11 08:37 | disposition home or self-care (01) ==
LOC: HO.LNP 08:36
PROVIDERS: PCP Internal Medicine; Visit Provider Urology
DX: N31.8 Other neuromuscular dysfunction of bladder (principal); N39.41 Urge incontinence; N32.81 Overactive bladder; R39.9 Unspecified symptoms and signs involving the genitourinary system; Z86.73 Personal history of transient ischemic attack (TIA), and cerebral infarction without residual deficits
CPT/HCPCS: 51798; 81001; 81003; 87086; 99212